=== PATIENT | female | born 1935 | race Caucasian/White ===

== ENCOUNTER → 2017-10-27 14:38 | Outpatient (CLI) | payer MEDICARE, SELFPAY | PROVIDERS: PCP Internal Medicine; Visit Provider Internal Medicine | DX: M85.852 Other specified disorders of bone density and structure, left thigh (principal) | CPT/HCPCS: 77080 ==

== ENCOUNTER → 2018-07-14 12:48 | Outpatient (CLI) | payer MEDICARE, SELFPAY ==
--- NOTE | 2018-07-14 | DI.RAD.S_ITS ---
PROCEDURE: XR KNEE LT 3V INDICATIONS: pain in left knee TECHNIQUE: 3 views of the knee were acquired. COMPARISON: [facility], RG, XR KNEES BILATERAL, 04/22/2006, 16:15. [facility], CR, KNEE 3V RIGHT, 10/08/2006, 16:03. FINDINGS: Bones: No fractures or dislocations. No suspicious bony lesions. Severe narrowing of the medial joint space. There is extensive subchondral sclerosis and osteophyte formation. Mild narrowing of the lateral joint space. Soft tissues: No joint effusion. No suspicious soft tissue calcifications. IMPRESSION: Severe left knee joint degeneration, which has progressed since 04/22/06 Dictated by: Cezar Osorio M.D. on 07/14/2018 at 14:16 Approved by: Cezar Osorio M.D. on 07/14/2018 at 14:18
== END ==
PROVIDERS: PCP Internal Medicine; Visit Provider Internal Medicine
DX: M25.562 Pain in left knee (principal); M17.12 Unilateral primary osteoarthritis, left knee
CPT/HCPCS: 73562

== ENCOUNTER → 2018-07-15 15:48 | Outpatient (REF) | payer MEDICARE, SELFPAY | LOC: LAB 15:48 | PROVIDERS: PCP Internal Medicine; Visit Provider Internal Medicine | DX: M25.562 Pain in left knee (principal) | CPT/HCPCS: 87070; 87075; 87205 ==

== ENCOUNTER 2018-08-26 16:52 | Emergency (ER) | payer OTHER, MEDICARE, SELFPAY ==
[2018-08-26 16:56] VITALS: BP 156/63; PULSE 59; RESP 20; TEMP 36.3; O2SAT 97
[2018-08-26 17:03] VITALS: BP 156/63; PULSE 59; RESP 20; TEMP 36.3; O2SAT 97
[2018-08-26 19:27] VITALS: PULSE 60
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
[2018-08-26] MEDS: TET,DIPH,PERTUSS(ACELL),VAC/PF 0.5 ML SYRINGE IM (19:48)
[2018-08-26 20:46] VITALS: BP 144/71; PULSE 56; RESP 16; O2SAT 98
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
== END 2018-08-26 21:16 | disposition home or self-care (01) ==
PROVIDERS: Emergency Provider Nurse Practitioner Family; PCP Internal Medicine
DX: S51.012A Laceration without foreign body of left elbow, initial encounter (principal); V49.9XXA Car occupant (driver) (passenger) injured in unspecified traffic accident, initial encounter; Z23 Encounter for immunization
CPT/HCPCS: 73070; 90471; 99283; 90715

== ENCOUNTER 2019-02-24 10:42 | Observation (INO) | payer MEDICARE, SELFPAY ==
--- NOTE | 2019-02-24 10:43 | DI.RAD.S_ITS ---
PROCEDURE: XR HIP W PEL IF DONE RT 2V INDICATIONS: fall with hip pain TECHNIQUE: AP pelvis with lateral view(s) of the right hip(s). COMPARISON: None. FINDINGS: Bones: No fractures or dislocations. Pelvic ring appears intact. No suspicious bony lesions. Mild bilateral hip degenerative change. Soft tissues: The visualized bowel gas pattern is normal. No suspicious soft tissue calcifications. IMPRESSION: No evidence acute bony abnormality of the pelvis and right hip. Bilateral hip degenerative change. Dictated by: Immanuel Irwin M.D. on 02/24/2019 at 11:08 Approved by: Immanuel Irwin M.D. on 02/24/2019 at 11:09
--- NOTE | 2019-02-24 10:51 | ED.LOWEXIN ---
HPI - Extremity Injury (Lower) General Chief Complaint: Fall Stated Complaint: GLF Time Seen by Provider: 02/24/19 10:43 Source: patient and family Mode of arrival: wheelchair Limitations: no limitations History of Present Illness HPI Narrative: 83-year-old female nonsmoker with diabetes and hypertension presents with the chief complaint of severe right hip pain after mechanical fall. She tripped and fell onto her right hip and now has significant pain with ambulation. She denies any head neck or back pain. She has no numbness, tingling or weakness. She denies any dizziness, chest pain or other contributing symptoms to her fall. She states she merely got her feet tangled up and tripped MD complaint: hip injury Onset (ago): day(s) Type of Injury: blunt Place: home Severity: moderate Relieving factors: rest Exacerbating factors: weight bearing and movement Context: fall Other symptoms: none Related Data Home Medications Medication Instructions Recorded Confirmed CHOLECALCIFEROL (VITAMIN D3) 1,000 units PO QDAY #0 05/02/11 02/24/19 (Vitamin D) CYANOCOBALAMIN (#VITAMIN B12) 250 mcg PO QDAY #0 05/02/11 02/24/19 furosemide [Lasix] 20 mg PO QDAY #0 05/02/11 02/24/19 lisinopril 40 mg PO QDAY #0 05/02/11 02/24/19 metformin [Glucophage] 850 mg PO BID #0 05/02/11 02/24/19 metoprolol tartrate 100 mg PO BID #0 05/02/11 02/24/19 amitriptyline 50 mg PO DAILY 02/24/19 02/24/19 amlodipine 5 mg PO DAILY 02/24/19 02/24/19 magnesium oxide 400 mg PO BID 02/24/19 02/24/19 Allergies Allergy/AdvReac Type Severity Reaction Status Date / Time oxycodone [OXYCODONE] Allergy Intermediate DIZZINESS Unverified 09/17/17 12:06 prednisone [PREDNISONE] Allergy Mild CONFUSION Unverified 09/17/17 12:06 Review of Systems Constitutional Constitutional: Denies chills, Denies fatigue, Denies fever(s), Denies frequent falls, Denies lethargy and Denies weakness Eyes Eyes: Denies change in vision, Denies eye discharge, Denies irritation and Denies loss of vision ENT Ears, Nose, Mouth, and Throat: Denies change in voice, Denies dizziness, Denies neck pain, Denies sore throat and Denies throat swelling Cardiovascular Cardiovascular: Denies chest pain, Denies irregular heart rhythm, Denies lightheadedness, Denies palpitations, Denies dyspnea, Denies dyspnea on exertion and Denies orthopnea Respiratory Respiratory: Denies cough, Denies dyspnea, Denies dyspnea on exertion and Denies wheezing Gastrointestinal Gastrointestinal: Denies abdominal pain, Denies change in bowel habits, Denies diarrhea, Denies nausea and Denies vomiting Genitourinary Genitourinary: Denies hematuria, Denies flank pain, Denies urinary incontinence and Denies urinary urgency Musculoskeletal Musculoskeletal: Denies back pain, Reports limited range of motion, Denies muscle weakness, Denies neck pain, Denies numbness and Denies tingling Integumentary/Breasts Skin/Breast: Denies pruritus, Denies erythema, Denies rash and Denies wounds Neurologic Neurologic: Denies behavioral changes, Denies confusion, Denies dizziness, Denies frequent falls, Denies loss of vision, Denies numbness, Denies tingling and Denies weakness Psychiatric Psychiatric: Denies anxiety, Denies behavioral changes, Denies confusion, Denies depression, Denies homicidal ideation and Denies suicidal ideation Endocrine Endocrine: Denies fatigue, Denies flushing and Denies palpitations Hematologic/Lymphatic Hematologic/Lymphatic: Denies easy bruising Allergic/Immunologic Allergic/Immunologic: Denies urticaria, Denies throat swelling and Denies wheezing [facility] Social History Smoking Status: Former smoker Social History Smoking Status: Former smoker Exam Narrative Exam Narrative: GENERAL: [83] year old patient appears stated age. Well-nourished, well-developed patient, in mild distress. HEAD: Atraumatic. Normocephalic. EYES: Pupils equal round and reactive. Extraocular motions intact. No scleral icterus. No injection or drainage. ENT: Nose without bleeding, purulent drainage. Throat without erythema, tonsillar hypertrophy or exudate. Airway patent. NECK: Trachea midline. Non tender CARDIOVASCULAR: Regular rate and rhythm without murmurs, gallops, or rubs. RESPIRATORY: Clear to auscultation. Breath sounds equal bilaterally. No wheezes, rales, or rhonchi. GASTROINTESTINAL: Abdomen soft, non-tender, nondistended. EXTREMITIES: No edema or joint tenderness. BACK: Nontender without deformity or crepitance. No flank tenderness. NEURO: AOx3. SKIN: No rash or erythema of visible areas Initial Vital Signs Initial Vital Signs: Vital Signs Temperature 98.1 F 02/24/19 11:23 Pulse Rate 57 L 02/24/19 11:23 Respiratory Rate 16 02/24/19 11:23 Blood Pressure 177/73 H 02/24/19 11:23 Pulse Oximetry 100 02/24/19 11:23 Course Orders Ordered: ED Orders 02/24/19 10:43 XR hip w pel if done RT 2V Stat 02/24/19 11:50 CT pelvis wo con Stat 02/24/19 15:32 Basic Metabolic Panel Stat Complete Blood Count AUTO DIFF Stat Vital Signs Vital signs: Vital Signs - 8 hr 02/24/19 11:23 02/24/19 12:00 02/24/19 15:10 Temperature 98.1 F Pulse Rate 57 L 58 L 57 L Respiratory Rate 16 15 Blood Pressure 177/73 H Blood Pressure [Right Arm] 176/60 H 170/54 H Pulse Oximetry 100 98 97 02/24/19 16:07 Temperature Pulse Rate 58 L Respiratory Rate 16 Blood Pressure Blood Pressure [Right Arm] 144/59 H Pulse Oximetry 98 MDM - Extremity Injury (Lower) Lab Data Result diagrams: 02/24/19 15:32 02/24/19 15:32 Labs: Lab Results 02/24/19 02/24/19 Range/Units 15:32 15:32 WBC 11.0 (4.5-11.0) X10^3/uL RBC 3.89 L (4.0-5.2) X10^6/uL Hgb 11.8 L (12.0-16.0) g/dL Hct 34.1 L (36-46) % MCV 87.7 (80-100) fL MCH 30.2 (26-34) PG MCHC 34.5 (30-36) % RDW 13.2 (11.6-14.8) % Plt Count 133 L (150-400) X10^3/uL Neut % (Auto) 77.5 H (50-75) % Lymph % (Auto) 9.5 L (25-40) % [place] % (Auto) 8.3 (3-14) % Eos % (Auto) 4.1 H (2-4) % Baso % (Auto) 0.6 (0-2) % Neut # (Auto) 8500 H (8946-3449) /uL Lymph # (Auto) 1000 L (8439-6045) /uL [place] # (Auto) 900 (0-900) /uL Eos # (Auto) 400 (0-450) /uL Baso # (Auto) 100 (0-100) /uL Sodium 137 (137-145) mmol/L Potassium 3.5 (3.4-5.1) mmol/L Chloride 105 (98-107) mmol/L Carbon Dioxide 23 (22-32) mmol/L BUN 21 H (7-17) mg/dL Creatinine 1.00 (0.52-1.04) mg/dL Estimated GFR 53.1 L (>60) mL/min BUN/Creatinine Ratio 21.0 (6-22) Glucose 103 (80-110) mg/dL Calcium 9.1 (8.4-10.2) mg/dL Imaging Data Hip Xray: Radiologist's impression: Accession Number: [id number] Procedure: XR hip w pel if done RT 2V Ordering Provider: Jesus Marshall D.O. PROCEDURE: XR HIP W PEL IF DONE RT 2V INDICATIONS: fall with hip pain TECHNIQUE: AP pelvis with lateral view(s) of the right hip(s). COMPARISON: None. FINDINGS: Bones: No fractures or dislocations. Pelvic ring appears intact. No suspicious bony lesions. Mild bilateral hip degenerative change. Soft tissues: The visualized bowel gas pattern is normal. No suspicious soft tissue calcifications. IMPRESSION: No evidence acute bony abnormality of the pelvis and right hip. Bilateral hip degenerative change. Dictated by: Immanuel Irwin M.D. on 02/24/2019 at 11:08 Approved by: Immanuel Irwin M.D. on 02/24/2019 at 11:09 CT scan - pelvis: Radiologist's impression: Chart Viewer Diagnostics DATE TYPE STATUS AUTHOR Hx 02/24/19 11:50 Guera Magallon 02/24/19 10:43 Immanuel Irwin 08/26/18 19:46 Miguelangel Stephenson 07/14/18 00:00 Cezar Osorio Carol A 83, F1935 ADM JOLLY, Main ED R07 63.503kg Search Chart No Data to Display NF - Not included in interaction checking DIZZINESS CONFUSION No Data to Display Today 16:07 Liz Kaba 83 F [address] [address] [address] Scan Report Signed Patient: Liz Kaba AMR#: [id number] : 1935cct:[id number] Age/Sex: 83 / FDate of Service: 02/24/19 Loc: ED Accession Number: [id number] Procedure: CT pelvis wo con Ordering Provider: Jesus Marshall D.O. PROCEDURE: CT PEL WO CON INDICATIONS: fall with hip pain TECHNIQUE: Noncontrast 3 mm axial sections acquired through the bony pelvis, with coronal and sagittal reformatting. COMPARISON: [facility], CR, XR HIP W PEL IF DONE RT 2V, 02/24/2019, 10:47. FINDINGS: Image quality: Excellent. Bones: There is a slightly comminuted, minimally displaced right inferior pubic ramal fracture. The right hip demonstrates normal alignment without fracture. There is moderate degenerative joint disease in the hips and sacroiliac joints. No fractures in the lower lumbar spine or sacrum. There is grade one anterolisthesis at L4-L5 and L5-S1. Degenerative disc and facet disease in the lower lumbar spine. Soft tissues: There is no soft tissue mass or hematoma. There are colonic diverticula. Mild atherosclerotic calcifications noted. Uterus is surgically absent. IMPRESSION: 1. Slightly comminuted right inferior pubic ramal fracture. 2. Degenerative disc and facet disease in the lumbar spine. 3. 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 Dictated by: Darrel Magallon M.D. on 02/24/2019 at 12:35 Approved by: Darrel Magallon M.D. on 02/24/2019 at 12:46 MDM Narrative Medical decision making narrative: Patient with ground level fall has significant pain with ambulation. X-ray had no significant findings but given pain with ambulation is CT was ordered which noted pubic rami fracture. She lives at home at her son's house whom works a very long hours, ambulates with a walker at baseline and has multiple steps to go up and down. She is unfit for discharge given her inability to safely ambulate Discharge Plan Departure Patient Disposition: Admitted as Observation Clinical Impression: Closed fracture of pubic ramus Admit Date/Time: 02/24/19 18:47 Admit Provider: Piper Palomares
[2019-02-24 11:23] VITALS: BP 177/73; PULSE 57; RESP 16; TEMP 36.7; O2SAT 100
--- NOTE | 2019-02-24 11:28 | PC.NURSE ---
pt has + distal CSM on right arm and right leg
--- NOTE | 2019-02-24 11:50 | DI.CT.S_ITS ---
PROCEDURE: CT PEL WO CON INDICATIONS: fall with hip pain TECHNIQUE: Noncontrast 3 mm axial sections acquired through the bony pelvis, with coronal and sagittal reformatting. COMPARISON: [facility], CR, XR HIP W PEL IF DONE RT 2V, 02/24/2019, 10:47. FINDINGS: Image quality: Excellent. Bones: There is a slightly comminuted, minimally displaced right inferior pubic ramal fracture. The right hip demonstrates normal alignment without fracture. There is moderate degenerative joint disease in the hips and sacroiliac joints. No fractures in the lower lumbar spine or sacrum. There is grade one anterolisthesis at L4-L5 and L5-S1. Degenerative disc and facet disease in the lower lumbar spine. Soft tissues: There is no soft tissue mass or hematoma. There are colonic diverticula. Mild atherosclerotic calcifications noted. Uterus is surgically absent. IMPRESSION: 1. Slightly comminuted right inferior pubic ramal fracture. 2. Degenerative disc and facet disease in the lumbar spine. 3. 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 Dictated by: Darrel Magallon M.D. on 02/24/2019 at 12:35 Approved by: Darrel Magallon M.D. on 02/24/2019 at 12:46
[2019-02-24 12:00] VITALS: BP 176/60; PULSE 58; RESP 15; O2SAT 98
[2019-02-24 15:10] VITALS: BP 170/54; PULSE 57; O2SAT 97
[2019-02-24 15:42] LABS: Add Manual Diff / Slide Review NO; Basophils Absolute Auto 100 /uL (0-100); Basophils Percent Auto 0.6 % (0-2); Eosinophils Absolute Auto 400 /uL (0-450); Eosinophils Percent Auto 4.1 % (2-4); Hematocrit 34.1 % (36-46); Hemoglobin 11.8 g/dL (12.0-16.0); Lymphocytes Absolute Auto 1000 /uL (1100-4500); Lymphocytes Percent Auto 9.5 % (25-40); Mean Corpuscular HGB Conc 34.5 % (30-36); Mean Corpuscular Hemoglobin 30.2 PG (26-34); Mean Corpuscular Volume 87.7 fL (80-100); Monocytes Absolute Auto 900 /uL (0-900); Monocytes Percent Auto 8.3 % (3-14); Neutrophils Absolute Auto 8500 /uL (1500-7000); Neutrophils Percent Auto 77.5 % (50-75); Platelet Count 133 X10^3/uL (150-400); Red Blood Cell Count 3.89 X10^6/uL (4.0-5.2); Red Cell Distribution Width 13.2 % (11.6-14.8)
[2019-02-24 16:07] VITALS: BP 144/59; PULSE 58; RESP 16; O2SAT 98
[2019-02-24 16:26] LABS: Blood Urea Nitrogen 21 mg/dL (7-17); Calcium 9.1 mg/dL (8.4-10.2); Carbon Dioxide 23 mmol/L (22-32); Chloride 105 mmol/L (98-107); Estimated Glomerular Filt Rate 53.1 mL/min (>60); Glucose 103 mg/dL (80-110); HEMOLYSIS < 15 (0-50); Potassium 3.5 mmol/L (3.4-5.1); Sodium 137 mmol/L (137-145)
[2019-02-24 19:49] VITALS: BMI 23.3
[2019-02-24 19:58] VITALS: BP 180/67; PULSE 65; RESP 20; TEMP 36.7
--- NOTE | 2019-02-24 21:11 | PC.NURSE ---
Pt arrived from ED @ 1940 Alert/oriented. States some pain in right hip from fall at home. HL intact. Pt lungs clear/diminished, at bases. SpO2 95% RA Pt and familynorineted to room and call system. Call liths w/in reach, bed alarm on for pt safety. Continue w/plan of care.
--- NOTE | 2019-02-24 21:14 | P.HP_ITS ---
History of Present Illness History of Present Illness Date Patient Seen: 02/24/19 Time Patient Seen: 21:14 Chief complaint: GLF Narrative: Ms Liz Lopez is an 83-year-old female with history significant for hypertension, diabetes type 2 and hyperthyroidism status post thyroidectomy who presents to the ER following a ground level fall with right hip pain. The patient states she was getting up at 2:00 a.m. to go to the bathroom when she stumbled and fell landing on her right side. The patient lives with her son required assistance to get back to bed. In the morning she states it was more difficult to move with increased pain with movement and more so attempts to ambulate. She further admits that it felt like neither leg worked right. She denies loss of consciousness and remembers the event. She complains of mild neck pain but no back pain. She reports coughing and chills with a sore throat for the last 2 days and states her son has been coughing as well. She reports no subjective fevers, headaches or dizziness. She denies chest pain or palpitations, shortness of breath or wheezing. She denies abdominal pain and has had no nausea. She reports no urinary symptoms and has occasional constipation. Patient is normally ambulatory with a walker at baseline and is status post right total knee replacement. Upon arrival to the ER the patient was afebrile with temperature 98.1?, hypertensive 177/73, heart rate 57, respirations 16 saturating 100% on room air. Imaging was obtained of the right hip which notifies bilateral degenerative hip disease without bony abnormality. A pelvic CT was obtained which found a slight comminuted fracture of the right inferior pubic ramus, degenerative disc disease and foraminal disease of the lumbar spine. On laboratory analysis the patient has white count of 11.0, hemoglobin 11.8 and hematocrit of 34.1 with platelets of 133. On chemistry, her electrolytes are within acceptable range with a BUN of 21 and creatinine 1.0. Her nonfasting glucose is 103. The patient is admitted to the hospital for pelvic fracture. Patient History Medical History Diabetes type 2, controlled (Acute) Hypertension (Acute) Hyperthyroidism (Acute) Surgical History History of hysterectomy (Acute) History of thyroidectomy (Acute) History of total knee arthroplasty (Acute) Social History household members: family Smoking Status: Former smoker Family & Social History Social History: household members family Prior Living Arrangements House Safety & Behavioral: Feels Safe in Current Yes Environment Been Physically Hurt or No Threatened By a Person Suicidal Ideation Description None Suicide Plan Description No Plan Tobacco & Substance use: Smoking Status Former smoker alcohol intake frequency 0-2 drinks per day Substance Use Type does not use Comment: The patient is since 1978 presently lives with her son in a single level single family home which has 2 steps at the entry. Her father was a heavy smoker and from emphysema. Her mother had stomach cancer. She has brother had cancer of the throat and 2 sisters whom she describes as in good health. Smoking: Patient never smoked Alcohol: The patient endorses a glass of wine approximately once per month. Substance use: Patient denies recreational pharmaceuticals, herbal or cannabis products. Advanced directives: Patient states she has formal advanced directives and indicates her wish to be DO NOT RESUSCITATE. She designates her son to be her surrogate decision maker. Meds Home Medications and Allergies Home Medications Medication Instructions Recorded Confirmed Type CHOLECALCIFEROL (VITAMIN D3) 1,000 units PO QDAY #0 05/02/11 02/24/19 History (Vitamin D) CYANOCOBALAMIN (#VITAMIN B12) 250 mcg PO QDAY #0 05/02/11 02/24/19 History furosemide [Lasix] 20 mg PO QDAY #0 05/02/11 02/24/19 History lisinopril 40 mg PO QDAY #0 05/02/11 02/24/19 History metformin [Glucophage] 850 mg PO BID #0 05/02/11 02/24/19 History metoprolol tartrate 100 mg PO BID #0 05/02/11 02/24/19 History amitriptyline 50 mg PO DAILY 02/24/19 02/24/19 History amlodipine 5 mg PO DAILY 02/24/19 02/24/19 History magnesium oxide 400 mg PO BID 02/24/19 02/24/19 History Allergies Allergy/AdvReac Type Severity Reaction Status Date / Time oxycodone [OXYCODONE] Allergy Intermediate DIZZINESS Unverified 09/17/17 12:06 prednisone [PREDNISONE] Allergy Mild CONFUSION Unverified 09/17/17 12:06 Review of Systems Review of Systems ROS Unobtainable: All systems reviewed & are unremarkable except as noted in HPI and below Exam Vital Signs (past 8 hours): - 02/24/19 16:07 02/24/19 19:58 Temperature 98.1 F Pulse Rate 58 L 65 Respiratory Rate 16 20 Blood Pressure 180/67 H Blood Pressure [Right Arm] 144/59 H Pulse Oximetry 98 Oxygen Delivery Method Room Air Narrative Exam Narrative: GENERAL APPEARANCE: well developed, well nourished, lying supine in bed in no acute distress. HEENT: Normocephalic, atraumatic, PERRLA, conjunctiva clear, EOMs intact without nystagmus, no sinus tenderness to percussion, no rhinorrhea, mucous membranes are moist and pink without lesions or exudate. NECK/THYROID: neck supple, no JVD, no carotid bruit, trachea midline. LYMPH NODES: no cervical or supraclavicular lymphadenopathy. SKIN: warm and dry, no suspicious lesions, no rashes, good turgor. HEART: regular rate and rhythm, S1-S2, no murmur, no rubs or gallops, brisk capillary refill, no edema LUNGS: Central coarseness, no crackles or wheezing, non productive cough pres ent CHEST: Symmetrical movement, no accessory muscle use, no pain to AP and lateral compression. ABDOMEN: Soft, no distention, no epigastric or abdominal tenderness on palpation, no guarding or peritoneal signs, no organomegaly, no flank or suprapubic tenderness, active bowel tones. BACK: nontender to palpation EXTREMITIES: Contusion right lateral elbow extending proximal and distal to the joint without crepitus or loss of movement, panel on palpation anterior lateral right hip, pain with movement, distal CMS intact NEUROLOGIC: AAO x4, no focal neurologic deficits, sensory exam intact to light touch, hearing grossly normal to speech. PSYCH: alert, cognitive function intact, good eye contact, appropriate with stable behavior Objective Labs Result Diagrams: 02/24/19 15:32 02/24/19 15:32 Labs: Laboratory Results - last 24 hr 02/24/19 02/24/19 02/24/19 15:32 15:32 15:32 WBC 11.0 RBC 3.89 L Hgb 11.8 L Hct 34.1 L MCV 87.7 MCH 30.2 MCHC 34.5 RDW 13.2 Plt Count 133 L Neut % (Auto) 77.5 H Lymph % (Auto) 9.5 L [place] % (Auto) 8.3 Eos % (Auto) 4.1 H Baso % (Auto) 0.6 Neut # (Auto) 8500 H Lymph # (Auto) 1000 L [place] # (Auto) 900 Eos # (Auto) 400 Baso # (Auto) 100 Sodium 137 Potassium 3.5 Chloride 105 Carbon Dioxide 23 BUN 21 H Creatinine 1.00 Estimated GFR 53.1 L BUN/Creatinine Ratio 21.0 Glucose 103 Calcium 9.1 Magnesium 1.1 L Chlamy pneumoniae PCR Adenovirus (PCR) B.parapertussis DNA PCR Coronavirus OC43 (PCR) Coronavirus HKU1 (PCR) Coronavirus 229E (PCR) Coronavirus NL63 (PCR) Human Metapneumovir PCR Influenza Type A (PCR) Influenza Type B (PCR) M. pneumoniae (PCR) Parainfluenza 1 (PCR) Parainfluenza 2 (PCR) Parainfluenza 3 (PCR) Parainfluenza 4 (PCR) RSV (PCR) Entero/Rhino (PCR) 02/24/19 22:25 WBC RBC Hgb Hct MCV MCH MCHC RDW Plt Count Neut % (Auto) Lymph % (Auto) [place] % (Auto) Eos % (Auto) Baso % (Auto) Neut # (Auto) Lymph # (Auto) [place] # (Auto) Eos # (Auto) Baso # (Auto) Sodium Potassium Chloride Carbon Dioxide BUN Creatinine Estimated GFR BUN/Creatinine Ratio Glucose Calcium Magnesium Chlamy pneumoniae PCR Not detected Adenovirus (PCR) Not detected B.parapertussis DNA PCR Not detected Coronavirus OC43 (PCR) Not detected Coronavirus HKU1 (PCR) Not detected Coronavirus 229E (PCR) Not detected Coronavirus NL63 (PCR) Not detected Human Metapneumovir PCR Not detected Influenza Type A (PCR) Not detected Influenza Type B (PCR) Not detected M. pneumoniae (PCR) Not detected Parainfluenza 1 (PCR) Not detected Parainfluenza 2 (PCR) Not detected Parainfluenza 3 (PCR) Not detected Parainfluenza 4 (PCR) Not detected RSV (PCR) Not detected Entero/Rhino (PCR) Detected H Assessment & Plan Assessment & Plan narrative: This is an 83-year-old female patient who sustained a ground level fall and sustaining a fracture of the inferior pubic rami. 1. Acute fracture of the inferior pelvic rami, pathologic, present on admission, active -the patient is stained ground level fall resulting in a pelvic fracture with a comminuted inferior pelvic rami consistent with osteoporosis. -the patient resides with her son who is a part-time caregiver infarcts a full- time job. -she is ambulatory with a walker at baseline and is unable to mobilize due to pain. -Tylenol 650 mg schedule 3 times daily. -patient allergic to oxycodone, hydromorphone 0.5 mg IV as needed for pain. -PT and OT to evaluate and treat 2. Osteoporosis, unknown if acute or chronic, present on admission, active. -patient with osteoporosis by definition of fracture from ground level fall. -will increase patient's home regimen of vitamin D3 2000 mg daily -calcium 600 mg twice daily with dietary consult to achieve calcium 1200 mg daily from diet and supplements sources. 3. Essential Hypertension, chronic, present on admission, active -blood pressure on admission is 177/73 improved to 139/64 on the floor. -continue patient's home regimen of amlodipine 5 mg daily, lisinopril 40 mg daily, metoprolol tartrate 100 mg twice daily and Lasix 20 mg daily. 4. Diabetes, type 2, non insulin dependent, controlled, present on admission, stable -the patient has been taking metformin 850 mg twice daily. Last hemoglobin A1c was 6.6 on 10/20/2017. -Accu-Cheks AC and HS with correctional insulin low scale. 5. Acute Rhinoviris, present on admission, active -the patient is afebrile, coarse breath sounds centrally with nonproductive moist cough. -respiratory panel obtained showing positive for rhino virus -guaifenesin 600 mg every 12 hours as needed for cough. The patient is admitted to the hospital due to self-care deficits secondary to pain related to her pelvic fracture, risk for recurrent falls and adverse events. The patient is admitted observation status with expected length of stay to be less than 2 midnights. Quality VTE Deep Vein Thrombosis/Pulmonary Embolism Present on Admission: No
[2019-02-24 22:10] LABS: Magnesium 1.1 mg/dL (1.6-2.3)
[2019-02-24 23:40] VITALS: O2SAT 92
[2019-02-24 23:44] LABS: Adenovirus Not Detected (Not Detect); Bordetella pertussis Not Detected (Not Detect); Chlamydophila pneumoniae Not Detected (Not Detect); Coronavirus 229E Not Detected (Not Detect); Coronavirus HKU1 Not Detected (Not Detect); Coronavirus NL 63 Not Detected (Not Detect); Coronavirus OC43 Not Detected (Not Detect); Human Metapneumovirus Not Detected (Not Detect); Human Rhinovirus/Enterovirus Detected (Not Detect); Influenza A Not Detected (Not Detect); Influenza B Not Detected (Not Detect); Parainfluenza Virus 1 Not Detected (Not Detect); Parainfluenza Virus 2 Not Detected (Not Detect); Parainfluenza Virus 3 Not Detected (Not Detect); Parainfluenza Virus 4 Not Detected (Not Detect); Respiratory Syncytial Virus Not Detected (Not Detect)
[2019-02-24 23:45] LABS: Mycoplasma pneumoniae Not Detected (Not Detect)
[2019-02-24] MEDS: ACETAMINOPHEN 325 MG TABLET 650 MG PO (23:50)
[2019-02-25] VITALS (10 sets, daily range): BP systolic 124–148; BP diastolic 50–65; PULSE 49–62; RESP 14–16; TEMP 36.1–37; O2SAT 91–95; BMI 23.3
[2019-02-25] MEDS: MAGNESIUM SULFATE 2 GM/50 ML PIGGYBACK IV (00:22)
[2019-02-25 04:42] LABS: RBC Urine None Seen (0-5/HPF)
[2019-02-25 04:43] LABS: Bilirubin Urine UA NEGATIVE (NEGATIVE); Color Urine UA YELLOW; Glucose Urine UA NEGATIVE (Negative); Ketones Urine UA 1+ (NEGATIVE); Leukocyte Esterase Urine UA TRACE (NEGATIVE); Nitrite Urine UA POSITIVE (Negative); Occult Blood Urine UA TRACE-INTACT (Negative); Protein Urine UA TRACE (Negative); Specific Gravity Urine UA 1.015 (1.000-1.035); Urobilinogen Urine UA 0.2 E.U./dL (0.2)
[2019-02-25 04:50] LABS: Appearance Urine UA SL CLOUDY
[2019-02-25 04:55] LABS: Bacteria Urine Many (>30); Culture Indicated Urine Specimen Cultured; Squamous Epithelial Cell Urine 1-5 /HPF (0-5/HPF); WBC Urine 5-10/HPF (0-5/HPF)
[2019-02-25] MEDS: ACETAMINOPHEN 325 MG TABLET 650 MG PO ×4 (06:20→23:45)
[2019-02-25 06:31] LABS: Add Manual Diff / Slide Review NO; Basophils Absolute Auto 100 /uL (0-100); Basophils Percent Auto 0.7 % (0-2); Eosinophils Absolute Auto 600 /uL (0-450); Eosinophils Percent Auto 6.9 % (2-4); Hemoglobin 11.2 g/dL (12.0-16.0); Lymphocytes Absolute Auto 1200 /uL (1100-4500); Mean Corpuscular Hemoglobin 31.4 PG (26-34); Mean Corpuscular Volume 87.2 fL (80-100); Monocytes Absolute Auto 800 /uL (0-900); Monocytes Percent Auto 9.5 % (3-14); Neutrophils Absolute Auto 5800 /uL (1500-7000); Neutrophils Percent Auto 68.9 % (50-75); Platelet Count 130 X10^3/uL (150-400); Red Blood Cell Count 3.56 X10^6/uL (4.0-5.2); Red Cell Distribution Width 13.5 % (11.6-14.8); White Blood Cell Count 8.4 X10^3/uL (4.5-11.0)
[2019-02-25 06:41] LABS: Blood Urea Nitrogen 20 mg/dL (7-17); Carbon Dioxide 23 mmol/L (22-32); Chloride 104 mmol/L (98-107); Estimated Glomerular Filt Rate 53.1 mL/min (>60); Glucose 91 mg/dL (80-110); HEMOLYSIS < 15 (0-50); Potassium 3.4 mmol/L (3.4-5.1); Sodium 138 mmol/L (137-145)
[2019-02-25 06:53] LABS: Magnesium 2.1 mg/dL (1.6-2.3)
[2019-02-25] MEDS: DOCUSATE 100 MG CAPSULE PO (10:07)
[2019-02-25] MEDS: CALCIUM CARBONATE 600 MG TABLET PO ×2 (10:07→20:34)
[2019-02-25] MEDS: LISINOPRIL 20 MG TABLET 40 MG PO (10:07)
[2019-02-25] MEDS: AMITRIPTYLINE 25 MG TABLET 50 MG PO (10:07)
[2019-02-25] MEDS: CHOLECALCIFEROL (VITAMIN D3) 1,000 UNIT TABLET 2000 UNIT PO (10:08)
[2019-02-25] MEDS: FUROSEMIDE 20 MG TABLET PO (10:08)
[2019-02-25] MEDS: METOPROLOL IR 50 MG TABLET 100 MG PO ×2 (10:08→20:33)
[2019-02-25] MEDS: AMLODIPINE 5 MG TABLET PO (10:08)
[2019-02-25] MEDS: HEPARIN 5,000 UNIT/ML VIAL 5000 UNIT SUBCUT ×2 (10:09→20:34)
[2019-02-25] MEDS: CYANOCOBALAMIN (VITAMIN B-12) 500 MCG TABLET 250 MCG PO (10:09)
[2019-02-25] MEDS: MAGNESIUM OXIDE 400 MG TABLET PO ×2 (10:09→20:34)
[2019-02-25] MEDS: INSULIN ASPART 100 UNIT/ML INSULN PEN SUBCUT (12:14)
--- NOTE | 2019-02-25 15:25 | OT.IP.TRT ---
Occupational Therapy Treatment Note M3 OT- IP Subjective and Pain Start: 02/25/19 11:05 Freq: Status: Active Protocol: Document 02/25/19 15:25 PJM (Rec: 02/25/19 15:30 PJM [id number]) OT- Subjective Occupational Therapy Visit Type Type Administrative Note Visit Start Time 15:25 Notes OT referral received. Unable to progress with evaluation at this time as weight bearing status still to be determined. Dr Palomares notified. Will await weight bearing orders.
--- NOTE | 2019-02-25 15:56 | PT-IP ANOTE ---
PT order received. Pt has activity order ambulate as tolerated, but weightbearing status has not yet been clarified. PT and OT notified Dr. Palomares who is seeking clarification. PT will follow up on 02/26/19.
--- NOTE | 2019-02-25 16:14 | CM.IDA ---
Discharge Planning/Care Management Advanced directive, confirm from FAMILY Start: 02/24/19 19:57 Freq: Q24H Status: Active Protocol: Document 02/24/19 21:10 KMD (Rec: 02/24/19 21:10 KMD [id number]) Advance Directive, confirm on record Time 21:10 Person contacted Family Copy received No CM Discharge Assessment Start: 02/25/19 16:09 Freq: Status: Active Protocol: Document 02/25/19 16:09 BRIAN (Rec: 02/25/19 16:14 BRIAN [id number]) Discharge Planning Assessment Assigned Apartment Leasing Agent JOSHUA Lee DPOA/Assigned Designee Name karin Bejarano Contact Information [phone] Advance Directives? Yes Advance Directives on File No History Provided By Family Member Prior Living Arrangements House Household Members family Type of transporation used prior to Drives own vehicle admit Independent with ADL's Yes Is patient alert and oriented? Yes Patient/Family Preference Home with Home Health Barriers to Discharge Yes Comment 83 yo GLF now w/ fx, observation status. Spoke w/ son Luke who explained pt is typically indp at baseline, drives, uses [facility] when needed. Pt/family do not have the funding to pay privately for respite SNF stay, son works long days. Discussed DCP; likely back home after another 24-48 hrs if pt able to stand /pivot on her own, w/ HH, no agency prefeence at this time. Further assessment w/pt Friday . Son picking up DME Friday from [employer]. Discharge Plan Home with Home Health Transportation Arrangement family Referrals Initiated Home Health Additional Comment Home health referral pending Review Status In Process
--- NOTE | 2019-02-25 16:57 | PM.PN.1 ---
Subjective Subjective Date Patient Seen: 02/25/19 Interval history: The patient is an 83-year-old female who suffered a pubic ramus fracture following a fall. She was up with physical therapy today and had significant pain. She is unable to pivot to get to the bathroom. She lives at home with her son who was at work 12 hours per day. There is concern regarding her ability for self-care at home. Patient reports her pain is minimally present when lying in bed. Her pain is worse with full weight-bearing and or movement in the bed. Exam Vital Signs (past 8 hours): - 02/25/19 09:17 02/25/19 10:07 02/25/19 13:00 Temperature 97.2 F L 97.9 F Pulse Rate 55 L 59 L Respiratory Rate 15 15 Blood Pressure 140/50 L 140/50 L 148/59 H Pulse Oximetry 95 92 Oxygen Delivery Method Nasal Cannula Oxygen Flow Rate 0 Narrative Exam Narrative: Elderly female lying in bed Lungs: Clear to auscultation Cardiac exam: Regular rate rhythm normal S1-S2 with a 2/6 systolic ejection murmur Abdomen: Soft nontender nondistended Extremities: No edema Objective Labs Result Diagrams: 02/25/19 05:40 02/25/19 05:40 Labs: Laboratory Results - last 24 hr 02/24/19 02/24/19 02/25/19 15:32 22:25 04:40 WBC RBC Hgb Hct MCV MCH MCHC RDW Plt Count Neut % (Auto) Lymph % (Auto) [place] % (Auto) Eos % (Auto) Baso % (Auto) Neut # (Auto) Lymph # (Auto) [place] # (Auto) Eos # (Auto) Baso # (Auto) Sodium Potassium Chloride Carbon Dioxide BUN Creatinine Estimated GFR BUN/Creatinine Ratio Glucose Calcium Magnesium 1.1 L Urine Color Yellow Urine Appearance Sl cloudy Urine pH 5.0 Ur Specific [place] 1.015 Urine Protein Trace H Urine Glucose (UA) Negative Urine Ketones 1+ H Urine Occult Blood Trace-intact Urine Nitrate Positive Urine Bilirubin Negative Urine Urobilinogen 0.2 Ur Leukocyte Esterase Trace H Urine RBC None seen Urine WBC 5-10/hpf H Ur Squamous Epith Cells 1-5 /hpf Urine Bacteria Many (>30) H Ur Culture Indicated? Specimen cultured Chlamy pneumoniae PCR Not detected Adenovirus (PCR) Not detected B.parapertussis DNA PCR Not detected Coronavirus OC43 (PCR) Not detected Coronavirus HKU1 (PCR) Not detected Coronavirus 229E (PCR) Not detected Coronavirus NL63 (PCR) Not detected Human Metapneumovir PCR Not detected Influenza Type A (PCR) Not detected Influenza Type B (PCR) Not detected M. pneumoniae (PCR) Not detected Parainfluenza 1 (PCR) Not detected Parainfluenza 2 (PCR) Not detected Parainfluenza 3 (PCR) Not detected Parainfluenza 4 (PCR) Not detected RSV (PCR) Not detected Entero/Rhino (PCR) Detected H 02/25/19 02/25/19 02/25/19 05:40 05:40 05:40 WBC 8.4 RBC 3.56 L Hgb 11.2 L Hct 31.0 L MCV 87.2 MCH 31.4 MCHC 36.0 RDW 13.5 Plt Count 130 L Neut % (Auto) 68.9 Lymph % (Auto) 14.0 L [place] % (Auto) 9.5 Eos % (Auto) 6.9 H Baso % (Auto) 0.7 Neut # (Auto) 5800 Lymph # (Auto) 1200 [place] # (Auto) 800 Eos # (Auto) 600 H Baso # (Auto) 100 Sodium 138 Potassium 3.4 Chloride 104 Carbon Dioxide 23 BUN 20 H Creatinine 1.00 Estimated GFR 53.1 L BUN/Creatinine Ratio 20.0 Glucose 91 Calcium 9.0 Magnesium 2.1 Urine Color Urine Appearance Urine pH Ur Specific [place] Urine Protein Urine Glucose (UA) Urine Ketones Urine Occult Blood Urine Nitrate Urine Bilirubin Urine Urobilinogen Ur Leukocyte Esterase Urine RBC Urine WBC Ur Squamous Epith Cells Urine Bacteria Ur Culture Indicated? Chlamy pneumoniae PCR Adenovirus (PCR) B.parapertussis DNA PCR Coronavirus OC43 (PCR) Coronavirus HKU1 (PCR) Coronavirus 229E (PCR) Coronavirus NL63 (PCR) Human Metapneumovir PCR Influenza Type A (PCR) Influenza Type B (PCR) M. pneumoniae (PCR) Parainfluenza 1 (PCR) Parainfluenza 2 (PCR) Parainfluenza 3 (PCR) Parainfluenza 4 (PCR) RSV (PCR) Entero/Rhino (PCR) Assessment & Plan Assessment & Plan narrative: Impression 1. Nontraumatic injury, resulting in an inferior pubic ramus fracture. Most likely related to underlying osteoporosis. Patient still has difficulty with mobilization. She is weight-bearing as tolerated. Will continue PT and OT until she can return home. 2. Hypertension, present on admission will continue home medication 3. Type 2 diabetes metformin on hold continue Bolus insulin 4. Rhino virus, symptomatic relief The patient continues to meet observation status. Will continue with therapy in the hospital until she can be independent at home. Quality VTE Deep Vein Thrombosis/Pulmonary Embolism Present on Admission: No
[2019-02-26] VITALS (9 sets, daily range): BP systolic 118–157; BP diastolic 50–103; PULSE 52–64; RESP 16–18; TEMP 36.1–36.8; O2SAT 91–93
[2019-02-26] MEDS: ACETAMINOPHEN 325 MG TABLET 650 MG PO ×2 (06:28→17:54)
[2019-02-26] MEDS: FUROSEMIDE 20 MG TABLET PO (10:18)
[2019-02-26] MEDS: METOPROLOL IR 50 MG TABLET 100 MG PO ×2 (10:19→21:00)
[2019-02-26] MEDS: HEPARIN 5,000 UNIT/ML VIAL 5000 UNIT SUBCUT ×2 (10:19→21:00)
[2019-02-26] MEDS: AMLODIPINE 5 MG TABLET PO (10:19)
--- NOTE | 2019-02-26 10:21 | PT.IPTN ---
Physical Therapy Treatment Note M2 PT-IP Current Condition Start: 02/25/19 08:59 Freq: NEEDED Status: Active Protocol: Document 02/26/19 10:21 AB (Rec: 02/26/19 15:07 AB [id number]) Physical Therapy Current Condition Current Condition Evaluation Date 02/26/19 Treatment Diagnosis inferior pelvic rami fx s/p fall; difficulty in walking Onset Date 02/24/19 Weight Bearing Status Weight Bearing Status Weight Bear as Tolerated M3 PT-IP Subjective Start: 02/25/19 08:59 Freq: NEEDED Status: Active Protocol: Document 02/26/19 10:21 AB (Rec: 02/26/19 15:07 AB [id number]) Subjective Physical Therapy Visit Type Type Initial Evaluation Visit Start Time 10:21 Visit Stop Time 11:08 Total Visit Minutes 47 Number of DATA COMMUNICATIONS ENGINEER Visits 0 Physical Therapy Visit Comments Patient Comments pt agreeable to do PT Patient Goals to go home Therapy Pain Assessment Pain Present Pain Present Denied Pain M4 PT-IP Mobility and Gait Start: 02/25/19 08:59 Freq: NEEDED Status: Active Protocol: Document 02/26/19 10:21 AB (Rec: 02/26/19 15:07 AB [id number]) PT-Bed Mobility Assessment Supine to Sit Supine to Sit Standby Assistance PT-Transfer Assessment Sit to and From Stand Sit to and from Stand Moderate Assistance,1 Person Assistance,Use of Upper Extremities Equipment Transfer Assistive Device Gait Belt,Front Wheeled Walker Orthotic/Prosthetic Devices or Brace: No Transfers Transfer Destination Toilet Transfer Technique ambulated using FWW Transfer Ability Level of Assist Moderate Assistance,1 Person Assistance,Use of Upper Extremities Gait Assessment Gait Gait Assistance Required: Moderate Assistance Distance (Feet) 10 Able to Maintain Weight Bearing Status Yes During Gait Assistive Devices Assistive Device Gait Belt,Front Wheeled Walker Orthotic/Prosthetic Devices or Brace: No Gait Deviations General Gait Pattern Antalgic,Decreased Stride Length,Decreased Feet Clearance,Step-to Gait Factors Limiting Gait Function Factors Limiting Gait Function Decreased Activity Tolerance, Decreased Strength,Limited Range of Motion,Poor Balance, Poor Safety Awareness PT-Balance Assessment Sitting Balance and Reactions Static Sitting Balance Ability Good Dynamic Sitting Balance Ability Good Standing Balance and Reactions Static Standing Balance Ability Fair Dynamic Standing Balance Ability Fair Device Used FWW M5 PT-IP Objective Assessments Start: 02/25/19 08:59 Freq: NEEDED Status: Active Protocol: Document 02/26/19 10:21 AB (Rec: 02/26/19 15:07 AB [id number]) Orientation Orientation/Cognition Level of Alertness Alert Orientation Name,Age,Birthday,Month,Date, Year,Day of Week,Place, Situation Language Function Ability Hard of Hearing Gross Range of Motion Lower Extremity ROM Assessment Within Functional Limits Strength Lower Extremity Strength Assessment Right Impaired Hip 3+/5 Knee 3+/5 Coordination Assessment Gross Coordination Gross Coordination WNL Sensation Assessment Sensation Gross Sensation WNL Muscle Tone Muscle Tone WNL Yes M6 PT-IP Treatment Start: 02/25/19 08:59 Freq: NEEDED Status: Active Protocol: Document 02/26/19 10:21 AB (Rec: 02/26/19 15:07 AB [id number]) Physical Therapy Treatment Education Education Provided Precautions,Weight Bearing Status,Safety M7 PT-IP Assessment and Plan Start: 02/25/19 08:59 Freq: NEEDED Status: Active Protocol: Document 02/26/19 10:21 AB (Rec: 02/26/19 15:07 [id number]) PT Summary Assessment and Plan Potential Rehabilitation Potential Good Status of Condition at Evaluation Evolving Summary Impairments Pain,ROM,Strength,Balance, Coordination,Sensation,Tone, Cognition,Bed Mobility, Transfers,Gait,Activity Tolerance Assessment Summary pt requiring mod A with mobility and requires increase time to complete tasks. pt lives with her son but stated that her son works long hours and will be by herself most of the time. will continue to assess progress for safe d/c plan. nurse stated that pt's son has gotten pt's all equipement needs: FWW, w/c, bedside commode. Goals Bed Mobility Goal Independent Transfer Goal Independent,Front Wheeled Walker Gait Goal Independent,Front Wheel Walker Gait Distance 150 Other Goals up/down 2 steps using L rail and R handle SBA Days to Meet Goals 5 Frequency of Treatment Frequency Of Treatment Twice a Day Treatment Plan Physical Therapy Treatment Plan Bed Mobility Training,Transfer Training,Gait Training, Therapeutic Exercise,Balance Retraining,Discharge Planning, Hot or Cold Pack,Neuromuscular Re-ed,Coordination Retraining ,Manual Therapy Other Recommendations and Next Treatment bed mobility, transfers, Focus ambulation training Recommendations To Nursing Amount of Assist Needed 1 Person Assist Discharge Recommendations PT Discharge Recommendations Home with Assistance,Home Health,SNF Rehab Other Discharge Recommendations depending on progress: SNF vs home with assist/HHPT Equipment Needed for Home Before FWW Discharge
[2019-02-26] MEDS: LISINOPRIL 20 MG TABLET 40 MG PO (10:24)
--- NOTE | 2019-02-26 15:40 | CM.DPNOTE ---
DCP Cont: Spoke w/ RN Ofe this morning, she explained that pt's son still concerned about observation status and pt coming home but pt is A+O and feeling much better today about DC home, possibly tomorrow or Friday, home w/ DME already secured by son and in home, and pt agreeable to Home health, no agency preference. Pt able to get up to BR today, requires assist bit doing much better than day of admission. P: DC expected this weekend, home w/ son via pov and Home health. This [employer] unable to speak w/pt today to review DCP and discuss Home health options, [employer] team following and will review w/pt Friday before DC. JOSHUA Shin
--- NOTE | 2019-02-26 15:51 | PC.NURSE ---
Pt is A&O x4, pleasant, talkative and cooperative and is able to make needs known when nec. Patient is up to chair now, SCD's palced back on. Patient denies pain at this time. Call light w/ in reach, patient states understanding to call w/ needs.
--- NOTE | 2019-02-26 15:56 | OT.IP.EVAL ---
Past Medical History (Last Reviewed 02/25/19 @ 00:13 by PARMJIT Montano) Diabetes type 2, controlled (Acute) Hypertension (Acute) Hyperthyroidism (Acute) Surgical History (Last Reviewed 02/25/19 @ 00:13 by PARMJIT Montano) History of hysterectomy (Acute) History of thyroidectomy (Acute) History of total knee arthroplasty (Acute) Occupational Therapy Inpatient Evaluation/Re-Eval M1 PT/OT-IP Prior Functional Status Start: 02/25/19 08:59 Freq: NEEDED Status: Active Protocol: Document 02/26/19 15:09 [facility] (Rec: 02/26/19 15:56 [facility] [id number]) Medical Review Prior Functional Status Medical History Reviewed Yes Communication able to make needs known Mobility and Gait pt stated that she is independent with all mobilities and ambulation without AD but occasionally uses a SPC Activities of Daily Living and IADL's Pt states able to do all ADL and basic IADl needs. Social History Household Members family Living Arrangements House Number of Floors (Floors) One Floor Number of Stairs To Enter/Railing? 2 steps to enter with L rail ascending and a R handle by the door Home Environment Standard Height Toilet,Tub/ Shower Home Equipment Front Wheel Walker,Manual Wheelchair,Bedside Commode, Shower Seat with Backrest Additional Social History Comment lives with son but son works from 130 to 1030 per pt. stated that her son already got her a FWW. M2 OT-IP Current Condition Start: 02/25/19 11:05 Freq: Status: Active Protocol: Document 02/26/19 15:09 [facility] (Rec: 02/26/19 15:56 [facility] [id number]) Occupational Therapy Current Condition Current Condition Evaluation Date 02/26/19 Treatment Diagnosis Right pubic ramus fx due to fall. Weight Bearing Status Weight Bearing Status Weight Bear as Tolerated M3 OT- IP Subjective and Pain Start: 02/25/19 11:05 Freq: Status: Active Protocol: Document 02/26/19 15:09 [facility] (Rec: 02/26/19 15:56 [facility] [id number]) OT- Subjective Occupational Therapy Visit Type Type Initial Evaluation Visit Start Time 13:50 Visit Stop Time 14:30 Total Visit Minutes 40 Occupational Therapy Visit Comments Patient Comments Pt initially not wanting to get up from the recliner and states too tired. Son initially present and able to get all equipment from the [employer] and then leaving when his mother insisted that she was not going to get up for therapy. After encouragement , pt willing to get up. Patient/Caregiver Goals To go home. OT Pain Assessment Pain When Pain Assessed At Rest Pain Present Pain Present Denied Pain M4 OT- IP ADL's Start: 02/25/19 11:05 Freq: Status: Active Protocol: Document 02/26/19 15:09 [facility] (Rec: 02/26/19 15:56 [facility] [id number]) OT ADL-Grooming Comments OT Grooming Comments Pt states already completed earlier. OT ADL-Dressing General Eval Lower Body Dressing Ability Standby Assistance Comments OT Dressing Comments While sitting pt able to cros her legs over and reach down to rona/doff socks. Pt states has all lower body dressing equipment as well to assist for needs. Recommended that pt wear gown at home to increase independence and ease for toileting. Pt states prior wears incontinent briefs . In addition educated pt to make sure to have all items close by especially for toileting needs. OT ADL-Toileting General Evaluation Toileting Ability Standby Assistance Comments OT Toileting Comments VC to continue to wipe for completeness with use of wipes . OT ADL-Bathing Comments OT Bathing Comments Pt states too tired and to attempt to shower tomorrow. Pt states will just sponge off and make sure to have assist to get into the tub/shower. Pt may benefit from tub bench versus shower chair pending if able to step over the edge of the tub. M5 OT- IP IADL's Start: 02/25/19 11:05 Freq: Status: Active Protocol: Document 02/26/19 15:09 [facility] (Rec: 02/26/19 15:56 [facility] [id number]) OT-Instrumental Activities of Daily Living Home Safety Awareness Ability to Problem Solve Emergency Able to Problem Solve Situations Home Safety Comments Pt able to answer all home safety questions correctly. Reuse Technician Reuse Technician Comments SOn to assist. M6 OT- IP Functional Cognition Start: 02/25/19 11:05 Freq: Status: Active Protocol: Document 02/26/19 15:09 [facility] (Rec: 02/26/19 15:56 [facility] [id number]) Cognitive Factors Limiting Selfcare Function Cognitive Ability Level of Alertness Alert Patient Orientation Name,Place,Situation Attention Span Ability Capable of Focused Attention, Capable of Sustained Attention Ability to Follow Commands Able to Follow Multi-Step Commands Memory Description No Deficits Noted Problem Solving Ability Needs Assist to Identify Solutions Cognitive Comments Cognitive Assessment Comments Pt able to follow multiple commands. Mainly needing assist for problem solving for safety for use of adaptive equipment and figure out the safest way to transfer or get to the bathroom/BSC. OT- Vision and Hearing OT- Hearing Assessment OT- Hearing Assessment WFL OT- Vision Assessment Vision Assessment Comments Glasses for distance. M7 OT- IP Mobility and Balance Start: 02/25/19 11:05 Freq: Status: Active Protocol: Document 02/26/19 15:09 [facility] (Rec: 02/26/19 15:56 [facility] [id number]) OT-Transfer Assessment Sit to and From Stand Sit to and from Stand Standby Assistance Transfers Transfer Ability Standby Assistance,Contact Guard Assistance Technique Transfer Destination Bed,Bedside Commode,Chair Transfer Technique Stand Step Pivot Devices Transfer Assistive Devices None,Gait Belt,Front Wheeled Walker Comments Mobility Comments Trial on placing BSC to the left of the recliner to see if able able to independently transfer. Pt needing reminders to use arms to push up from the armrests of the recliner and reach over to the armrests of the bsc to transfer over with close SBA. Trial of FWW to get from BSC to bed CGA to close SBA as a bit unsteady. At this time would be safer at home to mobilize in a wc and transfer to BSC or chair. OT- Balance Assessment Sitting Balance and Reactions Static Sitting Balance Ability Normal Dynamic Sitting Balance Ability Normal Standing Balance and Reactions Static Standing Balance Ability Fair M8 OT- IP Objective Assessments Start: 02/25/19 11:05 Freq: Status: Active Protocol: Document 02/26/19 15:09 [facility] (Rec: 02/26/19 15:56 [facility] [id number]) OT Gross Range of Motion Upper Extremity Range of Motion Assessment Within Functional Limits OT Strength Comments Strength Comments BUE 4/5 OT-Muscle Tone Assessment Muscle Tone WNL Yes M9 OT- IP Assessment and Plan Start: 02/25/19 11:05 Freq: Status: Active Protocol: Document 02/26/19 15:09 [facility] (Rec: 02/26/19 15:56 [facility] [id number]) OT Summary Assessment and Plan Potential Rehabilitation Potential Good Analytic Complexity at Evaluation Low Summary OT Impairments Balance,Dressing,Toileting, Bathing,Toilet Transfers, Shower Transfers Progress Towards Goals Progressing Toward Goals Assessment Summary Pt low complexity and main barrier decreased activity tolerance due to pain and not able to take more than a few steps with FWW. Pt also has two steps in order to get into her house. Pt will continue to benefit from continued OT sessions to work on independence and safety for ADL needs, and most efficient way to be independent for basic needs of dressing, toileting, and how to get her meals when her son in not home. Pt would benefit from short skilled rehab but not covered by insurance therefore recommend home with assist and home health. Goals Dressing Goal Independent Toileting Goal Independent Bathing Goal Contact Guard Assistance Toilet Transfer Goal Independent Shower Transfer Goal Minimal Assistance Patient/Caregiver Education Goal Caregiver Independent Assisting Patient Days to Meet Goals 5 Frequency of Treatment Frequency Of Treatment Once a Day Treatment Plan OT Treatment Plan ADL Training,Functional Mobility,Patient/Family Education,Discharge Planning Other Treatment Recommendations and Next Shower. Treatment Focus Discharge Recommendations OT Discharge Recommendations Home with Assistance,Home Health,SNF Rehab Home Equipment Needs tub bench
--- NOTE | 2019-02-26 16:52 | PT.IPTN ---
Physical Therapy Treatment Note M2 PT-IP Current Condition Start: 02/25/19 08:59 Freq: NEEDED Status: Active Protocol: Document 02/26/19 10:21 AB (Rec: 02/26/19 15:07 AB [id number]) Physical Therapy Current Condition Current Condition Evaluation Date 02/26/19 Treatment Diagnosis inferior pelvic rami fx s/p fall; difficulty in walking Onset Date 02/24/19 Weight Bearing Status Weight Bearing Status Weight Bear as Tolerated M3 PT-IP Subjective Start: 02/25/19 08:59 Freq: NEEDED Status: Active Protocol: Document 02/26/19 16:52 AB (Rec: 02/26/19 18:26 AB [id number]) Subjective Physical Therapy Visit Type Type Treatment Note Visit Start Time 16:52 Visit Stop Time 17:35 Total Visit Minutes 43 Number of WEIGHT LOSS PHYSICIAN Visits 0 Physical Therapy Visit Comments Patient Comments pt agreeable to do PT Therapy Pain Assessment Pain When Pain Assessed During Weight Bearing Pain Present Pain Present Pain Reported Location Right Hip Intensity 5 Scale Used Numeric (1 - 10) Pain Behaviors Guarding Pain Management Techniques Timing of Activity with Medications M4 PT-IP Mobility and Gait Start: 02/25/19 08:59 Freq: NEEDED Status: Active Protocol: Document 02/26/19 16:52 AB (Rec: 02/26/19 18:26 AB [id number]) PT-Bed Mobility Assessment Supine to Sit Supine to Sit Standby Assistance Sit to Supine Sit to Supine Minimal Assistance,1 Person Assistance Scooting Scooting to Edge of Bed Standby Assistance PT-Transfer Assessment Sit to and From Stand Sit to and from Stand Standby Assistance,1 Person Assistance Equipment Transfer Assistive Device None,Gait Belt,Front Wheeled Walker Orthotic/Prosthetic Devices or Brace: No Transfers Transfer Destination Bed,Chair,Toilet,Wheelchair Transfer Technique Stand Step Pivot Transfer Ability Level of Assist Standby Assistance,Contact Guard Assistance,1 Person Assistance,Use of Upper Extremities Comments Mobility Comments mobility training with pt conducted. pt will be alone most of the day at home. Son acquired DME for pt: w/c, FWW and bedside commode. pt is under observation and plan is to go home with homehealth but pt will need to be mod I using a FWW as pt is not safe ambulating by herself using a FWW and pt is unable to ambulate much due to R hip pain. pt educated on how to use a w/ c. positioning w/c prior to transfer. pt completed chair <>w/c transfer stand step pivot without AD and completed with SBA. Pt repeated x 2 sets. educated pt on how to maneuver manual w/c using BLE and arms and pt able to move in room but cues provided. instructed pt to position w/c next to the bed to transfer and pt required cues on proper positioning so that w/c is not too far from the bed. cued pt to lock w/c brakes. pt completed bed <>w/c transfer SBA and cues. pt completed bed mobility sit to supine min A to elevate RLE up the bed but able to complete supine to sit SBA. pt requested to use the toilet . pt stated that the w/c will not fit inside the toilet and she has to walk in. advised pt to use bedside commode at home for safety. pt ambulated ~ 10 ft to the toilet using FWW CGA to min A and cues and presents with antalgic gait and heavy use of BUE for support. required increase time to complete task . pt was able to maintain standing balance CGA while managing brief. pt ambulated out of the toilet to the chair using FWW min A and cues ~ 10 ft. pt stated that she is feeling more pain. positioned pt on the chair. call light and table placed within reach. Gait Assessment Gait Gait Assistance Required: Contact Guard Assist,Minimum Assistance Distance (Feet) 10 Able to Maintain Weight Bearing Status Yes During Gait Assistive Devices Assistive Device Gait Belt,Front Wheeled Walker Orthotic/Prosthetic Devices or Brace: No Gait Deviations General Gait Pattern Antalgic,Decreased Stride Length,Decreased Feet Clearance,Step-to Gait Factors Limiting Gait Function Factors Limiting Gait Function Decreased Activity Tolerance, Decreased Strength,Limited Range of Motion,Pain,Poor Balance,Poor Safety Awareness Comments Gait Comments refer to mobility section for details M5 PT-IP Objective Assessments Start: 02/25/19 08:59 Freq: NEEDED Status: Active Protocol: Document 02/26/19 10:21 AB (Rec: 02/26/19 15:07 AB [id number]) Orientation Orientation/Cognition Level of Alertness Alert Orientation Name,Age,Birthday,Month,Date, Year,Day of Week,Place, Situation Language Function Ability Hard of Hearing Gross Range of Motion Lower Extremity ROM Assessment Within Functional Limits Strength Lower Extremity Strength Assessment Right Impaired Hip 3+/5 Knee 3+/5 Coordination Assessment Gross Coordination Gross Coordination WNL Sensation Assessment Sensation Gross Sensation WNL Muscle Tone Muscle Tone WNL Yes M6 PT-IP Treatment Start: 02/25/19 08:59 Freq: NEEDED Status: Active Protocol: Document 02/26/19 10:21 AB (Rec: 02/26/19 15:07 AB [id number]) Physical Therapy Treatment Education Education Provided Precautions,Weight Bearing Status,Safety M7 PT-IP Assessment and Plan Start: 02/25/19 08:59 Freq: NEEDED Status: Active Protocol: Document 02/26/19 16:52 AB (Rec: 02/26/19 18:26 AB [id number]) PT Summary Assessment and Plan Potential Rehabilitation Potential Good Summary Impairments Pain,ROM,Strength,Balance, Coordination,Sensation,Tone, Cognition,Bed Mobility, Transfers,Gait,Activity Tolerance Progress Towards Goals Slow Progress due to Pain Assessment Summary w/c mobility training conducted and pt requires further training for safety. pt also has 2 steps to get into the house and at this time is not appropriate to do stair climbing due to R hip pain and unable to put too much weight due to pain. pt stated that her son is trying to get somebody to assist her to get into the house with the w/c as pt's son is also sick. Will have to assess further and more training required for safe d/c. Goals Bed Mobility Goal Independent Transfer Goal Independent,Front Wheeled Walker Gait Goal Independent,Front Wheel Walker Gait Distance 150 Other Goals up/down 2 steps using L rail and R handle SBA Days to Meet Goals 5 Frequency of Treatment Frequency Of Treatment Twice a Day Treatment Plan Physical Therapy Treatment Plan Bed Mobility Training,Transfer Training,Gait Training, Therapeutic Exercise,Balance Retraining,Discharge Planning, Hot or Cold Pack,Neuromuscular Re-ed,Coordination Retraining ,Manual Therapy Other Recommendations and Next Treatment bed mobility, transfers, Focus ambulation training Recommendations To Nursing Amount of Assist Needed 1 Person Assist Discharge Recommendations PT Discharge Recommendations Home with Assistance,Home Health,SNF Rehab Other Discharge Recommendations depending on progress: SNF vs home with assist/HHPT Equipment Needed for Home Before FWW Discharge
--- NOTE | 2019-02-26 19:33 | P.PN_ITS ---
Subjective Subjective Date Patient Seen: 02/26/19 Time Patient Seen: 09:00 Interval history: The patient is an 83-year-old female who suffered a pubic ramus fracture following a fall. She showed some improvement with PT today. Planning for discharge home tomorrow after PT and arrangement of home services. Exam Vital Signs (past 8 hours): - 02/26/19 11:35 02/26/19 15:25 02/26/19 15:44 Temperature 97.7 F 97.1 F L Pulse Rate 53 L 55 L Respiratory Rate 18 18 Blood Pressure 118/56 L 141/66 H Pulse Oximetry 93 93 Oxygen Delivery Method Room Air Oxygen Flow Rate 0 Narrative Exam Narrative: GENERAL APPEARANCE: Well developed, well nourished, in no acute distress. SKIN: Inspection of the skin reveals no rashes, ulcerations or petechiae. HEENT: The sclerae were anicteric and conjunctivae were pink and moist. Extraocular movements were intact and pupils were equal, round with normal accommodation. External inspection of the ears and nose showed no scars, lesions, or masses. Lips, teeth, and gums showed normal mucosa. The oral mucosa, hard and soft palate, tongue and posterior pharynx were unremarkable. NECK: Supple and symmetric. There was no thyroid enlargement, and no tenderness, or masses were felt. CHEST: Normal AP diameter and normal contour without any kyphoscoliosis. LUNGS: Auscultation of the lungs revealed no wheezes, rhonchi, or rales. CARDIOVASCULAR: There was a regular rate and rhythm without any murmurs, gallops, rubs. Peripheral pulses were 2+ and symmetric. ABDOMEN: Soft and nontender with normal bowel sounds. No ascites was noted. MUSCULOSKELETAL: There was no tenderness or effusions noted. Muscle strength and tone were normal. EXTREMITIES: No cyanosis, clubbing or edema. NEUROLOGIC: Alert and oriented x 3. Normal affect. Sensation to touch was normal. Objective Labs Result Diagrams: 02/25/19 05:40 02/25/19 05:40 Labs: Laboratory Results - last 24 hr 02/25/19 04:40 Urine Color Yellow Urine Appearance Sl cloudy Urine pH 5.0 Ur Specific [employer] 1.015 Urine Protein Trace H Urine Glucose (UA) Negative Urine Ketones 1+ H Urine Occult Blood Trace-intact Urine Nitrate Positive Urine Bilirubin Negative Urine Urobilinogen 0.2 Ur Leukocyte Esterase Trace H Urine RBC None seen Urine WBC 5-10/hpf H Ur Squamous Epith Cells 1-5 /hpf Urine Bacteria Many (>30) H Ur Culture Indicated? Specimen cultured Assessment & Plan Assessment & Plan narrative: 1. Nontraumatic injury, resulting in an inferior pubic ramus fracture. Most likely pathologic related to underlying osteoporosis. Patient still has difficulty with mobilization. She is weight- bearing as tolerated. Will continue PT and OT until she can return home which will likely be tomorrow. 2. Hypertension, present on admission will continue home medication 3. Type 2 diabetes metformin on hold continue Bolus insulin 4. Rhino virus, symptomatic relief Quality VTE Deep Vein Thrombosis/Pulmonary Embolism Present on Admission: No
[2019-02-26] MEDS: guaiFENesin ER 600 MG TAB PO (21:00)
[2019-02-27 00:50] VITALS: O2SAT 91
[2019-02-27 06:00] VITALS: BP 144/64; PULSE 56; RESP 18; TEMP 36.8; O2SAT 91
[2019-02-27] MEDS: ACETAMINOPHEN 325 MG TABLET 650 MG PO ×2 (06:19→12:27)
[2019-02-27 08:27] VITALS: BP 122/77; PULSE 58; RESP 18; TEMP 36.2; O2SAT 95
[2019-02-27 09:00] VITALS: O2SAT 95
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
[2019-02-27] MEDS: AMLODIPINE 5 MG TABLET PO (09:26)
[2019-02-27] MEDS: HEPARIN 5,000 UNIT/ML VIAL 5000 UNIT SUBCUT (09:28)
[2019-02-27] MEDS: FUROSEMIDE 20 MG TABLET PO (09:28)
[2019-02-27 09:29] VITALS: BP 121/80; PULSE 61
[2019-02-27] MEDS: LISINOPRIL 20 MG TABLET 40 MG PO (09:29)
[2019-02-27] MEDS: METOPROLOL IR 50 MG TABLET 100 MG PO (09:30)
[2019-02-27] MEDS: SODIUM CHLORIDE 0.9% FLUSH 10 ML IV (09:30)
[2019-02-27 11:30] VITALS: BP 124/65; PULSE 53; RESP 16; TEMP 36.1; O2SAT 95
--- NOTE | 2019-02-27 12:57 | PT.IPTN ---
Physical Therapy Treatment Note M2 PT-IP Current Condition Start: 02/25/19 08:59 Freq: NEEDED Status: Active Protocol: Document 02/26/19 10:21 AB (Rec: 02/26/19 15:07 AB [id number]) Physical Therapy Current Condition Current Condition Evaluation Date 02/26/19 Treatment Diagnosis inferior pelvic rami fx s/p fall; difficulty in walking Onset Date 02/24/19 Weight Bearing Status Weight Bearing Status Weight Bear as Tolerated M3 PT-IP Subjective Start: 02/25/19 08:59 Freq: NEEDED Status: Active Protocol: Document 02/27/19 11:15 GGD (Rec: 02/27/19 12:57 GGD [id number]) Subjective Physical Therapy Visit Type Type Treatment Note Visit Start Time 10:43 Visit Stop Time 11:12 Total Visit Minutes 31 Number of REGULATORY LAW SPECIALIST Visits 1 Physical Therapy Visit Comments Patient Comments Pt would like to use the bathroom. Therapy Pain Assessment Pain When Pain Assessed During Weight Bearing Pain Present Pain Present Pain Reported Location Right Hip Intensity 3 Scale Used Numeric (1 - 10) Pain Management Techniques Timing of Activity with Medications M4 PT-IP Mobility and Gait Start: 02/25/19 08:59 Freq: NEEDED Status: Active Protocol: Document 02/27/19 11:15 GGD (Rec: 02/27/19 12:57 GGD [id number]) PT-Transfer Assessment Sit to and From Stand Sit to and from Stand Standby Assistance,1 Person Assistance Equipment Transfer Assistive Device Gait Belt,Front Wheeled Walker Orthotic/Prosthetic Devices or Brace: No Transfers Transfer Destination Chair,Toilet,Wheelchair Transfer Technique Stand Step Pivot Transfer Ability Level of Assist Standby Assistance,Contact Guard Assistance,1 Person Assistance,Use of Upper Extremities Gait Assessment Gait Gait Assistance Required: Contact Guard Assist,1 Person Assist Distance (Feet) 20 Able to Maintain Weight Bearing Status Yes During Gait Assistive Devices Assistive Device Gait Belt,Front Wheeled Walker Orthotic/Prosthetic Devices or Brace: No Gait Deviations General Gait Pattern Antalgic,Decreased Stride Length,Decreased Feet Clearance,Step-to Gait Factors Limiting Gait Function Factors Limiting Gait Function Decreased Activity Tolerance, Decreased Strength,Limited Range of Motion,Pain,Poor Balance,Poor Safety Awareness Stair Climbing Assessment Evaluation Level of Assist On Stairs Contact Guard Assistance,1 Person Assistance Devices Stair Climbing Assistive Devices Left Railing Technique/Endurance Stair Climbing Direction Ascend and Descend Stair Climbing Technique Step to Step Number of Steps Climbed 3 Stair Climbing Set # Repetitions (reps) 1 Comments Stair Climbing Comments B UE used on left rail. M5 PT-IP Objective Assessments Start: 02/25/19 08:59 Freq: NEEDED Status: Active Protocol: Document 02/26/19 10:21 AB (Rec: 02/26/19 15:07 AB [id number]) Orientation Orientation/Cognition Level of Alertness Alert Orientation Name,Age,Birthday,Month,Date, Year,Day of Week,Place, Situation Language Function Ability Hard of Hearing Gross Range of Motion Lower Extremity ROM Assessment Within Functional Limits Strength Lower Extremity Strength Assessment Right Impaired Hip 3+/5 Knee 3+/5 Coordination Assessment Gross Coordination Gross Coordination WNL Sensation Assessment Sensation Gross Sensation WNL Muscle Tone Muscle Tone WNL Yes M6 PT-IP Treatment Start: 02/25/19 08:59 Freq: NEEDED Status: Active Protocol: Document 02/27/19 11:15 GGD (Rec: 02/27/19 12:57 GGD [id number]) Physical Therapy Treatment Education Education Provided Precautions,Safety M7 PT-IP Assessment and Plan Start: 02/25/19 08:59 Freq: NEEDED Status: Active Protocol: Document 02/27/19 11:15 GGD (Rec: 02/27/19 12:57 GGD [id number]) PT Summary Assessment and Plan Summary Assessment Summary Pt improving with mobility. She had good safety awareness. She was safe with stair mobility, but had increase in pain. Frequency of Treatment Frequency Of Treatment Twice a Day Treatment Plan Physical Therapy Treatment Plan Bed Mobility Training,Transfer Training,Gait Training, Therapeutic Exercise,Balance Retraining,Discharge Planning, Hot or Cold Pack,Neuromuscular Re-ed,Coordination Retraining ,Manual Therapy Recommendations To Nursing Amount of Assist Needed 1 Person Assist Discharge Recommendations PT Discharge Recommendations Home with Assistance,Home Health
--- NOTE | 2019-02-27 13:57 | PC.NURSE ---
Pt dressed and ready for discharge home with Son Luke. HL has been removed. Pt and Son have met with Care Management to discuss Home Health set up. Pt has worked with P.T./O.T. Went over d/c instructions with Pt and Son - discussed d/c meds, time of last dose, reviewed stroke education, moving slowly and carefully and following her ADA diet. Pt denies further questions and was taken out via w/c by BLUE LINE HANGER to POV with Son and all belongings.
--- NOTE | 2019-02-27 14:18 | OT.IP.TRT ---
Occupational Therapy Treatment Note M2 OT-IP Current Condition Start: 02/25/19 11:05 Freq: Status: Active Protocol: Document 02/26/19 15:09 [facility] (Rec: 02/26/19 15:56 [facility] [id number]) Occupational Therapy Current Condition Current Condition Evaluation Date 02/26/19 Treatment Diagnosis Right pubic ramus fx due to fall. Weight Bearing Status Weight Bearing Status Weight Bear as Tolerated M3 OT- IP Subjective and Pain Start: 02/25/19 11:05 Freq: Status: Active Protocol: Document 02/27/19 14:13 [facility] (Rec: 02/27/19 14:18 [facility] [id number]) OT- Subjective Occupational Therapy Visit Type Type Progress Note Visit Start Time 11:32 Visit Stop Time 11:59 Total Visit Minutes 27 OT Pain Assessment Pain When Pain Assessed At Rest Pain Present Pain Present Denied Pain M4 OT- IP ADL's Start: 02/25/19 11:05 Freq: Status: Active Protocol: Document 02/27/19 14:13 [facility] (Rec: 02/27/19 14:18 [facility] [id number]) OT [id number] Comments OT Self-Feeding Comments Not meal time OT ADL-Grooming General Evaluation Grooming Ability Standby Assistance Areas Needing Assistance Retrieving/Set-up of Grooming Items,Combing/Brushing Hair Comments OT Grooming Comments standing at sink OT ADL-Oral Care General Eval Oral Care Ability Standby Assistance Areas of Assistance Brushing Teeth,Managing Dentures Comments Oral Care Comments standing at sink OT ADL-Dressing General Eval Upper Body Dressing Ability Independent Lower Body Dressing Ability Standby Assistance Areas Needing Assistance Retrieving/Set-up of Clothing, Pull-Over Shirt,Underpants/ Brief,Pants/Shorts,Socks,Shoes Comments OT Dressing Comments No DME needed, pt able to reach feet for all dressing. OT ADL-Toileting General Evaluation Toileting Ability Independent Comments OT Toileting Comments Pt had BM seated on toielt. Notified nursing. OT ADL-Bathing Comments OT Bathing Comments Not performed on this date. M5 OT- IP IADL's Start: 02/25/19 11:05 Freq: Status: Active Protocol: Document 02/26/19 15:09 [facility] (Rec: 02/26/19 15:56 [facility] [id number]) OT-Instrumental Activities of Daily Living Home Safety Awareness Ability to Problem Solve Emergency Able to Problem Solve Situations Home Safety Comments Pt able to answer all home safety questions correctly. Network Support Analyst Network Support Analyst Comments SOn to assist. M6 OT- IP Functional Cognition Start: 02/25/19 11:05 Freq: Status: Active Protocol: Document 02/26/19 15:09 [facility] (Rec: 02/26/19 15:56 [facility] [id number]) Cognitive Factors Limiting Selfcare Function Cognitive Ability Level of Alertness Alert Patient Orientation Name,Place,Situation Attention Span Ability Capable of Focused Attention, Capable of Sustained Attention Ability to Follow Commands Able to Follow Multi-Step Commands Memory Description No Deficits Noted Problem Solving Ability Needs Assist to Identify Solutions Cognitive Comments Cognitive Assessment Comments Pt able to follow multiple commands. Mainly needing assist for problem solving for safety for use of adaptive equipment and figure out the safest way to transfer or get to the bathroom/BSC. OT- Vision and Hearing OT- Hearing Assessment OT- Hearing Assessment WFL OT- Vision Assessment Vision Assessment Comments Glasses for distance. M7 OT- IP Mobility and Balance Start: 02/25/19 11:05 Freq: Status: Active Protocol: Document 02/27/19 14:13 [facility] (Rec: 02/27/19 14:18 [facility] [email or web address]) OT-Transfer Assessment Sit to and From Stand Sit to and from Stand Standby Assistance Transfers Transfer Ability Standby Assistance Technique Transfer Destination Chair,Toilet Transfer Technique Stand Step Pivot Devices Transfer Assistive Devices Gait Belt,Front Wheeled Walker Comments Mobility Comments Mobility around the room for dressing and toileting. OT- Gait Assessment Gait Gait Assistance Required: Standby Assistance Assistive Devices Assistive Device Gait Belt,Front Wheeled Walker OT- Balance Assessment Sitting Balance and Reactions Static Sitting Balance Ability Normal Dynamic Sitting Balance Ability Good Standing Balance and Reactions Static Standing Balance Ability Normal Dynamic Standing Balance Ability Good M8 OT- IP Objective Assessments Start: 02/25/19 11:05 Freq: Status: Active Protocol: Document 02/26/19 15:09 [facility] (Rec: 02/26/19 15:56 [facility] [id number]) OT Gross Range of Motion Upper Extremity Range of Motion Assessment Within Functional Limits OT Strength Comments Strength Comments BUE 4/5 OT-Muscle Tone Assessment Muscle Tone WNL Yes M9 OT- IP Assessment and Plan Start: 02/25/19 11:05 Freq: Status: Active Protocol: Document 02/27/19 14:13 [facility] (Rec: 02/27/19 14:18 [facility] [email or web address]) OT Summary Assessment and Plan Potential Rehabilitation Potential Good Analytic Complexity at Evaluation Low Summary OT Impairments Balance,Dressing,Toileting, Bathing,Toilet Transfers, Shower Transfers Progress Towards Goals Progressing Toward Goals Assessment Summary Pt progressing well with therapy. Decreased pain is allowing for increased mobility. Pt anya safe for d /c home with sons assist. Goals Dressing Goal Independent Toileting Goal Independent Bathing Goal Contact Guard Assistance Toilet Transfer Goal Independent Shower Transfer Goal Minimal Assistance Patient/Caregiver Education Goal Caregiver Independent Assisting Patient Days to Meet Goals 5 Frequency of Treatment Frequency Of Treatment Once a Day Treatment Plan OT Treatment Plan ADL Training,Functional Mobility,Patient/Family Education,Discharge Planning Other Treatment Recommendations and Next Shower. Treatment Focus Discharge Recommendations OT Discharge Recommendations Home with Assistance,Home Health,SNF Rehab Home Equipment Needs tub bench
--- NOTE | 2019-02-27 15:51 | PM.DS.1 ---
History of Present Illness History of Present Illness Date Patient Seen: 02/27/19 Time Patient Seen: 08:00 Chief complaint: GLF Narrative: As per PARMJIT Montano: Ms Liz Lopez is an 83-year-old female with history significant for hypertension, diabetes type 2 and hyperthyroidism status post thyroidectomy who presents to the ER following a ground level fall with right hip pain. The patient states she was getting up at 2:00 a.m. to go to the bathroom when she stumbled and fell landing on her right side. The patient lives with her son required assistance to get back to bed. In the morning she states it was more difficult to move with increased pain with movement and more so attempts to ambulate. She further admits that it felt like neither leg worked right. She denies loss of consciousness and remembers the event. She complains of mild neck pain but no back pain. She reports coughing and chills with a sore throat for the last 2 days and states her son has been coughing as well. She reports no subjective fevers, headaches or dizziness. She denies chest pain or palpitations, shortness of breath or wheezing. She denies abdominal pain and has had no nausea. She reports no urinary symptoms and has occasional constipation. Patient is normally ambulatory with a walker at baseline and is status post right total knee replacement. Upon arrival to the ER the patient was afebrile with temperature 98.1?, hypertensive 177/73, heart rate 57, respirations 16 saturating 100% on room air. Imaging was obtained of the right hip which notifies bilateral degenerative hip disease without bony abnormality. A pelvic CT was obtained which found a slight comminuted fracture of the right inferior pubic ramus, degenerative disc disease and foraminal disease of the lumbar spine. On laboratory analysis the patient has white count of 11.0, hemoglobin 11.8 and hematocrit of 34.1 with platelets of 133. On chemistry, her electrolytes are within acceptable range with a BUN of 21 and creatinine 1.0. Her nonfasting glucose is 103. The patient is admitted to the hospital for pelvic fracture. Discharge Providers Provider Date of admission: 02/24/19 18:47 Discharge Date: 02/27/19 Primary care physician: Jennifer Rios MD Consults: 02/24/19 21:53 Consult to Discharge Planning Routine Comment: Consult to Occupational Therapy Evaluate & Treat Comment: GLF, Rt pubic rami fracture Physician Instructions: Evaluate and treat Consult to Physical Therapy Evaluate & Treat Comment: GLF, Rt pubic rami fracture Physician Instructions: Evaluate and Treat 02/25/19 00:34 Consult to Dietitian, Adult Routine Comment: Reason For Exam: GLF with Fx, new dx of osteoporosis 02/25/19 20:35 Consult to Chemical Dependency Therapist Routine Comment: Patient and Son (Luke) concerned with home safety. 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 Inferior pubic ramus fracture, likely pathologic secondary to osteoporosis. 2. Hypertension, present on admission 3. Type 2 diabetes, chronic, stable 4. Rhino virus, symptomatic relief Hospital Course: Ms Liz Lopez is an 83-year-old female with history significant for hypertension, diabetes type 2 and hyperthyroidism status post thyroidectomy who presented to the ER following a ground level fall with right hip pain. She was managed non operatively but was unable to ambulate initially so the patient was admitted under observation status. The patient improved significantly with pain control, physical and occupational therapy and was ready for discharge home. 1. Nontraumatic injury, resulting in an inferior pubic ramus fracture. Most likely pathologic related to underlying osteoporosis. Patient still has difficulty with mobilization but this is markedly improved since admission. She is weight-bearing as tolerated. - outpatient orthopedic follow up - weight bearing as tolerated - pain controlled without opiates. 2. Hypertension, present on admission - continue home medication, no medications were changed during admission. 3. Type 2 diabetes - can resume home metforming. 4. Rhino virus infection - symptomatic relief Exam Vital Signs (past 8 hours): - 02/27/19 08:27 02/27/19 09:00 02/27/19 09:29 Temperature 97.2 F L Pulse Rate 58 L 61 Respiratory Rate 18 Blood Pressure 122/77 121/80 Pulse Oximetry 95 95 02/27/19 11:30 Temperature 97.0 F L Pulse Rate 53 L Respiratory Rate 16 Blood Pressure 124/65 Pulse Oximetry 95 Oxygen Delivery Method Room Air Oxygen Flow Rate 0 Narrative Exam Narrative: GENERAL APPEARANCE: Well developed, well nourished, in no acute distress. SKIN: Inspection of the skin reveals no rashes, ulcerations or petechiae. HEENT: The sclerae were anicteric and conjunctivae were pink and moist. Extraocular movements were intact and pupils were equal, round with normal accommodation. External inspection of the ears and nose showed no scars, lesions, or masses. Lips, teeth, and gums showed normal mucosa. The oral mucosa, hard and soft palate, tongue and posterior pharynx were unremarkable. NECK: Supple and symmetric. There was no thyroid enlargement, and no tenderness, or masses were felt. CHEST: Normal AP diameter and normal contour without any kyphoscoliosis. LUNGS: Auscultation of the lungs revealed no wheezes, rhonchi, or rales. CARDIOVASCULAR: There was a regular rate and rhythm without any murmurs, gallops, rubs. Peripheral pulses were 2+ and symmetric. ABDOMEN: Soft and nontender with normal bowel sounds. No ascites was noted. MUSCULOSKELETAL: There was no tenderness or effusions noted. Muscle strength and tone were normal. EXTREMITIES: No cyanosis, clubbing or edema. NEUROLOGIC: Alert and oriented x 3. Normal affect. Sensation to touch was normal. Objective Labs Result Diagrams: 02/25/19 05:40 02/25/19 05:40 Discharge Plan Discharge Plan Patient Disposition: Home Health Service Transfer to: [facility] Discharge comment: You were admitted to the hospital with a fracture of your pubic ramus. This is being managed non-operatively. You were seen by physical and occupational therapy and are being discharged home. You should follow up with an orthopedic physician. No medication changes were made except for pain control. Discharge Med Rec/Prescriptions Prescriptions: New acetaminophen 325 mg Tablet 650 mg PO Q6HR 14 Days Qty: 30 RF: 0 Continued metformin [Glucophage] 500 MG tablet 850 mg PO BID Qty: 0 RF: 0 CHOLECALCIFEROL (VITAMIN D3) (Vitamin D) 1,000 units PO QDAY Qty: 0 RF: 0 CYANOCOBALAMIN (#VITAMIN B12) 250 mcg PO QDAY Qty: 0 RF: 0 lisinopril 20 MG tablet 40 mg PO QDAY Qty: 0 RF: 0 metoprolol tartrate 100 MG tablet 100 mg PO BID Qty: 0 RF: 0 furosemide [Lasix] 20 MG tablet 20 mg PO QDAY Qty: 0 RF: 0 amlodipine 5 mg Tablet 5 mg PO DAILY RF: 0 amitriptyline 50 mg Tablet 50 mg PO DAILY RF: 0 magnesium oxide 400 mg magnesium Tablet 400 mg PO BID RF: 0 Follow up/Referrals: Norberto Gama MD [Physician] - Jennifer Rios MD [Primary Care Provider] - Provider Discharge Instructions Diet comment: As tolerated Activity: As tolerated Discharge Data Primary Care Provider: Jennifer Rios Attending Provider: Piper Palomares Admit Date/Time: 02/24/19 18:47 Discharges patient from system. Discharge Date/Time: 02/27/19 14:00 Quality VTE Deep Vein Thrombosis/Pulmonary Embolism Present on Admission: No
--- NOTE | 2019-03-05 12:39 | PC.NURSE ---
late entry: mag sulfate stopped 02/24 6112
== END 2019-02-27 14:00 | disposition home health service (06) ==
LOC: ED 15:44 → AC 18:48
PROVIDERS: Nurse Practitioner Adult Health; Admitting Provider Internal Medicine; Emergency Provider Emergency Medicine; PCP Internal Medicine; Visit Provider Internal Medicine
DX: S32.89XA Fracture of other parts of pelvis, initial encounter for closed fracture (principal); W01.0XXA Fall on same level from slipping, tripping and stumbling without subsequent striking against object, initial encounter; M25.551 Pain in right hip; E11.9 Type 2 diabetes mellitus without complications; I10 Essential (primary) hypertension; M81.0 Age-related osteoporosis without current pathological fracture; B34.8 Other viral infections of unspecified site
CPT/HCPCS: 36415; 36591; 72192; 73502; 80048; 81001; 82962; 83735; 85025; 87077; 87086; 87186; 87633; 96360; 96361; 96372; 96375; 96376; 97110; 97116; 97161; 97165; 97530; 97535; 99283; 99284; G0378; J1644

== ENCOUNTER → 2019-03-24 18:54 | Outpatient (ROUT) | payer MEDICARE, SELFPAY ==
[2019-02-24 19:49] VITALS: BMI 23.3
[2019-03-24 19:25] LABS: Alanine Aminotransferase 16 IU/L (9-52); Aspartate Aminotransferase 30 IU/L (14-36); BUN Creatinine Ratio 27.9 (6-22); Blood Urea Nitrogen 39 mg/dL (7-17); Calcium 9.7 mg/dL (8.4-10.2); Carbon Dioxide 25 mmol/L (22-32); Chloride 107 mmol/L (98-107); Cholesterol 177 mg/dL (140-199); Glucose 99 mg/dL (80-110); HDL Cholesterol 38 mg/dL (40-60); HEMOLYSIS < 15 (0-50); LDL Cholesterol Calculated 97 mg/dL (<100); Potassium 4.1 mmol/L (3.4-5.1); Sodium 141 mmol/L (137-145); Triglycerides 208 mg/dL (35-150)
[2019-03-25 16:53] LABS: Hemoglobin A1C% w Est Avg Glu 5.9 % (4.0-6.0)
== END ==
PROVIDERS: PCP Internal Medicine; Visit Provider Internal Medicine
DX: I10 Essential (primary) hypertension (principal); E78.2 Mixed hyperlipidemia; E11.9 Type 2 diabetes mellitus without complications
CPT/HCPCS: 80048; 80061; 83036; 84450; 84460

== ENCOUNTER 2019-04-20 07:58 | Emergency (ER) | payer MEDICARE, SELFPAY ==
--- NOTE | 2019-04-20 08:01 | ED.GENADULT ---
HPI - General Adult General Chief complaint: Extremity Injury, Lower Stated complaint: Pelvic pain, hip fx 7 weeks ago Time Seen by Provider: 04/20/19 07:59 Source: patient Mode of arrival: EMS Limitations: no limitations History of Present Illness HPI narrative: 83-year-old female who several weeks ago sustained a right pubic rami fracture. She was admitted for observation during that time and ventrally discharged home. She does have a walker and a wheelchair at home. She has home physical therapy for this right pubic rami fracture. She states that for the past several days she has had lower back pain and left-sided pelvic pain. She states that it felt like there was a charley horse in her left leg however did not specifically feel muscle spasm. She has no new traumas or falls. No urinary symptoms. No bowel changes. No fevers. Does not have pain medication at home. Related Data Home Medications Medication Instructions Recorded Confirmed CHOLECALCIFEROL (VITAMIN D3) 1,000 units PO QDAY #0 05/02/11 02/24/19 (Vitamin D) CYANOCOBALAMIN (#VITAMIN B12) 250 mcg PO QDAY #0 05/02/11 02/24/19 furosemide [Lasix] 20 mg PO QDAY #0 05/02/11 02/24/19 lisinopril 40 mg PO QDAY #0 05/02/11 02/24/19 metformin [Glucophage] 850 mg PO BID #0 05/02/11 02/24/19 metoprolol tartrate 100 mg PO BID #0 05/02/11 02/24/19 amitriptyline 50 mg PO DAILY 02/24/19 02/24/19 amlodipine 5 mg PO DAILY 02/24/19 02/24/19 magnesium oxide 400 mg PO BID 02/24/19 02/24/19 Previous Rx's Medication Instructions Recorded lidocaine 1 patch TOP Q24H PRN #1 each 04/20/19 meloxicam [Mobic] 15 mg PO DAILY #30 tab 04/20/19 prednisone 40 mg PO DAILY 4 Days #8 tab 04/20/19 Allergies Allergy/AdvReac Type Severity Reaction Status Date / Time oxycodone [OXYCODONE] Allergy Intermediate DIZZINESS Verified 02/25/19 08:24 Review of Systems Constitutional Constitutional: Denies fever(s) Cardiovascular Cardiovascular: Denies chest pain and Denies dyspnea Respiratory Respiratory: Denies dyspnea Gastrointestinal Gastrointestinal: Denies abdominal pain Genitourinary Genitourinary: Denies urinary frequency, Denies difficulty voiding, Denies dysuria and Denies urinary incontinence Musculoskeletal Comments: Lower back pain, left hip pain Integumentary/Breasts Skin/Breast: Denies rash Neurologic Neurologic: Denies behavioral changes Psychiatric Psychiatric: Denies behavioral changes Hematologic/Lymphatic Hematologic/Lymphatic: Denies easy bleeding and Denies easy bruising Patient History Medical History Diabetes type 2, controlled (Acute) Hypertension (Acute) Hyperthyroidism (Acute) Social History household members: family Smoking Status: Former smoker alcohol intake frequency: 0-2 drinks per day Substance Use Type: does not use Exam Initial Vital Signs Initial Vital Signs: Vital Signs Temperature 98 F 04/20/19 08:05 Pulse Rate 51 L 04/20/19 08:05 Respiratory Rate 13 04/20/19 08:05 Blood Pressure 164/48 H 04/20/19 08:05 Pulse Oximetry 100 04/20/19 08:05 Const General: cooperative and comfortable Orientation: alert, awake and oriented x3 HENMT Head: normal to inspection and normocephalic Resp Effort & Inspection: normal respiratory effort Cardio Rate: regular rate Back/Spine/Pelvis Other: Tenderness to palpation lower back right greater than left Skin Lesions: no lesions Rashes: no rashes Neuro General: alert, awake and oriented x3 Cognition: normal cognition Speech: speech normal Extrem General: normal to inspection and capillary refill normal Other: Pelvis stable, left leg unremarkable Psych Appearance: grossly normal and well kempt Course Orders Ordered: ED Orders 04/20/19 11:20 Consult to Physical Therapy Evaluate & Treat 04/20/19 11:40 Consult to POT[employer] 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 - Clerical Administrative Assistant Stat Discontinued Medications Hydrocodone Bitart/Acetaminophen ([place] 5/325) 1 tab PO NOW ONE Stop: 04/20/19 09:03 Last Admin: 04/20/19 09:17 Dose: 1 tab Documented by: YSABEL Hydromorphone HCl (Dilaudid) 0.5 mg IM NOW ONE Stop: 04/20/19 11:20 Last Admin: 04/20/19 11:57 Dose: 0.5 mg Documented by: YSABEL Prednisone (Deltasone) 40 mg PO NOW ONE Stop: 04/20/19 16:00 Last Admin: 04/20/19 16:05 Dose: 40 mg Documented by: CVANCE Vital Signs Vital signs: Vital Signs - 8 hr 04/20/19 11:04 04/20/19 12:30 04/20/19 16:06 Pulse Rate 53 L 50 L 50 L Respiratory Rate 20 15 Blood Pressure [Left Arm] 148/58 H 145/52 H 164/50 H Pulse Oximetry 100 100 99 Medical Decision Making Imaging Data Lumbar spine X-ray: Radiologist's impression: [address] [address] XRay Report Signed Patient: Liz Kaba [facility]#: [id number] : [id number] Age/Sex: 83 / FDate of Service: 04/20/19 Loc: ED Accession Number: [id number] Procedure: XR lumbar spine 2-3V Ordering Provider: Armando Cuenca D.O. PROCEDURE: XR LUMBAR SPINE 2-3V INDICATIONS: LBP with L side radiation TECHNIQUE: 3 views of the lumbar spine were acquired. COMPARISON: [facility], , CHEST 2 VIEW, 11/13/2015, 17:44. FINDINGS: Bones: T12 compression fracture is seen with moderate height loss anteriorly. Remaining vertebral body heights grossly preserved. Multilevel degenerative endplate sclerosis and spurring. Diffuse facet arthropathy. Grade 1 anterolisthesis of L4 on L5 and L5 on S1. Grade 1 retrolisthesis of L1 on L2 and L2 on L3. Mild to moderate disc space narrowing at L1-L2, L2-L3, L4-L5 and L5-S1. Soft tissues: Overlying bowel gas pattern is normal. No suspicious soft tissue calcifications. IMPRESSION: Multilevel lumbar spondylosis, facet arthropathy and spondylolisthesis as detailed above. T12 compression fracture, unchanged. Dictated by: Cezar Osorio M.D. on 04/20/2019 at 8:56 Approved by: Cezar Osorio M.D. on 04/20/2019 at 8:58 MDM Narrative Medical decision making narrative: Patient has history and physical today consistent with low back pain and sciatic. She has no new trauma. Her x-ray showed no acute pathology. She has no red flag symptoms concerning for cauda equina. I believe that the left leg pain is related to her back pain. This did seem to start yesterday after she tried some new insoles in her shoes. She was in the emergency department for extended length of time. She initially had no relief from the pain medication that she was given. Physical therapy was consult and however there was a delay with notification of physical therapy to come and evaluate the patient in the emergency department. Patient was also seen by social work and was given information regarding Medicaid to evaluate and to fill out. Unfortunately patient does not meet admission criteria. She was able to ambulate to the bathroom however had some discomfort. Had a long discussion with the patient and her son who is at bedside regarding her symptoms. We did discuss the situation where she does not meet inpatient criteria. Initial allergy list in the EMR stated that she was allergic to prednisone however the patient states she is not allergic to prednisone. She was given a dose here. Will send home with prescription for the next couple days. Will also send home with a prescription for Mobic to start taking after the prednisone is complete and also lidocaine patches. We did discuss she could continue to do the physical therapy. Informed her to keep all her scheduled medical appointments. Patient and son expressed understanding and agreement. Discharge Plan Departure Patient Disposition: Home Clinical Impression: Low back pain radiating to left leg Discharge Date/Time: 04/20/19 16:55 Instructions: Low Back Pain, DI for Back Pain With Sciatica, Activity May Be Better then Rest for Low Back Pain Recovery Activity Restrictions/Additional Instructions: Take the medications as directed. Contact your primary provider for follow-up. Keep all of your scheduled medical appointments. Return to the emergency department for any new symptoms Prescriptions: New meloxicam [Mobic] 15 mg tablet 15 mg PO DAILY Qty: 30 RF: 0 prednisone 20 mg tablet 40 mg PO DAILY 4 Days Qty: 8 RF: 0 lidocaine 4 % adhesive patch,medicated 1 patch TOP Q24H PRN (Reason: pain) Qty: 1 RF: 0 No Action metformin [Glucophage] 500 MG tablet 850 mg PO BID Qty: 0 RF: 0 CHOLECALCIFEROL (VITAMIN D3) (Vitamin D) 1,000 units PO QDAY Qty: 0 RF: 0 CYANOCOBALAMIN (#VITAMIN B12) 250 mcg PO QDAY Qty: 0 RF: 0 lisinopril 20 MG tablet 40 mg PO QDAY Qty: 0 RF: 0 metoprolol tartrate 100 MG tablet 100 mg PO BID Qty: 0 RF: 0 furosemide [Lasix] 20 MG tablet 20 mg PO QDAY Qty: 0 RF: 0 amlodipine 5 mg Tablet 5 mg PO DAILY RF: 0 amitriptyline 50 mg Tablet 50 mg PO DAILY RF: 0 magnesium oxide 400 mg magnesium Tablet 400 mg PO BID RF: 0 Referrals: Jennifer Rios MD [Primary Care Provider] -
[2019-04-20 08:05] VITALS: BP 164/48; PULSE 51; RESP 13; TEMP 36.6; O2SAT 100
--- NOTE | 2019-04-20 08:17 | DI.RAD.S_ITS ---
PROCEDURE: XR LUMBAR SPINE 2-3V INDICATIONS: LBP with L side radiation TECHNIQUE: 3 views of the lumbar spine were acquired. COMPARISON: [facility], , CHEST 2 VIEW, 11/13/2015, 17:44. FINDINGS: Bones: T12 compression fracture is seen with moderate height loss anteriorly. Remaining vertebral body heights grossly preserved. Multilevel degenerative endplate sclerosis and spurring. Diffuse facet arthropathy. Grade 1 anterolisthesis of L4 on L5 and L5 on S1. Grade 1 retrolisthesis of L1 on L2 and L2 on L3. Mild to moderate disc space narrowing at L1-L2, L2-L3, L4-L5 and L5-S1. Soft tissues: Overlying bowel gas pattern is normal. No suspicious soft tissue calcifications. IMPRESSION: Multilevel lumbar spondylosis, facet arthropathy and spondylolisthesis as detailed above. T12 compression fracture, unchanged. Dictated by: Cezar Osorio M.D. on 04/20/2019 at 8:56 Approved by: Cezar Osorio M.D. on 04/20/2019 at 8:58
[2019-04-20] MEDS: HYDROCODONE/ACET 5/325 TABLET 1 TAB PO (09:17)
[2019-04-20 11:04] VITALS: BP 148/58; PULSE 53; RESP 20; O2SAT 100
[2019-04-20] MEDS: HYDROMORPHONE 1 MG INJ 0.5 MG IM (11:57)
[2019-04-20 12:30] VITALS: BP 145/52; PULSE 50; O2SAT 100
--- NOTE | 2019-04-20 14:25 | PT.IIE ---
Surgical History (Last Reviewed 02/25/19 @ 00:13 by PARMJIT Montano) History of hysterectomy (Acute) History of thyroidectomy (Acute) History of total knee arthroplasty (Acute) Medical History (Last Reviewed 04/20/19 @ 08:19 by Armando Cuenca DO) Diabetes type 2, controlled (Acute) Hypertension (Acute) Hyperthyroidism (Acute) Physical Therapy Inpatient Evaluation/Re-Eval M1 PT/OT-IP Prior Functional Status Start: 04/20/19 12:20 Freq: Status: Discharge Protocol: Document 04/20/19 14:25 AB (Rec: 04/20/19 18:14 AB [id number]) Medical Review Prior Functional Status Medical History Reviewed Yes Communication able to make needs known Mobility and Gait pt stated that she is modified independent with all mobilities and ambulation using FWW. stated that she gets HHPT 3x/week and a bath aide 2x/week Social History Household Members family Living Arrangements House Number of Floors (Floors) One Floor Number of Stairs To Enter/Railing? 2 steps to enter with L rail ascending Home Environment Standard Height Toilet,Tub/ Shower Home Equipment Front Wheel Walker,Raised Toilet Seat Without Armrests, Tub Transfer Bench,Grab Bars In Shower Employment Status Retired Additional Social History Comment pt with previous R pubic rami fx which she sustained last feb 2019. pt's son has been with pt at home to assist her. pt stated that she has been doing well until 4 days ago where she had L hip pain. also stated that her son will be starting a new job tomorrow and will not be able to assist her anymore. M2 PT-IP Current Condition Start: 04/20/19 12:20 Freq: Status: Discharge Protocol: Document 04/20/19 14:25 AB (Rec: 04/20/19 18:14 AB [id number]) Physical Therapy Current Condition Current Condition Evaluation Date 04/20/19 Treatment Diagnosis L hip pain; difficulty in walking Onset Date 04/20/19 M3 PT-IP Subjective Start: 04/20/19 12:20 Freq: Status: Discharge Protocol: Document 04/20/19 14:25 AB (Rec: 04/20/19 18:14 AB [id number]) Subjective Physical Therapy Visit Type Type Initial Evaluation Visit Start Time 14:25 Visit Stop Time 15:05 Total Visit Minutes 40 Number of DAY SPA MANAGER Visits 0 Physical Therapy Visit Comments Patient Comments pt agreed to do PT Therapy Pain Assessment Pain When Pain Assessed At Rest Pain Present Pain Present Pain Reported Location Lower Back Intensity 10 Scale Used stated that pain meds that they given her is not working M4 PT-IP Mobility and Gait Start: 04/20/19 12:20 Freq: Status: Discharge Protocol: Document 04/20/19 14:25 AB (Rec: 04/20/19 18:14 AB [id number]) PT-Bed Mobility Assessment Supine to Sit Supine to Sit Maximum Assistance,1 Person Assistance Sit to Supine Sit to Supine Minimal Assistance PT-Transfer Assessment Sit to and From Stand Sit to and from Stand Minimal Assistance,Use of Upper Extremities Equipment Transfer Assistive Device Gait Belt,Front Wheeled Walker Orthotic/Prosthetic Devices or Brace: No Comments Mobility Comments pt with a diagnosis of T12 compression fx and educated on log roll bed mobility. completed supine to sit max A and cues. pt completed sit to stand from EOB min A and cues . ambulated ~ 12 ft using FWW min to mod A and cues. pt assisted back to bed. educated on log roll sit to supine but pt stated that she cannot do it and just laid straight down on her back. educated on back precautions and pt stated that she know but cannot do a log roll. Gait Assessment Gait Gait Assistance Required: Minimum Assistance,Moderate Assistance Distance (Feet) 12 Able to Maintain Weight Bearing Status Yes During Gait Assistive Devices Assistive Device Gait Belt,Front Wheeled Walker Orthotic/Prosthetic Devices or Brace: No Gait Deviations General Gait Pattern Antalgic,Decreased Stride Length,Decreased Feet Clearance,Step-to Gait Factors Limiting Gait Function Factors Limiting Gait Function Decreased Activity Tolerance, Decreased Strength,Limited Range of Motion,Pain,Poor Balance,Poor Safety Awareness Comments Gait Comments pt presents with unsteady shuffling gait with decrease LE elevation and heavy use of UE for support. pt c/o pain on L hip and stated that the pain meds that was given to her is not working and as if she had not had any pain meds. informed the nurse regarding pt's mobility level and that pt is complaining about L hip pain and not back pain and that pt stated that the pain meds are not working. nurse stated that she will relay the info to the doctor. Stair Climbing Assessment Comments Stair Climbing Comments unable at this time PT-Balance Assessment Sitting Balance and Reactions Static Sitting Balance Ability Good Dynamic Sitting Balance Ability Good Standing Balance and Reactions Static Standing Balance Ability Poor Dynamic Standing Balance Ability Poor Device Used FWW M5 PT-IP Objective Assessments Start: 04/20/19 12:20 Freq: Status: Discharge Protocol: Document 04/20/19 14:25 AB (Rec: 04/20/19 18:14 AB [id number]) Orientation Orientation/Cognition Level of Alertness Alert Orientation Name,Place,Situation Language Function Ability Hard of Hearing Safety Awareness Decreased Safety Awareness Memory Description Short Term Impaired Strength Lower Extremity Strength Assessment Bilaterally Impaired Hip 3+/5 Knee 3+/5 Ankle 3+/5 Coordination Assessment Gross Coordination Gross Coordination WNL Sensation Assessment Sensation Gross Sensation WNL Muscle Tone Muscle Tone WNL Yes M6 PT-IP Treatment Start: 04/20/19 12:20 Freq: Status: Discharge Protocol: Document 04/20/19 14:25 AB (Rec: 04/20/19 18:14 AB [id number]) Physical Therapy Treatment Education Education Provided Precautions,Safety M7 PT-IP Assessment and Plan Start: 04/20/19 12:20 Freq: Status: Discharge Protocol: Document 04/20/19 14:25 AB (Rec: 04/20/19 18:14 AB [id number]) PT Summary Assessment and Plan Potential Rehabilitation Potential Good Status of Condition at Evaluation Evolving Summary Impairments Pain,ROM,Strength,Balance, Cognition,Bed Mobility, Transfers,Gait,Activity Tolerance Assessment Summary pt requiring max A with supine to sit and min to mod A with sit to stand and ambulation using FWW. pt presents with unsteady gait and will require 24/7 assist at home. Currently, will require SNF rehab to improve strength and mobility. Goals Bed Mobility Goal Standby Assistance Transfer Goal Standby Assistance,Front Wheeled Walker Gait Goal Standby Assistance,Front Wheel Walker Gait Distance 100 Other Goals up/down 2 steps L rail ascending SBA Days to Meet Goals 5 Frequency of Treatment Frequency Of Treatment Once a Day Treatment Plan Physical Therapy Treatment Plan Bed Mobility Training,Transfer Training,Gait Training, Therapeutic Exercise,Balance Retraining,Discharge Planning, Hot or Cold Pack,Neuromuscular Re-ed,Coordination Retraining ,Manual Therapy Recommendations To Nursing Amount of Assist Needed 1 Person Assist Discharge Recommendations PT Discharge Recommendations SNF Rehab
--- NOTE | 2019-04-20 14:29 | PC.NURSE ---
physical therapy here.
--- NOTE | 2019-04-20 15:56 | PC.NURSE ---
both PT here for evaluation and social media community manager. MD plans on giving her some prednisone , and then discharging home with son
[2019-04-20] MEDS: predniSONE 20 MG TABLET 40 MG PO (16:05)
[2019-04-20 16:06] VITALS: BP 164/50; PULSE 50; RESP 15; O2SAT 99
== END 2019-04-20 16:55 | disposition home or self-care (01) ==
PROVIDERS: Emergency Provider Emergency Medicine; PCP Internal Medicine
DX: M54.5 Low back pain (principal)
CPT/HCPCS: 72100; 96372; 97162; 97530; 99284; J1170

== ENCOUNTER → 2019-05-04 15:42 | Outpatient (CLI) | payer MEDICARE, SELFPAY ==
--- NOTE | 2019-05-04 | DI.MRI.S_ITS ---
PROCEDURE: MR LUMBAR SPINE WO CON INDICATIONS: OTHER SPECIFIED FRACTURE OF RIGHT PUBIS - back pain TECHNIQUE: Noncontrast sagittal T1 spin echo and T2 fast echo, sagittal STIR, axial T1 and T2 fast spin echo through the lumbar spine. In cases with scoliosis, additional coronal T2 fast spin echo may be performed. COMPARISON: None. FINDINGS: Image quality: Excellent. Alignment and Curvature: Grade 1 anterolisthesis of L4 on L5 and L5 on S1. Bone Marrow: Chronic appearing mild to moderate compression fracture of T12. Multilevel degenerative endplate sclerosis and spurring. Diffuse facet arthropathy. There are bilateral sacral insufficiency fractures. Spinal Cord: Conus medullaris terminates at the L1-L2 level. Visualized cord demonstrates normal signal and size. Paraspinous Soft Tissues: No paravertebral masses. L1-L2: Mild central canal narrowing due in part due to dorsal epidural lipomatosis. Asymmetric partial effacement of the left lateral recess. Right lateral recess appears grossly patent. Moderate right foraminal narrowing with slight nerve root compression. Left severe foraminal stenosis with nerve root compression L2-L3: Mild central canal narrowing. Partial effacement of both lateral recesses with bilaterally symmetric appearance. Severe left foraminal stenosis with nerve root compression. Moderate to severe right foraminal narrowing with slight nerve root compression L3-L4: Moderate canal stenosis with dorsal epidural lipomatosis. Partial effacement of both lateral recesses with bilaterally symmetric appearance. Moderate right foraminal narrowing with slight nerve root compression. Severe left foraminal stenosis with nerve root compression. L4-L5: Mild central canal narrowing. Partial effacement of both lateral recesses with bilaterally symmetric appearance. Severe bilateral foraminal stenosis with nerve root compression, although left greater than right. L5-S1: Moderate central canal narrowing. Effacement of both lateral recesses although symmetric appearance. Severe bilateral foraminal stenoses with nerve root compression IMPRESSION: Bilateral sacral insufficiency fractures. Suspect acute or subacute however the exact age unknown and recommend clinical correlation Moderate central canal stenosis at L3-L4 and L5-S1 Diffuse bilateral foraminal stenoses as detailed above by spinal level Chronic appearing T12 compression fracture Dictated by: Cezar Osorio M.D. on 05/04/2019 at 16:51 Approved by: Cezar Osorio M.D. on 05/04/2019 at 17:00
== END ==
PROVIDERS: Family Provider Internal Medicine; PCP Internal Medicine; Visit Provider Physician Assistant Surgical
DX: S32.591D Other specified fracture of right pubis, subsequent encounter for fracture with routine healing (principal); M54.9 Dorsalgia, unspecified; M43.16 Spondylolisthesis, lumbar region; M43.17 Spondylolisthesis, lumbosacral region; M48.061 Spinal stenosis, lumbar region without neurogenic claudication; M48.07 Spinal stenosis, lumbosacral region
CPT/HCPCS: 72148

== ENCOUNTER → 2019-05-21 11:47 | Outpatient (CLI) | payer MEDICARE, SELFPAY ==
[2019-05-21 12:34] LABS: Add Manual Diff / Slide Review NO; Basophils Absolute Auto 100 /uL (0-100); Basophils Percent Auto 0.9 % (0-2); Eosinophils Absolute Auto 200 /uL (0-450); Eosinophils Percent Auto 3.2 % (2-4); Hematocrit 33.5 % (36-46); Hemoglobin 11.5 g/dL (12.0-16.0); Lymphocytes Absolute Auto 1400 /uL (1100-4500); Lymphocytes Percent Auto 19.3 % (25-40); Mean Corpuscular HGB Conc 34.4 % (30-36); Mean Corpuscular Hemoglobin 31.3 PG (26-34); Mean Corpuscular Volume 90.9 fL (80-100); Monocytes Absolute Auto 600 /uL (0-900); Monocytes Percent Auto 8.5 % (3-14); Neutrophils Absolute Auto 5100 /uL (1500-7000); Neutrophils Percent Auto 68.1 % (50-75); Platelet Count 207 X10^3/uL (150-400); Red Blood Cell Count 3.69 X10^6/uL (4.0-5.2); Red Cell Distribution Width 14.1 % (11.6-14.8); White Blood Cell Count 7.5 X10^3/uL (4.5-11.0)
[2019-05-21 12:46] LABS: BUN Creatinine Ratio 25.7 (6-22); Blood Urea Nitrogen 36 mg/dL (7-17); Carbon Dioxide 25 mmol/L (22-32); Chloride 107 mmol/L (98-107); Glucose 123 mg/dL (80-110); HEMOLYSIS < 15 (0-50); Potassium 4.2 mmol/L (3.4-5.1); Sodium 140 mmol/L (137-145)
[2019-05-21 12:52] LABS: Hemoglobin A1C% w Est Avg Glu 5.9 % (4.0-6.0)
== END ==
PROVIDERS: Family Provider Internal Medicine; PCP Internal Medicine; Visit Provider Orthopaedic Surgery Orthopaedic Surgery of the Spine
DX: Z01.812 Encounter for preprocedural laboratory examination (principal)
CPT/HCPCS: 36415; 80048; 83036; 85025; 93005; 93010

== ENCOUNTER 2019-08-16 08:57 | Inpatient (IN) | payer MEDICARE, SELFPAY ==
[2019-08-02 13:49] VITALS: BMI 22.3
[2019-08-16] VITALS (15 sets, daily range): BP systolic 112–162; BP diastolic 47–78; PULSE 46–64; RESP 10–20; TEMP 35.2–36.5; O2SAT 94–100; BMI 20.5
--- NOTE | 2019-08-16 | DI.RAD.S_ITS ---
PROCEDURE: XR LUMBAR SPINE 2-3V INDICATIONS: L4-5, L5-S1 TLIF TECHNIQUE: 2 views of the lumbar spine were acquired. COMPARISON: [facility], CR, XR LUMBAR SPINE 2-3V, 04/20/2019, 8:33. FINDINGS: Bones: Immediate postoperative examination after transverse pedicle screw placement and vertical fixation rods bilaterally from L4-S1, with interbody cage disc prosthesis devices at the 2 intervening disc levels. Soft tissues: Overlying bowel gas pattern is normal. No suspicious soft tissue calcifications. IMPRESSION: Normal alignment established after posterior fusion and interbody cage disc prosthesis placement crossing from L4-S1. Dictated by: Dylon Martino M.D. on 08/16/2019 at 15:31 Approved by: Dylon Martino M.D. on 08/16/2019 at 15:38
--- NOTE | 2019-08-16 11:13 | PM.PREOP ---
Pre-operative Note Interval Note History & Physical reviewed/Exam performed by Physician: Yes Changes to H&P: No
[2019-08-16] MEDS: CEFAZOLIN 2 GM/100 ML FROZ.PIGGY IV (11:38)
--- NOTE | 2019-08-16 12:21 | SUR.OPER ---
Prone on spine table, head in foam head support, padded chest and pelvic supports, gel pad at knees, lower legs supported by pillows; nipples, genitalia and toes free of pressure, arms secured on foam padded arm boards at <90 degrees abduction. Tape over blanket at thigh secured to table.
[2019-08-16] MEDS: BUPIVACAINE LIPOSOME 266 MG/20 ML VIAL INJ (12:32)
[2019-08-16] MEDS: BUPIVACAINE 0.25% W/ EPI 30 ML VIAL INJ (12:32)
--- NOTE | 2019-08-16 14:59 | P.OP_ITS ---
Operative Date/Time/Diagnoses Date of procedure: 08/16/19 Time of procedure: 12:03 Pre-op diagnosis: 1. L3-4, L4-5, L5-S1 spinal stenosis 2. L3-4, L4-5, L5-S1 spondylolisthesis 3. L3-4, L4-5, L5-S1 spondylosis with radiculopathy Post-op diagnosis: same Procedure & Clinicians Procedure: 1. L4-5, L5-S1 Postero-lateral and posterior interbody fusion 2. L4-5, L5-S1 interbody cage placement. 3. L4-5, L5-S1 decompressive laminectomy with bilateral facetecomies 4. L4-5, L5-S1 Posterior segmental instrumentation 5. L3-4 left hemilaminectomy 6. [place] of bone marrow from iliac crest 7. Utilization of microsurgical technique and operating microscope Same procedure as scheduled: Yes Indications: Patient has been having chronic back pain and worsening lumbar radiculopathy. Patient failed multiple conservative management with worsening pain weakness and numbness in her lower extremity. Patient has been having difficulty performing activity of daily living. After discussing risks benefits of treatment options, patient elected proceed with surgery. Surgeon: Karlee Montalvo Advertising Operations Coordinator: Gracia Haque Click Yes if Unassisted: No Anesthesia Type: General Operative Notes Closure Type: primary Specimen(s): none sent Prosthetic devices, grafts, tissues, transplants, or devices: Globus revolve screws, Rise cages Applied: catheter Estimated Blood Loss (mL): 100 Blood products transfused: none Procedure in detail: Patient was seen in the preoperative area. Risks and benefits of the surgery was discussed with the patient. Informed consent was obtained from the patient and placed in the chart. Surgical site was marked. Patient was taken to the operative room. General anesthesia was administered. Prophylactic antibiotic was given to the patient less than 30 min before the incision was made. Patient was placed into a prone position on the Boogie table. Patient's back was then prepped and draped in the sterile fashion. Time- out was performed at this time. Using AP and lateral C-arm imaging the interval between L4-S1 was identified and marked on patient's back. A 2 inch incision 2 in from midline was made on the left side first. The fascia was incised in line with skin incision. Globus MARS retractors was placed inside the incision and docked onto the L4 and L5 lamina. Using microsurgical technique and operating microscope, a L4 and L5 laminectomy and L4-5 L5-S1 facetectomy was performed using a Kerrison rongeur. During the process of decompression more than 75% of bilateral L4-5 L5-S1 facets were removed in order to decompress the spinal canal and the lateral recess. The L4- 5 L5-S1 level was grossly unstable after the decompression was completed and requiring the fusion procedure. The disc space at L4-5, L5-S1 was identified. And a total diskectomy was performed at L4-5, L5-S1 level. The endplates were decorticated using a rasp and shaver. The total diskectomy and decortication was performed at L4-5, L5-S1 level in order to to accomplish a L4-5, L5-S1 fusion. The local bone from the laminectomy and facetectomy was saved for local bone grafting. After the total diskectomy and decortication was completed, Bio4 bone graft material was combined with local bone that was harvested earlier. At this time, a separate skin is incision was made over the iliac crest. A Jamshidi needle was inserted into the iliac crest through a separate skin incision. 5 cc of bone marrow aspiration was obtained through the separate skin incision using a Jamshidi needle from the iliac crest. The bone marrow aspiration was combined with local bone and the Bio4 bone grafting material. The bone grafting material was placed into the L4-5, L5-S1 interbody space along with two cages, one expandable cage at each level. The cages were expanded to their maximum height using the torque limiting screwdriver. The globus MARS retractor was redirected over the L3 lamina and docked onto the L3 lamina. Using microsurgical technique and operative microscope, a L3 hemilaminectomy was performed using Kerrison rongeur to further decompress the lateral recess and neural foramen at L3-4 level. Patient was found have significant lateral recess stenosis which was fully decompressed after the hemilaminectomy was completed at L3 level. At this time a mirror image incision was made on the right side. The fascia was incised in line with the skin incision. Globus MARS retractor was inserted and docked onto the L4-5, L5-S1 posterolateral gutter. Using the power drill, posterior-lateral decortication was performed at L4-5, L5-S1 level until bleeding cortical bone was identified. The remaining bone grafting material was placed into the L4-5 L5-S1 posterior lateral gutter he order to accomplish posterolateral fusion at the L4-5 L5-S1 levels. Using the double C-arm technique, pedicle screws were placed into the L4, L5, S1 pedicles bilaterally. This was done by placing the Jamshidi needle into the pedicles, then placing the guidewires over the Jamshidi needle, and finally placing the cannulated screws over the guidewires bilaterally. After the pedicle screws were placed, 2 titanium rods was locked into the heads of the pedicle screws using locking caps and torque limiting screwdriver. Total 6 pedicles screws were placed. After all the hardware was placed, and confirmed with AP and lateral C-arm imaging, the wound was then irrigated with sterile normal saline and packed with Ray-Mayela gauze for 3 min to accomplish hemostasis. After the gauze was removed the deep fascia was closed with #1 Vicryl suture. The subcutaneous layer was closed with 2-0 Vicryl. The skin was closed with skin maxine. Patient tolerated the procedure well. There were no complications. Complications: none Post-operative Condition: stable Disposition: PACU Plan for aftercare: Admit to inpatient hospital
[2019-08-16] MEDS: fentaNYL 100 MCG/2 ML INJ IV ×2 (15:20→15:25)
[2019-08-16] MEDS: HYDROMORPHONE 2 MG INJ IV ×3 (15:30→15:40)
[2019-08-16] MEDS: LACTATED RINGERS 1,000 ML 42 ML IV (15:38)
[2019-08-16] MEDS: SODIUM CHLORIDE 0.9% 1,000 ML 100 ML IV (16:51)
[2019-08-16] MEDS: CEFAZOLIN 1 GM/50 ML FROZ.PIGGY IV ×2 (16:51→23:28)
[2019-08-16] MEDS: OXYCODONE/ACETAMINOPHEN 5/325 TABLET 1 TAB PO (19:25)
[2019-08-16] MEDS: hydrOXYzine pamoate 25 MG CAPSULE PO (20:08)
[2019-08-16] MEDS: MAGNESIUM OXIDE 400 MG TABLET PO (20:51)
[2019-08-16] MEDS: lisinopriL 20 MG TABLET PO (20:51)
[2019-08-16] MEDS: OXYBUTYNIN 5 MG TABLET PO (21:01)
[2019-08-16] MEDS: OXYCODONE IR 5 MG TABLET PO (22:11)
[2019-08-16] MEDS: GABAPENTIN 300 MG CAPSULE PO (22:20)
--- NOTE | 2019-08-16 22:39 | PC.NURSE ---
A&OX3. percocet and vistaril for pain. metoprolol held due to pt's HR 47-50's. rozina patent. pt refused to turn. calf scds on. call light in reach. bed alarm active.
[2019-08-16] MEDS: HYDROMORPHONE 0.5 MG INJ 0.2 MG IV (23:26)
[2019-08-17] MEDS: OXYCODONE IR 5 MG TABLET PO ×2 (01:11→05:48)
[2019-08-17] MEDS: hydrOXYzine pamoate 25 MG CAPSULE PO (01:12)
--- NOTE | 2019-08-17 02:42 | PC.NURSE ---
Addendum entered by Yakelin Del Cid R.N. 08/17/19 05:53: Asked orientation questions and knew name, birthdate, age, place and situation. Had difficulty remembering date and has been quite anxious every since expressing concern she is going to end up in mental institution. Allowed to vent and provided frequent reassurance; possible related to use of Vistaril. Now complaining of 8/10 back pain so medicated with just Oxycodone. Original Note: Patient seen and assessed at 2340. Breath sounds with inspiratory crackles in bilateral bases; RA sat is 99%. HRR but bradycardic with rate of 55 bpm and hypertensive at 150/78. Denies nausea. BT present but denies flatus. Indwelling catheter is patent. Can assist in repositioning q2h. Dressing to back intact with new drainage noted at left corner; outlined. Noted bruises by right elbow and is red under left breast; skin is intact. Complained of 9/10 back pain so medicated with IV Dilaudid with pain decreasing to 6/10; refused ice pack. CMS is intact. Wearing bilateral calf SCD's. Fall risk score is moderate; bed alarm is activated. 0112 patient again states back pain is 9/10 and having cramping in bilateral LE. Medicated with Oxycodone + Vistaril and removed SCD's per patient request.
[2019-08-17] MEDS: SODIUM CHLORIDE 0.9% 1,000 ML 100 ML IV (02:54)
[2019-08-17 04:00] VITALS: BP 161/63; PULSE 61; RESP 20; TEMP 36.2; O2SAT 96
--- NOTE | 2019-08-17 07:44 | PM.PNPO.1 ---
Subjective Subjective Date Patient Seen: 08/17/19 Time Patient Seen: 07:44 Interval history: POD #1 s/p L3-4 left hemilaminectomy, and L4-5, L5-S1 TLIF with Dr. Montalvo. Patient was given Vistaril last night. She is very confused this morning. When patient was spoken to this afternoon she is no longer as confused but does have some lingering confusion still, and she is oriented. Her pain is well controlled. She has a Handy in place. Exam Vital Signs (past 8 hours): - 08/17/19 04:00 Temperature 97.2 F L Pulse Rate 61 Respiratory Rate 20 Blood Pressure 161/63 H Pulse Oximetry 96 Oxygen Delivery Method Room Air Oxygen Flow Rate 0 Narrative Exam Narrative: Patient sitting up in bed in no acute distress. She is alert oriented x3. Calves are soft, compressible, nontender bilaterally. Pulses are symmetrical. Dressing is CDI. She is able to actively dorsiflex and plantar flex. Objective Labs Result Diagrams: 08/17/19 08:20 08/17/19 08:20 Assessment & Plan Post-op Postoperative Procedures: Procedures Operation Date: 08/16/19 10:45 Actual Procedures Side Surgeon p L3-4 left hemilaminectomy, L4-5,L5-S1 TLIf w/ posterior instrumentation Karlee Montalvo MD Patient will mobilize with physical therapy today. Continue current pain control. DCd Vistaril. Patient was ASA 3 during surgery, and given acute encephalopathy from Vistaril this morning she should be inpatient status. She has not voided yet, and has Handy catheter in place. Will DC handy today. Patient may need home health vs SNF at time of discharge.
[2019-08-17 08:00] VITALS: BP 135/58; PULSE 68; RESP 18; TEMP 36.6; O2SAT 94
[2019-08-17 08:33] LABS: Hematocrit 29.9 % (36-46); Hemoglobin 10.1 g/dL (12.0-16.0); Mean Corpuscular HGB Conc 33.9 % (30-36); Mean Corpuscular Hemoglobin 31.1 PG (26-34); Mean Corpuscular Volume 91.5 fL (80-100); Platelet Count 147 X10^3/uL (150-400); Red Blood Cell Count 3.26 X10^6/uL (4.0-5.2); Red Cell Distribution Width 12.8 % (11.6-14.8); White Blood Cell Count 14.6 X10^3/uL (4.5-11.0)
[2019-08-17 08:55] LABS: Blood Urea Nitrogen 27 mg/dL (7-17); Carbon Dioxide 21 mmol/L (22-32); Chloride 106 mmol/L (98-107); Estimated Glomerular Filt Rate 53.1 mL/min (>60); Glucose 203 mg/dL (80-110); HEMOLYSIS < 15 (0-50); Potassium 3.9 mmol/L (3.4-5.1); Sodium 137 mmol/L (137-145)
--- NOTE | 2019-08-17 09:02 | CM.DANOTE ---
Addendum entered by Sonja Castelan R.N. 08/17/19 15:19: Was told by [facility] that facility is filling up, and may not have room for patient. Patient is inpatient status, and would be able to go into jail by 08/18. Discussed with patient and son, Luke. He works at [employer] in [place], and is going to look at a couple of facilities in the area. He will look at [email or web address], [facility], and [email or web address]. He plans to come into office tomorrow to let case hardener know which decision on facility he would like his mother to go to. Patient is ok with going if her son looks at facility. O.T. is recommending jail as well. Original Note: DCP: Case received, EMR reviewed and met with patient. Introduced self and role. Was able to briefly meet with patient to obtain information regarding her baseline activity level and living situation. DCP assessment completed with information currently available. Patient is an 83 year old female who admitted yesterday morning to the care of the orthopedic team. PCP: Dr. Jennifer Rios Payer: confirmed: Medicare. Patient came to the hospital via private vehicle for a surgical procedure. She had L2-3, L3-4 left hemilaminectomy. Patient has had history of chronic back pain, and it has affected her being able to use her walker. Met with patient in her room. Pleasant, alert and oriented. She was sitting up in her bed. Stated, she really didn't want to talk long, but did confirm that she does reside with her son, Luke. Patient uses a walker, and does not drive. She mentioned that she had been getting home health, but stopped it so she would be able to use her benefit again. Patient is hopeful to go home with home health, but will see how she does with P.T. UR will review to see if she becomes inpatient status, and ortho has recommended skilled. Called November at [facility] to review, in case she needs skilled and becomes inpatient status. P: DCP to continue to follow closely, and will see how she does with P.T. Sonja Castelan RN/Fern Cutter
[2019-08-17] MEDS: OXYBUTYNIN 5 MG TABLET PO ×2 (09:20→20:41)
[2019-08-17] MEDS: lisinopriL 20 MG TABLET PO ×2 (09:21→20:41)
[2019-08-17] MEDS: FUROSEMIDE 20 MG TABLET PO (09:21)
[2019-08-17] MEDS: CHOLECALCIFEROL (VITAMIN D3) 1,000 UNIT TABLET 1000 UNIT PO (09:21)
[2019-08-17] MEDS: METOPROLOL IR 50 MG TABLET 100 MG PO ×2 (09:22→20:41)
[2019-08-17] MEDS: AMLODIPINE 5 MG TABLET PO (09:22)
[2019-08-17] MEDS: ASPIRIN EC 81 MG TABLET PO (09:22)
[2019-08-17] MEDS: CYANOCOBALAMIN (VITAMIN B-12) 500 MCG TABLET 250 MCG PO (09:23)
[2019-08-17] MEDS: MAGNESIUM OXIDE 400 MG TABLET PO (09:25)
[2019-08-17] MEDS: METFORMIN HCL 500 MG TABLET 1000 MG PO (09:26)
--- NOTE | 2019-08-17 09:35 | PC.NURSE ---
Day shift: This AM (714). Pt very confused and not oriented to place or date. [place] aware. PO Vistaril removed from MAR as the suspect of the confusion and mentation changes. Pt is clearing up now and has been calm and cooperative as this not is written ([phone]). SHe took all her AM meds and knows what they are all for. This is a wonderful change from this AM. Will continue to monitor. Reports no pain at this time. VS WNL. RA. IV fluids running. Will SL when bag is empty. Call light in reach. Bed alarm is on.
--- NOTE | 2019-08-17 11:20 | PT.IIE ---
Current Diagnoses Spondylolisthesis, lumbosacral region (08/16/19) Other spondylosis with radiculopathy, lumbosacral region (08/16/19) Spinal stenosis, lumbar region without neurogenic claudication (08/16/19) Surgery Performed Operation Date: 08/16/19 10:45 Actual Procedures p L3-4 left hemilaminectomy, L4-5,L5-S1 TLIf w/ posterior instrumentation - Karlee Montalvo MD Surgical History (Last Updated 08/02/19 @ 14:17 by Liz Mcfarlane RN) History of arthroplasty of right knee (Acute ~2006) History of hysterectomy (Acute) History of lumbar surgery (Acute ~2002) History of thyroidectomy (Acute ~1955) Hx of bilateral cataract extraction (Acute) Medical History (Last Updated 08/02/19 @ 14:27 by Liz Mcfarlane RN) Arthritis (Acute) Cellulitis (Acute) Diabetes type 2, controlled (Acute) Easy bruisability (Acute) Fall from ground level (Acute ~02/2019) Hypertension (Acute) Hyperthyroidism (Acute) Overactive bladder (Acute) Pneumonia (Acute) TIA (transient ischemic attack) (Acute 08/14/13) Physical Therapy Inpatient Evaluation/Re-Eval M1 PT/OT-IP Prior Functional Status Start: 08/17/19 10:22 Freq: NEEDED Status: Active Protocol: Document 08/17/19 11:14 AW (Rec: 08/17/19 12:22 AW [email or web address]) Medical Review Prior Functional Status Medical History Reviewed Yes Communication able to make needs known Mobility and Gait Pt has been using a FWW at home and a wheelchair for limited community mobility. Activities of Daily Living and IADL's Pt reports independence with dressing and toileting tasks. She currently forgoes showers in favor of sponge baths which she manages independently. She states she had [employer] at one point assisting her with showers but is unable to provide further details. Social History Household Members children Living Arrangements House Number of Floors (Floors) One Floor Number of Stairs To Enter/Railing? 2 ZIA wtih left rail ascending and a R handle by the door Home Environment Standard Height Toilet,Tub/ Shower Home Equipment Front Wheel Walker,Manual Wheelchair,Raised Toilet Seat Without Armrests,Tub Transfer Bench,Grab Bars Near Toilet, Grab Bars In Shower Additional Social History Comment Pt lives with her son, Luke, who works full-time at [employer]. She is home alone while her son is at work with no other supportive services. M2 PT-IP Current Condition Start: 08/17/19 10:22 Freq: NEEDED Status: Active Protocol: Document 08/17/19 11:14 AW (Rec: 08/17/19 12:22 AW [email or web address]) Physical Therapy Current Condition Current Condition Evaluation Date 08/17/19 Treatment Diagnosis L2-L4 sharad lami; L4-S1 TLIF; impaired mobility Onset Date 08/16/19 Precautions Lumbar Precautions Log Roll,No Twisting,Limit Bending,Lifting Restriction of 10 lbs,Gait Belt above Incisional Area Weight Bearing Status Weight Bearing Status Full Weight Bearing M3 PT-IP Subjective Start: 08/17/19 10:22 Freq: NEEDED Status: Active Protocol: Document 08/17/19 11:14 AW (Rec: 08/17/19 12:22 AW [email or web address]) Subjective Physical Therapy Visit Type Type Initial Evaluation Visit Start Time 10:39 Visit Stop Time 11:14 Total Visit Minutes 35 Physical Therapy Visit Comments Patient Comments Pt presents with confusion but is begrudgingly willing to participate with PT Patient Goals Pt went to SNF rehab after previous surgery and is open to same at this encounter. Therapy Pain Assessment Pain When Pain Assessed During Mobility Pain Present Pain Present Pain Reported Location Back Intensity 5 Scale Used 3/10 at rest; 5/10 with limited mobility Pain Management Techniques Distraction,Re-positioning, Timing of Activity with Medications M4 PT-IP Mobility and Gait Start: 08/17/19 10:22 Freq: NEEDED Status: Active Protocol: Document 08/17/19 11:14 AW (Rec: 08/17/19 12:22 AW [email or web address]) PT-Bed Mobility Assessment Supine to Sit Supine to Sit Contact Guard Assistance,1 Person Assistance Sit to Supine Sit to Supine Contact Guard Assistance,1 Person Assistance Scooting Scooting to Edge of Bed Contact Guard Assistance Scooting Up and Down in Bed Standby Assistance PT-Transfer Assessment Sit to and From Stand Sit to and from Stand Minimal Assistance,1 Person Assistance,Use of Upper Extremities Equipment Transfer Assistive Device Gait Belt,Front Wheeled Walker Orthotic/Prosthetic Devices or Brace: No Comments Mobility Comments Pt sitting up in bed upon PT arrival. She completed supine to sit transfer CGA and cues for log roll technique but pt instead sat up in the bed and rotated her hips toward the edge without complaint of increased pain. She was able to sit EOB with and without UE support. She perseverated on her catheter and stated repeatedly that she should not be moving this much today. PT spent considerable time reassuring the pt that it was safe for her to move and that there were risks related to immobility. She stood using FWW min A x 1 but requested to sit after ~1 minute and refused further mobility. Educated pt that PT would see her twice per day while hospitalized and that SNF's would be looking at therapy notes to see that she was willing to participate. She continued to refuse further mobility and returned herself to supine CGA. She did not perform log roll but also did not bend or twist. She was positioned in the bed with call light within reach, bilateral SCD's applied to calfs, bed alarm armed for safety. Gait Assessment Comments Gait Comments Pt refused. Stair Climbing Assessment Comments Stair Climbing Comments Not assessed. PT-Balance Assessment Sitting Balance and Reactions Static Sitting Balance Ability Good Dynamic Sitting Balance Ability Good Standing Balance and Reactions Static Standing Balance Ability Fair Device Used FWW M5 PT-IP Objective Assessments Start: 08/17/19 10:22 Freq: NEEDED Status: Active Protocol: Document 08/17/19 11:14 AW (Rec: 08/17/19 12:22 AW [email or web address]) Orientation Orientation/Cognition Level of Alertness Confusional State Orientation Name,Place,Situation Language Function Ability No Deficits Noted Safety Awareness Decreased Safety Awareness Comments Pt was confused, stating that PT had already been in today and that there was too much commotion in the hallway (door was closed). She was easily distracted and appeared anxious about mobility even though she was moving well without dramatic increase in pain. Pt able to recall all spinal precautions but functionally has difficulty maintaining them. Gross Range of Motion Lower Extremity ROM Assessment Within Functional Limits Strength Lower Extremity Strength Assessment Bilaterally Impaired Comments Strength Comments Grossly 4-/5 Coordination Assessment Gross Coordination Gross Coordination WNL Sensation Assessment Comments Sensation Comments Unable to assess due to pt's confusional state. Muscle Tone Muscle Tone WNL Yes M6 PT-IP Treatment Start: 08/17/19 10:22 Freq: NEEDED Status: Active Protocol: Document 08/17/19 11:14 AW (Rec: 08/17/19 12:22 AW [email or web address]) Physical Therapy Treatment Education Education Provided Precautions,Weight Bearing Status,Post-Op Packet,Safety Other Treatments Other Treatment Performed Provided education on role of PT, plan of care, spinal precautions. M7 PT-IP Assessment and Plan Start: 08/17/19 10:22 Freq: NEEDED Status: Active Protocol: Document 08/17/19 11:14 AW (Rec: 08/17/19 12:22 AW [email or web address]) PT Summary Assessment and Plan Potential Rehabilitation Potential Good Status of Condition at Evaluation Evolving Summary Impairments Pain,ROM,Strength,Balance, Cognition,Bed Mobility, Transfers,Gait,Activity Tolerance Assessment Summary Liz is an 83 yo woman seen for PT evaluation on POD1 following L2-L4 sharad lami and L4-S1 TLIF. At recent baseline , she ambulates household distances with FWW and uses a wheelchair for community mobility but she states she doesn't leave the house for much. She lives with her son who provides assist but also works full-time, leaving her at home alone while he is at work. On evaluation, pt was confused and required CGA for bed mobility, min assist to stand using FWW. Evaluation was limited due to pt refusal of further mobility. Pt had short rehab stay after previous surgery and would benefit from a short SNF stay at discharge from this admission. Will continue to assess and refine discharge recommendation as needed. Goals Bed Mobility Goal Independent Transfer Goal Independent,Front Wheeled Walker Gait Goal Independent,Front Wheel Walker Gait Distance 150 Other Goals - up/down 2 steps with left railing and right handle SBA Days to Meet Goals 10 Frequency of Treatment Frequency Of Treatment Twice a Day Treatment Plan Physical Therapy Treatment Plan Bed Mobility Training,Transfer Training,Gait Training, Therapeutic Exercise,Balance Retraining,Post Op Education, Discharge Planning,Hot or Cold Pack,Neuromuscular Re-ed, Coordination Retraining,Manual Therapy Other Recommendations and Next Treatment review spinal precautions as Focus applied to functional mobility , assess standing tolerance and gait with FWW Recommendations To Nursing Amount of Assist Needed 1 Person Assist Discharge Recommendations PT Discharge Recommendations SNF Rehab Other Discharge Recommendations SNF rehab vs home with assist and HH depending on progress Transportation Needs at Discharge Private Vehicle
[2019-08-17 12:00] VITALS: BP 155/63; PULSE 60; RESP 18; TEMP 36.7; O2SAT 98
--- NOTE | 2019-08-17 14:50 | PT.IPTN ---
Current Diagnoses Spondylolisthesis, lumbosacral region (08/16/19) Other spondylosis with radiculopathy, lumbosacral region (08/16/19) Spinal stenosis, lumbar region without neurogenic claudication (08/16/19) Surgery Performed Operation Date: 08/16/19 10:45 Actual Procedures p L3-4 left hemilaminectomy, L4-5,L5-S1 TLIf w/ posterior instrumentation - Karlee Montalvo MD Physical Therapy Treatment Note M2 PT-IP Current Condition Start: 08/17/19 10:22 Freq: NEEDED Status: Active Protocol: Document 08/17/19 11:14 AW (Rec: 08/17/19 12:22 AW [email or web address]) Physical Therapy Current Condition Current Condition Evaluation Date 08/17/19 Treatment Diagnosis L2-L4 sharad lami; L4-S1 TLIF; impaired mobility Onset Date 08/16/19 Precautions Lumbar Precautions Log Roll,No Twisting,Limit Bending,Lifting Restriction of 10 lbs,Gait Belt above Incisional Area Weight Bearing Status Weight Bearing Status Full Weight Bearing M3 PT-IP Subjective Start: 08/17/19 10:22 Freq: NEEDED Status: Active Protocol: Document 08/17/19 14:36 AW (Rec: 08/17/19 14:50 AW [email or web address]) Subjective Physical Therapy Visit Type Type Treatment Note Visit Start Time 14:05 Visit Stop Time 14:24 Total Visit Minutes 19 Notes Pt's son, Luke, present throughout treatment Number of BROACH TROUBLE SHOOTER Visits 0 Physical Therapy Visit Comments Patient Comments I feel more like myself now. Patient Goals Pt remains open to SNF stay at discharge Therapy Pain Assessment Pain When Pain Assessed At Rest Pain Present Pain Present Denied Pain M4 PT-IP Mobility and Gait Start: 08/17/19 10:22 Freq: NEEDED Status: Active Protocol: Document 08/17/19 14:36 AW (Rec: 08/17/19 14:50 AW [email or web address]) PT-Bed Mobility Assessment Rolling Type of Rolling Log Rolling,Roll to Left Level of Assist Minimal Assistance Supine to Sit Supine to Sit Contact Guard Assistance,1 Person Assistance Scooting Scooting to Edge of Bed Contact Guard Assistance PT-Transfer Assessment Sit to and From Stand Sit to and from Stand Contact Guard Assistance,1 Person Assistance,Use of Upper Extremities Equipment Transfer Assistive Device Gait Belt,Front Wheeled Walker Orthotic/Prosthetic Devices or Brace: No Transfers Transfer Destination Chair Transfer Technique pt ambulated with FWW Comments Mobility Comments Pt sitting up in bed at time of PT arrival. She completed log roll to her left side and then transferred to sitting EOB min A x 1 and cues for sequencing. She stood using FWW CGA and proceeded to walk around the room CGA before tranferring to the chair CGA and cues for maintaining spinal precautions. She was positioned in the chair with call light and table within reach, son visiting in room. Chair alarm was armed for safety due to high fall risk score. Gait Assessment Gait Gait Assistance Required: Contact Guard Assist Distance (Feet) 30 Able to Maintain Weight Bearing Status Yes During Gait Assistive Devices Assistive Device Front Wheeled Walker Orthotic/Prosthetic Devices or Brace: Yes Gait Deviations General Gait Pattern Antalgic,Decreased Stride Length,Decreased Feet Clearance,Flexed Trunk,Narrow Based Gait Factors Limiting Gait Function Factors Limiting Gait Function Decreased Activity Tolerance, Decreased Strength,Limited Range of Motion,Pain,Poor Safety Awareness Comments Gait Comments Pt required CGA for ambulation with FWW and reminders to avoid twisting while moving about the room. Cues were also required as pt tended to push the walker too far in front of her. Stair Climbing Assessment Comments Stair Climbing Comments Not assessed. M5 PT-IP Objective Assessments Start: 08/17/19 10:22 Freq: NEEDED Status: Active Protocol: Document 08/17/19 11:14 AW (Rec: 08/17/19 12:22 AW [email or web address]) Orientation Orientation/Cognition Level of Alertness Confusional State Orientation Name,Place,Situation Language Function Ability No Deficits Noted Safety Awareness Decreased Safety Awareness Comments Pt was confused, stating that PT had already been in today and that there was too much commotion in the hallway (door was closed). She was easily distracted and appeared anxious about mobility even though she was moving well without dramatic increase in pain. Pt able to recall all spinal precautions but functionally has difficulty maintaining them. Gross Range of Motion Lower Extremity ROM Assessment Within Functional Limits Strength Lower Extremity Strength Assessment Bilaterally Impaired Comments Strength Comments Grossly 4-/5 Coordination Assessment Gross Coordination Gross Coordination WNL Sensation Assessment Comments Sensation Comments Unable to assess due to pt's confusional state. Muscle Tone Muscle Tone WNL Yes M6 PT-IP Treatment Start: 08/17/19 10:22 Freq: NEEDED Status: Active Protocol: Document 08/17/19 14:36 AW (Rec: 08/17/19 14:50 AW [email or web address]) Physical Therapy Treatment Education Education Provided Precautions,Safety Other Treatments Other Treatment Performed Pt had improved understanding of spinal precautions this visit, but continued to require reminders to avoid bending and twisting. M7 PT-IP Assessment and Plan Start: 08/17/19 10:22 Freq: NEEDED Status: Active Protocol: Document 08/17/19 14:36 AW (Rec: 08/17/19 14:50 AW [email or web address]) PT Summary Assessment and Plan Summary Impairments Pain,ROM,Strength,Balance, Cognition,Bed Mobility, Transfers,Gait,Activity Tolerance Progress Towards Goals Progressing Toward Goals Assessment Summary Pt's son attested that the pt is normally more with it and that her mentation seemed to be clearing compared with this morning. Pt continued to require frequent cues to avoid bending and twisting while using the FWW and during transfers, but she was better able to attend to instructions and education. Pt remains a good candidate for SNF rehab. Goals Bed Mobility Goal Independent Transfer Goal Independent,Front Wheeled Walker Gait Goal Independent,Front Wheel Walker Gait Distance 150 Other Goals - up/down 2 steps with left railing and right handle SBA Days to Meet Goals 9 Frequency of Treatment Frequency Of Treatment Twice a Day Treatment Plan Physical Therapy Treatment Plan Bed Mobility Training,Transfer Training,Gait Training, Therapeutic Exercise,Balance Retraining,Post Op Education, Discharge Planning,Hot or Cold Pack,Neuromuscular Re-ed, Coordination Retraining,Manual Therapy Other Recommendations and Next Treatment progress gait distance with Focus FWW, test pt's ability to recall and apply spinal precautions during mobility Recommendations To Nursing Amount of Assist Needed 1 Person Assist Discharge Recommendations PT Discharge Recommendations SNF Rehab Other Discharge Recommendations SNF rehab vs home with assist and HH depending on progress Transportation Needs at Discharge Private Vehicle
--- NOTE | 2019-08-17 15:04 | OT.IP.EVAL ---
Current Diagnoses Spondylolisthesis, lumbosacral region (08/16/19) Other spondylosis with radiculopathy, lumbosacral region (08/16/19) Spinal stenosis, lumbar region without neurogenic claudication (08/16/19) Surgery Performed Operation Date: 08/16/19 10:45 Actual Procedures p L3-4 left hemilaminectomy, L4-5,L5-S1 TLIf w/ posterior instrumentation - Karlee Montalvo MD Past Medical History (Last Updated 08/02/19 @ 14:27 by Liz Mcfarlane RN) Arthritis (Acute) Cellulitis (Acute) Diabetes type 2, controlled (Acute) Easy bruisability (Acute) Fall from ground level (Acute ~02/2019) Hypertension (Acute) Hyperthyroidism (Acute) Overactive bladder (Acute) Pneumonia (Acute) TIA (transient ischemic attack) (Acute 08/14/13) Surgical History (Last Updated 08/02/19 @ 14:17 by Liz Mcfarlane RN) History of arthroplasty of right knee (Acute ~2006) History of hysterectomy (Acute) History of lumbar surgery (Acute ~2002) History of thyroidectomy (Acute ~1955) Hx of bilateral cataract extraction (Acute) Occupational Therapy Inpatient Evaluation/Re-Eval M1 PT/OT-IP Prior Functional Status Start: 08/17/19 10:22 Freq: NEEDED Status: Active Protocol: Document 08/17/19 15:04 JAROCHO (Rec: 08/17/19 16:27 JAROCHO [id number]) Medical Review Prior Functional Status Medical History Reviewed Yes Diet/Fluid Consistency Regular Communication WFL Mobility and Gait Pt has been using a FWW at home and a wheelchair for limited community mobility. Pt has been homebound recently due to severe pain and LLE numbness. Activities of Daily Living and IADL's Pt reports independence with dressing and toileting tasks. Pt has been sponge bathing instead of accessing tub shower with transfer tub seat due to high pain level. She states she had [facility] bath aide at assisting her with showers in the past, but not currently. Prior Functional Level (Other details) Pt lives with son who is gone at work 11-12 hrs/day. She is home alone while her son is at work with no other supportive services. Social History Household Members children Living Arrangements House Number of Floors (Floors) One Floor Number of Stairs To Enter/Railing? 2 ZIA with left rail ascending and a R handle by the door Home Environment Standard Height Toilet,Tub/ Shower Home Equipment Front Wheel Walker,Manual Wheelchair,Raised Toilet Seat Without Armrests,Tub Transfer Bench,Board Operator,Grab Bars Near Toilet,Grab Bars In Shower Employment Status Retired M2 OT-IP Current Condition Start: 08/17/19 12:28 Freq: Status: Active Protocol: Document 08/17/19 15:04 PJM (Rec: 08/17/19 16:27 PJ [id number]) Occupational Therapy Current Condition Current Condition Evaluation Date 08/17/19 Treatment Diagnosis decreased ADLS, mobility, cognition s/p L3-4 hemilami, L4 -S1 TLIF Diagnosis Onset Date 08/16/19 Post Operative Precautions Other Precautions fall risk, confusion, bed/ chair alarm M3 OT- IP Subjective and Pain Start: 08/17/19 12:28 Freq: Status: Active Protocol: Document 08/17/19 15:04 PJM (Rec: 08/17/19 16:27 PJ [id number]) OT- Subjective Occupational Therapy Visit Type Type Initial Evaluation Visit Start Time 14:32 Visit Stop Time 15:04 Total Visit Minutes 32 Notes Pts son, Luke, here this session. Occupational Therapy Visit Comments Patient Comments Do you want me to clean that up for you? Patient/Caregiver Goals to get stronger, be able to walk without pain, and go home OT Pain Assessment Pain When Pain Assessed At Rest Pain Present Pain Present Denied Pain M4 OT- IP ADL's Start: 08/17/19 12:28 Freq: Status: Active Protocol: Document 08/17/19 15:04 PJM (Rec: 08/17/19 16:27 PJ [id number]) OT [id number] General Evaluation Self-Feeding Ability Independent Comments OT Self-Feeding Comments after set up in chair OT ADL-Grooming General Evaluation Grooming Ability Standby Assistance Areas Needing Assistance Retrieving/Set-up of Grooming Items,Combing/Brushing Hair, Face Washing Comments OT Grooming Comments seated in chair OT ADL-Oral Care Comments Oral Care Comments did not occur this session OT ADL-Dressing General Eval Lower Body Dressing Ability Maximum Assistance Assistive Devices Dressing Assistive Devices Long Handled Shoe Horn,Board Operator ,Sock Aid Comments OT Dressing Comments Began education re: use of decision analyst, sock aid and long shoe horn for lower body dressing. Pt familiar with techniques from previous pelvic fx and TKR. OT ADL-Toileting Comments OT Toileting Comments did not occur this session, handy out this AM OT ADL-Bathing Comments OT Bathing Comments to be assessed as activity tolerance improves M5 OT- IP IADL's Start: 08/17/19 12:28 Freq: Status: Active Protocol: Document 08/17/19 15:04 PJ (Rec: 08/17/19 16:27 [facility] [id number]) OT-Instrumental Activities of Daily Living Deficits IADL Deficits Identified Deficits Home Safety Awareness Awareness of Need for Assistance at Home Decreased Awareness Ability to Problem Solve Emergency Unable to Problem Solve Situations Medication Management Medication Management Caregiver Provides Supervision Medication Management Comments son supervises medication management Money Management Money Management No Deficits Identified Money Management Comments pt needs supervision at present due to confusion, but normally indep per son with good accuracy Meal Preparation Meal Preparation Caregiver Provides Assist Meal Preparation Comments son can assist until pt able Ground Instructor Basic Ground Instructor Basic Caregiver Provides Assist Ground Instructor Basic Comments son does mail caller Driving Driving Comments pt no longer drives M6 OT- IP Functional Cognition Start: 08/17/19 12:28 Freq: Status: Active Protocol: Document 08/17/19 15:04 PJM (Rec: 08/17/19 16:27 [facility] [id number]) Cognitive Factors Limiting Selfcare Function Cognitive Ability Level of Alertness Confusional State Patient Orientation Name,Month,Date,Year Attention Span Ability Capable of Focused Attention, Capable of Sustained Attention Ability to Follow Commands Able to Follow One Step Commands Memory Description Short Term Impaired Safety Awareness Decreased Recall of Precautions,Decreased Ability to Apply Precautions Problem Solving Ability Unable to Identify Errors, Needs Assist to Identify Solutions Executive Function Ability Unable to Remember Details Abstract Thinking Ability Unable to Draw Logical Conclusions Cognitive Comments Cognitive Assessment Comments Pt remains confused likely due to dose of Vistaril given overnight per RN. Medication has been d/c'd and pt has improved throughout day. Pt continues to be pleasantly confused re: place, thinking she was at home 3x during this session.This is not her baseline per son. OT- Vision and Hearing OT- Hearing Assessment OT- Hearing Assessment WFL OT- Vision Assessment Visual Acuity WFL,Glasses For Reading M7 OT- IP Mobility and Balance Start: 08/17/19 12:28 Freq: Status: Active Protocol: Document 08/17/19 15:04 PJM (Rec: 08/17/19 16:27 PJM [id number]) OT-Transfer Assessment Comments Mobility Comments see P.T. notes, pt seen up in chair this session OT- Gait Assessment Comments Gait Ability Comments see P.T. notes, pt seen up in chair this session OT- Balance Assessment Sitting Balance and Reactions Static Sitting Balance Ability Good Comments Other Balance Tests/Deviations/Treatment see P.T. notes, pt seen up in : chair this session M8 OT- IP Objective Assessments Start: 08/17/19 12:28 Freq: Status: Active Protocol: Document 08/17/19 15:04 PJM (Rec: 08/17/19 16:27 PJM [id number]) OT Gross Range of Motion Upper Extremity Range of Motion Assessment Within Functional Limits OT Strength Upper Extremity Strength Assessment Within Functional Limits Hand Quill Fixer Strength Hand Dominance Right OT- Coordination Assessment Comments Coordination Comments BUE WFL OT-Muscle Tone Assessment Muscle Tone WNL Yes OT Sensation Assessment Comments Summary Comments Pt denies deficits Edema Edema Absent M9 OT- IP Assessment and Plan Start: 08/17/19 12:28 Freq: Status: Active Protocol: Document 08/17/19 15:04 PJM (Rec: 08/17/19 16:27 PJM [id number]) OT Summary Assessment and Plan Potential Rehabilitation Potential Good Summary OT Impairments Functional Cognition, Functional Mobility,Grooming, Dressing,Toileting,Bathing, Toilet Transfers,Shower Transfers,Activity Tolerance Assessment Summary Low complexity OT assessment completed on this 83 yr old lady admitted for L3-4 hemilami and L4-S1 TLIF with post op confusion due to pain meds. Pt currently presents with performance deficits in functional cognition, activity tolerance, standing grooming, lower body dressing, bathing and toileting as described above. Pt is not safe to return home at this time as she is normally home alone for 11-12 hrs/day while supportive son is at work. Recommend short term SNF for further rehab services to increase independence, endurance and safety in basic self care skills prior to return home. Pt will benefit from OT services here to address the goals below. Goals Grooming Goal Contact Guard Assistance Dressing Goal Minimal Assistance Toileting Goal Standby Assistance Bathing Goal Minimal Assistance,Grab Bars, Hand Held Shower Sprayer,Long Handled Sponge or [place] Toilet Transfer Goal Contact Guard Assistance Shower Transfer Goal Contact Guard Assistance Patient/Caregiver Education Goal Demonstrate Post-Op Precautions,Demonstrate Energy Conservation and Pacing OT-Other Goals Grooming to be done standing at sink with good body mechanics and safety awareness . Days to Meet Goals 5 Frequency of Treatment Frequency Of Treatment Once a Day Treatment Plan OT Treatment Plan ADL Training,Functional Cognition Training,Functional Mobility,Patient/Family Education,Discharge Planning Discharge Recommendations OT Discharge Recommendations SNF Rehab Home Equipment Needs hand held shower hose Transportation Needs at Discharge Wheelchair/Cabulance
[2019-08-17 15:45] VITALS: BP 151/92; PULSE 58; RESP 18; TEMP 36.6; O2SAT 98
[2019-08-17 20:00] VITALS: BP 147/73; PULSE 64; RESP 20; TEMP 36.6
[2019-08-17] MEDS: OXYCODONE/ACETAMINOPHEN 5/325 TABLET 1 TAB PO (20:41)
[2019-08-18] VITALS (8 sets, daily range): BP systolic 135–183; BP diastolic 60–74; PULSE 52–65; RESP 16–22; TEMP 36.1–37.7; O2SAT 96–99
[2019-08-18] MEDS: OXYCODONE/ACETAMINOPHEN 5/325 TABLET 1 TAB PO (00:46)
--- NOTE | 2019-08-18 01:26 | PC.NURSE ---
Patient seen and assessed at 2349. Is oriented except to day of month. Apologizing for confusion last night. Does seem to still have some residual confusion despite orientation. Talking about bullets flying around here earlier and wanting to know if anyone was seriously injured. Also looking down hallways wondering what the fire department is doing here. Asking where son is as he just got out of bed. Upset and states don't patronize me when told these things she has seen/heard did not happen. Breath sounds CTA with RA sat of 96%. HRR. BP remains elevated at 159/70. Denies nausea. BT present but has not had BM since 08/13. Is able to move self in bed. Up to bathroom/ambulating in halls with walker and 1 assist; denies dysuria but states she has urgency. Dressing to back intact with no new drainage. Skin under breasts is pink but without breakdown. Had SCD's on at shift change but after getting up to bathroom refuses to have them put back on. States pain is 4/10 but tolerable and declined pain medication but then at 0046 complained that pain up to 5/10 and requested/medicated with Percocet. Fall risk score is high and bed alarm is activated.
--- NOTE | 2019-08-18 08:32 | P.PN_ITS ---
Subjective Subjective Date Patient Seen: 08/18/19 Time Patient Seen: 08:32 Interval history: POD #2 s/p L3-4 left hemilaminectomy, and L4-5, L5-S1 TLIF with Dr. Montalvo. Patient became confused again last night and this has continued on this morning. Her pain is well controlled. Her handy was removed yesterday. Nursing discussed with son yesterday that she had experienced similar confusion after total knee arthroplasty that resolved after a few days. Son plans to look at in to retirement facilities today. Exam Vital Signs (past 8 hours): - 08/18/19 04:54 Temperature 97.8 F Pulse Rate 56 L Respiratory Rate 22 Blood Pressure 183/66 H Pulse Oximetry 99 Oxygen Delivery Method Room Air Oxygen Flow Rate 0 Narrative Exam Narrative: Patient lying in bed in no acute distress. She is pleasantly confused and she knows she is in the hospital. Dressing CDI. No complaints of pain. She is able to actively dorsiflex and plantar flex. Dorsalis pedis pulses symmetrical. Calves are soft, compressible, nontender bilaterally. Patient does mobilize very well around her room with her walker. Objective Labs Result Diagrams: 08/17/19 08:20 08/17/19 08:20 Labs: Laboratory Results - last 24 hr 08/17/19 08/17/19 08:20 08:20 WBC 14.6 H RBC 3.26 L Hgb 10.1 L Hct 29.9 L MCV 91.5 MCH 31.1 MCHC 33.9 RDW 12.8 Plt Count 147 L Sodium 137 Potassium 3.9 Chloride 106 Carbon Dioxide 21 L BUN 27 H Creatinine 1.00 Estimated GFR 53.1 L BUN/Creatinine Ratio 27.0 H Glucose 203 H Calcium 9.0 Assessment & Plan Post-op Postoperative Procedures: Procedures Operation Date: 08/16/19 10:45 Actual Procedures Side Surgeon p L3-4 left hemilaminectomy, L4-5,L5-S1 TLIf w/ posterior instrumentation Karlee Montalvo MD Plan to get a urinalysis clean-catch this morning. CMP and BMP yesterday WNL, and there are no electrolyte imbalances suggesting cause of confusion. Patient has been afebrile. She has experienced this acute encephalopathy with confusion before when recovering after her knee surgery. She does get less confused as the day goes on, but does seem to sundown at night. We will change to [place] for pain relief from oxycodone to see if this can adequately control her pain and cause less confusion. Plan will be to go to a SNF tomorrow.
--- NOTE | 2019-08-18 09:50 | PC.NURSE ---
Addendum entered by Marlena Dotson R.N. 08/18/19 13:53: Pt confused, irritable, hard to redirect this morning. Pt setting bed alarm off at 0800, when asked, pt stated I'm going to the bathroom. Call light was within reach. Pt OOB with SBA, pt using walker and gait belt to BR, washed hands at sink, performed own denture care, then settled into chair. Pt continued to set off chair alarm, continued to say she was at home and needing to get dressed. Not follow direction, after 40 mins was able to settle in bed with bed alarm on. Pt given AM medications late due to disorientation earlier in AM. Pt became more alert with surroundings and perception of morning confusion around 1030. Pt took medications whole with water and milk. Pt's son Luke present in room visiting. Pt now follows direction, pleasant, engaging appropriately. Denies pain with rest, states hurts when she moves the wrong way. Plan for PRN Tylenol. Original Note: DAy Shift- Yoselin Santos PAC aware of pt's AM temp of 99.8F temporal at 0900.
--- NOTE | 2019-08-18 10:08 | PT-IP ANOTE ---
Spoke to OT Cristina prior to attempt PT. She stated pt is currently not appropriate for therapy at this point d/t increased confusion and anxiety. Medical team is well aware of her condition. Per EMR, pt experienced this acute encephalopathy with confusion before when recovering after her knee surgery. Will reattempt PT this afternoon.
[2019-08-18] MEDS: CYANOCOBALAMIN (VITAMIN B-12) 500 MCG TABLET 250 MCG PO (11:02)
[2019-08-18] MEDS: AMLODIPINE 5 MG TABLET PO (11:02)
[2019-08-18] MEDS: CHOLECALCIFEROL (VITAMIN D3) 1,000 UNIT TABLET 1000 UNIT PO (11:02)
[2019-08-18] MEDS: ASPIRIN EC 81 MG TABLET PO (11:02)
[2019-08-18] MEDS: MAGNESIUM OXIDE 400 MG TABLET PO ×2 (11:04→21:32)
[2019-08-18] MEDS: lisinopriL 20 MG TABLET PO ×2 (11:04→21:33)
[2019-08-18] MEDS: FUROSEMIDE 20 MG TABLET PO (11:04)
[2019-08-18] MEDS: METFORMIN HCL 500 MG TABLET 1000 MG PO (11:04)
[2019-08-18] MEDS: METOPROLOL IR 50 MG TABLET 100 MG PO ×2 (11:04→21:33)
[2019-08-18] MEDS: SODIUM CHLORIDE 0.9% FLUSH 10 ML IV ×2 (11:05→21:34)
[2019-08-18] MEDS: OXYBUTYNIN 5 MG TABLET PO ×2 (11:05→21:33)
--- NOTE | 2019-08-18 11:59 | CM.DPC ---
Addendum entered by JOSHUA Riley 08/18/19 14:13: ADD: Return call from Cleopatra at [facility] who states that they can accept the pt when medically stable to discharge. DENITA called pt's son Luke and left ms with update on [facility] acceptance. Plan: SW to follow to see if pt medically stable to d/c to SNF tomorrow and determine [facility] vs [facility] if pt does not have fever. BF Original Note: DCP SNF Planning: SW met bedside with pt and son Luke and explained role and pt discussed feeling quite stressed and anxious regarding the confusion with medications she received at the hospital and feeling like she has gotten mixed messages on her SNF d/c plans. SW was able to clarify Medicare coverage for SNF and update that [facility] still may not be able to accept if they are full and stated the need for additional SNF for backup. Pt and son confirm that preference would still be 1)[facility] if they have an opening 2) [facility]. SW discussed that pt could not stay for multiple days after being medically stable just to d/c to SNF first preference and pt and son acknowledge understanding. DENITA called [facility] with new referral and Cleopatra will review and SW faxed clinicals. SW called [facility] who states they were able to do some room changes and could accept pt when stable for d/c if pt DOES NOT have a fever as she had a slight one this morning and they will need to confirm pt fever free in the morning before accepting. PASRR previously completed. Plan: SW to follow for [facility] review as a backup SNF in case pt has fever and cannot be accepted at [facility]. Likely d/c to SNF tomorrow if stable. JOSHUA Riley
--- NOTE | 2019-08-18 12:29 | OT.IP.TRT ---
Current Diagnoses Spondylolisthesis, lumbosacral region (08/16/19) Other spondylosis with radiculopathy, lumbosacral region (08/16/19) Spinal stenosis, lumbar region without neurogenic claudication (08/16/19) Surgery Performed Operation Date: 08/16/19 10:45 Actual Procedures p L3-4 left hemilaminectomy, L4-5,L5-S1 TLIf w/ posterior instrumentation - Karlee Montalvo MD Occupational Therapy Treatment Note M2 OT-IP Current Condition Start: 08/17/19 12:28 Freq: Status: Active Protocol: Document 08/17/19 15:04 PJM (Rec: 08/17/19 16:27 PJM [id number]) Occupational Therapy Current Condition Current Condition Evaluation Date 08/17/19 Treatment Diagnosis decreased ADLS, mobility, cognition s/p L3-4 hemilami, L4 -S1 TLIF Diagnosis Onset Date 08/16/19 Post Operative Precautions Other Precautions fall risk, confusion, bed/ chair alarm M3 OT- IP Subjective and Pain Start: 08/17/19 12:28 Freq: Status: Active Protocol: Document 08/18/19 12:29 PJM (Rec: 08/18/19 13:10 PJ [id number]) OT- Subjective Occupational Therapy Visit Type Type Treatment Note Visit Start Time 12:05 Visit Stop Time 12:29 Total Visit Minutes 24 Notes Attempted to see pt earlier this AM, but pt very anxious and confused. RN aware and reports pt very confused overnight, as well. Pt's orientation and anxiety much improved now and she is just finishing her meal. Occupational Therapy Visit Comments Patient Comments I know I at the hospital. I keep having to remind myself. OT Pain Assessment Pain When Pain Assessed After Treatment Pain Present Pain Present Denied Pain M4 OT- IP ADL's Start: 08/17/19 12:28 Freq: Status: Active Protocol: Document 08/18/19 12:29 PJM (Rec: 08/18/19 13:10 PJ [id number]) OT OTG-Ltny-Iwmarlb General Evaluation Self-Feeding Ability Independent OT ADL-Grooming General Evaluation Grooming Ability Standby Assistance Areas Needing Assistance Retrieving/Set-up of Grooming Items,Combing/Brushing Hair, Face Washing Comments OT Grooming Comments after set up in chair OT ADL-Oral Care Comments Oral Care Comments pt declined to walk to sink for oral care this session OT ADL-Dressing General Eval Lower Body Dressing Ability Moderate Assistance Assistive Devices Dressing Assistive Devices Fishing Rod Trimmer,Sock Aid Comments OT Dressing Comments Pt SBA to doff socks with mod cues with service architect. Pt needs mod assist and max cues to place sock on sock aid , then SBA with max cues to pull sock on. OT ADL-Toileting Comments OT Toileting Comments pt declined need to use bathroom this session M6 OT- IP Functional Cognition Start: 08/17/19 12:28 Freq: Status: Active Protocol: Document 08/18/19 12:29 PJM (Rec: 08/18/19 13:10 [facility] [id number]) Cognitive Factors Limiting Selfcare Function Cognitive Ability Level of Alertness Confusional State Attention Span Ability Capable of Focused Attention, Capable of Sustained Attention Ability to Follow Commands Able to Follow One Step Commands Memory Description Short Term Impaired Safety Awareness Decreased Ability to Apply Precautions Problem Solving Ability Needs Assist to Identify Solutions Executive Function Ability Unable to Filter Distractions, Unable to Remember Details Cognitive Comments Cognitive Assessment Comments Pt able to state 3/3 precautions with min cues. Lumbar precautions sign posted within pt's view in room. Pt needs mod verbal cues o follow spine precautions during functional tasks. M7 OT- IP Mobility and Balance Start: 08/17/19 12:28 Freq: Status: Active Protocol: Document 08/18/19 12:29 PJM (Rec: 08/18/19 13:10 [facility] [id number]) OT- Gait Assessment Comments Gait Ability Comments pt declined mobility to sink or bathroom this session OT- Balance Assessment Sitting Balance and Reactions Static Sitting Balance Ability Good Dynamic Sitting Balance Ability Good M9 OT- IP Assessment and Plan Start: 08/17/19 12:28 Freq: Status: Active Protocol: Document 08/18/19 12:29 PJM (Rec: 08/18/19 13:10 [facility] [id number]) OT Summary Assessment and Plan Potential Rehabilitation Potential Good Summary OT Impairments Functional Cognition, Functional Mobility,Grooming, Dressing,Toileting,Bathing, Toilet Transfers,Shower Transfers,Activity Tolerance Progress Towards Goals Slow Progress due to Activity Tolerance,Slow Progress due to Cognition Assessment Summary Pt confused and anxious this AM but much clearer by noon with good effort and participation in lower body dressing training. Pt is not confused at baseline per son and normally manages her own medications an does bill paying with good memory. Pt recalling lumbar precautions but still needs mod verbal cues to apply them during functional activity. Pt has good potential for improvement based on baseline level of function. Recommend SNF at d/c for further rehab services. Goals Grooming Goal Contact Guard Assistance Dressing Goal Minimal Assistance Toileting Goal Standby Assistance Bathing Goal Minimal Assistance,Grab Bars, Hand Held Shower Sprayer,Long Handled Sponge or [place] Toilet Transfer Goal Contact Guard Assistance Shower Transfer Goal Contact Guard Assistance Patient/Caregiver Education Goal Demonstrate Post-Op Precautions,Demonstrate Energy Conservation and Pacing OT-Other Goals Grooming to be done standing at sink with good body mechanics and safety awareness . Days to Meet Goals 5 Frequency of Treatment Frequency Of Treatment Once a Day Treatment Plan OT Treatment Plan ADL Training,Functional Cognition Training,Functional Mobility,Patient/Family Education,Discharge Planning Other Treatment Recommendations and Next ? shower (pt will need Treatment Focus encouragement) try in late morning Discharge Recommendations OT Discharge Recommendations SNF Rehab Transportation Needs at Discharge Wheelchair/Cabulance
--- NOTE | 2019-08-18 13:52 | PT.IPTN ---
Current Diagnoses Spondylolisthesis, lumbosacral region (08/16/19) Other spondylosis with radiculopathy, lumbosacral region (08/16/19) Spinal stenosis, lumbar region without neurogenic claudication (08/16/19) Surgery Performed Operation Date: 08/16/19 10:45 Actual Procedures p L3-4 left hemilaminectomy, L4-5,L5-S1 TLIf w/ posterior instrumentation - Karlee Montalvo MD Physical Therapy Treatment Note M2 PT-IP Current Condition Start: 08/17/19 10:22 Freq: NEEDED Status: Active Protocol: Document 08/17/19 11:14 AW (Rec: 08/17/19 12:22 AW [id number]) Physical Therapy Current Condition Current Condition Evaluation Date 08/17/19 Treatment Diagnosis L2-L4 sharad lami; L4-S1 TLIF; impaired mobility Onset Date 08/16/19 Precautions Lumbar Precautions Log Roll,No Twisting,Limit Bending,Lifting Restriction of 10 lbs,Gait Belt above Incisional Area Weight Bearing Status Weight Bearing Status Full Weight Bearing M3 PT-IP Subjective Start: 08/17/19 10:22 Freq: NEEDED Status: Active Protocol: Document 08/18/19 13:12 SP (Rec: 08/18/19 14:20 SP [id number]) Subjective Physical Therapy Visit Type Type Treatment Note Visit Start Time 13:12 Visit Stop Time 13:52 Total Visit Minutes 40 Notes Pt's son, Luke, present and provided support during sit to stand and gait. Physical Therapy Visit Comments Patient Comments I feel alot better, if don't turn wrong, there is no pain . Patient Goals Pt welcoming to SNF rehab at discharge. Therapy Pain Assessment Pain Present Pain Present Denied Pain M4 PT-IP Mobility and Gait Start: 08/17/19 10:22 Freq: NEEDED Status: Active Protocol: Document 08/18/19 13:12 SP (Rec: 08/18/19 14:20 SP [id number]) PT-Bed Mobility Assessment Rolling Type of Rolling Log Rolling,Roll to Left Sit to Supine Sit to Supine Moderate Assistance,1 Person Assistance PT-Transfer Assessment Sit to and From Stand Sit to and from Stand Contact Guard Assistance,1 Person Assistance,Use of Upper Extremities Equipment Transfer Assistive Device Gait Belt,Front Wheeled Walker Orthotic/Prosthetic Devices or Brace: Yes Transfers Transfer Destination Bed,Toilet Transfer Technique pt ambulated with FWW Transfer Ability Level of Assist Contact Guard Assistance,Use of Upper Extremities Comments Mobility Comments Pt was sitting up in chair when arrived, son in room completed partial caregiver training, donned gait belt high on LB for safety away from LB surgery site. Son assisted patient sit to stand CGA with good demonstration of proper hand placement throughout tx using FWW for self support, gait CGA using FWW approx 140 ft with min cuing for upright posture and body closer to FWW back leg to prevent trunk flexion with in post op precautions. Pt recalled 3/3 spinal precautions, improved spinal no twisting during turns post education small LE pivot and repositioning FWW while maintaining spinal shld with hips alignment. Pt required CGA- Min A with use of R rail on wall and FWW handle contact support during toilet transfer with cuing for knee flexion and straight back during good slow descent. 15% A to come to standing using R rail and FWW handle. Pt ableto complete hygiene and brief mgt herself RUE in standing with LUE on FWW for balance support CGA provided for safety, no LOB or deviations noted. Pt demonstrated FWW up to sink and good balance no UE required support on sink. Pt walked back to R side of bed usign FWW SBA close to HOB and good reaching back prior to sitting. Sit to supine cuing for laying onto R side while required Mod A for BLE on to bed then log roll to L, patient completes quickly, cued slower transtion to assist safety for spinal no twisting precautions. Pt was ableto lateral scoot to center away from EOB. Pt had call light and all needs in reach with bed alarm donned for safety, fall risk. Gait Assessment Gait Gait Assistance Required: Contact Guard Assist Distance (Feet) 140 Able to Maintain Weight Bearing Status Yes During Gait Assistive Devices Assistive Device Front Wheeled Walker Orthotic/Prosthetic Devices or Brace: Yes Gait Deviations General Gait Pattern Antalgic,Decreased Stride Length,Decreased Feet Clearance,Flexed Trunk,Narrow Based Gait Factors Limiting Gait Function Factors Limiting Gait Function Decreased Activity Tolerance, Decreased Strength,Limited Range of Motion Comments Gait Comments See mobility comments. Gait approx 140 ft using FWW CGA provided by son, step over step, small base of support, decreased foot clearance, cued for upright posture and body closer to FWW back legs and pivot feet with fWW to maintain spinal precautions. Stair Climbing Assessment Comments Stair Climbing Comments Unable to assess, decreased activity tolerance durign gait . Will assess tomorrow if able . PT-Balance Assessment Sitting Balance and Reactions Static Sitting Balance Ability Good Dynamic Sitting Balance Ability Good Standing Balance and Reactions Static Standing Balance Ability Good Dynamic Standing Balance Ability Fair Device Used FWW M5 PT-IP Objective Assessments Start: 08/17/19 10:22 Freq: NEEDED Status: Active Protocol: Document 08/17/19 11:14 AW (Rec: 08/17/19 12:22 AW [id number]) Orientation Orientation/Cognition Level of Alertness Confusional State Orientation Name,Place,Situation Language Function Ability No Deficits Noted Safety Awareness Decreased Safety Awareness Comments Pt was confused, stating that PT had already been in today and that there was too much commotion in the hallway (door was closed). She was easily distracted and appeared anxious about mobility even though she was moving well without dramatic increase in pain. Pt able to recall all spinal precautions but functionally has difficulty maintaining them. Gross Range of Motion Lower Extremity ROM Assessment Within Functional Limits Strength Lower Extremity Strength Assessment Bilaterally Impaired Comments Strength Comments Grossly 4-/5 Coordination Assessment Gross Coordination Gross Coordination WNL Sensation Assessment Comments Sensation Comments Unable to assess due to pt's confusional state. Muscle Tone Muscle Tone WNL Yes M6 PT-IP Treatment Start: 08/17/19 10:22 Freq: NEEDED Status: Active Protocol: Document 08/18/19 13:12 SP (Rec: 08/18/19 14:20 SP [id number]) Physical Therapy Treatment Exercises Exercises Ankle Pumps,Heel Slides,Supine Hip Abduction Education Education Provided Precautions,Safety Other Treatments Other Treatment Performed Education on spinal precautiions and cuing when needed, improved during tx today. M7 PT-IP Assessment and Plan Start: 08/17/19 10:22 Freq: NEEDED Status: Active Protocol: Document 08/18/19 13:12 SP (Rec: 08/18/19 14:20 SP [id number]) PT Summary Assessment and Plan Potential Rehabilitation Potential Good Status of Condition at Evaluation Evolving Summary Impairments Pain,ROM,Strength,Balance, Cognition,Bed Mobility, Transfers,Gait,Activity Tolerance Progress Towards Goals Progressing Toward Goals Assessment Summary Pt had 3/3 recall to spinal precautions, improved during mobility, cued occasionally during turns small foot pivots and FWW with trunk to maintain spinal alignment.See mobility comments. Pt decreased activity tolerance to assess stair mgt today, tired during gait, required brief standing rest using FWW CGA. Caregiver training during transfer and gait by son. Pt would benefit from skilled PT upon discharge, recommending SNF to progress in safety precautions spinal alignment, improved today, and increase strength, endurance. Son commented works 10 hr shifts and not at home to provide 24/ 7 support. Goals Bed Mobility Goal Independent Transfer Goal Independent,Front Wheeled Walker Gait Goal Independent,Front Wheel Walker Gait Distance 150 Other Goals - up/down 2 steps with left railing and right handle SBA Days to Meet Goals 9 Frequency of Treatment Frequency Of Treatment Twice a Day Treatment Plan Physical Therapy Treatment Plan Bed Mobility Training,Transfer Training,Gait Training, Therapeutic Exercise,Balance Retraining,Post Op Education, Discharge Planning,Hot or Cold Pack,Neuromuscular Re-ed, Coordination Retraining,Manual Therapy Other Recommendations and Next Treatment progress gait distance with Focus FWW, test pt's ability to recall and apply spinal precautions during mobility, stair mgt. Recommendations To Nursing Amount of Assist Needed Standby Assistance Discharge Recommendations PT Discharge Recommendations SNF Rehab Other Discharge Recommendations SNF rehab vs home with assist and HH depending on progress Transportation Needs at Discharge Private Vehicle
[2019-08-18] MEDS: ACETAMINOPHEN 325 MG TABLET 650 MG PO ×2 (14:15→21:33)
[2019-08-18 16:19] LABS: Appearance Urine UA SL CLOUDY; Bilirubin Urine UA NEGATIVE (NEGATIVE); Color Urine UA YELLOW; Glucose Urine UA NEGATIVE (Negative); Ketones Urine UA NEGATIVE (NEGATIVE); Leukocyte Esterase Urine UA 2+ (NEGATIVE); Nitrite Urine UA NEGATIVE (Negative); Occult Blood Urine UA TRACE-INTACT (Negative); Protein Urine UA NEGATIVE (Negative); Urobilinogen Urine UA 0.2 E.U./dL (0.2)
[2019-08-18 17:35] LABS: Bacteria Urine Few (2-10); Culture Indicated Urine Specimen Cultured; RBC Urine 0-1/HPF (0-5/HPF); Squamous Epithelial Cell Urine 1-5 /HPF (0-5/HPF); WBC Urine 30-100/HPF (0-5/HPF)
--- NOTE | 2019-08-18 18:16 | PC.NURSE ---
Assumed care of pt at 1500. Pt sittting up in bed during bedside hand-off. Denies pain. Support son Luke at bedside. During assessment pt is A/O x4. Reports she remembers being confused overnight and states My son says I get loopy at the witching hour. Up to bathroom, continent voids. Urine sent to lab. Up to chair for dinner, tolerating diet. Cooperative and pleasant with care. Bed and chair alarm used. Door open for close monitoring.
[2019-08-18] MEDS: DOCUSATE 100 MG CAPSULE PO (21:31)
[2019-08-18] MEDS: SENNOSIDES 8.6 MG TABLET 17.2 MG PO (21:33)
[2019-08-19] MEDS: GABAPENTIN 300 MG CAPSULE PO (00:54)
--- NOTE | 2019-08-19 02:52 | PC.NURSE ---
Addendum entered by Yakelin Del Cid R.N. 08/19/19 05:21: States she slept well. Requesting oxygen be removed this morning and sats have been maintaining > 93%. O2 removed but remains on continuous oximetry and will monitor for any desats. Continues to deny pain this morning. States she slept well. Original Note: Patient seen and assessed at 0100. Tonight is totally alert and oriented and remembers confusion of past 2 nights. Breath sounds CTA with RA sat of 98%. HRR with rate of 56 and BP continues elevated at 154/66. Denies nausea. BT present and abdomen is soft. Up to bathroom with walker and SBA; having urinary frequency but denies dysuria. Is independent with bed mobility. Dressing to back is intact with no new drainage. Refusing SCD's. States pain which was 4/10 at shift change is now 6/10 and requests only Tylenol. Too early to give additional Tylenol and patient did not want any narcotics so medicated with Gabapentin which she states she normally takes at home. Just now up to bathroom again and asked is son, Luke, was going to sleep in chair all night. When indicated that Luke was not here she said don't you see in that corner after which patient verbalizes knowledge that he is not in room and does know she is in the hospital.
[2019-08-19 05:32] VITALS: BP 147/68; PULSE 55; RESP 16; TEMP 36.9; O2SAT 98
[2019-08-19] MEDS: ACETAMINOPHEN 325 MG TABLET 650 MG PO (07:44)
[2019-08-19 08:00] VITALS: BP 159/64; PULSE 55; RESP 18; TEMP 36.8; O2SAT 96
[2019-08-19] MEDS: HYDROCODONE/ACET 10/325 TABLET 1 TAB PO (08:33)
--- NOTE | 2019-08-19 08:58 | CM.DPC ---
Addendum entered by Rebeca Gupta LPN 08/19/19 13:21: All is now set for the d/c to [facility] today. PASRR reviewed and processed. SNFf orders obtained and faxed by [facility] Maryuri. Met with pt and her son Luke. Both say they are so pleased that [facility] can accept pt today. [place] van this afternoon. RHIANNON Mendiola was updated. Addendum entered by Rebeca Gupta LPN 08/19/19 10:16: Lacy Aviles is here, states pt will be ready for d/c once the urine culture/sensitivities are completed. He says this will likely be by this afternoon. He will be off floor but says lacy Fagan can complete the d/c to snf orders if pt is stable for d/c today. Original Note: DCP: continued: case received, EMR reviewed and spoke with Shanda/SVCR. She confirms acceptance of pt when medically stable (note pt is without a fever today and last night). P: likely d/c today as per above. Will follow and will call son when plan is certain for today.
--- NOTE | 2019-08-19 10:33 | PM.PNPO.1 ---
Subjective Subjective Date Patient Seen: 08/19/19 Time Patient Seen: 08:00 Interval history: POD #3 s/p L3-4 left hemilaminectomy, and L4-5, L5-S1 TLIF with Dr. Montalvo. Per nurse, patient is more oriented but possibly hallucinated this AM. She complains on moderate pain in her lower back and hips. She needs to urinate frequently. Denies burning or pain while urinating, flank pain, suprapubic pain. Chavarria catheter was removed 2 days ago. Denies fever, chills, chest pain, shortness of breath. Exam Vital Signs (past 8 hours): - 08/19/19 05:32 08/19/19 08:00 Temperature 98.4 F 98.2 F Pulse Rate 55 L 55 L Respiratory Rate 16 18 Blood Pressure 147/68 H 159/64 H Pulse Oximetry 98 96 Oxygen Delivery Method Room Air Oxygen Flow Rate 0 Narrative Exam Narrative: Patient lying in bed in no acute distress. A&Ox3. Dressing CDI. She is able to actively dorsiflex and plantar flex. Dorsalis pedis pulses symmetrical. Calves are soft, compressible, nontender bilaterally. Patient does mobilize very well around her room with her walker. Objective Labs Result Diagrams: 08/17/19 08:20 08/17/19 08:20 Labs: Laboratory Results - last 24 hr 08/18/19 16:00 Urine Color Yellow Urine Appearance Sl cloudy Urine pH 6.0 Ur Specific Hitchcock 1.010 Urine Protein Negative Urine Glucose (UA) Negative Urine Ketones Negative Urine Occult Blood Trace-intact Urine Nitrate Negative Urine Bilirubin Negative Urine Urobilinogen 0.2 Ur Leukocyte Esterase 2+ H Urine RBC 0-1/hpf Urine WBC 30-100/hpf H Ur Squamous Epith Cells 1-5 /hpf Urine Bacteria Few (2-10) H Ur Culture Indicated? Specimen cultured Assessment & Plan Post-op Postoperative Procedures: Procedures Operation Date: 08/16/19 10:45 Actual Procedures Side Surgeon p L3-4 left hemilaminectomy, L4-5,L5-S1 TLIf w/ posterior instrumentation Karlee Montalvo MD Postoperative status: doing well Postoperative plan: discharge Postoperative plan narrative: UA - +WBC, leuks, bacteria / cultures pending Discussed UTI w hospitalist - tx with cefdinir 300mg BID x3days, will adjust as needed pending culture results Patient has been afebrile. She has experienced this acute encephalopathy with confusion before when recovering after her knee surgery. She does get less confused as the day goes on, but does seem to sundown at night. Continue current pain management Plan will be to go to a SNF today Time Spent With Patient Time with patient: less than 15 minutes
[2019-08-19] MEDS: AMLODIPINE 5 MG TABLET PO (10:55)
[2019-08-19] MEDS: MAGNESIUM OXIDE 400 MG TABLET PO (10:56)
[2019-08-19] MEDS: METOPROLOL IR 50 MG TABLET 100 MG PO (10:57)
[2019-08-19] MEDS: CYANOCOBALAMIN (VITAMIN B-12) 500 MCG TABLET 250 MCG PO (11:00)
[2019-08-19] MEDS: CHOLECALCIFEROL (VITAMIN D3) 1,000 UNIT TABLET 1000 UNIT PO (11:01)
[2019-08-19] MEDS: ASPIRIN EC 81 MG TABLET PO (11:01)
[2019-08-19] MEDS: METFORMIN HCL 500 MG TABLET 1000 MG PO (11:02)
[2019-08-19] MEDS: OXYBUTYNIN 5 MG TABLET PO (11:02)
[2019-08-19] MEDS: lisinopriL 20 MG TABLET PO (11:02)
[2019-08-19] MEDS: SODIUM CHLORIDE 0.9% FLUSH 10 ML IV (11:04)
--- NOTE | 2019-08-19 11:59 | CM.DPC ---
DCP Cont: Faxed signed med list, PASRR and SNF order to [facility] at fax # [phone]. Fax confirmation scanned in. Maryuri Dixon, [facility] Branch[facility] Room Supervisor
--- NOTE | 2019-08-19 12:18 | PT.IPTN ---
Current Diagnoses Spondylolisthesis, lumbosacral region (08/16/19) Other spondylosis with radiculopathy, lumbosacral region (08/16/19) Spinal stenosis, lumbar region without neurogenic claudication (08/16/19) Surgery Performed Operation Date: 08/16/19 10:45 Actual Procedures p L3-4 left hemilaminectomy, L4-5,L5-S1 TLIf w/ posterior instrumentation - Karlee Montalvo MD Physical Therapy Treatment Note M2 PT-IP Current Condition Start: 08/17/19 10:22 Freq: NEEDED Status: Active Protocol: Document 08/17/19 11:14 AW (Rec: 08/17/19 12:22 AW [id number]) Physical Therapy Current Condition Current Condition Evaluation Date 08/17/19 Treatment Diagnosis L2-L4 sharad lami; L4-S1 TLIF; impaired mobility Onset Date 08/16/19 Precautions Lumbar Precautions Log Roll,No Twisting,Limit Bending,Lifting Restriction of 10 lbs,Gait Belt above Incisional Area Weight Bearing Status Weight Bearing Status Full Weight Bearing M3 PT-IP Subjective Start: 08/17/19 10:22 Freq: NEEDED Status: Active Protocol: Document 08/19/19 11:50 SP (Rec: 08/19/19 13:11 SP [id number]) Subjective Physical Therapy Visit Type Type Treatment Note Visit Start Time 11:50 Visit Stop Time 12:18 Total Visit Minutes 28 Notes Pt's sonLuke, present in room when arrived, didn't stay during tx. Number of OFFICE MACHINE REPAIR SHOP SUPERVISOR Visits 2 Physical Therapy Visit Comments Patient Comments Pt willing to work with PT on 3rd attempt. Unable earlier secondary to LBP reports. Patient Goals Pt welcoming to SNF rehab at discharge. Therapy Pain Assessment Pain Present Pain Present Pain Reported Location Back Intensity 8 Scale Used 8/10 first 2 attempts, 0/10 late am M4 PT-IP Mobility and Gait Start: 08/17/19 10:22 Freq: NEEDED Status: Active Protocol: Document 08/19/19 11:50 SP (Rec: 08/19/19 13:11 SP [id number]) PT-Bed Mobility Assessment Supine to Sit Supine to Sit Standby Assistance,Head of Bed Elevated Scooting Scooting to Edge of Bed Standby Assistance PT-Transfer Assessment Sit to and From Stand Sit to and from Stand Contact Guard Assistance, Minimal Assistance,Use of Upper Extremities Equipment Transfer Assistive Device Gait Belt,Front Wheeled Walker Orthotic/Prosthetic Devices or Brace: Yes Transfers Transfer Destination Chair,Toilet Transfer Technique pt ambulated using FWW Transfer Ability Level of Assist Contact Guard Assistance,Use of Upper Extremities Comments Mobility Comments Pt was reclined supine in bed when x2 attempts with report of pain 7-8/10 and asked that I return later am to give time for meds to help back pain. Pt was seated upright in bed when arrived, HOB elevated, nurse and son in room taking meds when arrived, reported no pain. Pt was able to self scoot to EOB SBA with good spinal alignment and no cuing required reported 0/10 pain. Sit to stand from EOB CGA, cued for proper hand placement to push from bed 1UE and other onFWW. Pt requested use of bathroom, ambulated to bathroom approx 10 ft, cued for body positioning lined up front toilet, good handplacement on wall rail and used other UE on front toilet seat for slow graded descent and come to standing Min A. Cued for knee flexion and straight back to maintain spinal precautions with good follow through, was able to complete hygiene and brief mgt herself . Pt ambulated to sink with good FWW positioning , contact support as needed on sink provided sBA for safety with balance. Pt was able to ambulate into hallway approx 20 ft from sink until reported feeling little light headed and dizzy so recommended to turn around and walked back to room chair total 35 ft CGA for safety, occasional cuing for upright posture and body closer to FWW. Pt demonstrated good hand placement sitting in to chair with slow descent. OFFICE MACHINE REPAIR SHOP SUPERVISOR assessed vitals: BP 81/39 seated HR 55 O2 99% on room air. After 2 min seated in chair BP increased to 124/56 and patient reported feeling alot better, non symptomatic. OFFICE MACHINE REPAIR SHOP SUPERVISOR felt comfortable allowing patient stay up relined in the recliner, donned chair alarm and provided call light and all needs in reach. Care mgt staff and son in room when left discussing discharge plan this afternoon at 1 pm to [facility]. Gait Assessment Gait Gait Assistance Required: Contact Guard Assist Distance (Feet) 45 Able to Maintain Weight Bearing Status Yes During Gait Assistive Devices Assistive Device Front Wheeled Walker Orthotic/Prosthetic Devices or Brace: Yes Gait Deviations General Gait Pattern Antalgic,Decreased Stride Length,Decreased Feet Clearance,Flexed Trunk,Narrow Based Gait Factors Limiting Gait Function Factors Limiting Gait Function Decreased Activity Tolerance, Decreased Strength,Limited Range of Motion,Pain,Poor Balance Comments Gait Comments See mobility comments. Pt ambulated bed to toilet 10 ft, toilet to sink to 10 ft into hallway and back to chair total approx 45 ft using FWW CGA with occasional cuing for body closer to FWW to improve upright posture and safety with report of dizziness/ light headed once walking in to hallway. Stair Climbing Assessment Comments Stair Climbing Comments Unable to assess, decreased activity tolerance during gait and unstable vitals. PT-Balance Assessment Sitting Balance and Reactions Static Sitting Balance Ability Good Dynamic Sitting Balance Ability Good Standing Balance and Reactions Static Standing Balance Ability Good Dynamic Standing Balance Ability Fair Device Used FWW M5 PT-IP Objective Assessments Start: 08/17/19 10:22 Freq: NEEDED Status: Active Protocol: Document 08/17/19 11:14 AW (Rec: 08/17/19 12:22 AW [id number]) Orientation Orientation/Cognition Level of Alertness Confusional State Orientation Name,Place,Situation Language Function Ability No Deficits Noted Safety Awareness Decreased Safety Awareness Comments Pt was confused, stating that PT had already been in today and that there was too much commotion in the hallway (door was closed). She was easily distracted and appeared anxious about mobility even though she was moving well without dramatic increase in pain. Pt able to recall all spinal precautions but functionally has difficulty maintaining them. Gross Range of Motion Lower Extremity ROM Assessment Within Functional Limits Strength Lower Extremity Strength Assessment Bilaterally Impaired Comments Strength Comments Grossly 4-/5 Coordination Assessment Gross Coordination Gross Coordination WNL Sensation Assessment Comments Sensation Comments Unable to assess due to pt's confusional state. Muscle Tone Muscle Tone WNL Yes M6 PT-IP Treatment Start: 08/17/19 10:22 Freq: NEEDED Status: Active Protocol: Document 08/19/19 11:50 SP (Rec: 08/19/19 13:11 SP [id number]) Physical Therapy Treatment Education Education Provided Precautions,Safety Other Treatments Other Treatment Performed Pt recalled 3/3 spinal precautions, good demonstration. M7 PT-IP Assessment and Plan Start: 08/17/19 10:22 Freq: NEEDED Status: Active Protocol: Document 08/19/19 11:50 SP (Rec: 08/19/19 13:11 SP [id number]) PT Summary Assessment and Plan Potential Rehabilitation Potential Good Status of Condition at Evaluation Evolving Summary Impairments Pain,ROM,Strength,Balance, Cognition,Bed Mobility, Transfers,Gait,Activity Tolerance Progress Towards Goals Progressing Toward Goals Assessment Summary Pt had 3/3 recall to spinal precautions, improved during mobility, cued upright posture and body closer to FWW with trunk to maintain spinal alignment. See mobility comments. Pt decreased activity tolerance and unstable vitals unsafe to assess stair mgt today, Pt would benefit from skilled PT upon discharge, recommending SNF to progress in safety precautions spinal alignment, improved today, and increase strength, endurance. Son commented works 10 hr shifts and not at home to provide 24/ support. Goals Bed Mobility Goal Independent Transfer Goal Independent,Front Wheeled Walker Gait Goal Independent,Front Wheel Walker Gait Distance 150 Other Goals - up/down 2 steps with left railing and right handle SBA Days to Meet Goals 9 Frequency of Treatment Frequency Of Treatment Twice a Day Treatment Plan Physical Therapy Treatment Plan Bed Mobility Training,Transfer Training,Gait Training, Therapeutic Exercise,Balance Retraining,Post Op Education, Discharge Planning,Hot or Cold Pack,Neuromuscular Re-ed, Coordination Retraining,Manual Therapy Other Recommendations and Next Treatment progress gait distance with Focus FWW, test pt's ability to recall and apply spinal precautions during mobility, stair mgt. Recommendations To Nursing Amount of Assist Needed Standby Assistance Discharge Recommendations PT Discharge Recommendations SNF Rehab Transportation Needs at Discharge Private Vehicle
[2019-08-19] MEDS: CEFDINIR 300 MG CAPSULE PO (12:51)
--- NOTE | 2019-08-19 13:05 | OT.IP.TRT ---
Current Diagnoses Spondylolisthesis, lumbosacral region (08/16/19) Other spondylosis with radiculopathy, lumbosacral region (08/16/19) Spinal stenosis, lumbar region without neurogenic claudication (08/16/19) Surgery Performed Operation Date: 08/16/19 10:45 Actual Procedures p L3-4 left hemilaminectomy, L4-5,L5-S1 TLIf w/ posterior instrumentation - Karlee Montalvo MD Occupational Therapy Treatment Note M2 OT-IP Current Condition Start: 08/17/19 12:28 Freq: Status: Active Protocol: Document 08/17/19 15:04 [facility] (Rec: 08/17/19 16:27 [facility] [id number]) Occupational Therapy Current Condition Current Condition Evaluation Date 08/17/19 Treatment Diagnosis decreased ADLS, mobility, cogntion s/p L3-4 hemilami, L4 -S1 TLIF Diagnosis Onset Date 08/16/19 Post Operative Precautions Other Precautions fall risk, confusion, bed/ chair alarm M3 OT- IP Subjective and Pain Start: 08/17/19 12:28 Freq: Status: Active Protocol: Document 08/19/19 13:06 [facility] (Rec: 08/19/19 13:14 [facility] [id number]) OT- Subjective Occupational Therapy Visit Type Type Treatment Note Visit Start Time 12:50 Visit Stop Time 13:05 Total Visit Minutes 15 Occupational Therapy Visit Comments Patient Comments Pt wanting to get dressed prior to leaving. OT Pain Assessment Pain When Pain Assessed After Treatment Pain Present Pain Present Denied Pain M4 OT- IP ADL's Start: 08/17/19 12:28 Freq: Status: Active Protocol: Document 08/19/19 13:06 [facility] (Rec: 08/19/19 13:14 [facility] [id number]) OT ADL-Dressing General Eval Upper Body Dressing Ability Standby Assistance Lower Body Dressing Ability Maximum Assistance Comments OT Dressing Comments Assist to help get pants on over her feet, assisted with socks and shoes as well. Pt a bit fatigued and wanting assist. Pt able to do her own UB dressing needs after set-up . Nursing states to change out dressing to cover site. OT ADL-Toileting Comments OT Toileting Comments pt declined need to use bathroom this session M6 OT- IP Functional Cognition Start: 08/17/19 12:28 Freq: Status: Active Protocol: Document 08/19/19 13:06 [facility] (Rec: 08/19/19 13:14 [facility] [id number]) Cognitive Factors Limiting Selfcare Function Cognitive Ability Level of Alertness Alert Attention Span Ability Capable of Focused Attention, Capable of Sustained Attention Ability to Follow Commands Able to Follow One Step Commands Safety Awareness Decreased Ability to Apply Precautions Problem Solving Ability Needs Assist to Identify Solutions Cognitive Comments Cognitive Assessment Comments Pt today able to appropriately follow back precautions for dressing needs and also able to state all back precautions . M7 OT- IP Mobility and Balance Start: 08/17/19 12:28 Freq: Status: Active Protocol: Document 08/19/19 13:06 [facility] (Rec: 08/19/19 13:14 [facility] [id number]) OT-Transfer Assessment Sit to and From Stand Sit to and from Stand Standby Assistance OT- Balance Assessment Sitting Balance and Reactions Static Sitting Balance Ability Good Dynamic Sitting Balance Ability Good Standing Balance and Reactions Static Standing Balance Ability Fair M8 OT- IP Objective Assessments Start: 08/17/19 12:28 Freq: Status: Active Protocol: Document 08/17/19 15:04 [facility] (Rec: 08/17/19 16:27 [facility] [id number]) OT Gross Range of Motion Upper Extremity Range of Motion Assessment Within Functional Limits OT Strength Upper Extremity Strength Assessment Within Functional Limits 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 Strength Hand Dominance Right OT- Coordination Assessment Comments Coordination Comments BUE WFL OT-Muscle Tone Assessment Muscle Tone WNL Yes OT Sensation Assessment Comments Summary Comments Pt denies deficits Edema Edema Absent M9 OT- IP Assessment and Plan Start: 08/17/19 12:28 Freq: Status: Active Protocol: Document 08/19/19 13:06 [facility] (Rec: 08/19/19 13:14 [facility] [id number]) OT Summary Assessment and Plan Potential Rehabilitation Potential Good Summary Progress Towards Goals Progressing Toward Goals Assessment Summary Pt appears to be thinking clearer today and appropriate with questions regarding her dressing, and back precautions today. Pt going to skilled rehab today. Discharge Recommendations OT Discharge Recommendations SNF Rehab Home Equipment Needs hand held shower hose Transportation Needs at Discharge Wheelchair/Cabulance
--- NOTE | 2019-08-19 13:32 | PC.NURSE ---
Day Shift- Report called to Tona at [facility] at 1255 on current pt status. Lower back surgical dressing compromised, therefore dressing removed without difficulty. Incisions X2 well approximated with maxine intact. No S/S of infection, small purple bruising noted around incision area. CLeansed with NSand gauze to rid of dry blood. pat dry and one Coversite dressing applied. Pt left unit with all belongings via transport wheelchair at 1322 in no distress. Pt's son Luke at side upon discharge.
--- NOTE | 2019-08-25 12:17 | PM.DS.1 ---
History of Present Illness History of Present Illness Date Patient Seen: 08/19/19 Time Patient Seen: 12:18 Chief complaint: Translaminar Interbody Fusion/Laminotomy Narrative: see progress note Discharge Providers Provider Date of admission: 08/16/19 08:57 Discharge Date: 08/19/19 Primary care physician: Jennifer Rios MD Consults: 08/16/19 16:27 Consult to Occupational Therapy Evaluate & Treat Comment: Physician Instructions: Evaluate and treat Consult to Physical Therapy Evaluate & Treat Comment: Physician Instructions: Evaluate and Treat Discharge provider: Fredy Márquez PA-C Summary Hospital Course Discharge Diagnosis: Pre-op diagnosis: 1. L3-4, L4-5, L5-S1 spinal stenosis 2. L3-4, L4-5, L5-S1 spondylolisthesis 3. L3-4, L4-5, L5-S1 spondylosis with radiculopathy Post-op diagnosis: same Hospital Course: [address] [address] Operative Note Patient: Liz Kaba [facility]#: [id number] : [id number]:[id number] Age/Sex: 83 / F Date of Service: 08/16/19 Provider: Karlee Montalvo MD Operative Date/Time/Diagnoses Date of procedure: 08/16/19 Time of procedure: 12:03 Pre-op diagnosis: 1. L3-4, L4-5, L5-S1 spinal stenosis 2. L3-4, L4-5, L5-S1 spondylolisthesis 3. L3-4, L4-5, L5-S1 spondylosis with radiculopathy Post-op diagnosis: same Procedure & Clinicians Procedure: 1. L4-5, L5-S1 Postero-lateral and posterior interbody fusion 2. L4-5, L5-S1 interbody cage placement. 3. L4-5, L5-S1 decompressive laminectomy with bilateral facetecomies 4. L4-5, L5-S1 Posterior segmental instrumentation 5. L3-4 left hemilaminectomy 6. [place] of bone marrow from iliac crest 7. Utilization of microsurgical technique and operating microscope Same procedure as scheduled: Yes Indications: Patient has been having chronic back pain and worsening lumbar radiculopathy. Patient failed multiple conservative management with worsening pain weakness and numbness in her lower extremity. Patient has been having difficulty performing activity of daily living. After discussing risks benefits of treatment options, patient elected proceed with surgery. Surgeon: Karlee Montalvo Legal Consultant: Gracia Haque Click Yes if Unassisted: No Anesthesia Type: General Operative Notes Closure Type: primary Specimen(s): none sent Prosthetic devices, grafts, tissues, transplants, or devices: Globus revolve screws, Rise cages Applied: catheter Estimated Blood Loss (mL): 100 Blood products transfused: none Exam Vital Signs (past 8 hours): Oxygen Delivery Method Room Air Oxygen Flow Rate 0 Narrative Exam Narrative: see progress note Objective Labs Result Diagrams: 08/17/19 08:20 08/17/19 08:20 Discharge Plan Discharge Plan Patient Disposition: [facility] Transfer to: [facility] Consult as needed: Dental, Hearing, Mental health, Podiatry and Vision Discharge orders & Medications Prescriptions: New hydrocodone-acetaminophen 10-325 mg tablet 1 tab PO Q4-6H PRN (Reason: pain (scale score 7-10)) Qty: 40 RF: 0 acetaminophen [Tylenol Extra Strength] 500 mg tablet 500 mg PO Q4H PRN (Reason: pain (scale score 1-3)) Qty: 30 RF: 0 cefdinir 300 mg Capsule 300 mg PO BID 3 Days Qty: 6 RF: 0 Continued CHOLECALCIFEROL (VITAMIN D3) (Vitamin D) 1,000 units PO QDAY Qty: 0 RF: 0 CYANOCOBALAMIN (#VITAMIN B12) 250 mcg PO QDAY Qty: 0 RF: 0 lisinopril 20 MG tablet 20 mg PO BID Qty: 0 RF: 0 metoprolol tartrate 100 MG tablet 100 mg PO BID Qty: 0 RF: 0 furosemide [Lasix] 20 MG tablet 20 mg PO QDAY Qty: 0 RF: 0 amlodipine 5 mg Tablet 5 mg PO DAILY RF: 0 magnesium oxide 400 mg magnesium Tablet 400 mg PO BID RF: 0 metformin 1,000 mg Tablet 1,000 mg PO DAILY RF: 0 gabapentin 300 mg Capsule 300 mg PO BEDTIME PRN (Reason: Pain) RF: 0 hydroxyzine HCl 25 mg Tablet 25 mg PO BEDTIME PRN (Reason: Pain) RF: 0 oxybutynin chloride 5 mg Tablet 5 mg PO BID RF: 0 Discontinued oxycodone-acetaminophen 5-325 mg Tablet 1 tab PO Q4-6H PRN (Reason: Pain) RF: 0 aspirin 81 mg Tablet,Delayed Release (/Ec) 81 mg PO DAILY RF: 0 Follow up/Referrals: Karlee Montalvo MD [Physician] - Jennifer Rios MD [Primary Care Provider] - Diet/Activity/Treatments Diet: Carb-consistent/Diabetic Liquid consistency: Normal/Thin Food texture: Regular Activity: no excessive bending, lifting, twisting Cold/Heat Therapy: continue cold therapy as needed Skin/Wound/Dressing Care Report to your healthcare provider any signs of infection, such as:: chills, fever, increased pain, unusual drainage and unusual redness Dressing: keep dressing dry. change dressing as needed Special Rehabilitation Services Reason for rehabilitation: Post-operative therapy Rehab type: Physical therapy and Occupational therapy Restrictions to mobility: no excessive bending, lifting, twisting Visit Report/Discharge Packet Instructions: Delirium, How to Prevent Falls, DI for Prescription Opioid Use, DI for Transforaminal Lumbar Interbody Fusion Stand Alone Forms: Surgery Discharge Discharge Data Primary Care Provider: Jennifer Rios Discharges patient from system. Discharge Date/Time: 08/19/19 13:22
== END 2019-08-19 13:22 | DRG 453 ==
PROVIDERS: Physician Assistant Surgical; Admitting Provider Orthopaedic Surgery Orthopaedic Surgery of the Spine; Family Provider Internal Medicine; PCP Internal Medicine; Referring Provider Orthopaedic Surgery Orthopaedic Surgery of the Spine; Visit Provider Orthopaedic Surgery Orthopaedic Surgery of the Spine
PROC: 0SG00AJ Fusion of Lumbar Vertebral Joint with Interbody Fusion Device, Posterior Approach, Anterior Column, Open Approach (ICD-10-PCS; principal; 2019-08-16 10:45)
DX: M48.061 Spinal stenosis, lumbar region without neurogenic claudication (principal); G92 Toxic encephalopathy; M47.27 Other spondylosis with radiculopathy, lumbosacral region; I10 Essential (primary) hypertension; E78.5 Hyperlipidemia, unspecified; E11.9 Type 2 diabetes mellitus without complications; Z79.84 Long term (current) use of oral hypoglycemic drugs; E03.9 Hypothyroidism, unspecified; N32.81 Overactive bladder; M48.07 Spinal stenosis, lumbosacral region; M43.16 Spondylolisthesis, lumbar region; M43.17 Spondylolisthesis, lumbosacral region; M48.27 Kissing spine, lumbosacral region; T43.595A Adverse effect of other antipsychotics and neuroleptics, initial encounter; Y92.230 Patient room in hospital as the place of occurrence of the external cause
CPT/HCPCS: 36415; 72100; 76000; 80048; 81001; 82962; 85027; 87086; 97110; 97116; 97161; 97165; 97530; 97535; C1776; C9290; J0330; J0690; J1100; J1170; J2405; J2704; J3010

== ENCOUNTER → 2019-08-25 14:43 | Outpatient (CLI) | payer SELFPAY ==
[2019-08-16 17:48] VITALS: BMI 20.5
--- NOTE | 2019-08-25 | DI.RAD.S_ITS ---
PROCEDURE: XR CHEST 2V INDICATIONS: Pneumonia TECHNIQUE: 2 views of the chest were acquired. COMPARISON: [facility], , CHEST 2 VIEW, 11/13/2015, 17:44. FINDINGS: Surgical changes and devices: None. Lungs and pleura: Lungs are clear. No pleural effusions or pneumothorax. Mediastinum: Mediastinal contours are normal. Heart size is enlarged. Bones and chest wall: No suspicious bony abnormalities. Soft tissues appear unremarkable. IMPRESSION: No acute cardiopulmonary pathology. Dictated by: Rayshawn Mejia M.D. on 08/25/2019 at 15:37 Approved by: Rayshawn Mejia M.D. on 08/25/2019 at 15:38
== END ==
PROVIDERS: Family Provider Internal Medicine; PCP Internal Medicine; Referring Provider Internal Medicine; Visit Provider Internal Medicine
DX: J18.9 Pneumonia, unspecified organism (principal)
CPT/HCPCS: 71046

== ENCOUNTER 2020-01-20 21:25 | Emergency (ER) | payer MEDICARE, SELFPAY ==
[2019-08-16 17:48] VITALS: BMI 20.5
--- NOTE | 2020-01-20 21:31 | ED.CHESTPAIN ---
HPI - Chest Pain General Chief Complaint: Chest Pain Stated Complaint: chest and back pain after choking Time Seen by Provider: 01/20/20 21:25 Source: patient and family Mode of arrival: Ambulatory Limitations: no limitations History of Present Illness HPI narrative: 84F non smoker with history of HTN and diabetes presents with her son for evaluation of chest pain, back pain, and shortness of breath this evening since a choking episode. She has a pair of ill-fitting dentures and had a choking episode which resulted in some hemoptysis and production of foamy sputum. Son gently provided the Heimlich maneuver on her epigastrium which seemed to help. She has no ongoing choking type sensation on only the symptoms as mentioned above. She states her pain is sharp and stabbing and is worse with a deep breath or motion. She is not dizzy nor weak or lightheaded. She denies runny nose, sore throat. She denies any fever or chills. She has had no nausea, vomiting or diarrhea MD complaint: chest pain Onset (ago): hour(s) Duration: constant Pain location: substernal Severity: moderate Quality: sharp Pain radiation: back Relieving factors: remaining still Exacerbating factors: inspiration Associated symptoms: dyspnea Treatments prior to arrival chest pain: none Related Data Home Medications Medication Instructions Recorded Confirmed CHOLECALCIFEROL (VITAMIN D3) 1,000 units PO QDAY #0 05/02/11 08/16/19 (Vitamin D) CYANOCOBALAMIN (#VITAMIN B12) 250 mcg PO QDAY #0 05/02/11 08/16/19 furosemide [Lasix] 20 mg PO QDAY #0 05/02/11 08/16/19 lisinopril 20 mg PO BID #0 05/02/11 08/16/19 metoprolol tartrate 100 mg PO BID #0 05/02/11 08/16/19 amlodipine 5 mg PO DAILY 02/24/19 08/16/19 magnesium oxide 400 mg PO BID 02/24/19 08/16/19 gabapentin 300 mg PO BEDTIME PRN 08/02/19 08/02/19 hydroxyzine HCl 25 mg PO BEDTIME PRN 08/02/19 08/02/19 metformin 1,000 mg PO DAILY 08/02/19 08/16/19 oxybutynin chloride 5 mg PO BID 08/02/19 08/16/19 Previous Rx's Medication Instructions Recorded acetaminophen [Tylenol Extra 500 mg PO Q4H PRN #30 tab 08/19/19 Strength] hydrocodone-acetaminophen 1 tab PO Q4-6H PRN #40 tab 08/19/19 Allergies Allergy/AdvReac Type Severity Reaction Status Date / Time stoool softener AdvReac Mild diarrea Uncoded 08/16/19 10:27 Review of Systems Constitutional Constitutional: Denies chills, Denies fatigue, Denies fever(s), Denies frequent falls, Denies lethargy and Denies weakness Eyes Eyes: Denies change in vision, Denies eye discharge, Denies irritation and Denies loss of vision ENT Ears, Nose, Mouth, and Throat: Denies change in voice, Denies dizziness, Denies neck pain, Denies sore throat and Denies throat swelling Cardiovascular Cardiovascular: Reports chest pain, Denies irregular heart rhythm, Denies lightheadedness, Denies palpitations, Reports dyspnea, Denies dyspnea on exertion and Denies orthopnea Respiratory Respiratory: Denies cough, Reports hemoptysis, Reports dyspnea, Denies dyspnea on exertion and Denies wheezing Gastrointestinal Gastrointestinal: Denies abdominal pain, Denies change in bowel habits, Denies diarrhea, Denies nausea and Denies vomiting Musculoskeletal Musculoskeletal: Denies neck pain and Denies numbness Integumentary/Breasts Skin/Breast: Denies pruritus, Denies erythema, Denies rash and Denies wounds Neurologic Neurologic: Denies behavioral changes, Denies confusion, Denies dizziness, Denies frequent falls, Denies loss of vision, Denies numbness and Denies weakness Psychiatric Psychiatric: Denies anxiety, Denies behavioral changes, Denies confusion, Denies depression, Denies homicidal ideation and Denies suicidal ideation Endocrine Endocrine: Denies fatigue, Denies flushing and Denies palpitations Hematologic/Lymphatic Hematologic/Lymphatic: Denies easy bruising Allergic/Immunologic Allergic/Immunologic: Denies urticaria, Denies throat swelling and Denies wheezing Patient History Medical History Arthritis (Acute) Cellulitis (Acute) Diabetes type 2, controlled (Acute) Easy bruisability (Acute) Fall from ground level (Acute ~02/2019) Hypertension (Acute) Hyperthyroidism (Acute) Overactive bladder (Acute) Pneumonia (Acute) TIA (transient ischemic attack) (Acute 08/14/13) Surgical History History of arthroplasty of right knee (Acute ~2006) History of hysterectomy (Acute) History of lumbar surgery (Acute ~2002) History of thyroidectomy (Acute ~1955) Hx of bilateral cataract extraction (Acute) Social History household members: children Smoking Status: Never smoker alcohol intake: former Smoking Status: Never smoker alcohol intake frequency: 0-2 drinks per day Substance Use Type: opiates, painkillers and prescription drug Exam Narrative Exam Narrative: GENERAL: [84] year old patient appears stated age. Well-nourished, well-developed patient, in mild distress. HEAD: Atraumatic. Normocephalic. EYES: Pupils equal round and reactive. Extraocular motions intact. No scleral icterus. No injection or drainage. ENT: Nose without bleeding, purulent drainage. Throat without erythema, tonsillar hypertrophy or exudate. Airway patent. NECK: Trachea midline. Non tender CARDIOVASCULAR: Regular rate and rhythm without murmurs, gallops, or rubs. Chest wall pain with palpation RESPIRATORY: Clear to auscultation. Breath sounds equal bilaterally. No wheezes, rales, or rhonchi. GASTROINTESTINAL: Abdomen soft, non-tender, nondistended. EXTREMITIES: No edema or joint tenderness. BACK: Nontender without deformity or crepitance. No flank tenderness. NEURO: AOx3. SKIN: No rash or erythema of visible areas Initial Vital Signs Initial Vital Signs: Vital Signs Temperature 97.5 F L 01/20/20 21:35 Pulse Rate 69 01/20/20 21:35 Respiratory Rate 16 01/20/20 21:35 Blood Pressure 124/66 01/20/20 21:35 Pulse Oximetry 100 01/20/20 21:35 Course Orders Ordered: ED Orders 01/20/20 21:40 EKG-12 Lead Stat 01/20/20 21:50 Complete Blood Count AUTO DIFF Stat Comprehensive Metabolic Panel Stat D Dimer Stat Lipase Stat NT-proBNP (BNP-Adult 18+) Stat Troponin & CK Cardiac Panel Stat 01/20/20 22:39 CT angio chest PE protocol Stat Sodium Chloride (Normal Saline 0.9%) 1,000 mls @ 150 mls/hr IV CONT RENEA Last Admin: 01/20/20 22:04 Dose: 150 mls/hr Documented by: OFELIA Vancomycin HCl/Dextrose (Vancomycin) 1,500 mg in 300 mls @ 200 mls/hr IV NOW ONE Stop: 01/21/20 03:17 Last Admin: 01/21/20 02:08 Dose: 200 mls/hr Documented by: LIAM Discontinued Medications Fentanyl (Sublimaze) 25 mcg IV NOW ONE Stop: 01/21/20 01:55 Last Admin: 01/21/20 02:08 Dose: 25 mcg Documented by: LIAM Piperacillin/Tazobactam/Dextrose (Zosyn) 3.375 gm in 50 mls @ 100 mls/hr IV NOW ONE Stop: 01/21/20 01:48 Last Infusion: 01/21/20 02:32 Dose: 0 mls/hr Documented by: Admin: 01/21/20 01:28 Dose: 100 mls/hr Documented by: OFELIA Ketorolac Tromethamine (Toradol) 15 mg IV NOW ONE Stop: 01/20/20 22:52 Last Admin: 01/20/20 22:56 Dose: 15 mg Documented by: OFELIA Ondansetron HCl (Zofran) 4 mg IV NOW ONE Stop: 01/20/20 21:58 Last Admin: 01/20/20 22:04 Dose: 4 mg Documented by: OFELIA Consultations Consultation #1: call to carton packaging machine operator Gen Surgery ([facility]), patient requires transfer to facility with Thoracic Consultation #2: call to [facility]. No Beds call to [place]. Dr. Rios (CardioThoracic) happy to be involved. Requests patient come down. She will speak with GI about possible disimpaction. Request patient go to ED to facilitate. Dr. Kendall happy to accept. Prov calls back, GI will not scope tonight. She will now be direct admit. EMS notified. Vital Signs Vital signs: Vital Signs - 8 hr 01/20/20 21:35 01/20/20 22:08 01/20/20 22:30 Temperature 97.5 F L Pulse Rate 69 63 65 Respiratory Rate 16 19 15 Blood Pressure 124/66 133/62 142/64 H Pulse Oximetry 100 99 98 01/20/20 23:00 08/13/20 23:01 01/20/20 23:32 Temperature Pulse Rate 71 70 83 Respiratory Rate 22 23 Blood Pressure 178/74 H Pulse Oximetry 97 97 98 01/21/20 00:00 01/21/20 00:30 01/21/20 01:00 Temperature Pulse Rate 73 72 85 Respiratory Rate 24 21 25 H Blood Pressure 153/66 H 156/67 H 166/70 H Pulse Oximetry 97 97 96 01/21/20 01:17 01/21/20 01:30 01/21/20 01:31 Temperature Pulse Rate 80 80 78 Respiratory Rate 14 19 25 H Blood Pressure 168/71 H 146/65 H Pulse Oximetry 96 97 97 01/21/20 02:00 Temperature Pulse Rate 77 Respiratory Rate 16 Blood Pressure 133/63 Pulse Oximetry 96 MDM - Chest Pain Lab Data Result diagrams: 01/20/20 21:50 01/20/20 21:50 Labs: Lab Results 01/20/20 01/20/20 01/20/20 Range/Units 21:50 21:50 21:50 WBC 17.2 H (4.5-11.0) X10^3/uL RBC 3.95 L (4.0-5.2) X10^6/uL Hgb 11.9 L (12.0-16.0) g/dL Hct 35.8 L (36-46) % MCV 90.6 (80-100) fL MCH 30.1 (26-34) PG MCHC 33.2 (30-36) % RDW 12.8 (11.6-14.8) % Plt Count 204 (150-400) X10^3/uL Neut % (Auto) 86.9 H (50-75) % Lymph % (Auto) 6.6 L (25-40) % [place] % (Auto) 5.9 (3-14) % Eos % (Auto) 0.3 L (2-4) % Baso % (Auto) 0.3 (0-2) % Neut # (Auto) 07426 H (3057-8923) /uL Lymph # (Auto) 1100 (9473-8662) /uL [place] # (Auto) 1000 H (0-900) /uL Eos # (Auto) 0 (0-450) /uL Baso # (Auto) 0 (0-100) /uL D-Dimer 1641 H (<230) ng/mL Sodium 135 L (137-145) mmol/L Potassium 3.9 (3.4-5.1) mmol/L Chloride 104 (98-107) mmol/L Carbon Dioxide 18 L (22-32) mmol/L BUN 36 H (7-17) mg/dL Creatinine 1.65 H (0.52-1.04) mg/dL Estimated GFR 29.7 L (>60) mL/min BUN/Creatinine Ratio 21.8 (6-22) Glucose 177 H (80-110) mg/dL Calcium 9.9 (8.4-10.2) mg/dL Total Bilirubin 0.5 (0.2-1.3) mg/dL AST 30 (14-36) IU/L ALT 14 (<35) IU/L Alkaline Phosphatase 101 (38-126) U/L Total Creatine Kinase 51 (30-135) U/L CK-MB (CK-2) TNP CK-MB (CK-2) Rel Index TNP Troponin I < 0.012 (0.01-0.034) ng/mL NT-Pro-B Natriuret Pep 484 H (<450) pg/mL Total Protein 8.3 H (6.3-8.2) g/dL Albumin 4.5 (3.5-5.0) g/dL Globulin 3.8 (1.7-4.1) g/dL Albumin/Globulin Ratio 1.2 (1.0-2.8) Lipase 123 (23-300) U/L Imaging Data CT scan - chest: Radiologist's Impression: 1. Multiple foci of air adjacent to the esophageal wall, likely esophageal perforation versus diverticular disease 2. Incomplete emptying of the esophagus with ingested material extending above the thoracic inlet may suggest distal esophageal obstruction Critical Care Time Critical Care Time Critical Care Time: Yes Total Critical Care Time: 35 Attestation: The high probability of a clinically significant, sudden or life threatening deterioration of the [CV/GI] system(s) required my full and direct attention, intervention and personal management. The aggregate critical care time was [35] minutes. This time is in addition to time spent performing reported procedures but includes the following: [x] Data Review and interpretation [x] Patient assessment and monitoring of vital signs [x] Documentation [x] Medication orders and management Discharge Plan Departure Patient Disposition: [facility] Clinical Impression: Esophageal perforation Prescriptions: No Action CHOLECALCIFEROL (VITAMIN D3) (Vitamin D) 1,000 units PO QDAY Qty: 0 RF: 0 CYANOCOBALAMIN (#VITAMIN B12) 250 mcg PO QDAY Qty: 0 RF: 0 lisinopril 20 MG tablet 20 mg PO BID Qty: 0 RF: 0 metoprolol tartrate 100 MG tablet 100 mg PO BID Qty: 0 RF: 0 furosemide [Lasix] 20 MG tablet 20 mg PO QDAY Qty: 0 RF: 0 amlodipine 5 mg Tablet 5 mg PO DAILY RF: 0 magnesium oxide 400 mg magnesium Tablet 400 mg PO BID RF: 0 metformin 1,000 mg Tablet 1,000 mg PO DAILY RF: 0 gabapentin 300 mg Capsule 300 mg PO BEDTIME PRN (Reason: Pain) RF: 0 hydroxyzine HCl 25 mg Tablet 25 mg PO BEDTIME PRN (Reason: Pain) RF: 0 oxybutynin chloride 5 mg Tablet 5 mg PO BID RF: 0 hydrocodone-acetaminophen 10-325 mg tablet 1 tab PO Q4-6H PRN (Reason: pain (scale score 7-10)) Qty: 40 RF: 0 acetaminophen [Tylenol Extra Strength] 500 mg tablet 500 mg PO Q4H PRN (Reason: pain (scale score 1-3)) Qty: 30 RF: 0 Referrals: Jennifer Rios MD [Primary Care Provider] -
[2020-01-20 21:35] VITALS: BP 124/66; PULSE 69; RESP 16; TEMP 36.4; O2SAT 100; BMI 20.5
[2020-01-20 22:04] LABS: Add Manual Diff / Slide Review NO; Basophils Absolute Auto 0 /uL (0-100); Basophils Percent Auto 0.3 % (0-2); Eosinophils Absolute Auto 0 /uL (0-450); Eosinophils Percent Auto 0.3 % (2-4); Hematocrit 35.8 % (36-46); Hemoglobin 11.9 g/dL (12.0-16.0); Lymphocytes Absolute Auto 1100 /uL (1100-4500); Lymphocytes Percent Auto 6.6 % (25-40); Mean Corpuscular HGB Conc 33.2 % (30-36); Mean Corpuscular Hemoglobin 30.1 PG (26-34); Mean Corpuscular Volume 90.6 fL (80-100); Monocytes Absolute Auto 1000 /uL (0-900); Monocytes Percent Auto 5.9 % (3-14); Neutrophils Absolute Auto 15000 /uL (1500-7000); Neutrophils Percent Auto 86.9 % (50-75); Platelet Count 204 X10^3/uL (150-400); Red Blood Cell Count 3.95 X10^6/uL (4.0-5.2); Red Cell Distribution Width 12.8 % (11.6-14.8); White Blood Cell Count 17.2 X10^3/uL (4.5-11.0)
[2020-01-20] MEDS: SODIUM CHLORIDE 0.9% 1,000 ML 150 ML IV (22:04)
[2020-01-20] MEDS: ONDANSETRON 4 MG/2 ML INJ IV (22:04)
[2020-01-20 22:08] VITALS: BP 133/62; PULSE 63; RESP 19; O2SAT 99
[2020-01-20 22:16] LABS: Alanine Aminotransferase 14 IU/L (<35); Albumin 4.5 g/dL (3.5-5.0); Albumin Globulin Ratio 1.2 (1.0-2.8); Alkaline Phosphatase 101 U/L (38-126); Aspartate Aminotransferase 30 IU/L (14-36); BUN Creatinine Ratio 21.8 (6-22); Bilirubin Total 0.5 mg/dL (0.2-1.3); Blood Urea Nitrogen 36 mg/dL (7-17); Calcium 9.9 mg/dL (8.4-10.2); Carbon Dioxide 18 mmol/L (22-32); Chloride 104 mmol/L (98-107); Creatine Kinase 51 U/L (30-135); Estimated Glomerular Filt Rate 29.7 mL/min (>60); Globulin 3.8 g/dL (1.7-4.1); Glucose 177 mg/dL (80-110); HEMOLYSIS < 15 (0-50); Lipase 123 U/L (23-300); Potassium 3.9 mmol/L (3.4-5.1); Sodium 135 mmol/L (137-145); Total Protein 8.3 g/dL (6.3-8.2)
--- NOTE | 2020-01-20 22:20 | PC.NURSE ---
At 1800 pt was eating spaghetti for dinner, started to choke, then tried to drink water to make it better, but it made it worse. Son did the heimlich manueuver and she was able to breathe again - per pt and son reports. Now has pain at same level across chest and back at shoulder blades. Intermittent nausea and dry heaves, zofran given.
[2020-01-20 22:27] LABS: NT-proBNP (BNP-Adult 18+) 484 pg/mL (<450); Troponin I < 0.012 ng/mL (0.01-0.034)
[2020-01-20 22:30] VITALS: BP 142/64; PULSE 65; RESP 15; O2SAT 98
[2020-01-20 22:32] LABS: D Dimer 1641 ng/mL (<230)
--- NOTE | 2020-01-20 22:39 | DI.CT.S_ITS ---
PROCEDURE: CT ANGIO CHEST PE PROTOCOL INDICATIONS: Chest pain, radiation, shortness of breath, critical D Dimer TECHNIQUE: After the administration of intravenous contrast, 2 mm thick sections acquired from the pulmonary apices to the posterior costophrenic angles. 3-dimensional maximum intensity projection (MIP) coronal and sagittal reformats were then acquired through the thorax. For radiation dose reduction, the following was used: automated exposure control, adjustment of mA and/or kV according to patient size. COMPARISON: [facility], CT, PE STUDY (CTA CHEST), 08/16/2013, 8:18. [facility], CR, XR CHEST 2V, 08/25/2019, 14:49. FINDINGS: Image quality: Excellent. Pulmonary arteries: Pulmonary arteries are normal in size, and demonstrate no intraluminal filling defects to suggest central pulmonary embolism. Lungs and pleura: There is bilateral interstitial thickening. There is right basilar pleural thickening or trace pleural effusion. Bibasilar atelectasis. No pneumothorax. Central and peripheral airways are patent. Mediastinum: There is a pneumomediastinum. Esophagus is distended and filled with hyperdense material measuring up to 3 cm in transverse diameter. There are pockets of air around is esophageal wall, compatible with esophageal perforation. Gastroesophageal junction is thickened. Cannot rule out an obstructing mass. Heart size is mildly increased, without pericardial effusion. No mediastinal or hilar adenopathy. Thoracic aorta is normal in caliber and enhancement. Esophagus is normal in caliber, without hiatal hernia. Bones and chest wall: No suspicious bony lesions. There is moderate chronic compression fracture of T12. Degenerative changes are noted in thoracic and upper lumbar spine. 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 There is a 4 mm nodule in the left thyroid lobe. No axillary or supraclavicular adenopathy. Abdomen: Visualized upper abdominal solid organs appear normal in the early arterial phase of enhancement. IMPRESSION: 1. No pulmonary embolism. 2. There is pneumomediastinum. The esophagus is dilated and filled with hyperdense material. There is air around esophageal lumen. The findings are consistent with esophageal perforation. There is thickening of the gastroesophageal junction, suspicious for esophageal obstruction. Cannot rule out a distal esophageal mass. 3. Mild cardiomegaly. 4. Bilateral interstitial thickening. There is trace right pleural effusion. 5. A 4 mm nodule in the left thyroid lobe. 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 Recommend thyroid ultrasound for follow-up. 6. Moderate chronic compression fracture of T12. The result was discussed with Dr. Buitrago. Dictated by: Darrel Magallon M.D. on 01/21/2020 at 7:44 Approved by: Darrel Maglalon M.D. on 01/21/2020 at 10:29
[2020-01-20] MEDS: KETOROLAC 60 MG/2 ML VIAL 15 MG IV (22:56)
[2020-01-20 23:00] VITALS: PULSE 71; RESP 22; O2SAT 97
[2020-01-20 23:01] VITALS: BP 178/74; PULSE 70; RESP 23; O2SAT 97
[2020-01-20 23:32] VITALS: PULSE 83; O2SAT 98
[2020-01-21] VITALS (7 sets, daily range): BP systolic 133–168; BP diastolic 63–71; PULSE 72–85; RESP 14–25; O2SAT 96–97
[2020-01-21] MEDS: PIPERACILLIN-TAZO 3.375 GM/50 ML FROZ.PIGGY IV (01:28)
[2020-01-21] MEDS: fentaNYL 100 MCG/2 ML INJ 25 MCG IV (02:08)
[2020-01-21] MEDS: VANCOMYCIN 1,500 MG/300 ML FROZ.PIGGY 200 MG IV (02:08)
== END 2020-01-21 02:50 | disposition short-term general hospital (02) ==
PROVIDERS: Emergency Provider Emergency Medicine; Family Provider Internal Medicine; PCP Internal Medicine; Referring Provider Internal Medicine
DX: K22.3 Perforation of esophagus (principal); R07.9 Chest pain, unspecified; M54.9 Dorsalgia, unspecified; R06.02 Shortness of breath; R79.89 Other specified abnormal findings of blood chemistry
CPT/HCPCS: 36415; 71275; 80053; 82550; 83690; 83880; 84484; 85025; 85379; 93005; 96361; 96365; 96368; 96375; 99284; 99291; J1885; J2405; J2543; J3010; Q9967

== ENCOUNTER → 2020-02-12 15:34 | Outpatient (ROUT) | payer SELFPAY ==
[2019-08-16 17:48] VITALS: BMI 20.5
[2020-02-12 16:36] LABS: Clostridium Difficile Tox PCR Negative for C. diff
== END ==
PROVIDERS: Family Provider Internal Medicine; Visit Provider Nurse Practitioner
DX: R19.7 Diarrhea, unspecified (principal)
CPT/HCPCS: 87493

== ENCOUNTER → 2020-03-28 20:21 | Outpatient (ROUT) | payer MEDICARE, SELFPAY ==
[2019-08-16 17:48] VITALS: BMI 20.5
[2020-03-28 20:54] LABS: Hemoglobin A1C% w Est Avg Glu 5.7 % (4.0-6.0)
[2020-03-28 21:15] LABS: Alanine Aminotransferase 12 IU/L (<35); Albumin 3.8 g/dL (3.5-5.0); Albumin Globulin Ratio 1.1 (1.0-2.8); Alkaline Phosphatase 91 U/L (38-126); Aspartate Aminotransferase 28 IU/L (14-36); BUN Creatinine Ratio 39.3 (6-22); Bilirubin Total 0.4 mg/dL (0.2-1.3); Blood Urea Nitrogen 35 mg/dL (7-17); Calcium 9.1 mg/dL (8.4-10.2); Carbon Dioxide 26 mmol/L (22-32); Chloride 104 mmol/L (98-107); Cholesterol 144 mg/dL (140-199); Estimated Glomerular Filt Rate > 60.0 mL/min (>60); Globulin 3.5 g/dL (1.7-4.1); Glucose 90 mg/dL (80-110); HDL Cholesterol 35 mg/dL (40-60); HEMOLYSIS < 15 (0-50); LDL Cholesterol Calculated 73 mg/dL (<100); Potassium 3.9 mmol/L (3.4-5.1); Sodium 138 mmol/L (137-145); Total Protein 7.3 g/dL (6.3-8.2); Triglycerides 179 mg/dL (35-150)
[2020-03-28 21:22] LABS: Prealbumin 25.5 mg/dL (17.6-36.0)
== END ==
PROVIDERS: Family Provider Internal Medicine; Visit Provider Internal Medicine
DX: I10 Essential (primary) hypertension (principal); E78.2 Mixed hyperlipidemia; E43 Unspecified severe protein-calorie malnutrition; E11.9 Type 2 diabetes mellitus without complications
CPT/HCPCS: 80053; 80061; 83036; 84134

== ENCOUNTER → 2020-04-27 18:49 | Outpatient (ROUT) | payer MEDICARE, SELFPAY ==
[2019-08-16 17:48] VITALS: BMI 20.5
== END ==
PROVIDERS: Family Provider Internal Medicine; Visit Provider Internal Medicine
DX: N39.0 Urinary tract infection, site not specified (principal)
CPT/HCPCS: 87086

== ENCOUNTER → 2020-07-11 19:46 | Outpatient (ROUT) | payer MEDICARE, SELFPAY ==
[2019-08-16 17:48] VITALS: BMI 20.5
== END ==
PROVIDERS: Family Provider Internal Medicine; Visit Provider Internal Medicine
DX: N39.0 Urinary tract infection, site not specified (principal)
CPT/HCPCS: 87077; 87086; 87186

== ENCOUNTER → 2020-08-08 20:23 | Outpatient (ROUT) | payer MEDICARE, SELFPAY ==
[2019-08-16 17:48] VITALS: BMI 20.5
== END ==
PROVIDERS: Family Provider Internal Medicine; Visit Provider Internal Medicine
DX: R30.0 Dysuria (principal)
CPT/HCPCS: 87086

== ENCOUNTER → 2020-09-14 11:11 | Outpatient (CLI) | payer MEDICARE, SELFPAY ==
[2019-08-16 17:48] VITALS: BMI 20.5
[2020-09-14 12:07] LABS: Add Manual Diff / Slide Review NO; Basophils Absolute Auto 100 /uL (0-100); Basophils Percent Auto 1.1 % (0-2); Eosinophils Absolute Auto 200 /uL (0-450); Eosinophils Percent Auto 2.2 % (2-4); Hematocrit 37.2 % (36-46); Hemoglobin 12.3 g/dL (12.0-16.0); Lymphocytes Absolute Auto 1800 /uL (1100-4500); Lymphocytes Percent Auto 22.1 % (25-40); Mean Corpuscular HGB Conc 33.1 % (30-36); Mean Corpuscular Hemoglobin 28.7 PG (26-34); Mean Corpuscular Volume 86.5 fL (80-100); Monocytes Absolute Auto 500 /uL (0-900); Monocytes Percent Auto 6.3 % (3-14); Neutrophils Absolute Auto 5500 /uL (1500-7000); Neutrophils Percent Auto 68.3 % (50-75); Platelet Count 219 X10^3/uL (150-400); Red Cell Distribution Width 14.1 % (11.6-14.8); White Blood Cell Count 8.1 X10^3/uL (4.5-11.0)
[2020-09-14 12:22] LABS: Alanine Aminotransferase 12 IU/L (<35); Albumin 4.1 g/dL (3.5-5.0); Albumin Globulin Ratio 1.1 (1.0-2.8); Alkaline Phosphatase 104 U/L (38-126); Aspartate Aminotransferase 26 IU/L (14-36); BUN Creatinine Ratio 21.7 (6-22); Bilirubin Total 0.4 mg/dL (0.2-1.3); Blood Urea Nitrogen 30 mg/dL (7-17); Carbon Dioxide 26 mmol/L (22-32); Chloride 103 mmol/L (98-107); Cholesterol 210 mg/dL (140-199); Estimated Glomerular Filt Rate 36.5 mL/min (>60); Globulin 3.7 g/dL (1.7-4.1); Glucose 110 mg/dL (80-110); HDL Cholesterol 51 mg/dL (40-60); HEMOLYSIS < 15 (0-50); LDL Cholesterol Calculated 124 mg/dL (<100); Potassium 3.9 mmol/L (3.4-5.1); Sodium 138 mmol/L (137-145); Total Protein 7.8 g/dL (6.3-8.2); Triglycerides 176 mg/dL (35-150)
[2020-09-14 12:29] LABS: NT-proBNP (BNP-Adult 18+) 1650 pg/mL (<450)
== END ==
PROVIDERS: Family Provider Internal Medicine; PCP Internal Medicine; Referring Provider Physician Assistant; Visit Provider Physician Assistant
DX: E11.9 Type 2 diabetes mellitus without complications (principal); R60.9 Edema, unspecified; E43 Unspecified severe protein-calorie malnutrition; N18.30 Chronic kidney disease, stage 3 unspecified; E78.5 Hyperlipidemia, unspecified
CPT/HCPCS: 36415; 80053; 80061; 83880; 85025

== ENCOUNTER → 2020-10-12 14:30 | Outpatient (CLI) | payer MEDICARE, SELFPAY ==
[2019-08-16 17:48] VITALS: BMI 20.5
--- NOTE | 2020-10-12 | DI.ECHO.S_ITS ---
[place] [facility]---------+ [facility] +---------+ : : [address] : : : : [id number] : : : : Phone: [phone] Echocardiogram Report + + :Name: SHANDRA PEREZ Study Date: 10/12/2020 Height: 64 in : :[facility] ReadingLocation: Weight: 120 lb : : Gender: Female BSA: 1.6 m2 : :: 1935 Age: 84 yrs BP: 176/97 mmHg: :Reason For Study: Congestive Heart Failure : :Ordering Physician: ESTRELLITA, : :STEVIE Performed By: Abelardo Forde : :Referring: STEVIE HARO : + + Interpretation Summary Afib with controlled rate. Normal LV size, wall thickness, wall motion and LV systolic function. EF is 55-60%. Severe LA enlargement; otherwise normal chamber sizes. Mildly thickened anterior mitral valve leaflet with moderate eccentric posterolaterally directed mitral regurgitation. No obvious prolapse. There is moderate central tricuspid regurgitation. Estimated PA systolic pressure is 44 mm Hg assuming RA pressure of 3 mm Hg. Compared to prior study 12/22/2013 afib is new. Mitral regurgitation progressed from mild to moderate. Procedure: A two-dimensional transthoracic echocardiogram with color flow and Doppler was performed. The study quality was technically adequate. Comparison is made with the echocardiogram of 12/22/2013. The patient was in atrial flutter with heart rates between 54-77 bpm during the exam. Left Ventricle: The left ventricle is normal in size and wall thickness. Left ventricular systolic function is normal. The ejection fraction is estimated to be 55-60%. There are no focal wall motion abnormalities. Right Ventricle: The right ventricle is normal in size and function. Atria: The left atrium is severely dilated. Right atrial size is normal. There is no Doppler evidence for an interatrial shunt. Mitral Valve: The mitral valve is normal in structure but abnormal in function. There is moderate mitral regurgitation. Aortic Valve: The aortic valve is normal in structure and function. No aortic regurgitation is present. Tricuspid Valve: The tricuspid valve is normal in structure and function. There is mild tricuspid regurgitation. The right ventricular systolic pressure is estimated to be at least 44 mmHg based on an estimated right atrial pressure of 3 mm Hg. Pulmonic Valve: The pulmonic valve is normal in structure and function. There is a trace or physiologic amount of pulmonic regurgitation. Great Vessels: The aortic root is normal size. The dimensions of the ascending aorta are normal. The IVC is of normal diameter and collapses greater than 50% with a sniff. This suggests a low right atrial pressure of 3 mm Hg. Pericardium/ Pleura There is no pericardial effusion. There is no pleural effusion. MMode/2D Measurements & Calculations LVIDd: 4.2 cm LVOT diam: 2.0 cm LVIDs: 2.9 cm Ao root diam: 2.6 cm FS: 31.5 % asc Aorta Diam: 3.1 cm IVSd: 0.88 cm LVPWd: 0.82 cm LV smith. diameter/BSA (cm/m^2): 2.7 LV sys. diameter/BSA (cm/m^2): 1.8 LA A2 area: 29.7 cm2 RA area: 16.6 cm2 LA A4 area: 29.5 cm2 IVC diam: 1.9 cm LA length (vol): 6.1 cm LA vol: 122.5 ml LA vol index: 77.8 ml/m2 RVD1 (basal): 3.3 cm TAPSE: 1.7 cm Doppler Measurements & Calculations Ao V2 max: 101.6 cm/sec LVOT Max Canelo: 90.5 cm/sec Ao V2 mean: 68.1 cm/sec LV V1 max P.3 mmHg Ao max P.1 mmHg LV V1 VTI: 21.4 cm Ao mean P.1 mmHg SPIKE(I,D): 2.8 cm2 Ao V2 VTI: 23.1 cm SPIKE(V,D): 2.7 cm2 sev ratio: 0.93 SPIKE indexed to BSA (cm^2/m^2): 1.8 TR max canelo: 321.3 cm/sec MR PISA: 2.1 cm2 TR max P.3 mmHg MR PISA radius: 0.58 cm PA V2 max: 98.6 cm/sec PA V2 mean: 67.7 cm/sec PA mean P.0 mmHg PA pr(Accel): 52.0 mmHg SV(LVOT): 64.4 ml Electronically signed by: Kecia Fox M.D. on Reading Physician:10/13/2020 12:31 AM
== END ==
PROVIDERS: Family Provider Internal Medicine; PCP Internal Medicine; Referring Provider Internal Medicine; Visit Provider Internal Medicine
DX: I08.1 Rheumatic disorders of both mitral and tricuspid valves (principal); I50.32 Chronic diastolic (congestive) heart failure
CPT/HCPCS: 93306

== ENCOUNTER → 2020-11-07 19:10 | Outpatient (ROUT) | payer MEDICARE, SELFPAY ==
[2019-08-16 17:48] VITALS: BMI 20.5
[2020-11-07 20:07] LABS: Appearance Urine UA CLOUDY; Bilirubin Urine UA NEGATIVE (NEGATIVE); Color Urine UA YELLOW; Glucose Urine UA NEGATIVE (Negative); Ketones Urine UA NEGATIVE (NEGATIVE); Leukocyte Esterase Urine UA 3+ (NEGATIVE); Nitrite Urine UA NEGATIVE (Negative); Occult Blood Urine UA 2+ (Negative); Protein Urine UA 2+ (Negative); Specific Gravity Urine UA 1.015 (1.000-1.035); Urobilinogen Urine UA 0.2 E.U./dL (0.2)
[2020-11-07 20:23] LABS: Amorphous Sediment Urine 1+; Bacteria Urine Few (2-10); Mucus Urine 1+ (Negative); RBC Urine 1-5/HPF (0-5/HPF); Renal Epithelial Cells Urine 0-1/HPF (0-1/HPF); Squamous Epithelial Cell Urine 1-5 /HPF (0-5/HPF); WBC Urine >100/HPF (0-5/HPF)
== END ==
PROVIDERS: Family Provider Internal Medicine; PCP Internal Medicine; Visit Provider Internal Medicine
DX: R30.0 Dysuria (principal)
CPT/HCPCS: 81001; 87086

== ENCOUNTER 2022-05-24 19:20 | Day surgery (SDC) | payer MEDICARE, SELFPAY ==
[2019-08-16 17:48] VITALS: BMI 20.5
[2022-05-24 19:25] VITALS: BP 190/79; PULSE 72; RESP 20; TEMP 36.2; O2SAT 99; BMI 21.9
--- NOTE | 2022-05-24 20:14 | ED_ITS ---
HPI - SOB/Dyspnea <Salinaanthony Truong, DO - Last Filed: 05/25/22 18:58> General Chief Complaint: Upper Respiratory Symptoms Stated Complaint: Something stuck in throat, Mucus Time Seen by Provider: 05/24/22 20:01 Source: patient and family Mode of arrival: Ambulatory Limitations: no limitations History of Present Illness HPI Narrative: This is an 86-year-old female with history of atrial fibrillation, hypertension on warfarin and prior esophageal repair after having Heimlich performed when she had a prior choking incident. Patient states this evening she was eating some pork and Dayna when she started feeling like it was stuck she felt like it was sort of higher she started to cough it out and then it went a little bit farther down. She states she has not been able to swallow her saliva or secretions. She states her voices a little bit gurgly. She is able to breathe but it is very bothersome. This started just after she ate she did try drink of water states it immediately came out and through her nose. Patient states she had 1 prior episode where she choked she states she turned blue and her son who is at bedside perform the Heimlich maneuver. This seemed to help but she states that she had an injury to her esophagus from this and required surgical repair. Patient has also had thyroid surgery in the past. Patient states she is allergic to stool softeners they give her diarrhea and she does not tolerate opiates well. She denies tobacco, occasional alcohol denies any active drug use. She is accompanied by her son who is at bedside. Related Data Home Medications Medication Instructions Recorded Confirmed CHOLECALCIFEROL (VITAMIN D3) 1,000 units PO QDAY ##0 05/02/11 08/16/19 (Vitamin D) CYANOCOBALAMIN (#VITAMIN B12) 250 mcg PO QDAY ##0 05/02/11 08/16/19 furosemide 20 mg tablet (Lasix) 20 mg PO QDAY ##0 05/02/11 08/16/19 lisinopril 20 mg tablet 20 mg PO BID ##0 05/02/11 08/16/19 metoprolol tartrate 100 mg tablet 100 mg PO BID ##0 05/02/11 08/16/19 amlodipine 5 mg tablet 5 mg PO DAILY 02/24/19 08/16/19 magnesium oxide 400 mg PO BID Low magnesium level 02/24/19 08/16/19 gabapentin 300 mg capsule 300 mg PO BEDTIME PRN Pain 08/02/19 08/02/19 hydroxyzine HCl 25 mg tablet 25 mg PO BEDTIME PRN Pain 08/02/19 08/02/19 metformin 1,000 mg tablet 1,000 mg PO DAILY 08/02/19 08/16/19 oxybutynin chloride 5 mg tablet 5 mg PO BID 08/02/19 08/16/19 Previous Rx's Medication Instructions Recorded acetaminophen 500 mg tablet 500 mg PO Q4H PRN pain (scale 08/19/19 (Tylenol Extra Strength) score 1-3) #30 tabs hydrocodone 10 mg-acetaminophen 1 tab PO Q4-6H PRN pain (scale 08/19/19 325 mg tablet score 7-10) #40 tabs Allergies Allergy/AdvReac Type Severity Reaction Status Date / Time stoool softener AdvReac Mild diarrea Uncoded 08/16/19 10:27 Review of Systems <Salina Truong DO - Last Filed: 05/25/22 18:58> Review of Systems ROS Unobtainable: All systems reviewed & are unremarkable except as noted in HPI and below Patient History <Salina Truong DO - Last Filed: 05/25/22 18:58> Medical History Arthritis Cellulitis Diabetes type 2, controlled Easy bruisability Fall from ground level (~02/2019) Hypertension Hyperthyroidism Overactive bladder Pneumonia TIA (transient ischemic attack) (08/14/13) Surgical History History of arthroplasty of right knee (~2006) History of hysterectomy History of lumbar surgery (~2002) History of thyroidectomy (~1955) Hx of bilateral cataract extraction Social History household members: children Smoking Status: Never smoker alcohol intake: former Smoking Status: Never smoker alcohol intake frequency: 0-2 drinks per day Substance Use Type: opiates, painkillers and prescription drug Exam <Salina Truong DO - Last Filed: 05/25/22 18:58> Narrative Exam Narrative: GEN: well nourished, elderly female, alert and oriented x 3, patient appears to be in mild distress. HEENT: Atraumatic, pupils are equal round reactive to light, extraocular movements are intact, nares are clear, TMs are clear with no fluid, there is no conjunctival pallor. Throat is clear without any exudates, erythema, tonsillar enlargement or uvular deviation, no obvious obstruction in the posterior airway, patient does have a little bit of mild hoarseness and intermittently spits out saliva. HEART: Regular rate and rhythm without murmur, clicks, rubs. No carotid bruits, pulses are equal in upper and lower extremities LUNGS:Lungs clear to auscultation, no wheezes, rales, crackles, chest moves symmetrically, no tachypnea, no stridor, no accessory muscle use. Patient sitting upright in chair but does not appear to be in extremis. ABD:bowel sounds normal, soft, non-tender, no guarding, rebound, rigidity, no masses noted, no hepatosplenomegaly :No CVA tenderness MSCL: Non-tender, no muscle atrophy NEURO:CN 2-12 intact, sensation normal Initial Vital Signs Initial Vital Signs: Vital Signs Temperature 97.1 F L 05/24/22 19:25 Pulse Rate 72 05/24/22 19:25 Respiratory Rate 20 05/24/22 19:25 Blood Pressure 190/79 H 05/24/22 19:25 Pulse Oximetry 99 05/24/22 19:25 Oxygen Delivery Method 05/24/22 19:25 <Jesus Marshall, DO - Last Filed: 05/25/22 10:45> Initial Vital Signs Initial Vital Signs: Vital Signs Temperature 97.1 F L 05/24/22 19:25 Pulse Rate 72 05/24/22 19:25 Respiratory Rate 20 05/24/22 19:25 Blood Pressure 190/79 H 05/24/22 19:25 Pulse Oximetry 99 05/24/22 19:25 Oxygen Delivery Method 05/24/22 19:25 Course <Salina Truong, DO - Last Filed: 05/25/22 18:58> Orders Ordered: Discontinued Medications Enalaprilat (Enalaprilat 2.5 Mg/ 2 Ml Vial) 1.25 mg IV NOW ONE Stop: 05/25/22 01:39 Last Admin: 05/25/22 02:03 Dose: 1.25 mg Documented By: NORM Enalaprilat (Enalaprilat 2.5 Mg/ 2 Ml Vial) 1.25 mg IV NOW ONE Stop: 05/25/22 03:06 Last Admin: 05/25/22 03:16 Dose: 1.25 mg Documented By: NORM Glucagon (Glucagon,Human Recombinant 1 Mg/Ml Vial) 1 mg IV NOW ONE Stop: 05/24/22 19:44 Last Admin: 05/24/22 20:26 Dose: 1 mg Documented By: TYRELL Hydralazine HCl (Hydralazine 20 Mg/Ml Vial) 10 mg IV NOW ONE Stop: 05/25/22 03:50 Hydralazine HCl (Hydralazine 20 Mg/Ml Vial) 10 mg IV NOW ONE Stop: 05/25/22 04:20 Last Admin: 05/25/22 04:27 Dose: 10 mg Documented By: NORM Hydralazine HCl (Hydralazine 20 Mg/Ml Vial) 10 mg IV Q6HR PRN PRN Reason: Hypertension Phytonadione 5 mg/ Sodium (Chloride) 100.5 mls @ 201 mls/hr IV NOW ONE Stop: 05/24/22 21:30 Last Infusion: 05/24/22 22:29 Dose: 0 mls/hr Documented By: Admin: 05/24/22 21:53 Dose: 201 mls/hr Documented By: NORM Lorazepam (Lorazepam 2 Mg/Ml Inj) 0.5 mg IV NOW ONE Stop: 05/25/22 03:51 Last Admin: 05/25/22 03:56 Dose: 0.5 mg Documented By: NORM Reevaluation(s) Reevaluation #1: Patient has been up several times overnight after receiving vitamin K and FFP to the bathroom with no new or worsening changes. Reevaluation #2: Patient has been ambulating to the bathroom still symptomatic. Still having to spit out her secretions. Not having any worsening changes. Patient's blood pressure has been persistently elevated she normally takes lisinopril 20 mg in the evening and was not able to take this, she notes she also was not able to her warfarin last night at dinner time. Discussed with patient will do a dose of IV blood pressure medication and re-evaluate, she does not have additional complaints currently. Time: 01:15 Consultations Consultation #1: Dr. Mittal, general surgery is happy to scope patient patient's INR is 5 he would want it below 2 she is currently stable. We will give vitamin K. Patient is not appropriate candidate for Kcentra. Time: 21:32 Vital Signs Vital signs: Vital Signs - 8 hr 05/25/22 03:00 05/25/22 03:00 05/25/22 03:30 Pulse Rate 65 63 Blood Pressure 206/79 H Pulse Oximetry 98 98 05/25/22 03:43 05/25/22 03:43 05/25/22 04:00 Pulse Rate 68 73 Blood Pressure 237/102 H Pulse Oximetry 98 97 05/25/22 04:18 05/25/22 04:18 05/25/22 04:30 Pulse Rate 76 79 Blood Pressure 225/93 H Pulse Oximetry 95 97 05/25/22 04:36 05/25/22 04:36 05/25/22 05:00 Pulse Rate 78 78 Blood Pressure 167/67 H Pulse Oximetry 98 96 05/25/22 05:37 05/25/22 05:39 05/25/22 05:39 Pulse Rate 87 84 Blood Pressure 153/63 H Pulse Oximetry 97 98 05/25/22 06:00 05/25/22 06:01 05/25/22 06:01 Pulse Rate 66 75 Blood Pressure 147/63 H Pulse Oximetry 98 98 05/25/22 06:30 05/25/22 06:31 05/25/22 06:31 Pulse Rate 75 75 Blood Pressure 152/68 H Pulse Oximetry 97 97 05/25/22 07:00 05/25/22 07:00 05/25/22 07:30 Pulse Rate 87 Blood Pressure 177/70 H 171/69 H Pulse Oximetry 97 05/25/22 07:30 05/25/22 08:00 05/25/22 08:01 Pulse Rate 78 84 84 Blood Pressure Pulse Oximetry 97 98 98 05/25/22 08:01 Pulse Rate Blood Pressure 181/76 H Pulse Oximetry <Jesus Marshall DO - Last Filed: 05/25/22 10:45> Orders Ordered: Discontinued Medications Enalaprilat (Enalaprilat 2.5 Mg/ 2 Ml Vial) 1.25 mg IV NOW ONE Stop: 05/25/22 01:39 Last Admin: 05/25/22 02:03 Dose: 1.25 mg Documented By: NORM Enalaprilat (Enalaprilat 2.5 Mg/ 2 Ml Vial) 1.25 mg IV NOW ONE Stop: 05/25/22 03:06 Last Admin: 05/25/22 03:16 Dose: 1.25 mg Documented By: NORM Glucagon (Glucagon,Human Recombinant 1 Mg/Ml Vial) 1 mg IV NOW ONE Stop: 05/24/22 19:44 Last Admin: 05/24/22 20:26 Dose: 1 mg Documented By: TYRELL Hydralazine HCl (Hydralazine 20 Mg/Ml Vial) 10 mg IV NOW ONE Stop: 05/25/22 03:50 Hydralazine HCl (Hydralazine 20 Mg/Ml Vial) 10 mg IV NOW ONE Stop: 05/25/22 04:20 Last Admin: 05/25/22 04:27 Dose: 10 mg Documented By: NORM Hydralazine HCl (Hydralazine 20 Mg/Ml Vial) 10 mg IV Q6HR PRN PRN Reason: Hypertension Phytonadione 5 mg/ Sodium (Chloride) 100.5 mls @ 201 mls/hr IV NOW ONE Stop: 05/24/22 21:30 Last Infusion: 05/24/22 22:29 Dose: 0 mls/hr Documented By: Admin: 05/24/22 21:53 Dose: 201 mls/hr Documented By: NORM Lorazepam (Lorazepam 2 Mg/Ml Inj) 0.5 mg IV NOW ONE Stop: 05/25/22 03:51 Last Admin: 05/25/22 03:56 Dose: 0.5 mg Documented By: NORM Vital Signs Vital signs: Vital Signs - 8 hr 05/25/22 03:00 05/25/22 03:00 05/25/22 03:30 Pulse Rate 65 63 Blood Pressure 206/79 H Pulse Oximetry 98 98 05/25/22 03:43 05/25/22 03:43 05/25/22 04:00 Pulse Rate 68 73 Blood Pressure 237/102 H Pulse Oximetry 98 97 05/25/22 04:18 05/25/22 04:18 05/25/22 04:30 Pulse Rate 76 79 Blood Pressure 225/93 H Pulse Oximetry 95 97 05/25/22 04:36 05/25/22 04:36 05/25/22 05:00 Pulse Rate 78 78 Blood Pressure 167/67 H Pulse Oximetry 98 96 05/25/22 05:37 05/25/22 05:39 05/25/22 05:39 Pulse Rate 87 84 Blood Pressure 153/63 H Pulse Oximetry 97 98 05/25/22 06:00 05/25/22 06:01 05/25/22 06:01 Pulse Rate 66 75 Blood Pressure 147/63 H Pulse Oximetry 98 98 05/25/22 06:30 05/25/22 06:31 05/25/22 06:31 Pulse Rate 75 75 Blood Pressure 152/68 H Pulse Oximetry 97 97 05/25/22 07:00 05/25/22 07:00 05/25/22 07:30 Pulse Rate 87 Blood Pressure 177/70 H 171/69 H Pulse Oximetry 97 05/25/22 07:30 05/25/22 08:00 05/25/22 08:01 Pulse Rate 78 84 84 Blood Pressure Pulse Oximetry 97 98 98 05/25/22 08:01 Pulse Rate Blood Pressure 181/76 H Pulse Oximetry MDM - SOB/Dyspnea <Sailna Truong, DO - Last Filed: 05/25/22 18:58> Lab Data Result diagrams: 05/24/22 20:20 05/24/22 20:20 Labs: Lab Results 05/24/22 05/24/22 05/24/22 Range/Units 20:20 20:20 20:20 WBC 6.5 (4.5-11.0) X10^3/uL RBC 3.74 L (4.0-5.2) X10^6/uL Hgb 11.3 L (12.0-16.0) g/dL Hct 34.1 L (36-46) % MCV 91.1 (80-100) fL MCH 30.3 (26-34) PG MCHC 33.2 (30-36) % RDW 12.9 (11.6-14.8) % Plt Count 146 L (150-400) X10^3/uL Neut % (Auto) 73.8 (50-75) % Lymph % (Auto) 17.0 L (25-40) % [place] % (Auto) 6.6 (3-14) % Eos % (Auto) 1.8 L (2-4) % Baso % (Auto) 0.8 (0-2) % Neut # (Auto) 4800 (7511-9536) /uL Lymph # (Auto) 1100 (4560-3553) /uL [place] # (Auto) 400 (0-900) /uL Eos # (Auto) 100 (0-450) /uL Baso # (Auto) 0 (0-100) /uL PT 60.4 H (10.1-12.7) SECONDS INR 5.2 H* (0.9-1.3) Sodium 142 (137-145) mmol/L Potassium 3.6 (3.4-5.1) mmol/L Chloride 108 H (98-107) mmol/L Carbon Dioxide 23 (22-32) mmol/L BUN 23 H (7-17) mg/dL Creatinine 1.43 H (0.52-1.04) mg/dL Estimated GFR 36 L (>60) mL/min BUN/Creatinine Ratio 16.1 (6-22) Glucose 108 (80-110) mg/dL Calcium 8.7 (8.4-10.2) mg/dL Total Bilirubin 0.6 (0.2-1.3) mg/dL AST 29 (14-36) IU/L ALT 16 (<35) IU/L Alkaline Phosphatase 112 (38-126) U/L Total Protein 7.8 (6.3-8.2) g/dL Albumin 4.1 (3.5-5.0) g/dL Globulin 3.7 (1.7-4.1) g/dL Albumin/Globulin Ratio 1.1 (1.0-2.8) SARS-CoV-2 (PCR) (Negative) Blood Type 05/24/22 05/24/22 05/25/22 Range/Units 20:45 22:13 03:00 WBC (4.5-11.0) X10^3/uL RBC (4.0-5.2) X10^6/uL Hgb (12.0-16.0) g/dL Hct (36-46) % MCV (80-100) fL MCH (26-34) PG MCHC (30-36) % RDW (11.6-14.8) % Plt Count (150-400) X10^3/uL Neut % (Auto) (50-75) % Lymph % (Auto) (25-40) % [place] % (Auto) (3-14) % Eos % (Auto) (2-4) % Baso % (Auto) (0-2) % Neut # (Auto) (5667-9338) /uL Lymph # (Auto) (6051-9284) /uL [place] # (Auto) (0-900) /uL Eos # (Auto) (0-450) /uL Baso # (Auto) (0-100) /uL PT 25.2 H D (10.1-12.7) SECONDS INR 2.2 H (0.9-1.3) Sodium (137-145) mmol/L Potassium (3.4-5.1) mmol/L Chloride (98-107) mmol/L Carbon Dioxide (22-32) mmol/L BUN (7-17) mg/dL Creatinine (0.52-1.04) mg/dL Estimated GFR (>60) mL/min BUN/Creatinine Ratio (6-22) Glucose (80-110) mg/dL Calcium (8.4-10.2) mg/dL Total Bilirubin (0.2-1.3) mg/dL AST (14-36) IU/L ALT (<35) IU/L Alkaline Phosphatase (38-126) U/L Total Protein (6.3-8.2) g/dL Albumin (3.5-5.0) g/dL Globulin (1.7-4.1) g/dL Albumin/Globulin Ratio (1.0-2.8) SARS-CoV-2 (PCR) Negative (Negative) Blood Type O Positive [facility] Narrative Medical decision making narrative: 86-year-old female with suspected esophageal food bolus I suspect it is a little bit higher in the esophagus itself do not feel it is in her actual airway obstructing on exam, she is having some issues with saliva and secretions. Will try and carbonated beverage which was unsuccessful.. Patient does take warfarin and labs were obtained particularly INR, covid. Spoke with Dr. Mittal, comfortable take patient they OR accepts her INR is 5 this evening. Patient is uncomfortable but stable. Plan to give vitamin K, FFP will recheck INR overnight and if below to goal for OR this morning. Throughout the night patient has been tolerating well on multiple checks, ambulating to the bathroom and back, blood pressure is quite elevated she was unable to take her evening medication of lisinopril will try 1 dose of IV enalaprilat 1.25 mg and did not make much change given 1 additional dose with really no difference. Patient did try 1 dose of 0.5 Ativan IV as she has been anxious and uncomfortable. This made her feel a bit more comfortable but did not help her blood pressure she did respond nicely to hydralazine and pressures afterwards were 160 systolic. Repeat INR is 2.2. Re-contacted general surgery, Dr. Mittal he is comfortable with INR of 2.2 will plan to take the patient sometime this morning. Reviewed patient's labs were overnight she did get IV medications for her hypertension. Patient has been doing well overnight. Seen just after 7:00 a.m. and still tolerating well. [0700] (Rolando) Patient received in sign out from [Alexi]. I have reviewed the clinical course and performed a brief independent history and physical exam. Patient will head to the OR shortly <Jesus Marshall, - Last Filed: 05/25/22 10:45> Lab Data Labs: Lab Results 05/24/22 05/24/22 05/24/22 Range/Units 20:20 20:20 20:20 WBC 6.5 (4.5-11.0) X10^3/uL RBC 3.74 L (4.0-5.2) X10^6/uL Hgb 11.3 L (12.0-16.0) g/dL Hct 34.1 L (36-46) % MCV 91.1 (80-100) fL MCH 30.3 (26-34) PG MCHC 33.2 (30-36) % RDW 12.9 (11.6-14.8) % Plt Count 146 L (150-400) X10^3/uL Neut % (Auto) 73.8 (50-75) % Lymph % (Auto) 17.0 L (25-40) % [place] % (Auto) 6.6 (3-14) % Eos % (Auto) 1.8 L (2-4) % Baso % (Auto) 0.8 (0-2) % Neut # (Auto) 4800 (9414-2430) /uL Lymph # (Auto) 1100 (6044-1554) /uL [place] # (Auto) 400 (0-900) /uL Eos # (Auto) 100 (0-450) /uL Baso # (Auto) 0 (0-100) /uL PT 60.4 H (10.1-12.7) SECONDS INR 5.2 H* (0.9-1.3) Sodium 142 (137-145) mmol/L Potassium 3.6 (3.4-5.1) mmol/L Chloride 108 H (98-107) mmol/L Carbon Dioxide 23 (22-32) mmol/L BUN 23 H (7-17) mg/dL Creatinine 1.43 H (0.52-1.04) mg/dL Estimated GFR 36 L (>60) mL/min BUN/Creatinine Ratio 16.1 (6-22) Glucose 108 (80-110) mg/dL Calcium 8.7 (8.4-10.2) mg/dL Total Bilirubin 0.6 (0.2-1.3) mg/dL AST 29 (14-36) IU/L ALT 16 (<35) IU/L Alkaline Phosphatase 112 (38-126) U/L Total Protein 7.8 (6.3-8.2) g/dL Albumin 4.1 (3.5-5.0) g/dL Globulin 3.7 (1.7-4.1) g/dL Albumin/Globulin Ratio 1.1 (1.0-2.8) SARS-CoV-2 (PCR) (Negative) Blood Type 05/24/22 05/24/22 05/25/22 Range/Units 20:45 22:13 03:00 WBC (4.5-11.0) X10^3/uL RBC (4.0-5.2) X10^6/uL Hgb (12.0-16.0) g/dL Hct (36-46) % MCV (80-100) fL MCH (26-34) PG MCHC (30-36) % RDW (11.6-14.8) % Plt Count (150-400) X10^3/uL Neut % (Auto) (50-75) % Lymph % (Auto) (25-40) % [place] % (Auto) (3-14) % Eos % (Auto) (2-4) % Baso % (Auto) (0-2) % Neut # (Auto) (2315-7648) /uL Lymph # (Auto) (7995-9413) /uL [place] # (Auto) (0-900) /uL Eos # (Auto) (0-450) /uL Baso # (Auto) (0-100) /uL PT 25.2 H D (10.1-12.7) SECONDS INR 2.2 H (0.9-1.3) Sodium (137-145) mmol/L Potassium (3.4-5.1) mmol/L Chloride (98-107) mmol/L Carbon Dioxide (22-32) mmol/L BUN (7-17) mg/dL Creatinine (0.52-1.04) mg/dL Estimated GFR (>60) mL/min BUN/Creatinine Ratio (6-22) Glucose (80-110) mg/dL Calcium (8.4-10.2) mg/dL Total Bilirubin (0.2-1.3) mg/dL AST (14-36) IU/L ALT (<35) IU/L Alkaline Phosphatase (38-126) U/L Total Protein (6.3-8.2) g/dL Albumin (3.5-5.0) g/dL Globulin (1.7-4.1) g/dL Albumin/Globulin Ratio (1.0-2.8) SARS-CoV-2 (PCR) Negative (Negative) Blood Type O Positive MDM Narrative Medical decision making narrative: 86-year-old female with suspected esophageal food bolus I suspect it is a little bit higher in the esophagus itself do not feel it is in her actual airway obstructing on exam, she is having some issues with saliva and secretions. Will try and carbonated beverage which was unsuccessful.. Patient does take warfarin and labs were obtained particularly INR, covid. Spoke with Dr. Mittal, comfortable take patient they OR accepts her INR is 5 this evening. Patient is uncomfortable but stable. Plan to give vitamin K, FFP will recheck INR ove rnight and if below to goal for OR this morning. Throughout the night patient has been tolerating well on multiple checks, ambulating to the bathroom and back, blood pressure is quite elevated she was unable to take her evening medication of lisinopril will try 1 dose of IV enalaprilat 1.25 mg and did not make much change given 1 additional dose with really no difference. Patient did try 1 dose of 0.5 Ativan IV as she has been anxious and uncomfortable. This made her feel a bit more comfortable but did not help her blood pressure she did respond nicely to hydralazine and pressures afterwards were 160 systolic. Repeat INR is 2.2. Re-contacted general surgery, Dr. Mittal he is comfortable with INR of 2.2 will plan to take the patient sometime this morning. Reviewed patient's labs were overnight she did get IV medications for her hypertension. [0700] (Rolando) Patient received in sign out from [Alexi]. I have reviewed the clinical course and performed a brief independent history and physical exam. Patient will head to the OR shortly Discharge Plan Departure Patient Disposition: Admitted to Surgery Clinical Impression: Food impaction of esophagus, Supratherapeutic INR, Hypertension Admit Date/Time: 05/25/22 08:36 Admit Provider: Galdino Mittal
[2022-05-24] MEDS: GLUCAGON,HUMAN RECOMBINANT 1 MG/ML VIAL IV (20:26)
--- NOTE | 2022-05-24 20:40 | PC.NURSE ---
Glucagon made pt feel worse. Bolus still there.
[2022-05-24 21:06] LABS: Add Manual Diff / Slide Review NO; Basophils Absolute Auto 0 /uL (0-100); Basophils Percent Auto 0.8 % (0-2); Eosinophils Absolute Auto 100 /uL (0-450); Eosinophils Percent Auto 1.8 % (2-4); Hematocrit 34.1 % (36-46); Hemoglobin 11.3 g/dL (12.0-16.0); Lymphocytes Absolute Auto 1100 /uL (1100-4500); Mean Corpuscular HGB Conc 33.2 % (30-36); Mean Corpuscular Hemoglobin 30.3 PG (26-34); Mean Corpuscular Volume 91.1 fL (80-100); Monocytes Absolute Auto 400 /uL (0-900); Monocytes Percent Auto 6.6 % (3-14); Neutrophils Absolute Auto 4800 /uL (1500-7000); Neutrophils Percent Auto 73.8 % (50-75); Platelet Count 146 X10^3/uL (150-400); Red Blood Cell Count 3.74 X10^6/uL (4.0-5.2); Red Cell Distribution Width 12.9 % (11.6-14.8); White Blood Cell Count 6.5 X10^3/uL (4.5-11.0)
[2022-05-24 21:07] LABS: Prothrombin Time 60.4 SECONDS (10.1-12.7)
[2022-05-24 21:10] LABS: Alanine Aminotransferase 16 IU/L (<35); Albumin 4.1 g/dL (3.5-5.0); Albumin Globulin Ratio 1.1 (1.0-2.8); Alkaline Phosphatase 112 U/L (38-126); Aspartate Aminotransferase 29 IU/L (14-36); BUN Creatinine Ratio 16.1 (6-22); Bilirubin Total 0.6 mg/dL (0.2-1.3); Blood Urea Nitrogen 23 mg/dL (7-17); Calcium 8.7 mg/dL (8.4-10.2); Carbon Dioxide 23 mmol/L (22-32); Chloride 108 mmol/L (98-107); Estimated Glomerular Filt Rate 36 mL/min (>60); Globulin 3.7 g/dL (1.7-4.1); Glucose 108 mg/dL (80-110); HEMOLYSIS 21 (0-50); Potassium 3.6 mmol/L (3.4-5.1); Sodium 142 mmol/L (137-145); Total Protein 7.8 g/dL (6.3-8.2)
[2022-05-24 21:22] LABS: INR 5.2 (0.9-1.3)
[2022-05-24 21:45] LABS: COVID19 -Nasal RAPID Negative (Negative)
[2022-05-24] MEDS: PHYTONADIONE (VIT K1) 5 MG in SODIUM CHLORIDE 0.9% 100 ML 201 MG IV (21:53)
[2022-05-24 23:42] VITALS: BP 183/91; PULSE 61; RESP 18; TEMP 37
[2022-05-24 23:55] VITALS: BP 187/80; BP 216/92; PULSE 56; PULSE 64; RESP 18; TEMP 36.7; TEMP 36.8
[2022-05-25] VITALS (27 sets, daily range): BP systolic 93–237; BP diastolic 45–102; PULSE 63–95; RESP 14–28; TEMP 35.7–36.4; O2SAT 92–98; BMI 21.9
[2022-05-25] MEDS: ENALAPRILAT 2.5 MG/ 2 ML VIAL 1.25 MG IV ×2 (02:03→03:16)
[2022-05-25 03:15] LABS: INR 2.2 (0.9-1.3)
[2022-05-25 03:16] LABS: Prothrombin Time 25.2 SECONDS (10.1-12.7)
[2022-05-25] MEDS: LORazepam 2 MG/ML INJ 0.5 MG IV (03:56)
[2022-05-25] MEDS: HYDRALAZINE 20 MG/ML VIAL 10 MG IV (04:27)
--- NOTE | 2022-05-25 08:50 | PM.HP.1 ---
History of Present Illness History of Present Illness Date Patient Seen: 05/25/22 Time Patient Seen: 08:50 Chief complaint: Something stuck in throat, Mucus Narrative: 86-year-old woman presented to the emergency room with esophageal food impaction. She is eating pork yesterday and had a sensation that something was stuck in her throat. She has been unable to clear it and presented to the emergency room for further evaluation. She was tolerating her secretions had no airway issues. History of esophageal perforation years ago after himleck maneuver. She is anticoagulated with warfarin INR was 5, after vitamin K it is now 2.2 Patient History Medical History Arthritis Cellulitis Diabetes type 2, controlled Easy bruisability Fall from ground level (~02/2019) Hypertension Hyperthyroidism Overactive bladder Pneumonia TIA (transient ischemic attack) (08/14/13) Surgical History History of arthroplasty of right knee (~2006) History of hysterectomy History of lumbar surgery (~2002) History of thyroidectomy (~1955) Hx of bilateral cataract extraction Family & Social History Social History: household members children Safety & Behavioral: Feels Safe in Current Yes Environment Been Physically Hurt or No Threatened By a Person Tobacco & Substance use: Smoking Status Never smoker alcohol intake former alcohol intake frequency 0-2 drinks per day Substance Use Type opiates,painkillers,prescription drug Meds Home Medications and Allergies Home Medications Medication Instructions Recorded Confirmed Type CHOLECALCIFEROL (VITAMIN D3) 1,000 units PO QDAY ##0 05/02/11 08/16/19 History (Vitamin D) CYANOCOBALAMIN (#VITAMIN B12) 250 mcg PO QDAY ##0 05/02/11 08/16/19 History furosemide 20 mg tablet (Lasix) 20 mg PO QDAY ##0 05/02/11 08/16/19 History lisinopril 20 mg tablet 20 mg PO BID ##0 05/02/11 08/16/19 History metoprolol tartrate 100 mg tablet 100 mg PO BID ##0 05/02/11 08/16/19 History amlodipine 5 mg tablet 5 mg PO DAILY 02/24/19 08/16/19 History magnesium oxide 400 mg PO BID Low magnesium level 02/24/19 08/16/19 History gabapentin 300 mg capsule 300 mg PO BEDTIME PRN Pain 08/02/19 08/02/19 History hydroxyzine HCl 25 mg tablet 25 mg PO BEDTIME PRN Pain 08/02/19 08/02/19 History metformin 1,000 mg tablet 1,000 mg PO DAILY 08/02/19 08/16/19 History oxybutynin chloride 5 mg tablet 5 mg PO BID 08/02/19 08/16/19 History acetaminophen 500 mg tablet 500 mg PO Q4H PRN pain (scale 08/19/19 Rx (Tylenol Extra Strength) score 1-3) #30 tabs hydrocodone 10 mg-acetaminophen 1 tab PO Q4-6H PRN pain (scale 08/19/19 Rx 325 mg tablet score 7-10) #40 tabs Allergies Allergy/AdvReac Type Severity Reaction Status Date / Time stoool softener AdvReac Mild diarrea Uncoded 08/16/19 10:27 Exam Vital Signs (past 8 hours): - 05/25/22 02:12 05/25/22 02:29 05/25/22 02:29 Pulse Rate 69 67 Respiratory Rate 18 Blood Pressure 199/94 H 223/86 H Pulse Oximetry 98 98 05/25/22 02:30 05/25/22 03:00 05/25/22 03:00 Pulse Rate 68 65 Respiratory Rate Blood Pressure 206/79 H Pulse Oximetry 98 98 05/25/22 03:30 05/25/22 03:43 05/25/22 03:43 Pulse Rate 63 68 Respiratory Rate Blood Pressure 237/102 H Pulse Oximetry 98 98 05/25/22 04:00 05/25/22 04:18 05/25/22 04:18 Pulse Rate 73 76 Respiratory Rate Blood Pressure 225/93 H Pulse Oximetry 97 95 05/25/22 04:30 05/25/22 04:36 05/25/22 04:36 Pulse Rate 79 78 Respiratory Rate Blood Pressure 167/67 H Pulse Oximetry 97 98 05/25/22 05:00 05/25/22 05:37 05/25/22 05:39 Pulse Rate 78 87 84 Respiratory Rate Blood Pressure Pulse Oximetry 96 97 98 05/25/22 05:39 05/25/22 06:00 05/25/22 06:01 Pulse Rate 66 Respiratory Rate Blood Pressure 153/63 H 147/63 H Pulse Oximetry 98 05/25/22 06:01 05/25/22 06:30 05/25/22 06:31 Pulse Rate 75 75 Respiratory Rate Blood Pressure 152/68 H Pulse Oximetry 98 97 05/25/22 06:31 05/25/22 07:00 05/25/22 07:00 Pulse Rate 75 87 Respiratory Rate Blood Pressure 177/70 H Pulse Oximetry 97 97 05/25/22 07:30 05/25/22 07:30 05/25/22 08:00 Pulse Rate 78 84 Respiratory Rate Blood Pressure 171/69 H Pulse Oximetry 97 98 05/25/22 08:01 05/25/22 08:01 Pulse Rate 84 Respiratory Rate Blood Pressure 181/76 H Pulse Oximetry 98 Oxygen Delivery Method Room Air Narrative Exam Narrative: General elderly woman alert oriented no acute distress Chest nonlabored respiration Abdomen soft nontender nondistended Extremities warm well perfused Objective Labs Result Diagrams: 05/24/22 20:20 05/24/22 20:20 Labs: Laboratory Results - last 24 hr 05/24/22 05/24/22 05/24/22 20:20 20:20 20:20 WBC 6.5 RBC 3.74 L Hgb 11.3 L Hct 34.1 L MCV 91.1 MCH 30.3 MCHC 33.2 RDW 12.9 Plt Count 146 L Neut % (Auto) 73.8 Lymph % (Auto) 17.0 L Mcintosh % (Auto) 6.6 Eos % (Auto) 1.8 L Baso % (Auto) 0.8 Neut # (Auto) 4800 Lymph # (Auto) 1100 Mcintosh # (Auto) 400 Eos # (Auto) 100 Baso # (Auto) 0 PT 60.4 H INR 5.2 H* Sodium 142 Potassium 3.6 Chloride 108 H Carbon Dioxide 23 BUN 23 H Creatinine 1.43 H Estimated GFR 36 L BUN/Creatinine Ratio 16.1 Glucose 108 Calcium 8.7 Total Bilirubin 0.6 AST 29 ALT 16 Alkaline Phosphatase 112 Total Protein 7.8 Albumin 4.1 Globulin 3.7 Albumin/Globulin Ratio 1.1 SARS-CoV-2 (PCR) Blood Type 05/24/22 05/24/22 05/25/22 20:45 22:13 03:00 WBC RBC Hgb Hct MCV MCH MCHC RDW Plt Count Neut % (Auto) Lymph % (Auto) Mcintosh % (Auto) Eos % (Auto) Baso % (Auto) Neut # (Auto) Lymph # (Auto) Mcintosh # (Auto) Eos # (Auto) Baso # (Auto) PT 25.2 H D INR 2.2 H Sodium Potassium Chloride Carbon Dioxide BUN Creatinine Estimated GFR BUN/Creatinine Ratio Glucose Calcium Total Bilirubin AST ALT Alkaline Phosphatase Total Protein Albumin Globulin Albumin/Globulin Ratio SARS-CoV-2 (PCR) Negative Blood Type O Positive Assessment & Plan Assessment and plan (1) Food impaction of esophagus: Status: Acute Assessment & Plan narrative: 86-year-old woman with food impaction of the esophagus, no airway compromise and tolerating secretions. Will proceed to endoscopy for esophagoduodenoscopy. Overview of the procedure was discussed with the patient and her son at the bedside. Procedural risks including bleeding, intestinal perforation, were discussed. Questions answered she is in agreement with this plan. Time Spent With Patient Critical Care time: I spent a total of [] minutes of critical care time on this patient's care today; this time is exclusive of procedural time.
--- NOTE | 2022-05-25 09:43 | PM.OP.EGD ---
Operative Date/Time/Diagnoses Date of procedure: 05/25/22 Time of procedure: 09:43 Pre-op diagnosis: Esophageal food impaction Post-op diagnosis: same Procedure & Clinicians Study performed: Esophagoduodenoscopy Same procedure as scheduled: Yes Indications: History of esophageal perforation presents with a esophageal food impaction Surgeon: Galdino Mittal Procedure Notes Procedure in detail: Sedation was administered by anesthesia propofol. The scope was inserted into the mouth and advanced into the esophagus. In the proximal esophagus there was impacted food material. With manipulation of the impaction it was broken into smaller pieces and then advanced distally down the esophagus into the stomach. There was no significant esophageal stricture scope passed easily through the entire length of the esophagus. Specimen(s): none sent Complications: none Impression: Resolved esophageal food impaction Post-procedure Plan for aftercare: Diet as tolerated Disposition: same day surgery
== END 2022-05-25 10:39 | disposition home or self-care (01) ==
LOC: ED 05-25 07:10 → AC 05-25 08:55 → OR 05-27 10:18
PROVIDERS: Emergency Medicine; Emergency Provider Emergency Medicine; Referring Provider Emergency Medicine; Visit Provider Surgery
PROC: 0DJ08ZZ Inspection of Upper Intestinal Tract, Via Natural or Artificial Opening Endoscopic (ICD-10-PCS; CPT 43235; principal; 2022-05-25 09:00)
DX: T18.128A Food in esophagus causing other injury, initial encounter (principal); Z20.822 Contact with and (suspected) exposure to COVID-19
CPT/HCPCS: 43247; 36415; 36430; 80053; 85025; 85610; 86900; 86901; 86927; 87635; 96361; 96374; 96375; 96376; 99284; C9803; G0378; P9016; J0330; J0360; J1610; J2060; J3430

== ENCOUNTER → 2022-07-23 13:00 | Outpatient (CLI) | payer MEDICARE, SELFPAY ==
[2019-08-16 17:48] VITALS: BMI 20.5
--- NOTE | 2022-07-23 13:03 | DI.CT.S_ITS ---
PROCEDURE: CT LUMBAR SPINE WO CON INDICATIONS: Spinal stenosis, lumbar region TECHNIQUE: Noncontrast 3 mm thick sections acquired from the T12 level to the sacrum. Sagittal and coronal reformats were constructed. For radiation dose reduction, the following was used: automated exposure control. COMPARISON: [facility], MR, MR LUMBAR SPINE WO CON, 05/04/2019, 15:55. [facility], CR, XR LUMBAR SPINE 2-3V, 08/16/2019, 12:11. FINDINGS: Image quality: Excellent. Bones: There is normal bony alignment. A severe compression fracture of T12 is present, representing a Re fracture compared to the previous MRI. It may have an acute or subacute component. There is also a mild superior endplate compression of L1, which likely has an acute or subacute component. There is evidence of posterior lateral alivai and pedicle screw fixation of L4 through S1 and left hemilaminectomy at these levels and interbody spacer placement at L4-L5 and L5-S1. T11-T12: Mild posterior bony retropulsion. Hyon-gr-bhwvdawl canal stenosis. T12-L1: No canal stenosis. Bilateral moderate foraminal narrowing. L1-L2: No canal stenosis. Bilateral moderate foraminal narrowing. L2-L3: Left paracentral disc protrusion. Moderate canal stenosis. L3-L4: Disc bulge. Mild canal stenosis. Facet hypertrophy. L4-L5: Fused. No canal stenosis. L5-S1: Fused. No canal stenosis. Soft tissues: No retroperitoneal masses or hematomas. Visualized aorta is normal in caliber. Moderate or marked cardiomegaly. IMPRESSION: 1. Moderate to marked cardiomegaly. 2. There is a severe T12 compression fracture which has refractured since the previous MRI from 2018. It may have an acute or subacute component. 3. A mild superior endplate compression fracture of L1 is likely acute or subacute. 4. Degenerative change. Moderate canal stenosis at L2-L3 and mild canal stenosis at L3-L4. Dictated by: Immanuel Irwin M.D. on 07/23/2022 at 18:23 Approved by: Immanuel Irwin M.D. on 07/23/2022 at 18:32
== END ==
PROVIDERS: Referring Provider Orthopaedic Surgery Orthopaedic Surgery of the Spine; Visit Provider Orthopaedic Surgery Orthopaedic Surgery of the Spine
DX: M48.061 Spinal stenosis, lumbar region without neurogenic claudication (principal); M47.816 Spondylosis without myelopathy or radiculopathy, lumbar region; M48.54XA Collapsed vertebra, not elsewhere classified, thoracic region, initial encounter for fracture; M48.56XA Collapsed vertebra, not elsewhere classified, lumbar region, initial encounter for fracture; I51.7 Cardiomegaly; Z98.1 Arthrodesis status
CPT/HCPCS: 72131

== ENCOUNTER → 2022-08-23 13:51 | Outpatient (CLI) | payer MEDICARE, SELFPAY ==
[2019-08-16 17:48] VITALS: BMI 20.5
--- NOTE | 2022-08-23 13:52 | DI.RAD.S_ITS ---
Bone Density Report Name: SHANDRA PEREZ Age: 86 Sex: Female Ethnicity: White Date of : 1935 Indication: osteopenia; prior fracture; Referring Provider: STEVIE HARO Study: Bone densitometry was performed. Exam Date: August 23, 2022 Accession number: [id number] Bone Density: Region BMD T-score Z-score Classification Femoral Neck (Left) 0.488 -3.3 -0.7 Osteoporosis Total Hip (Left) 0.499 -3.6 -1.3 Osteoporosis Femoral Neck (Right) 0.540 -2.8 -0.3 Osteoporosis Total Hip (Right) 0.590 -2.9 -0.5 Osteoporosis Total Hip Mean 0.545 -3.3 -0.9 Osteoporosis Total Forearm (Left) 0.474 -1.9 Osteopenia 1/3 Forearm (Left) 0.569 -2.1 Osteopenia UD Forearm (Left) 0.336 -1.9 Osteopenia World Health Organization criteria for BMD impression classify patients as: Normal (T-score at or above -1.0), Osteopenia (T-score between -1.0 and -2.5), or Osteoporosis (T-score at or below -2.5). 10-year Fracture Risk: FRAX not reported because: Some T-score for Spine Total or Hip Total or Femoral Neck at or below -2.5 Prior hip or vertebral fracture Previous Exams: -- Region Exam Age BMD T-score BMD Change BMD Change Date g/cm2 vs Baseline vs Previous -- Total Hip(Left) 08/23/2022 86 0.499 -3.6 -0.194 (-28.0%)# -0.194 (-28.0%)# 10/27/2017 81 0.693 -2.0 Total Hip(Right) 08/23/2022 86 0.590 -2.9 -0.145 (-19.7%)# -0.145 (-19.7%)# 10/27/2017 81 0.735 -1.7 -- *Denotes significance at 95% confidence level, LSC for Total Hip = 0.027 g/cm2 # Denotes dissimilar scan types or analysis methods Impression: The patient has established osteoporosis, based on the Left Total Hip T-score and the existence of a prior fracture. The patient has risk factors, including: previous fracture. No significant bone loss was observed. Discussion: HIGH RISK OF FRACTURE. BONE DENSITY IS UNDESIRABLY LOW AT ONE OR MORE SKELETAL SITES, CONSISTENT WITH POSTMENOPAUSAL OSTEOPOROSIS. This patient's lowest T-score, in a patient who has previously fractured, meets the World Health Organization's (WHO) criteria for severe osteoporosis. In untreated patients, the risk of osteoporotic fracture increases approximately two-fold for each 1.0 SD decrease in T-score. Low bone density is not the only risk factor for fracture; also consider factors such as patient's age, frailty or poor health, risk of falling, risk of injury, previous osteoporotic fracture, family history of osteoporosis, cigarette smoking, low body weight, etc. Not everyone with low bone mineral density has osteoporosis; osteomalacia and other metabolic bone disorders should also be considered. Patients who have osteoporosis should be evaluated for specific diseases and conditions (secondary causes) that may cause or contribute to bone loss. The [place] [employer]ocr[employer] (AACE) and National Osteoporosis Foundation (NOF) recommend pharmacologic intervention for all postmenopausal women with a previous hip or vertebral fracture and a T-score in this range. The patient should follow a healthful lifestyle (good nutrition with adequate calcium and vitamin D, and appropriate weight-bearing exercise). Follow-Up: Consider a repeat BMD and Vertebral Fracture Assessment (VFA) exam in 2 years or sooner if medically necessary, to reassess this patient's status. Reported by: LYNETTE GUERRA M.D. on 08/23/2022 2:20:00 PM.
== END ==
PROVIDERS: PCP Internal Medicine; Referring Provider Internal Medicine; Visit Provider Internal Medicine
DX: M81.0 Age-related osteoporosis without current pathological fracture; M06.9 Rheumatoid arthritis, unspecified; Z87.311 Personal history of (healed) other pathological fracture; Z90.710 Acquired absence of both cervix and uterus
CPT/HCPCS: 77080

== ENCOUNTER → 2022-10-22 14:37 | Outpatient (CLI) | payer MEDICARE, SELFPAY ==
[2019-08-16 17:48] VITALS: BMI 20.5
--- NOTE | 2022-10-22 | DI.RAD.S_ITS ---
PROCEDURE: XR CHEST 2V INDICATIONS: cough, shortness of breath TECHNIQUE: 2 views of the chest were acquired. COMPARISON: [facility], CR, XR CHEST 2V, 08/25/2019, 14:49. FINDINGS: Surgical changes and devices: Partially visualized lumbar spine fixation hardware. Lungs and pleura: Bibasilar patchy airspace opacities. No pleural effusions or pneumothorax. Mediastinum: Mediastinal contours are normal. Heart is enlarged. Bones and chest wall: T12 compression fracture has progressed in the interval since the prior exam. L1 compression fracture is noted which is new compared to prior exam. Soft tissues appear unremarkable. IMPRESSION: Bibasilar patchy airspace opacities which could represent atelectasis or pneumonia. Dictated by: Janis Dinh MD, PhD on 10/22/2022 at 15:27 Approved by: Janis Dinh MD, PhD on 10/22/2022 at 15:29
== END ==
PROVIDERS: PCP Internal Medicine; Referring Provider Internal Medicine; Visit Provider Internal Medicine
DX: R05.9 Cough, unspecified (principal); R06.02 Shortness of breath; M48.55XA Collapsed vertebra, not elsewhere classified, thoracolumbar region, initial encounter for fracture; I51.7 Cardiomegaly
CPT/HCPCS: 71046

== ENCOUNTER → 2023-08-05 15:09 | Outpatient (CLI) | payer MEDICARE, SELFPAY ==
[2019-08-16 17:48] VITALS: BMI 20.5
--- NOTE | 2023-08-05 15:14 | DI.US.S_ITS ---
PROCEDURE: US RENAL COMPLETE INDICATIONS: STAGE 3B CKD TECHNIQUE: Real-time scanning was performed of the kidneys and bladder, with image documentation. COMPARISON: None. FINDINGS: Kidneys: Kidneys are normal in size. Right kidney measures 8.3 cm long; left kidney measures 8.4 cm long. Right renal cortical thickness is 1.1 cm; left renal cortical thickness is 0.8 cm. Renal cortical echogenicity is within normal limits. No hydronephrosis or nephrolithiasis. No suspicious solid mass lesions. Bladder: Not distended. Not well seen. Miscellaneous: No free pelvic fluid. IMPRESSION: No hydronephrosis. Mild left renal cortical thinning. Dictated by: Dusty Cueva M.D. on 08/05/2023 at 17:30 Approved by: Dusty Cueva M.D. on 08/05/2023 at 17:33
== END ==
PROVIDERS: PCP Internal Medicine; Referring Provider Student in an Organized Health Care Education/Training Program; Visit Provider Student in an Organized Health Care Education/Training Program
DX: N18.32 Chronic kidney disease, stage 3b (principal)
CPT/HCPCS: 76770

== ENCOUNTER → 2023-08-11 12:48 | Outpatient (CLI) | payer MEDICARE, SELFPAY ==
[2019-08-16 17:48] VITALS: BMI 20.5
[2023-08-11 13:41] LABS: Hematocrit 32.2 % (36-46); Hemoglobin 10.8 g/dL (12.0-16.0)
[2023-08-11 14:06] LABS: BUN Creatinine Ratio 17.7 (6-22); Blood Urea Nitrogen 31 mg/dL (7-17); Calcium 9.2 mg/dL (8.4-10.2); Carbon Dioxide 33 mmol/L (22-32); Chloride 98 mmol/L (98-107); Estimated Glomerular Filt Rate 28 mL/min (>60); Glucose 115 mg/dL (80-110); HEMOLYSIS < 15 (0-50); Phosphorous 3.6 mg/dL (2.8-4.1); Potassium 3.9 mmol/L (3.4-5.1); Sodium 135 mmol/L (137-145)
[2023-08-11 14:15] LABS: NT-proBNP (BNP-Adult 18+) 5700 pg/mL (<450)
[2023-08-11 15:07] LABS: Creatinine Urine Random 85.9 mg/dL; Protein (Total) Urine Random 23 mg/dL (0-12); Protein Creatinine Ratio Urine 0.26 GRAM/24H
[2023-08-13 08:55] LABS: Parathyroid Hormone Int 35 pg/mL (15-65)
== END ==
PROVIDERS: PCP Internal Medicine; Referring Provider Student in an Organized Health Care Education/Training Program; Visit Provider Student in an Organized Health Care Education/Training Program
DX: N05.9 Unspecified nephritic syndrome with unspecified morphologic changes (principal); I50.32 Chronic diastolic (congestive) heart failure; D70.9 Neutropenia, unspecified; D63.1 Anemia in chronic kidney disease; E83.30 Disorder of phosphorus metabolism, unspecified; N25.81 Secondary hyperparathyroidism of renal origin; R80.9 Proteinuria, unspecified
CPT/HCPCS: 36415; 80048; 82570; 83880; 83970; 84100; 84156; 85014; 85018

== ENCOUNTER → 2023-12-02 11:26 | Outpatient (CLI) | payer MEDICARE, SELFPAY ==
[2019-08-16 17:48] VITALS: BMI 20.5
[2023-12-02 13:30] LABS: BUN Creatinine Ratio 18.9 (6-22); Blood Urea Nitrogen 34 mg/dL (7-17); Calcium 8.8 mg/dL (8.4-10.2); Carbon Dioxide 26 mmol/L (22-32); Chloride 104 mmol/L (98-107); Estimated Glomerular Filt Rate 27 mL/min (>60); Glucose 95 mg/dL (80-110); HEMOLYSIS < 15 (0-50); Potassium 3.7 mmol/L (3.4-5.1); Sodium 138 mmol/L (137-145)
[2023-12-02 15:16] LABS: Creatinine Urine Random 17.69 mg/dL; Protein (Total) Urine Random 23 mg/dL (0-12)
== END ==
PROVIDERS: PCP Internal Medicine; Referring Provider Student in an Organized Health Care Education/Training Program; Visit Provider Student in an Organized Health Care Education/Training Program
DX: N05.9 Unspecified nephritic syndrome with unspecified morphologic changes (principal); R80.9 Proteinuria, unspecified
CPT/HCPCS: 36415; 80048; 82570; 84156

== ENCOUNTER → 2024-03-16 09:52 | Outpatient (CLI) | payer MEDICARE, SELFPAY ==
[2019-08-16 17:48] VITALS: BMI 20.5
[2024-03-16 10:39] LABS: Hematocrit 32.4 % (36-46)
[2024-03-16 11:06] LABS: Protein (Total) Urine Random 80 mg/dL (0-12); Protein Creatinine Ratio Urine 0.68 GRAM/24H
[2024-03-16 11:08] LABS: BUN Creatinine Ratio 16.1 (6-22); Blood Urea Nitrogen 26 mg/dL (7-17); Calcium 9.1 mg/dL (8.4-10.2); Carbon Dioxide 29 mmol/L (22-32); Chloride 101 mmol/L (98-107); Estimated Glomerular Filt Rate 31 mL/min (>60); Glucose 103 mg/dL (80-110); HEMOLYSIS < 15 (0-50); Potassium 3.7 mmol/L (3.4-5.1); Sodium 138 mmol/L (137-145)
== END ==
PROVIDERS: PCP Internal Medicine; Referring Provider Student in an Organized Health Care Education/Training Program; Visit Provider Student in an Organized Health Care Education/Training Program
DX: N05.9 Unspecified nephritic syndrome with unspecified morphologic changes (principal); D70.9 Neutropenia, unspecified; D63.1 Anemia in chronic kidney disease; N25.81 Secondary hyperparathyroidism of renal origin; R80.9 Proteinuria, unspecified
CPT/HCPCS: 36415; 80048; 82570; 83970; 84156; 85014; 85018

== ENCOUNTER 2024-06-20 10:37 | Inpatient (IN) | payer MEDICARE, SELFPAY ==
[2019-08-16 17:48] VITALS: BMI 20.5
[2024-06-20] VITALS (37 sets, daily range): BP systolic 79–138; BP diastolic 44–69; PULSE 57–81; RESP 13–25; TEMP 36.4–36.8; O2SAT 95–99; BMI 18.3; BMI 19.0
--- NOTE | 2024-06-20 10:46 | ED_ITS ---
HPI - General Adult General Chief complaint: Nausea/Vomiting/Diarrhea Stated complaint: Feels ill Time Seen by Provider: 06/20/24 10:46 History of Present Illness HPI narrative: 88-year-old woman with a history of chronic AFib on warfarin, hypertension, type 2 diabetes, chronic diarrhea, every 2-1/2 weeks typically will have a relatively severe episode. Last night she had severe vomiting which is not typically associated with her usual diarrhea and significant diarrhea. There was no blood appreciated in either vomitus or stool. No fevers or chills, nobody else is sick. She complains of her usual lower abdominal cramping she associates with her chronic diarrhea. Son called medics this morning and she was found to be significantly hypotensive and weak. She was transported to the ER for further evaluation. She is alert, appropriate able to explain her history. Not currently complaining of nausea. No chest pain, shortness for breath, cough or fevers Related Data Home Medications Medication Instructions Recorded Confirmed CHOLECALCIFEROL (VITAMIN D3) 1,000 units PO QDAY ##0 05/02/11 06/20/24 (Vitamin D) CYANOCOBALAMIN (#VITAMIN B12) 250 mcg PO QDAY ##0 05/02/11 06/20/24 furosemide 20 mg tablet (Lasix) 20 mg PO QDAY ##0 05/02/11 06/20/24 lisinopril 20 mg tablet 20 mg PO BID ##0 05/02/11 06/20/24 amlodipine 5 mg tablet 5 mg PO DAILY 02/24/19 06/20/24 alendronate 70 mg tablet 70 mg PO QWEEK 06/20/24 06/20/24 atorvastatin 10 mg tablet 10 mg PO BEDTIME 06/20/24 06/20/24 warfarin 1 mg tablet 1 mg PO DAILY 06/20/24 06/20/24 Previous Rx's Medication Instructions Recorded acetaminophen 500 mg tablet 500 mg PO Q4H PRN pain (scale 08/19/19 (Tylenol Extra Strength) score 1-3) #30 tabs Allergies Allergy/AdvReac Type Severity Reaction Status Date / Time stoool softener AdvReac Mild diarrea Uncoded 08/16/19 10:27 Review of Systems Review of Systems Narrative: Pertinent positive and negative findings as per HPI Patient History Medical History (Updated 06/20/24 @ 16:16 by Rosy Wu MD) Easy bruisability Overactive bladder Fall from ground level (~02/2019) Arthritis Pneumonia Cellulitis TIA (transient ischemic attack) (08/14/13) Hypertension Hyperthyroidism Diabetes type 2, controlled Surgical History History of lumbar surgery (~2002) Hx of bilateral cataract extraction History of arthroplasty of right knee (~2006) History of thyroidectomy (~1955) History of hysterectomy Social History household members: children Smoking Status: Never smoker alcohol intake: former Smoking Status: Never smoker alcohol intake frequency: 0-2 drinks per day Exam Initial Vital Signs Initial Vital Signs: Vital Signs Pulse Rate 71 06/20/24 10:39 Pulse Oximetry 95 06/20/24 10:39 General: Frail, chronically ill-appearing, significantly dry mucous membranes alert and able to cooperate completely with exam HEENT: Dry mucous membranes, normal sclera with reactive pupils, Respiratory: Lungs are clear to auscultation, no wheezing no rales no rhonchi. Full and symmetrical air movement Cardiac: Regular rate and rhythm no murmurs no bruits Abdomen: Soft, mild diffuse tenderness without rebound or guarding. No flank pain. Skin: Pale but otherwise Warm and dry, Neurologic: Globally weak, Grossly neurologically intact with no obvious asymmetries or abnormalities Extremities: No trauma, well perfused, no lower extremity edema Psych: Cooperative, appropriate insight and affect Course Orders Ordered: ED Orders 06/20/24 10:46 GI Panel (Film Array) Stat 06/20/24 10:51 Complete Blood Count AUTO DIFF Stat Comprehensive Metabolic Panel Stat Lactate (Lactic Acid) Stat Lipase Stat Magnesium Stat Prothrombin Time INR Stat 06/20/24 11:04 CT abdomen pelvis wo con Stat 06/20/24 12:15 BMP [Basic Metabolic Panel] Stat CBC No Diff [Complete Blood Count NO DIFF] Stat 06/20/24 12:39 Ictotest Urine Stat Urinalysis and Microscopic Stat Urine Culture Stat Acetaminophen (Acetaminophen 325 Mg Tablet) 650 mg PO Q6H PRN PRN Reason: Fever/Mild Pain (1-3) Amlodipine Besylate (Amlodipine 5 Mg Tablet) 5 mg PO DAILY RENEA Sodium Chloride (Normal Saline 0.9%) 1,000 mls @ 150 mls/hr IV CONT RENEA Last Admin: 06/20/24 14:13 Dose: 150 mls/hr Documented By: LISA Dextrose/Sodium Chloride (Dextrose 5%-0.45% Ns) 1,000 mls @ 100 mls/hr IV CONT RENEA Piperacillin Sod/Tazobactam (Sod 3.375 gm/ Sodium Chloride) 100 mls @ 25 mls/hr IV Q8H RENEA Naloxone HCl (Naloxone 0.4 Mg/Ml Vial) 0.2 mg IV Q2MIN PRN PRN Reason: Opiate Reversal Non-Formulary Medication (Atorvastatin) 10 mg PO BEDTIME RENEA Ondansetron HCl (Ondansetron 4 Mg/2 Ml Inj) 4 mg IV Q8HR PRN PRN Reason: Nausea And Vomiting Discontinued Medications Sodium Chloride (Normal Saline 0.9%) 1,000 mls @ 1,000 mls/hr IV BOLUS ONE Stop: 06/20/24 11:45 Last Infusion: 06/20/24 12:18 Dose: Infused Documented By: Admin: 06/20/24 11:11 Dose: 1,000 mls/hr Documented By: REINALDO Sodium Chloride (Normal Saline 0.9%) 1,000 mls @ 1,000 mls/hr IV BOLUS ONE Stop: 06/20/24 12:42 Last Infusion: 06/20/24 13:36 Dose: Infused Documented By: Admin: 06/20/24 12:00 Dose: 1,000 mls/hr Documented By: REINALDO Ondansetron HCl (Ondansetron 4 Mg/2 Ml Inj) 4 mg IV NOW ONE Stop: 06/20/24 10:47 Vital Signs Vital signs: Vital Signs - 8 hr 06/20/24 10:39 06/20/24 10:40 06/20/24 10:40 Temperature Pulse Rate 71 65 Respiratory Rate Blood Pressure 84/54 L Pulse Oximetry 95 97 Oxygen Delivery Method 06/20/24 10:44 06/20/24 10:44 06/20/24 10:49 Temperature Pulse Rate 61 Respiratory Rate Blood Pressure 79/46 L 82/48 L Pulse Oximetry 97 Oxygen Delivery Method 06/20/24 10:49 06/20/24 10:55 06/20/24 10:56 Temperature 98.2 F Pulse Rate 68 73 65 Respiratory Rate 15 16 Blood Pressure 79/46 L Pulse Oximetry 97 99 97 Oxygen Delivery Method Room Air 06/20/24 10:56 06/20/24 11:00 06/20/24 11:00 Temperature Pulse Rate 65 Respiratory Rate 18 Blood Pressure 102/48 L 105/51 L Pulse Oximetry 97 Oxygen Delivery Method 06/20/24 11:06 06/20/24 11:06 06/20/24 11:11 Temperature Pulse Rate 63 67 Respiratory Rate 20 Blood Pressure 97/61 Pulse Oximetry 97 95 Oxygen Delivery Method 06/20/24 11:15 06/20/24 12:55 06/20/24 12:55 Temperature Pulse Rate 63 67 Respiratory Rate 21 20 Blood Pressure 115/56 L Pulse Oximetry 97 98 Oxygen Delivery Method 06/20/24 13:00 06/20/24 13:00 06/20/24 13:05 Temperature Pulse Rate 71 Respiratory Rate 23 Blood Pressure 138/44 L 128/58 L Pulse Oximetry 97 Oxygen Delivery Method 06/20/24 13:05 06/20/24 13:10 06/20/24 13:10 Temperature Pulse Rate 73 60 Respiratory Rate 16 18 Blood Pressure 123/56 L Pulse Oximetry 97 98 Oxygen Delivery Method 06/20/24 13:15 06/20/24 13:15 06/20/24 13:20 Temperature Pulse Rate 81 Respiratory Rate 24 Blood Pressure 137/57 L 122/56 L Pulse Oximetry 97 Oxygen Delivery Method 06/20/24 13:20 Temperature Pulse Rate 60 Respiratory Rate 18 Blood Pressure Pulse Oximetry 98 Oxygen Delivery Method Medical Decision Making Lab Data 06/20/24 12:15 06/20/24 12:15 Labs: Lab Results 06/20/24 06/20/24 06/20/24 Range/Units 10:51 12:15 12:39 WBC 22.0 H 18.4 H (4.5-11.0) X10^3/uL RBC 3.79 L 3.28 L (4.0-5.2) X10^6/uL Hgb 11.5 L 10.0 L (12.0-16.0) g/dL Hct 35.0 L 30.2 L (36-46) % MCV 92.3 92.1 (80-100) fL MCH 30.4 30.6 (26-34) PG MCHC 33.0 33.2 (30-36) % RDW 14.1 14.1 (11.6-14.8) % Plt Count 169 142 L (150-400) X10^3/uL Neut % (Auto) 95.5 H (50-75) % Lymph % (Auto) 2.2 L (25-40) % [place] % (Auto) 2.2 L (3-14) % Eos % (Auto) 0.0 L (2-4) % Baso % (Auto) 0.1 (0-2) % Neut # (Auto) 21754 H (1400-6836) /uL Lymph # (Auto) 500 L (4728-4655) /uL [place] # (Auto) 500 (0-900) /uL Eos # (Auto) 0 (0-450) /uL Baso # (Auto) 0 (0-100) /uL PT 48.3 H (9.4-12.5) SECONDS INR 4.4 H (0.9-1.3) Sodium 133 L 134 L (137-145) mmol/L Potassium 5.2 H 4.8 (3.4-5.1) mmol/L Chloride 101 106 (98-107) mmol/L Carbon Dioxide 20 L 21 L (22-32) mmol/L BUN 46 H 43 H (7-17) mg/dL Creatinine 2.55 H 2.38 H (0.52-1.04) mg/dL Estimated GFR 18 L 19 L (>60) mL/min BUN/Creatinine Ratio 18.0 18.1 (6-22) Glucose 159 H 137 H (80-110) mg/dL Lactate 3.8 H 2.5 H (0.7-2.1) mmol/L Calcium 9.1 8.0 L (8.4-10.2) mg/dL Magnesium 2.3 (1.6-2.3) mg/dL Total Bilirubin 0.8 (0.2-1.3) mg/dL AST 53 H (14-36) IU/L ALT 37 H (<35) IU/L Alkaline Phosphatase 65 (38-126) U/L Total Protein 6.4 (6.3-8.2) g/dL Albumin 3.3 L (3.5-5.0) g/dL Globulin 3.1 (1.7-4.1) g/dL Albumin/Globulin Ratio 1.1 (1.0-2.8) Lipase 34 (23-300) U/L Urine Color Red Urine Appearance Cloudy Urine pH 5.0 (4.5-8.0) Ur Specific [place] 1.025 (1.000-1.035) Urine Protein 3+ H (Negative) Urine Glucose (UA) Trace H (Negative) g/dL Urine Ketones Trace H (NEGATIVE) Urine Occult Blood 3+ H (Negative) Urine Nitrate Positive H (Negative) Urine Bilirubin 1+ H (NEGATIVE) Ur Bilirubin Confirm Negative (Negative) Urine Urobilinogen 1.0 (0.2) E.U./dL Ur Leukocyte Esterase 2+ H (NEGATIVE) Urine RBC 30-100/hpf H (0-5/HPF) Urine WBC 10-30/hpf H (0-5/HPF) Ur Squamous Epith Cells n (0-5/HPF) Urine Bacteria Moderate (10-30) H (None) Ur Culture Indicated? Specimen cultured Vol Urine Centrifuged 10ml (spun) Imaging Data CT scan - abdomen/pelvis: Radiologist's Impression: PROCEDURE: CT ABDOMEN PELVIS [facility] INDICATIONS: Abdominal pain, diarrhea TECHNIQUE: Axial sections were acquired from the lung bases to the pubic symphysis. Coronal and sagittal reformats were performed. For radiation dose reduction, the following was used: automated exposure control, adjustment of mA and/or kV according to patient size. COMPARISON: [facility], CT, CT LUMBAR SPINE [facility], 07/23/2022, 13:05. CT, CT PEL WO [facility], 02/24/2019, 11:49. FINDINGS: Image quality: Diagnostic. Lower Chest: Cardiomegaly. URINARY: Right Kidney: No stones or hydronephrosis. Right Ureter: No hydroureter. Left Kidney: No stones or hydronephrosis. Left Ureter: No hydroureter. Bladder: Normal wall thickness. No stones. ABDOMEN: Liver: No contour-deforming solid mass. Gallbladder: No radiopaque gallstones or wall thickening. Biliary ducts: No biliary dilation. Pancreas: No ductal dilation. Spleen: Size is within normal limits. Adrenal Glands: No adrenal nodules. Stomach and Bowel: Colonic diverticular present. Scattered areas of thickening and inflammatory change approach present particularly within the left colon. No abscess. Peritoneum: No abnormal intraperitoneal fluid. No free air. Ventral Wall: No hernia. Abdominal Nodes: No enlarged retroperitoneal or mesenteric lymph nodes. Vessels: Aorta and inferior vena cava are normal in size. PELVIS: Pelvic Organs: Unremarkable. Pelvic Nodes: Unremarkable. Miscellaneous: No inguinal hernias are seen. Bones: L4 through S1 posterior fusion. Compression deformity at T12, unchanged. IMPRESSION: Colonic diverticula with areas of thickening and inflammatory change within the colon as described above. Findings are suggestive of colitis secondary to diverticulitis. No abscess. Dictated by: Adriana Cagle M.D. on 06/20/2024 at 11:38 MDM Narrative Medical decision making narrative: CC: Severe vomiting and diarrhea Complicating co-morbidities: Type 2 diabetes, hypertension, hyperlipidemia, chronic diarrhea Data collected from: patient, son Social determinants of health that may influence the patients condition: Medical records reviewed: Lab studies show chronic stable anemia, chronic kidney disease with most recent creatinine 1.6 in March. Parathyroid hormone is unremarkable but I do not see recent thyroid studies. I do not see any recent stool PCR testing Recent imaging shows a renal ultrasound in July of 2023, no abdominal CTs Regarding her chronic diarrhea, she has not had prior stool samples and has not had any abdominal imaging Differential considered: Nor virus, Clostridium difficile, partial bowel obstruction, exacerbation of her chronic diarrhea Exam documented above, pertinent findings include: Frail, thin, very dry mucous membranes, mildly tender abdomen without rebound or guarding. No flank pain Lab Test results independently reviewed as above. Pertinent findings: CBC shows white count at 22,000 with 95.5% neutrophils. Chronic stable anemia Chemistries show acute kidney failure with creatinine at 2.5. Potassium at 5.2. Lactic elevated at 3.8 ALT and AST minimally elevated Lipase is unremarkable Urine sample does suggest UTI which may explain the severity of her current symptoms Independently reviewed EKG: Atrial fibrillation at a rate of 60 with no acute ischemic change Imaging studies independently reviewed: CT scan of the abdomen and pelvis suggests findings consistent with mild colitis without infection or abscess Treatments: 2 L of fluid, ceftriaxone as started possibility of urinary tract infection Discussion: 88-year-old woman with profuse vomiting and diarrhea causing acute kidney injury, significant dehydration, elevated potassium, elevated lactic acid, urine is concentrated possible UTI it may simply be dehydration. Chronic diarrhea significant exacerbation now resolved still waiting for stool PCR testing however CT scan of the abdomen does not show acute findings beyond mild colitis suggestions without infection in the left colon. Patient is not febrile and bacterial infectious etiology remains questionable. We will go ahead and start her on ceftriaxone for UTI treatment while awaiting further development, she is treated with 2 L of fluid she is feeling better potassium is improved, lactic acid is coming down blood pressure is responding nicely she is feeling better. Care is reviewed with Dr. oTvar, hospitalist and patient will be admitted Discharge Plan Departure Patient Disposition: Admitted as Observation Clinical Impression: Vomiting and diarrhea, Acute hyperkalemia, Acute hypotension, Elevated INR Acute kidney failure Qualifiers: Acute renal failure type: unspecified Qualified Code(s): N17.9 - Acute kidney failure, unspecified Leukocytosis Qualifiers: Leukocytosis type: unspecified Qualified Code(s): D72.829 - Elevated white blood cell count, unspecified Admit Date/Time: 06/20/24 13:20 Admit Provider: Ashutosh Tovar V
--- NOTE | 2024-06-20 10:54 | EKG_ITS ---
[address] [address] Test Date: 2024-06-20 Pat Name: Liz Kaba Department: Room: 209 Gender: Female [employer] Work[employer]: ZOFIA : [id number] Requested By: Order Number: [id number] Reading MD: Measurements Intervals [place] Rate: 60 P: LA: QRS: -2 QRSD: 86 T: 76 QT: 452 QTc: 452 Interpretive Statements Atrial fibrillation Anterior infarct , age undetermined Electronically Signed On 06-21-2024 10:45:28 PST by Sid Finch
[2024-06-20 10:59] LABS: Add Manual Diff / Slide Review NO; Basophils Absolute Auto 0 /uL (0-100); Basophils Percent Auto 0.1 % (0-2); Eosinophils Absolute Auto 0 /uL (0-450); Hemoglobin 11.5 g/dL (12.0-16.0); Lymphocytes Absolute Auto 500 /uL (1100-4500); Lymphocytes Percent Auto 2.2 % (25-40); Mean Corpuscular Hemoglobin 30.4 PG (26-34); Mean Corpuscular Volume 92.3 fL (80-100); Monocytes Absolute Auto 500 /uL (0-900); Monocytes Percent Auto 2.2 % (3-14); Neutrophils Absolute Auto 21000 /uL (1500-7000); Neutrophils Percent Auto 95.5 % (50-75); Platelet Count 169 X10^3/uL (150-400); Red Blood Cell Count 3.79 X10^6/uL (4.0-5.2); Red Cell Distribution Width 14.1 % (11.6-14.8)
--- NOTE | 2024-06-20 11:04 | DI.CT.S_ITS ---
PROCEDURE: CT ABDOMEN PELVIS [facility] INDICATIONS: Abdominal pain, diarrhea TECHNIQUE: Axial sections were acquired from the lung bases to the pubic symphysis. Coronal and sagittal reformats were performed. For radiation dose reduction, the following was used: automated exposure control, adjustment of mA and/or kV according to patient size. COMPARISON: [facility], CT, CT LUMBAR SPINE [facility], 07/23/2022, 13:05. CT, CT PEL WO [facility], 02/24/2019, 11:49. FINDINGS: Image quality: Diagnostic. Lower Chest: Cardiomegaly. URINARY: Right Kidney: No stones or hydronephrosis. Right Ureter: No hydroureter. Left Kidney: No stones or hydronephrosis. Left Ureter: No hydroureter. Bladder: Normal wall thickness. No stones. ABDOMEN: Liver: No contour-deforming solid mass. Gallbladder: No radiopaque gallstones or wall thickening. Biliary ducts: No biliary dilation. Pancreas: No ductal dilation. Spleen: Size is within normal limits. Adrenal Glands: No adrenal nodules. Stomach and Bowel: Colonic diverticular present. Scattered areas of thickening and inflammatory change approach present particularly within the left colon. No abscess. Peritoneum: No abnormal intraperitoneal fluid. No free air. Ventral Wall: No hernia. Abdominal Nodes: No enlarged retroperitoneal or mesenteric lymph nodes. Vessels: Aorta and inferior vena cava are normal in size. PELVIS: Pelvic Organs: Unremarkable. Pelvic Nodes: Unremarkable. Miscellaneous: No inguinal hernias are seen. Bones: L4 through S1 posterior fusion. Compression deformity at T12, unchanged. IMPRESSION: Colonic diverticula with areas of thickening and inflammatory change within the colon as described above. Findings are suggestive of colitis secondary to diverticulitis. No abscess. Dictated by: Adriana Cagle M.D. on 06/20/2024 at 11:38 Approved by: Adriana Cagle M.D. on 06/20/2024 at 11:42
[2024-06-20 11:10] LABS: Alanine Aminotransferase 37 IU/L (<35); Albumin 3.3 g/dL (3.5-5.0); Albumin Globulin Ratio 1.1 (1.0-2.8); Alkaline Phosphatase 65 U/L (38-126); Aspartate Aminotransferase 53 IU/L (14-36); Bilirubin Total 0.8 mg/dL (0.2-1.3); Blood Urea Nitrogen 46 mg/dL (7-17); Calcium 9.1 mg/dL (8.4-10.2); Carbon Dioxide 20 mmol/L (22-32); Chloride 101 mmol/L (98-107); Estimated Glomerular Filt Rate 18 mL/min (>60); Globulin 3.1 g/dL (1.7-4.1); Glucose 159 mg/dL (80-110); HEMOLYSIS 46 (0-50); INR 4.4 (0.9-1.3); Lactate (Lactic Acid) 3.8 mmol/L (0.7-2.1); Lipase 34 U/L (23-300); Magnesium 2.3 mg/dL (1.6-2.3); Potassium 5.2 mmol/L (3.4-5.1); Prothrombin Time 48.3 SECONDS (9.4-12.5); Sodium 133 mmol/L (137-145); Total Protein 6.4 g/dL (6.3-8.2)
[2024-06-20] MEDS: SODIUM CHLORIDE 0.9% 1,000 ML 1000 ML IV ×2 (11:11→12:00)
--- NOTE | 2024-06-20 11:25 | PC.NURSE ---
Pt states currently she is not nauseous.
[2024-06-20 12:26] LABS: Hematocrit 30.2 % (36-46); Mean Corpuscular HGB Conc 33.2 % (30-36); Mean Corpuscular Hemoglobin 30.6 PG (26-34); Mean Corpuscular Volume 92.1 fL (80-100); Platelet Count 142 X10^3/uL (150-400); Red Blood Cell Count 3.28 X10^6/uL (4.0-5.2); Red Cell Distribution Width 14.1 % (11.6-14.8); White Blood Cell Count 18.4 X10^3/uL (4.5-11.0)
[2024-06-20 12:33] LABS: Reflexed Lactate in 2 Hours Y
[2024-06-20 12:37] LABS: BUN Creatinine Ratio 18.1 (6-22); Blood Urea Nitrogen 43 mg/dL (7-17); Carbon Dioxide 21 mmol/L (22-32); Chloride 106 mmol/L (98-107); Estimated Glomerular Filt Rate 19 mL/min (>60); Glucose 137 mg/dL (80-110); HEMOLYSIS < 15 (0-50); Potassium 4.8 mmol/L (3.4-5.1); Sodium 134 mmol/L (137-145)
--- NOTE | 2024-06-20 12:43 | PC.NURSE ---
Urine sample obtained by straight cath per MD Wu order; straight cath performed RN noticed blood. Bleeding minimal; MD informed
[2024-06-20 13:04] LABS: Lactate 2HR (Lactic Acid Rflx) 2.5 mmol/L (0.7-2.1)
[2024-06-20 13:09] LABS: Appearance Urine UA CLOUDY; Bilirubin Urine UA 1+ (NEGATIVE); Color Urine UA RED; Glucose Urine UA TRACE g/dL (Negative); Ketones Urine UA TRACE (NEGATIVE); Leukocyte Esterase Urine UA 2+ (NEGATIVE); Nitrite Urine UA POSITIVE (Negative); Occult Blood Urine UA 3+ (Negative); Protein Urine UA 3+ (Negative); Specific Gravity Urine UA 1.025 (1.000-1.035)
[2024-06-20 13:11] LABS: Bacteria Urine Moderate (10-30); Culture Indicated Urine Specimen Cultured; RBC Urine 30-100/HPF (0-5/HPF); Squamous Epithelial Cell Urine n (0-5/HPF); Urine Volume 10mL (spun); WBC Urine 10-30/HPF (0-5/HPF)
[2024-06-20 13:24] LABS: Ictotest Urine Negative (Negative)
--- NOTE | 2024-06-20 14:03 | P.HP_ITS ---
History of Present Illness History of Present Illness Date Patient Seen: 06/20/24 Time Patient Seen: 16:00 Date of Onset of Symptoms: 06/20/24 Chief complaint: Feels ill Narrative: 88-year-old woman with the primary care of Dr. Jennifer Rios presents with several weeks of intermittent diarrhea for which she is taken Imodium, dramatically worsened last night with nausea, vomiting, and profuse diarrhea without bleeding. She states she was too weak and on the bathroom too much to come in last night, presented today with her son for evaluation. She denies recent antibiotic exposures in his not experienced dysuria or urinary tract infection symptoms, chest pain, shortness for breath, lightheadedness, dizziness, syncope, rash or fevers. She is history of chronic atrial fibrillation on warfarin, diabetes mellitus, type 2, hypertension and osteoporosis. Blood pressure at home today was 79/50 per her son. [facility] Medical History Arthritis Cellulitis Diabetes type 2, controlled Easy bruisability Fall from ground level (~02/2019) Hypertension Hyperthyroidism Overactive bladder Pneumonia TIA (transient ischemic attack) (08/14/13) Surgical History History of arthroplasty of right knee (~2006) History of hysterectomy History of lumbar surgery (~2002) History of thyroidectomy (~1955) Hx of bilateral cataract extraction Social History household members: children Smoking Status: Never smoker alcohol intake: former Meds Home Medications and Allergies Home Medications Medication Instructions Recorded Confirmed Type CHOLECALCIFEROL (VITAMIN D3) 1,000 units PO QDAY ##0 05/02/11 06/20/24 History (Vitamin D) CYANOCOBALAMIN (#VITAMIN B12) 250 mcg PO QDAY ##0 05/02/11 06/20/24 History furosemide 20 mg tablet (Lasix) 20 mg PO QDAY ##0 05/02/11 06/20/24 History lisinopril 20 mg tablet 20 mg PO BID ##0 05/02/11 06/20/24 History amlodipine 5 mg tablet 5 mg PO DAILY 02/24/19 06/20/24 History acetaminophen 500 mg tablet 500 mg PO Q4H PRN pain (scale 08/19/19 06/20/24 Rx (Tylenol Extra Strength) score 1-3) #30 tabs alendronate 70 mg tablet 70 mg PO QWEEK 06/20/24 06/20/24 History atorvastatin 10 mg tablet 10 mg PO BEDTIME 06/20/24 06/20/24 History warfarin 1 mg tablet 1 mg PO DAILY 06/20/24 06/20/24 History Allergies Allergy/AdvReac Type Severity Reaction Status Date / Time stoool softener AdvReac Mild diarrea Uncoded 08/16/19 10:27 Review of Systems Review of Systems ROS: Yes All systems reviewed with the patient and are negative except as otherwise documented Exam Vital Signs (past 8 hours): - 06/20/24 10:39 06/20/24 10:40 06/20/24 10:40 Temperature Pulse Rate 71 65 Respiratory Rate Blood Pressure 84/54 L Pulse Oximetry 95 97 Oxygen Delivery Method 06/20/24 10:44 06/20/24 10:44 06/20/24 10:49 Temperature Pulse Rate 61 Respiratory Rate Blood Pressure 79/46 L 82/48 L Pulse Oximetry 97 Oxygen Delivery Method 06/20/24 10:49 06/20/24 10:55 06/20/24 10:56 Temperature 98.2 F Pulse Rate 68 73 65 Respiratory Rate 15 16 Blood Pressure 79/46 L Pulse Oximetry 97 99 97 Oxygen Delivery Method Room Air 06/20/24 10:56 06/20/24 11:00 06/20/24 11:00 Temperature Pulse Rate 65 Respiratory Rate 18 Blood Pressure 102/48 L 105/51 L Pulse Oximetry 97 Oxygen Delivery Method 06/20/24 11:06 06/20/24 11:06 06/20/24 11:11 Temperature Pulse Rate 63 67 Respiratory Rate 20 Blood Pressure 97/61 Pulse Oximetry 97 95 Oxygen Delivery Method 06/20/24 11:15 Temperature Pulse Rate 63 Respiratory Rate 21 Blood Pressure Pulse Oximetry 97 Oxygen Delivery Method Oxygen Delivery Method Room Air Narrative Exam Narrative: GENERAL: This is a delightful, conversational older woman in no apparent distress. HEAD: Atraumatic. Normocephalic. No temporal or scalp tenderness. EYES: Pupils equal round and reactive. Extraocular motions intact. No scleral icterus. No injection or drainage. ENT: Mucous membranes pink and moist. NECK: Trachea midline. No JVD, bruits or lymphadenopathy. Supple, nontender, no meningeal signs. CARDIOVASCULAR: Regular rate and rhythm without murmurs, gallops, or rubs. RESPIRATORY: Clear to auscultation. GASTROINTESTINAL: Abdomen soft, moderate lower abdominal tenderness, no guarding, rebound rigidity, mildly distended. EXTREMITIES: No clubbing, cyanosis, or edema. NEUROLOGIC: Alert, oriented, speech fluent, full upper and lower motor strength, no focal deficits evident. DERMATOLOGIC: No rashes or skin lesions. Objective Imaging CT ABDOMEN PELVIS WO CON: Radiologist's impression: Colonic diverticula with areas of thickening and inflammatory change within the colon as described above. Findings are suggestive of colitis secondary to diverticulitis. No abscess. Labs 06/20/24 12:15 06/20/24 12:15 Labs: Laboratory Results - last 24 hr 06/20/24 06/20/24 06/20/24 10:51 12:15 12:39 WBC 22.0 H 18.4 H RBC 3.79 L 3.28 L Hgb 11.5 L 10.0 L Hct 35.0 L 30.2 L MCV 92.3 92.1 MCH 30.4 30.6 MCHC 33.0 33.2 RDW 14.1 14.1 Plt Count 169 142 L Neut % (Auto) 95.5 H Lymph % (Auto) 2.2 L [place] % (Auto) 2.2 L Eos % (Auto) 0.0 L Baso % (Auto) 0.1 Neut # (Auto) 46040 H Lymph # (Auto) 500 L [place] # (Auto) 500 Eos # (Auto) 0 Baso # (Auto) 0 PT 48.3 H INR 4.4 H Sodium 133 L 134 L Potassium 5.2 H 4.8 Chloride 101 106 Carbon Dioxide 20 L 21 L BUN 46 H 43 H Creatinine 2.55 H 2.38 H Estimated GFR 18 L 19 L BUN/Creatinine Ratio 18.0 18.1 Glucose 159 H 137 H Lactate 3.8 H 2.5 H Calcium 9.1 8.0 L Magnesium 2.3 Total Bilirubin 0.8 AST 53 H ALT 37 H Alkaline Phosphatase 65 Total Protein 6.4 Albumin 3.3 L Globulin 3.1 Albumin/Globulin Ratio 1.1 Lipase 34 Urine Color Red Urine Appearance Cloudy Urine pH 5.0 Ur Specific [place] 1.025 Urine Protein 3+ H Urine Glucose (UA) Trace H Urine Ketones Trace H Urine Occult Blood 3+ H Urine Nitrate Positive H Urine Bilirubin 1+ H Ur Bilirubin Confirm Negative Urine Urobilinogen 1.0 Ur Leukocyte Esterase 2+ H Urine RBC 30-100/hpf H Urine WBC 10-30/hpf H Ur Squamous Epith Cells n Urine Bacteria Moderate (10-30) H Ur Culture Indicated? Specimen cultured Vol Urine Centrifuged 10ml (spun) Assessment & Plan Assessment & Plan narrative: 1. Acute colitis, possible diverticulitis, rule out infectious etiology. Obtain GI panel, rule out C diff colitis or other pathogen, treat empirically with IV Zosyn, and follow clinically. 2. Sepsis with leukocytosis, hypotension, elevated but improving serum lactate, elevated transaminases and acute kidney injury. 3. Acute kidney injury superimposed on stage IIIB chronic kidney disease. Creatinine up to 2 point 5 5 mg/dL on admission. Baseline creatinine 1.6-1.8 mg/dL 4. Possible urinary tract infection. Possibly seeded from GI source. Follow cultures on Zosyn. 5. Elevated transaminases. Likely reactive. Monitor. 6. Chronic atrial fibrillation on warfarin therapy with over anticoagulation. Hold warfarin and monitor pro times daily. 7. Hypertension: Hold amlodipine and lisinopril and furosemide. 8. Hyperlipidemia: Continue routine medication 9. DVT prophylaxis: Addressed on anticoagulation. 10. Code status: Full code. She states she has an advanced directive and would not wish ongoing support in the event of medical facility. Plan: -admit to inpatient status -IV Zosyn IV hydration -GI panel, C diff toxin -follow cultures -hold warfarin, monitor pro times -hold antihypertensives diuretics at this point The patient is admitted inpatient status as he will require at least 2 midnights of inpatient level care. [facility] Charge Codes Initial inpatient/observation care: [id number]
[2024-06-20] MEDS: SODIUM CHLORIDE 0.9% 1,000 ML 150 ML IV (14:13)
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
[2024-06-20] MEDS: DEXTROSE 5%-0.45% NS 1,000 ML 100 ML IV (18:59)
[2024-06-20] MEDS: PIPERACILLIN/TAZO 4.5 GM in SODIUM CHLORIDE 0.9% 100 ML IV (18:59)
[2024-06-20] MEDS: ATORVASTATIN 20 MG TABLET 10 MG PO (20:58)
[2024-06-20] MEDS: PIPERACILLIN/TAZO 3.375 GM in SODIUM CHLORIDE 0.9% 100 ML IV (23:23)
[2024-06-21] VITALS: BP 119/67; PULSE 62; TEMP 36.3; O2SAT 96
[2024-06-21 01:46] LABS: Lactate (Lactic Acid) 1.2 mmol/L (0.7-2.1)
[2024-06-21 04:00] VITALS: BP 115/59; PULSE 55; RESP 22; TEMP 35.9; O2SAT 96
[2024-06-21] MEDS: DEXTROSE 5%-0.45% NS 1,000 ML 100 ML IV (05:26)
--- NOTE | 2024-06-21 07:39 | P.PN_ITS ---
Subjective Subjective Date Patient Seen: 06/21/24 Interval history: She is seen today to follow-up her CKD, UTI and colitis/diverticulitis. The urine culture is growing [id number] g negative bacilli. The ALT is 37 with an AST of 53. The creatinine is 2.38. The INR is 4.4. The white blood count yesterday was 18.4. She is very friendly and talkative today. She appears to be getting along with her son. 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 Exam Vital Signs (past 8 hours): - 06/21/24 00:00 06/21/24 04:00 Temperature 97.3 F L 96.7 F L Pulse Rate 62 55 L Respiratory Rate 22 Blood Pressure 119/67 115/59 L Pulse Oximetry 96 96 Oxygen Flow Rate 0 0 Oxygen Delivery Method Room Air Oxygen Flow Rate 0 Narrative Exam Narrative: Alert and oriented x3. No apparent distress. Heart is regular rate and rhythm without murmur Lungs are clear to auscultation bilaterally Extremities no ankle edema Abdomen is diffusely mildly tender. Objective Labs 06/20/24 12:15 06/20/24 12:15 Labs: Laboratory Results - last 24 hr 06/20/24 06/20/24 06/20/24 10:51 12:15 12:39 WBC 22.0 H 18.4 H RBC 3.79 L 3.28 L Hgb 11.5 L 10.0 L Hct 35.0 L 30.2 L MCV 92.3 92.1 MCH 30.4 30.6 MCHC 33.0 33.2 RDW 14.1 14.1 Plt Count 169 142 L Neut % (Auto) 95.5 H Lymph % (Auto) 2.2 L [place] % (Auto) 2.2 L Eos % (Auto) 0.0 L Baso % (Auto) 0.1 Neut # (Auto) 11035 H Lymph # (Auto) 500 L [place] # (Auto) 500 Eos # (Auto) 0 Baso # (Auto) 0 PT 48.3 H INR 4.4 H Sodium 133 L 134 L Potassium 5.2 H 4.8 Chloride 101 106 Carbon Dioxide 20 L 21 L BUN 46 H 43 H Creatinine 2.55 H 2.38 H Estimated GFR 18 L 19 L BUN/Creatinine Ratio 18.0 18.1 Glucose 159 H 137 H Lactate 3.8 H 2.5 H Calcium 9.1 8.0 L Magnesium 2.3 Total Bilirubin 0.8 AST 53 H ALT 37 H Alkaline Phosphatase 65 Total Protein 6.4 Albumin 3.3 L Globulin 3.1 Albumin/Globulin Ratio 1.1 Lipase 34 Urine Color Red Urine Appearance Cloudy Urine pH 5.0 Ur Specific [place] 1.025 Urine Protein 3+ H Urine Glucose (UA) Trace H Urine Ketones Trace H Urine Occult Blood 3+ H Urine Nitrate Positive H Urine Bilirubin 1+ H Ur Bilirubin Confirm Negative Urine Urobilinogen 1.0 Ur Leukocyte Esterase 2+ H Urine RBC 30-100/hpf H Urine WBC 10-30/hpf H Ur Squamous Epith Cells n Urine Bacteria Moderate (10-30) H Ur Culture Indicated? Specimen cultured Vol Urine Centrifuged 10ml (spun) 06/21/24 01:28 WBC RBC Hgb Hct MCV MCH MCHC RDW Plt Count Neut % (Auto) Lymph % (Auto) [place] % (Auto) Eos % (Auto) Baso % (Auto) Neut # (Auto) Lymph # (Auto) [place] # (Auto) Eos # (Auto) Baso # (Auto) PT INR Sodium Potassium Chloride Carbon Dioxide BUN Creatinine Estimated GFR BUN/Creatinine Ratio Glucose Lactate 1.2 Calcium Magnesium Total Bilirubin AST ALT Alkaline Phosphatase Total Protein Albumin Globulin Albumin/Globulin Ratio Lipase Urine Color Urine Appearance Urine pH Ur Specific [place] Urine Protein Urine Glucose (UA) Urine Ketones Urine Occult Blood Urine Nitrate Urine Bilirubin Ur Bilirubin Confirm Urine Urobilinogen Ur Leukocyte Esterase Urine RBC Urine WBC Ur Squamous Epith Cells Urine Bacteria Ur Culture Indicated? Vol Urine Centrifuged [facility] Medical History Easy bruisability Overactive bladder Fall from ground level (~02/2019) Arthritis Pneumonia Cellulitis TIA (transient ischemic attack) (08/14/13) Hypertension Hyperthyroidism Diabetes type 2, controlled Surgical History History of lumbar surgery (~2002) Hx of bilateral cataract extraction History of arthroplasty of right knee (~2006) History of thyroidectomy (~1955) History of hysterectomy Social History household members: children Smoking Status: Never smoker alcohol intake: former Assessment & Plan Assessment & Plan narrative: 1. Acute colitis, possible diverticulitis - Continue IV Zosyn, and follow clinically. 2. Sepsis with leukocytosis, hypotension, elevated but improving serum lactate, elevated transaminases and acute kidney injury. 3. Acute kidney injury superimposed on stage IIIB chronic kidney disease. Creatinine up to 2.55 mg/dL on admission. Baseline creatinine 1.6-1.8 mg/dL 4. Possible urinary tract infection. Possibly seeded from GI source. Follow GNB culture. Continue Zosyn. 5. Elevated transaminases. Likely reactive. Monitor. 6. Chronic atrial fibrillation on warfarin therapy with over anticoagulation. Hold warfarin and monitor pro times daily. 7. Hypertension: Hold amlodipine and lisinopril and furosemide. 8. Hyperlipidemia: Continue routine medication 9. DVT prophylaxis: Addressed on anticoagulation. 10. Code status: Full code. She states she has an advanced directive and would not wish ongoing support in the event of medical futility. Plan: -IV Zosyn -IV hydration -GI panel, C diff toxin -follow cultures -hold warfarin, monitor pro times -hold antihypertensives diuretics at this point Time-Based Coding :: [TOTAL MINUTES] spent with patient and on the chart (including review of chart, obtaining history, exam, reviewing outside data, placing orders, documenting exam and treatment plan, and counseling patient) on [DATE]. Quality VTE Deep Vein Thrombosis/Pulmonary Embolism Present on Admission: No
[2024-06-21 08:00] VITALS: BP 111/56; PULSE 68; RESP 20; TEMP 36.4; O2SAT 96
[2024-06-21] MEDS: AMLODIPINE 5 MG TABLET PO (09:34)
[2024-06-21] MEDS: PIPERACILLIN/TAZO 3.375 GM in SODIUM CHLORIDE 0.9% 100 ML IV ×2 (10:42→22:48)
[2024-06-21 12:00] VITALS: BP 117/64; PULSE 65; RESP 22; TEMP 36.6; O2SAT 97
--- NOTE | 2024-06-21 13:28 | PT-IP ANOTE ---
PT order received and PT reviewed chart and checked on pt. Pt politely declines PT today d/t abdominal discomfort and bowel incontinence. She states tomorrow may be better. Con't PT efforts next date.
--- NOTE | 2024-06-21 14:26 | OT.IPNOTE ---
Pt declines therapy today due to abdominal discomfort and bowel incontinence. Pt hopes to participate with therapy tomorrow. Will reattempt OT eval at earliest opportunity.
[2024-06-21 16:00] VITALS: BP 115/60; PULSE 65; RESP 17; TEMP 36.6; O2SAT 95
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
[2024-06-21 20:00] VITALS: BP 129/51; PULSE 63; RESP 20; TEMP 36.9; O2SAT 95
[2024-06-21] MEDS: ATORVASTATIN 20 MG TABLET 10 MG PO (20:45)
[2024-06-22] VITALS: BP 128/70; PULSE 70; TEMP 36.7; O2SAT 94
[2024-06-22] MEDS: DEXTROSE 5%-0.45% NS 1,000 ML 100 ML IV (01:43)
[2024-06-22 04:00] VITALS: BP 130/66; PULSE 63; RESP 20; TEMP 36.6; O2SAT 94
[2024-06-22 06:43] LABS: Adenovirus F 40/41 Not Detected (Not Detect); Astrovirus Not Detected (Not Detect); Campylobacter Not Detected (Not Detect); Clostridium difficile toxin AB Not Detected (Not Detect); Cryptosporidium Not Detected (Not Detect); Cyclospora cayetanensis Not Detected (Not Detect); Entamoeba histolytica Not Detected (Not Detect); Enteroaggregative E.coli Not Detected (Not Detect); Enteropathogenic E.coli Not Detected (Not Detect); Enterotoxigenic E.coli It/st Not Detected (Not Detect); Giardia lamblia Not Detected (Not Detect); Norovirus GI/GII Not Detected (Not Detect); Plesiomonsa shigelloides Not Detected (Not Detect); Rotavirus A Not Detected (Not Detect); Salmonella Not Detected (Not Detect); Sapovirus Not Detected (Not Detect); Shiga-like toxin-prod E.coli Not Detected (Not Detect); Shigella/Enteroinvasive E.coli Not Detected (Not Detect); Vibrio Not Detected (Not Detect); Vibrio cholerae Not Detected (Not Detect); Yersinia enterocolitica Not Detected (Not Detect)
--- NOTE | 2024-06-22 07:43 | P.PN_ITS ---
Subjective Subjective Date Patient Seen: 06/22/24 Interval history: She is seen today to follow-up her diverticulitis, colitis and UTI. The urine culture is growing pansensitive E coli. She is on Zosyn. The stool PCR is negative. She complains of feeling cold. Her INR today parish from 4.4 up to 13.2. Exam Vital Signs (past 8 hours): - 06/22/24 00:00 06/22/24 04:00 Temperature 98.0 F 97.9 F Pulse Rate 70 63 Respiratory Rate 20 Blood Pressure 128/70 130/66 Pulse Oximetry 94 94 Oxygen Flow Rate 0 0 Oxygen Delivery Method Room Air Oxygen Flow Rate 0 Narrative Exam Narrative: Alert and oriented x3. No apparent distress. She complains of cold intolerance. Heart is regular rate and rhythm without murmur Lungs are clear to auscultation bilaterally Extremities have no ankle edema Objective Labs 06/22/24 14:35 06/22/24 14:35 Labs: Laboratory Results - last 24 hr 06/22/24 04:46 Stl C. cayetanensis PCR Not detected Stool Rotavirus (PCR) Not detected Stool Adenovirus (PCR) Not detected Stool Astrovirus (PCR) Not detected Stool Cryptosporidium PCR Not detected Stl E.coli Shiga Tox PCR Not detected St Sh/Enteroin Ecoli PCR Not detected Stl Enterotoxigenic E PCR Not detected Stool EPEC (PCR) Not detected Stl E. histolytica PCR Not detected Stool Giardia Lamblia PCR Not detected Stool Sapovirus (PCR) Not detected Stl P. shigelloides PCR Not detected St Y.enterocolitica PCR Not detected Stool Vibrio (PCR) Not detected Stl Vibrio cholerae PCR Not detected Stl Enteroaggr Ecoli PCR Not detected Stl Norovirus GI/GII PCR Not detected Campylobacter (PCR) Not detected C. difficile Tox (PCR) Not detected Salmonella (PCR) Not detected [facility] Medical History Easy bruisability Overactive bladder Fall from ground level (~02/2019) Arthritis Pneumonia Cellulitis TIA (transient ischemic attack) (08/14/13) Hypertension Hyperthyroidism Diabetes type 2, controlled Surgical History History of lumbar surgery (~2002) Hx of bilateral cataract extraction History of arthroplasty of right knee (~2006) History of thyroidectomy (~1956) History of hysterectomy Social History household members: children Smoking Status: Never smoker alcohol intake: former Assessment & Plan Assessment & Plan narrative: 1. Acute colitis, possible diverticulitis - Continue IV Zosyn, and follow clinically. 2. Sepsis with leukocytosis, hypotension, elevated but improving serum lactate, elevated transaminases and acute kidney injury. 3. Acute kidney injury superimposed on stage IIIB chronic kidney disease. Creatinine up to 2.55 mg/dL on admission. Baseline creatinine 1.6-1.8 mg/dL 4. E.coli urinary tract infection. Possibly seeded from GI source. Continue Zosyn. 5. Elevated transaminases. Likely reactive. Monitor. 6. Chronic atrial fibrillation on warfarin therapy with over anticoagulation. Held Warfarin and INR reached 13.2 on 06/22/24. Recheck. 7. Hypertension: Continue amlodipine and hold lisinopril and furosemide. 8. Hyperlipidemia: Continue routine medication 9. DVT prophylaxis: Addressed on anticoagulation. 10. Code status: Full code. She states she has an advanced directive and would not wish ongoing support in the event of medical futility. Plan: -IV Zosyn -IV hydration -GI panel, C diff toxin -follow cultures -hold warfarin, recheck 13.2 INR on 06/22 (Discussed with pharmacy - no new medicines and no warfarin since arrival.) -hold other antihypertensives and diuretics at this point Time-Based Coding :: [TOTAL MINUTES] spent with patient and on the chart (including review of chart, obtaining history, exam, reviewing outside data, placing orders, documenting exam and treatment plan, and counseling patient) on [DATE]. Quality VTE Deep Vein Thrombosis/Pulmonary Embolism Present on Admission: No
[2024-06-22 08:00] VITALS: BP 146/50; PULSE 61; RESP 16; TEMP 37; O2SAT 98
[2024-06-22] MEDS: AMLODIPINE 5 MG TABLET PO (10:39)
--- NOTE | 2024-06-22 11:05 | PT.IIE ---
Current Diagnoses Sepsis, unspecified organism (06/20/24) Surgical History (Last Reviewed 06/20/24 @ 16:17 by Ashutosh Tovar MD) History of arthroplasty of right knee (~2006) History of hysterectomy History of lumbar surgery (~2002) History of thyroidectomy (~1955) Hx of bilateral cataract extraction Medical History (Last Reviewed 06/20/24 @ 16:17 by Ashutosh Tovar MD) Arthritis Cellulitis Diabetes type 2, controlled Easy bruisability Fall from ground level (~02/2019) Hypertension Hyperthyroidism Overactive bladder Pneumonia TIA (transient ischemic attack) (08/14/13) Physical Therapy Inpatient Evaluation/Re-Eval M1 PT/OT-IP Prior Functional Status Start: 06/21/24 10:59 Freq: NEEDED Status: Active Protocol: Document 06/22/24 13:10 EDIE (Rec: 06/22/24 13:31 EDIE [id number]) Medical Review Prior Functional Status Medical History Reviewed Yes Communication pt able to communicate her needs Mobility and Gait pt amb with FWW or SC Activities of Daily Living and IADL's pt performed all her BADLs and cooking prior to admission. pts son performs housework. Social History Household Members children Living Arrangements House Number of Floors (Floors) One Floor Number of Stairs To Enter/Railing? 2 steps with B rails Home Environment Standard Height Toilet,Tub/ Shower Home Equipment Front Wheel Walker,Straight Cane,Grab Bars In Shower Additional Social History Comment pt lives with her son. pt's son works multimedia instructional designer. pts son reports that his mother was able to tend to all her basic needs without assistance prior to admission. M1 PT/OT-IP Prior Functional Status Start: 06/21/24 13:26 Freq: NEEDED Status: Active Protocol: Document 06/22/24 11:05 AB (Rec: 06/22/24 14:33 AB [id number]) Medical Review Prior Functional Status Medical History Reviewed Yes Communication pt able to communicate her needs Mobility and Gait pt stated that she was modified independent with all mobilities and ambulation using her hurrycane Activities of Daily Living and IADL's pt performed all her BADLs and cooking prior to admission. pts son performs housework. Social History Household Members children Living Arrangements House Number of Floors (Floors) One Floor Number of Stairs To Enter/Railing? 2 steps with B rails Home Environment Standard Height Toilet,Tub/ Shower Home Equipment Front Wheel Walker,Raised Toilet Seat Without Armrests, Tub Transfer Bench,Grab Bars Near Toilet,Grab Bars In Shower Additional Social History Comment pt lives with her son. pt's son works multimedia instructional designer. pts son reports that his mother was able to tend to all her basic needs without assistance prior to admission. pt has a hurrycane M2 PT-IP Current Condition Start: 06/21/24 10:59 Freq: NEEDED Status: Active Protocol: Document 06/22/24 11:05 AB (Rec: 06/22/24 14:33 AB [id number]) Physical Therapy Current Condition Current Condition Evaluation Date 06/22/24 Treatment Diagnosis colitis; difficulty in walking Onset Date 06/20/24 M3 PT-IP Subjective Start: 06/21/24 10:59 Freq: NEEDED Status: Active Protocol: Document 06/22/24 11:05 AB (Rec: 06/22/24 14:33 AB [id number]) Subjective Physical Therapy Visit Type Type Initial Evaluation Visit Start Time 11:05 Visit Stop Time 13:30 Notes pt seen for split visits: 1105 to 1115 am and 1240pm to 1330pm Number of CHILD CARE WORKER Visits 0 Physical Therapy Visit Comments Patient Comments agreeable to do PT M4 PT-IP Mobility and Gait Start: 06/21/24 10:59 Freq: NEEDED Status: Active Protocol: Document 06/22/24 11:05 AB (Rec: 06/22/24 14:33 AB [id number]) PT-Bed Mobility Assessment Sit to Supine Sit to Supine Minimal Assistance,1 Person Assistance PT-Transfer Assessment Sit to and From Stand Sit to and from Stand Moderate Assistance,1 Person Assistance,Use of Upper Extremities Equipment Transfer Assistive Device Gait Belt,Front Wheeled Walker Orthotic/Prosthetic Devices or Brace: No Transfers Transfer Destination Bed,Toilet Transfer Technique ambulated Transfer Ability Level of Assist Minimal Assistance,1 Person Assistance,Use of Upper Extremities Comments Mobility Comments pt sitting on the chair. son in room. pt refused PT and stated that they will bring her oatmeal and wants to eat that first. obtained PLOF and home set up. agreed for PT to come back later. checked back on pt after a few hours and agreed to do PT. completed sit to stand mod A and max cues. ambulated in room ~ 40 ft using FWW min A and requested to use the toilet. ambulated to the toilet. pt required assistance for hygiene care and brief management. sit to stand from the toilet using grab bar mod A and cues. pt ambulated towards the bed using fWW min A ~ 35ft. completed sit to supine min A for LE elevation to bed. positioned pt in bed. call light and table placed within reach. Gait Assessment Gait Gait Assistance Required: Minimum Assistance Distance (Feet) 40 Able to Maintain Weight Bearing Status Yes During Gait Assistive Devices Assistive Device Gait Belt,Front Wheeled Walker Orthotic/Prosthetic Devices or Brace: No Gait Deviations General Gait Pattern Antalgic,Decreased Stride Length,Decreased Feet Clearance Factors Limiting Gait Function Factors Limiting Gait Function Decreased Activity Tolerance, Decreased Strength,Difficulty Following Directions,Limited Range of Motion,Poor Balance, Poor Safety Awareness PT-Balance Assessment Sitting Balance and Reactions Static Sitting Balance Ability Good Dynamic Sitting Balance Ability Good Standing Balance and Reactions Static Standing Balance Ability Fair Dynamic Standing Balance Ability Fair Device Used FWW M5 PT-IP Objective Assessments Start: 06/21/24 10:59 Freq: NEEDED Status: Active Protocol: Document 06/22/24 11:05 AB (Rec: 06/22/24 14:33 AB [id number]) Orientation Orientation/Cognition Level of Alertness Alert Orientation Name,Place,Situation Language Function Ability Hard of Hearing Safety Awareness Decreased Safety Awareness Memory Description Short Term Impaired Gross Range of Motion Lower Extremity ROM Assessment Within Functional Limits Strength Lower Extremity Strength Assessment Within Functional Limits Coordination Assessment Gross Coordination Gross Coordination WNL Muscle Tone Muscle Tone WNL Yes M6 PT-IP Treatment Start: 06/21/24 10:59 Freq: NEEDED Status: Active Protocol: Document 06/22/24 11:05 AB (Rec: 06/22/24 14:33 AB [id number]) Physical Therapy Treatment Education Education Provided Safety M7 PT-IP Assessment and Plan Start: 06/21/24 10:59 Freq: NEEDED Status: Active Protocol: Document 06/22/24 11:05 AB (Rec: 06/22/24 14:33 AB [id number]) PT Summary Assessment and Plan Potential Rehabilitation Potential Fair Status of Condition at Evaluation Evolving Summary Impairments Pain,ROM,Strength,Balance, Coordination,Sensation,Tone, Cognition,Bed Mobility, Transfers,Gait,Activity Tolerance Assessment Summary pt is an 88 y/o F who is admitted for colitis. pt requiring min A for bed mobility, mod A for sit to stand and Lia for ambulation using FWW. pt with decrease activity tolerance/endurance affecting level of assistance. pt lives with son but son works and will not be available to assist pt. pt will benefit from SNF rehab to improve overall independence. Goals Bed Mobility Goal Independent Transfer Goal Independent,Front Wheeled Walker Gait Goal Independent,Front Wheel Walker Gait Distance 200 Other Goals improve transfers and ambulation using LRAD 250 ft mod I up/down 2 steps B rails SBA Days to Meet Goals 10 Frequency of Treatment Frequency Of Treatment Once a Day Treatment Plan Physical Therapy Treatment Plan Bed Mobility Training,Transfer Training,Gait Training, Therapeutic Exercise,Balance Retraining,Discharge Planning, Hot or Cold Pack,Neuromuscular Re-ed,Coordination Retraining Precautions Other Precautions falls Recommendations To Nursing Amount of Assist Needed 1 Person Assist Discharge Recommendations PT Discharge Recommendations SNF Rehab Transportation Needs at Discharge Private Vehicle
[2024-06-22] MEDS: PIPERACILLIN/TAZO 3.375 GM in SODIUM CHLORIDE 0.9% 100 ML IV ×2 (11:45→23:17)
[2024-06-22 12:00] VITALS: BP 152/53; PULSE 66; RESP 18; TEMP 36.2; O2SAT 97
--- NOTE | 2024-06-22 13:31 | OT.IP.EVAL ---
Current Diagnoses Sepsis, unspecified organism (06/20/24) Past Medical History (Last Reviewed 06/20/24 @ 16:17 by Ashutosh Tovar MD) Arthritis Cellulitis Diabetes type 2, controlled Easy bruisability Fall from ground level (~02/2019) Hypertension Hyperthyroidism Overactive bladder Pneumonia TIA (transient ischemic attack) (08/14/13) Surgical History (Last Reviewed 06/20/24 @ 16:17 by Ashutosh Tovar MD) History of arthroplasty of right knee (~2006) History of hysterectomy History of lumbar surgery (~2002) History of thyroidectomy (~1955) Hx of bilateral cataract extraction Occupational Therapy Inpatient Evaluation/Re-Eval M1 PT/OT-IP Prior Functional Status Start: 06/21/24 10:59 Freq: NEEDED Status: Active Protocol: Document 06/22/24 13:10 EDIE (Rec: 06/22/24 13:31 EDIE [id number]) Medical Review Prior Functional Status Medical History Reviewed Yes Communication pt able to communicate her needs Mobility and Gait pt amb with FWW or SC Activities of Daily Living and IADL's pt performed all her BADLs and cooking prior to admission. pts son performs housework. Social History Household Members children Living Arrangements House Number of Floors (Floors) One Floor Number of Stairs To Enter/Railing? 2 steps with B rails Home Environment Standard Height Toilet,Tub/ Shower Home Equipment Front Wheel Walker,Straight Cane,Grab Bars In Shower Additional Social History Comment pt lives with her son. pt's son works multimedia designer. pts son reports that his mother was able to tend to all her basic needs without assistance prior to admission. M2 OT-IP Current Condition Start: 06/21/24 13:26 Freq: Status: Active Protocol: Document 06/22/24 13:10 EDIE (Rec: 06/22/24 13:31 EDIE [id number]) Occupational Therapy Current Condition Current Condition Evaluation Date 06/20/24 Treatment Diagnosis acute colitis, possible diverticulitis/UTI, generalized weakness M3 OT- IP Subjective and Pain Start: 06/21/24 13:26 Freq: Status: Active Protocol: Document 06/22/24 13:10 EDIE (Rec: 06/22/24 13:31 EDIE [id number]) OT- Subjective Occupational Therapy Visit Type Type Initial Evaluation Visit Start Time 10:00 Visit Stop Time 10:35 Notes Pt reclined in bed asking to use bathroom on entrance of OT . Occupational Therapy Visit Comments Patient Comments Pt says she is worried about being a burden on her son. Pt and son both mention that they would like for pt to go to jail for additional therapy to improve strength before d/c home. OT Pain Assessment Pain When Pain Assessed During Mobility Pain Present Pain Present Pain Reported Location Back Scale Used does not rate Description Sharp M4 OT- IP ADL's Start: 06/21/24 13:26 Freq: Status: Active Protocol: Document 06/22/24 13:10 EDIE (Rec: 06/22/24 13:31 [facility] [id number][facility] OT [id number] Comments OT Self-Feeding Comments not observed OT ADL-Grooming General Evaluation Grooming Ability Standby Assistance Areas Needing Assistance Retrieving/Set-up of Grooming Items Comments OT Grooming Comments pt washes her face and brushes her hair on setup while seated on BSC OT ADL-Oral Care Comments Oral Care Comments not observed OT ADL-Dressing General Eval Upper Body Dressing Ability Minimal Assistance Lower Body Dressing Ability Moderate Assistance,Total Assistance Areas Needing Assistance Retrieving/Set-up of Clothing, Underpants/Brief,Pants/Shorts, Socks Comments OT Dressing Comments pt able to assist with brief with mod A, needs help starting on LEs and pulling up to her knees as well as pulling up the rest of the way over her hims. pt requires total A for socks. OT ADL-Toileting General Evaluation Toileting Ability Moderate Assistance Areas Needing Assistance Manage Clothing,Perform Perineal Hygiene Devices Toileting Assistive Devices Commode OT ADL-Bathing Comments OT Bathing Comments not observed M5 OT- IP IADL's Start: 06/21/24 13:26 Freq: Status: Active Protocol: Document 06/22/24 13:10 EDIE (Rec: 06/22/24 13:31 [facility] [id number]) OT-Instrumental Activities of Daily Living Home Safety Awareness Awareness of Need for Assistance at Home Good Awareness Medication Management Medication Management Caregiver Provides Supervision Money Management Money Management Caregiver Provides Supervision Meal Preparation Meal Preparation Comments pt was perfroming prior to admission. pt would be unable currently Valuation Consultant Valuation Consultant Caregiver Provides Assist Driving Driving Caregiver Provides Assist M6 OT- IP Functional Cognition Start: 06/21/24 13:26 Freq: Status: Active Protocol: Document 06/22/24 13:10 EDIE (Rec: 06/22/24 13:31 EDIE [id number]) Cognitive Factors Limiting Selfcare Function Cognitive Ability Level of Alertness Alert Patient Orientation Name,Month,Day of Week Attention Span Ability Capable of Focused Attention, Capable of Sustained Attention Ability to Follow Commands Able to Follow Multi-Step Commands Cognitive Comments Cognitive Assessment Comments pt becomes fixated and needs to be redirected at times. pt very concerned about being a burden on son, hospital staff, therapist, etc. pt did not know that she was in a hospital. A&O name, situation, day OT- Vision and Hearing OT- Hearing Assessment OT- Hearing Assessment WFL OT- Vision Assessment Visual Acuity Glasses For Reading M7 OT- IP Mobility and Balance Start: 06/21/24 13:26 Freq: Status: Active Protocol: Document 06/22/24 13:10 EDIE (Rec: 06/22/24 13:31 BRIANFLMEGAN [id number]) OT- Bed Mobility Assessment Supine to Sit Supine to Sit Assist Minimal Assistance,1 Person Assistance,Head of Bed Elevated,Bedrails Scooting Scooting to Edge of Bed Minimal Assistance,1 Person Assistance,Head of Bed Elevated,Bedrails OT-Transfer Assessment Sit to and From Stand Sit to and from Stand Minimal Assistance,1 Person Assistance,Use of Upper Extremities Transfers Transfer Ability Minimal Assistance,1 Person Assistance,Use of Upper Extremities Technique Transfer Destination Bedside Commode,Chair Transfer Technique Stand Step Pivot Devices Transfer Assistive Devices Gait Belt,Front Wheeled Walker Comments Mobility Comments pt requires vcs for hand placement and to feel the surface with her LEs prior to sitting. OT- Gait Assessment Gait Gait Assistance Required: Minimum Assistance Distance (Feet) 5 Assistive Devices Assistive Device Gait Belt,Front Wheeled Walker OT- Balance Assessment Sitting Balance and Reactions Static Sitting Balance Ability Good Dynamic Sitting Balance Ability Good Standing Balance and Reactions Static Standing Balance Ability Good Dynamic Standing Balance Ability Fair M8 OT- IP Objective Assessments Start: 06/21/24 13:26 Freq: Status: Active Protocol: Document 06/22/24 13:10 EDIE (Rec: 06/22/24 13:31 BRIANFLMEGAN [id number]) OT Gross Range of Motion Upper Extremity Range of Motion Assessment Bilaterally Impaired ROM Impairments pt has limited shoulder flex/ scaption/abd ~100, otherwise WFL OT Strength Hand Director Data Management Strength Hand Dominance Right Comments Strength Comments Pt's gross ue strength 3+ to 4 - M9 OT- IP Assessment and Plan Start: 06/21/24 13:26 Freq: Status: Active Protocol: Document 06/22/24 13:10 BRIANPEGGYVERONIKALEONORA (Rec: 06/22/24 13:31 BRIANPEGGYMEGAN [id number]) OT Summary Assessment and Plan Potential Rehabilitation Potential Good Analytic Complexity at Evaluation Moderate Summary OT Impairments Pain,Strength,Balance, Functional Mobility,Grooming, Dressing,Toileting,Bathing, Toilet Transfers,Shower Transfers,Activity Tolerance Progress Towards Goals Progressing Toward Goals Assessment Summary Pt is 88 yo F admitted to the hospital after several weeks of intermittent diarrhea. Pt with acute colitis, possible diverticulitis and possible UTI and generalized weakness. Prior to admission, pt was able to perform her BADLs, ambulate throughout her home, and cook for herself and her son. Pt would benefit from skilled OT services to address activity intolerance, BADLs, weakness, functional balance and functional t/fs. Pt would benefit from SNF for additional therapy prior to returning home. Goals Grooming Goal Independent Dressing Goal Independent,Plumbing Assembler Installer,Sock Aid Toileting Goal Independent Bathing Goal Independent Toilet Transfer Goal Independent Days to Meet Goals 20 Frequency of Treatment Other frequency 5x/wk Treatment Plan OT Treatment Plan ADL Training,Functional Mobility,Therapeutic Exercises ,Patient/Family Education, Discharge Planning Discharge Recommendations OT Discharge Recommendations SNF Rehab [place] [facility] [place] Needs at [place]charge Private Vehicle,Wheelchair/ Cabulance,Stretcher/Ambulance
--- NOTE | 2024-06-22 14:01 | PC.NURSE ---
No resulted labs from yesterday or today noted, notified.
[2024-06-22 15:28] LABS: BUN Creatinine Ratio 19.8 (6-22); Blood Urea Nitrogen 33 mg/dL (7-17); Calcium 7.7 mg/dL (8.4-10.2); Carbon Dioxide 18 mmol/L (22-32); Chloride 107 mmol/L (98-107); Estimated Glomerular Filt Rate 29 mL/min (>60); Glucose 126 mg/dL (80-110); HEMOLYSIS < 15 (0-50); Potassium 3.8 mmol/L (3.4-5.1); Sodium 132 mmol/L (137-145)
[2024-06-22 15:50] LABS: Add Manual Diff / Slide Review NO; Basophils Absolute Auto 0 /uL (0-100); Basophils Percent Auto 0.3 % (0-2); Eosinophils Absolute Auto 0 /uL (0-450); Eosinophils Percent Auto 0.2 % (2-4); Hematocrit 31.1 % (36-46); Hemoglobin 10.5 g/dL (12.0-16.0); Lymphocytes Absolute Auto 400 /uL (1100-4500); Lymphocytes Percent Auto 4.7 % (25-40); Mean Corpuscular HGB Conc 33.9 % (30-36); Mean Corpuscular Hemoglobin 31.3 PG (26-34); Mean Corpuscular Volume 92.3 fL (80-100); Monocytes Absolute Auto 500 /uL (0-900); Monocytes Percent Auto 5.2 % (3-14); Neutrophils Absolute Auto 8500 /uL (1500-7000); Neutrophils Percent Auto 89.6 % (50-75); Platelet Count 139 X10^3/uL (150-400); Red Blood Cell Count 3.37 X10^6/uL (4.0-5.2); Red Cell Distribution Width 13.7 % (11.6-14.8); White Blood Cell Count 9.4 X10^3/uL (4.5-11.0)
[2024-06-22 16:00] VITALS: BP 131/52; PULSE 58; RESP 16; TEMP 36.4; O2SAT 96
[2024-06-22 16:57] LABS: INR 13.2 (0.9-1.3)
--- NOTE | 2024-06-22 17:25 | PC.NURSE ---
Initial INR reported from lab drawn at 1430 as greater than 12, lab reports they thought it was a contaminent or error and came back up to redraw. Second INR resulted at 13.2, Dr. Finch notified, vitamin K ordered. Continue to monitor.
[2024-06-22] MEDS: PHYTONADIONE (VIT K1) 5 MG TABLET PO (17:32)
[2024-06-22 20:00] VITALS: BP 133/61; PULSE 61; RESP 18; TEMP 36.6; O2SAT 97
[2024-06-22] MEDS: SODIUM CHLORIDE 0.9% FLUSH 10 ML IV (20:12)
[2024-06-22] MEDS: ATORVASTATIN 20 MG TABLET 10 MG PO (20:12)
[2024-06-23] VITALS: BP 148/57; PULSE 67; RESP 18; TEMP 36.2; O2SAT 95
[2024-06-23 03:49] VITALS: BP 134/56; PULSE 64; RESP 17; TEMP 36.4; O2SAT 96
[2024-06-23 06:18] LABS: Add Manual Diff / Slide Review NO; Basophils Absolute Auto 0 /uL (0-100); Basophils Percent Auto 0.5 % (0-2); Eosinophils Absolute Auto 100 /uL (0-450); Eosinophils Percent Auto 0.9 % (2-4); Hemoglobin 10.1 g/dL (12.0-16.0); Lymphocytes Absolute Auto 600 /uL (1100-4500); Lymphocytes Percent Auto 8.9 % (25-40); Mean Corpuscular HGB Conc 33.7 % (30-36); Mean Corpuscular Volume 91.8 fL (80-100); Monocytes Absolute Auto 500 /uL (0-900); Monocytes Percent Auto 7.3 % (3-14); Neutrophils Absolute Auto 5700 /uL (1500-7000); Neutrophils Percent Auto 82.4 % (50-75); Platelet Count 137 X10^3/uL (150-400); Red Blood Cell Count 3.26 X10^6/uL (4.0-5.2); Red Cell Distribution Width 13.9 % (11.6-14.8); White Blood Cell Count 6.9 X10^3/uL (4.5-11.0)
[2024-06-23 06:23] LABS: INR 2.1 (0.9-1.3); Prothrombin Time 23.7 SECONDS (9.4-12.5)
[2024-06-23 06:30] LABS: Alanine Aminotransferase 18 IU/L (<35); Albumin 2.6 g/dL (3.5-5.0); Albumin Globulin Ratio 0.9 (1.0-2.8); Alkaline Phosphatase 73 U/L (38-126); Aspartate Aminotransferase 39 IU/L (14-36); BUN Creatinine Ratio 18.2 (6-22); Bilirubin Total 0.9 mg/dL (0.2-1.3); Blood Urea Nitrogen 30 mg/dL (7-17); Calcium 7.9 mg/dL (8.4-10.2); Carbon Dioxide 19 mmol/L (22-32); Chloride 110 mmol/L (98-107); Estimated Glomerular Filt Rate 30 mL/min (>60); Glucose 75 mg/dL (80-110); HEMOLYSIS < 15 (0-50); Potassium 3.6 mmol/L (3.4-5.1); Sodium 134 mmol/L (137-145); Total Protein 5.6 g/dL (6.3-8.2)
[2024-06-23 08:00] VITALS: BP 132/62; PULSE 67; RESP 15; TEMP 36.4; O2SAT 94
[2024-06-23] MEDS: AMLODIPINE 5 MG TABLET PO (08:37)
[2024-06-23] MEDS: SODIUM CHLORIDE 0.9% FLUSH 10 ML IV ×3 (09:02→20:59)
--- NOTE | 2024-06-23 11:03 | PM.PN.1 ---
Subjective Subjective Date Patient Seen: 06/22/24 Interval history: She is seen today to follow-up her diverticulitis, colitis and UTI. The urine culture is growing pansensitive E coli. She is on Zosyn for diverticulitis which appears to be improving, she is non-tender today on exam. INR is 2.1 today. She denies nausea or vomiting, orders food but is not interested in it still once it arrives. She is still eating very little but a bit more than the last few days. Exam Vital Signs (past 8 hours): - 06/23/24 03:49 06/23/24 08:00 Temperature 97.5 F L 97.6 F Pulse Rate 64 67 Respiratory Rate 17 15 Blood Pressure 134/56 L 132/62 Pulse Oximetry 96 94 Oxygen Flow Rate 0 Oxygen Delivery Method Room Air Oxygen Flow Rate 0 Narrative Exam Narrative: Alert and oriented x3. No apparent distress. She complains of cold intolerance. Heart is regular rate and rhythm without murmur Lungs are clear to auscultation bilaterally Abdomen is soft, non-tender, and non-distended Extremities have no ankle edema Objective Labs 06/23/24 05:31 06/23/24 05:31 Labs: Laboratory Results - last 24 hr 06/21/24 06/22/24 06/22/24 14:35 14:35 16:30 WBC Cancelled 9.4 RBC Cancelled 3.37 L Hgb Cancelled 10.5 L Hct Cancelled 31.1 L MCV Cancelled 92.3 MCH Cancelled 31.3 MCHC Cancelled 33.9 RDW Cancelled 13.7 Plt Count Cancelled 139 L Neut % (Auto) Cancelled 89.6 H Lymph % (Auto) Cancelled 4.7 L [place] % (Auto) Cancelled 5.2 Eos % (Auto) Cancelled 0.2 L Baso % (Auto) Cancelled 0.3 Neut # (Auto) Cancelled 8500 H Lymph # (Auto) Cancelled 400 L [place] # (Auto) Cancelled 500 Eos # (Auto) Cancelled 0 Baso # (Auto) Cancelled 0 PT 140.0 H D INR 13.2 H* Sodium 132 L Potassium 3.8 Chloride 107 Carbon Dioxide 18 L BUN 33 H Creatinine 1.67 H Estimated GFR 29 L BUN/Creatinine Ratio 19.8 Glucose 126 H Calcium 7.7 L Total Bilirubin AST ALT Alkaline Phosphatase Total Protein Albumin Globulin Albumin/Globulin Ratio 06/23/24 05:31 WBC 6.9 RBC 3.26 L Hgb 10.1 L Hct 30.0 L MCV 91.8 MCH 31.0 MCHC 33.7 RDW 13.9 Plt Count 137 L Neut % (Auto) 82.4 H Lymph % (Auto) 8.9 L [place] % (Auto) 7.3 Eos % (Auto) 0.9 L Baso % (Auto) 0.5 Neut # (Auto) 5700 Lymph # (Auto) 600 L [place] # (Auto) 500 Eos # (Auto) 100 Baso # (Auto) 0 PT 23.7 H D INR 2.1 H Sodium 134 L Potassium 3.6 Chloride 110 H Carbon Dioxide 19 L BUN 30 H Creatinine 1.65 H Estimated GFR 30 L BUN/Creatinine Ratio 18.2 Glucose 75 L Calcium 7.9 L Total Bilirubin 0.9 AST 39 H ALT 18 Alkaline Phosphatase 73 Total Protein 5.6 L Albumin 2.6 L Globulin 3.0 Albumin/Globulin Ratio 0.9 L [facility] Medical History Easy bruisability Overactive bladder Fall from ground level (~02/2019) Arthritis Pneumonia Cellulitis TIA (transient ischemic attack) (08/14/13) Hypertension Hyperthyroidism Diabetes type 2, controlled Surgical History History of lumbar surgery (~2002) Hx of bilateral cataract extraction History of arthroplasty of right knee (~2006) History of thyroidectomy (~1955) History of hysterectomy Social History household members: children Smoking Status: Never smoker alcohol intake: former Assessment & Plan Assessment & Plan narrative: 1. Acute colitis, possible diverticulitis - Continue IV Zosyn, transition to PO antibiotics when tolerating a bit more. 2. Sepsis with leukocytosis, hypotension, elevated but improving serum lactate, elevated transaminases, thrombocytopenia, and acute kidney injury. 3. Acute kidney injury superimposed on stage IIIB chronic kidney disease. Creatinine up to 2.55 mg/dL on admission. Baseline creatinine 1.6-1.8 mg/dL now back to baseline. 4. E.coli acute cystitis 5. Elevated transaminases. Likely reactive. Monitor but improving today. 6. Chronic atrial fibrillation on warfarin therapy with supratherapeutic INR, improving. 7. Hypertension: Continue amlodipine and hold lisinopril and furosemide. 8. Hyperlipidemia: Continue routine medication 9. DVT prophylaxis: Addressed on anticoagulation. 10. Code status: Full code. She states she has an advanced directive and would not wish ongoing support in the event of medical futility. Plan: -continue IV Zosyn for diverticulitis, this will adequately treat urine infection as well. -IV fluids now stopped. JADA resolved now Cr back to apparent baseline. -GI panel negative for C. diff or other etiologies. -urine cultures with E. coli with intermediate resistance to augmentin only. -resumed warfarin per pharmacy -hold other antihypertensives and diuretics at this point -plan for SNF, likely once tolerating more PO intake in 1-2 more days. Discussed with case management specialist today for additional history, with contributions to the above assessment and plan. I have reviewed previous documentation, labs, and relevant imaging. Time-Based Coding :: [TOTAL MINUTES] spent with patient and on the chart (including review of chart, obtaining history, exam, reviewing outside data, placing orders, documenting exam and treatment plan, and counseling patient) on [DATE]. Quality VTE Deep Vein Thrombosis/Pulmonary Embolism Present on Admission: No
--- NOTE | 2024-06-23 11:15 | PT.IPTN ---
Current Diagnoses Sepsis, unspecified organism (06/20/24) Physical Therapy Treatment Note M2 PT-IP Current Condition Start: 06/21/24 10:59 Freq: NEEDED Status: Active Protocol: Document 06/22/24 11:05 AB (Rec: 06/22/24 14:33 AB [id number]) Physical Therapy Current Condition Current Condition Evaluation Date 06/22/24 Treatment Diagnosis colitis; difficulty in walking Onset Date 06/20/24 M3 PT-IP Subjective Start: 06/21/24 10:59 Freq: NEEDED Status: Active Protocol: Document 06/23/24 11:15 AB (Rec: 06/23/24 14:09 AB [id number]) Subjective Physical Therapy Visit Type Type Treatment Note Visit Start Time 11:15 Visit Stop Time 11:35 Number of CELLULAR EQUIPMENT REPAIRER Visits 0 Physical Therapy Visit Comments Patient Comments agreeable to do PT M4 PT-IP Mobility and Gait Start: 06/21/24 10:59 Freq: NEEDED Status: Active Protocol: Document 06/23/24 11:15 AB (Rec: 06/23/24 14:09 AB [id number]) PT-Transfer Assessment Sit to and From Stand Sit to and from Stand Minimal Assistance,1 Person Assistance,Use of Upper Extremities Equipment Transfer Assistive Device Gait Belt,Front Wheeled Walker Orthotic/Prosthetic Devices or Brace: No Transfers Transfer Destination Toilet Transfer Technique ambulated Transfer Ability Level of Assist Contact Guard Assistance,1 Person Assistance,Use of Upper Extremities Comments Mobility Comments pt sitting on the chair and agreeable to do PT. son in room with pt. pt completed sit to stand min A and cues and ambulated in room using FWW ~ 50 ft CGA and cues. increase unsteadiness and slower pacing midway with ambulation. pt requested to use the toilet. pt ambulated to the toilet using FWW CGA. assisted with brief management . pt wanting to use the toilet for awhile. call light placed next to pt and instructed to ask for assistance when ready. informed nurse that pt is using the toilet. Gait Assessment Gait Gait Assistance Required: Contact Guard Assist,1 Person Assist Distance (Feet) 50 Able to Maintain Weight Bearing Status Yes During Gait Assistive Devices Assistive Device Gait Belt,Front Wheeled Walker Orthotic/Prosthetic Devices or Brace: No Gait Deviations General Gait Pattern Decreased Stride Length, Decreased Feet Clearance Factors Limiting Gait Function Factors Limiting Gait Function Decreased Activity Tolerance, Decreased Strength,Limited Range of Motion,Poor Balance, Poor Safety Awareness M5 PT-IP Objective Assessments Start: 06/21/24 10:59 Freq: NEEDED Status: Active Protocol: Document 06/22/24 11:05 AB (Rec: 06/22/24 14:33 AB [id number]) Orientation Orientation/Cognition Level of Alertness Alert Orientation Name,Place,Situation Language Function Ability Hard of Hearing Safety Awareness Decreased Safety Awareness Memory Description Short Term Impaired Gross Range of Motion Lower Extremity ROM Assessment Within Functional Limits Strength Lower Extremity Strength Assessment Within Functional Limits Coordination Assessment Gross Coordination Gross Coordination WNL Muscle Tone Muscle Tone WNL Yes M6 PT-IP Treatment Start: 06/21/24 10:59 Freq: NEEDED Status: Active Protocol: Document 06/23/24 11:15 AB (Rec: 06/23/24 14:09 AB [id number]) Physical Therapy Treatment Education Education Provided Safety M7 PT-IP Assessment and Plan Start: 06/21/24 10:59 Freq: NEEDED Status: Active Protocol: Document 06/23/24 11:15 AB (Rec: 06/23/24 14:09 AB [id number]) PT Summary Assessment and Plan Potential Rehabilitation Potential Fair Summary Impairments Pain,ROM,Strength,Balance, Coordination,Sensation,Tone, Cognition,Bed Mobility, Transfers,Gait,Activity Tolerance Progress Towards Goals Slow Progress due to Activity Tolerance Assessment Summary pt improving slowly with mobility and needing min A for sit to stand and CGA for ambulation using fWW but continues to have decrease activity tolerance affecting mobility independence. pt will benefit from SNF rehab. Goals Bed Mobility Goal Independent Transfer Goal Independent,Front Wheeled Walker Gait Goal Independent,Front Wheel Walker Gait Distance 200 Other Goals improve transfers and ambulation using LRAD 250 ft mod I up/down 2 steps B rails SBA Days to Meet Goals 10 Frequency of Treatment Frequency Of Treatment Once a Day Treatment Plan Physical Therapy Treatment Plan Bed Mobility Training,Transfer Training,Gait Training, Therapeutic Exercise,Balance Retraining,Discharge Planning, Hot or Cold Pack,Neuromuscular Re-ed,Coordination Retraining Precautions Other Precautions falls Recommendations To Nursing Amount of Assist Needed 1 Person Assist Discharge Recommendations PT Discharge Recommendations SNF Rehab Transportation Needs at Discharge Private Vehicle
[2024-06-23 12:00] VITALS: BP 132/74; PULSE 69; RESP 16; TEMP 36.5; O2SAT 92
[2024-06-23] MEDS: PIPERACILLIN/TAZO 3.375 GM in SODIUM CHLORIDE 0.9% 100 ML IV (12:36)
[2024-06-23] MEDS: LOPERAMIDE 2 MG CAPSULE PO (12:37)
--- NOTE | 2024-06-23 14:50 | OT.IP.TRT ---
Current Diagnoses Sepsis, unspecified organism (06/20/24) Occupational Therapy Treatment Note M2 OT-IP Current Condition Start: 06/21/24 13:26 Freq: Status: Active Protocol: Document 06/22/24 13:10 EDIE (Rec: 06/22/24 13:31 EDIE [id number]) Occupational Therapy Current Condition Current Condition Evaluation Date 06/20/24 Treatment Diagnosis acute colitis, possible diverticulitis/UTI, generalized weakness M3 OT- IP Subjective and Pain Start: 06/21/24 13:26 Freq: Status: Active Protocol: Document 06/23/24 14:55 [facility] (Rec: 06/23/24 15:00 [facility] [id number]) OT- Subjective Occupational Therapy Visit Type Type Treatment Note Visit Start Time 14:45 Visit Stop Time 14:55 Occupational Therapy Visit Comments Patient Comments Pt just getting back to bed and agreed to talk about energy conservation and safety needs. Patient/Caregiver Goals To go to skilled rehab. OT Pain Assessment Pain When Pain Assessed At Rest Pain Present Pain Present Denied Pain M4 OT- IP ADL's Start: 06/21/24 13:26 Freq: Status: Active Protocol: Document 06/22/24 13:10 EDIE (Rec: 06/22/24 13:31 BRIANNEMEGAN [id number]) OT [id number] Comments OT Self-Feeding Comments not observed OT ADL-Grooming General Evaluation Grooming Ability Standby Assistance Areas Needing Assistance Retrieving/Set-up of Grooming Items Comments OT Grooming Comments pt washes her face and brushes her hair on setup while seated on BSC OT ADL-Oral Care Comments Oral Care Comments not observed OT ADL-Dressing General Eval Upper Body Dressing Ability Minimal Assistance Lower Body Dressing Ability Moderate Assistance,Total Assistance Areas Needing Assistance Retrieving/Set-up of Clothing, Underpants/Brief,Pants/Shorts, Socks Comments OT Dressing Comments pt able to assist with brief with mod A, needs help starting on LEs and pulling up to her knees as well as pulling up the rest of the way over her hims. pt requires total A for socks. OT ADL-Toileting General Evaluation Toileting Ability Moderate Assistance Areas Needing Assistance Manage Clothing,Perform Perineal Hygiene Devices Toileting Assistive Devices Commode OT ADL-Bathing Comments OT Bathing Comments not observed M5 OT- IP IADL's Start: 06/21/24 13:26 Freq: Status: Active Protocol: Document 06/22/24 13:10 EDIE (Rec: 06/22/24 13:31 [facility] [id number]) OT-Instrumental Activities of Daily Living Home Safety Awareness Awareness of Need for Assistance at Home Good Awareness Medication Management Medication Management Caregiver Provides Supervision Money Management Money Management Caregiver Provides Supervision Meal Preparation Meal Preparation Comments pt was perfroming prior to admission. pt would be unable currently Assistant Front End Manager Assistant Front End Manager Caregiver Provides Assist Driving Driving Caregiver Provides Assist M6 OT- IP Functional Cognition Start: 06/21/24 13:26 Freq: Status: Active Protocol: Document 06/23/24 14:55 [facility] (Rec: 06/23/24 15:00 [facility] [id number]) Cognitive Factors Limiting Selfcare Function Cognitive Ability Level of Alertness Alert Attention Span Ability Capable of Focused Attention, Capable of Sustained Attention Cognitive Comments Cognitive Assessment Comments Able to talk to pt at least of energy conservation for ADL and IADL needs. Also able to talk at length of safety awareness when getting and up and down from surfaces to be sure to back up all the way and reach back with her hands prior to sitting down. Pt admits that she gets in a hurry sometimes and forgets about her safety. M7 OT- IP Mobility and Balance Start: 06/21/24 13:26 Freq: Status: Active Protocol: Document 06/22/24 13:10 EDIE (Rec: 06/22/24 13:31 BRIANNEMEGAN [id number]) OT- Bed Mobility Assessment Supine to Sit Supine to Sit Assist Minimal Assistance,1 Person Assistance,Head of Bed Elevated,Bedrails Scooting Scooting to Edge of Bed Minimal Assistance,1 Person Assistance,Head of Bed Elevated,Bedrails OT-Transfer Assessment Sit to and From Stand Sit to and from Stand Minimal Assistance,1 Person Assistance,Use of Upper Extremities Transfers Transfer Ability Minimal Assistance,1 Person Assistance,Use of Upper Extremities Technique Transfer Destination Bedside Commode,Chair Transfer Technique Stand Step Pivot Devices Transfer Assistive Devices Gait Belt,Front Wheeled Walker Comments Mobility Comments pt requires vcs for hand placement and to feel the surface with her LEs prior to sitting. OT- Gait Assessment Gait Gait Assistance Required: Minimum Assistance Distance (Feet) 5 Assistive Devices Assistive Device Gait Belt,Front Wheeled Walker OT- Balance Assessment Sitting Balance and Reactions Static Sitting Balance Ability Good Dynamic Sitting Balance Ability Good Standing Balance and Reactions Static Standing Balance Ability Good Dynamic Standing Balance Ability Fair M8 OT- IP Objective Assessments Start: 06/21/24 13:26 Freq: Status: Active Protocol: Document 06/22/24 13:10 EDIE (Rec: 06/22/24 13:31 [facility] [id number]) OT Gross Range of Motion Upper Extremity Range of Motion Assessment Bilaterally Impaired ROM Impairments pt has limited shoulder flex/ scaption/abd ~100, otherwise WFL OT Strength Hand Customer Service Coordinator Strength Hand Dominance Right Comments Strength Comments Pt's gross ue strength 3+ to 4 - M9 OT- IP Assessment and Plan Start: 06/21/24 13:26 Freq: Status: Active Protocol: Document 06/23/24 14:55 [facility] (Rec: 06/23/24 15:00 [facility] [id number]) OT Summary Assessment and Plan Potential Rehabilitation Potential Good Analytic Complexity at Evaluation Moderate Summary OT Impairments Pain,Strength,Balance, Functional Mobility,Grooming, Dressing,Toileting,Bathing, Toilet Transfers,Shower Transfers,Activity Tolerance Progress Towards Goals Slow Progress due to Medical Issues Assessment Summary Pt states still having diarrhea today and very tired. Able to go over energy conservation and safety awareness information with pt. Pt to go to skilled rehab when medically ready. Goals Grooming Goal Independent Dressing Goal Independent,Pressure Controller,Sock Aid Toileting Goal Independent Bathing Goal Independent Toilet Transfer Goal Independent Days to Meet Goals 20 Frequency of Treatment Other frequency 5x/wk Treatment Plan OT Treatment Plan ADL Training,Functional Mobility,Therapeutic Exercises ,Patient/Family Education, Discharge Planning Discharge Recommendations OT Discharge Recommendations SNF Rehab Home Equipment Needs [facility] [place] Transportation Needs at Discharge Wheelchair/Cabulance
[2024-06-23 16:00] VITALS: BP 139/60; PULSE 65; RESP 16; TEMP 36.7; O2SAT 97
[2024-06-23] MEDS: WARFARIN 1 MG TABLET PO (17:44)
[2024-06-23 20:00] VITALS: BP 149/76; PULSE 66; RESP 16; TEMP 36.4; O2SAT 97
[2024-06-24] VITALS: BP 148/76; PULSE 67; RESP 16; TEMP 37.1; O2SAT 96
[2024-06-24] MEDS: LOPERAMIDE 2 MG CAPSULE PO (00:34)
[2024-06-24 04:00] VITALS: BP 147/63; PULSE 60; RESP 14; TEMP 36.6; O2SAT 97
[2024-06-24] MEDS: PIPERACILLIN/TAZO 3.375 GM in SODIUM CHLORIDE 0.9% 100 ML IV ×2 (05:10→12:56)
[2024-06-24 06:22] LABS: INR 1.4 (0.9-1.3); Prothrombin Time 15.5 SECONDS (9.4-12.5)
--- NOTE | 2024-06-24 07:18 | PM.PN.1 ---
Subjective Subjective Date Patient Seen: 06/24/24 Exam Vital Signs (past 8 hours): - 06/24/24 00:00 06/24/24 04:00 Temperature 98.7 F 97.9 F Pulse Rate 67 60 Respiratory Rate 16 14 Blood Pressure 148/76 H 147/63 H Pulse Oximetry 96 97 Oxygen Flow Rate 0 0 Oxygen Delivery Method Room Air Oxygen Flow Rate 0 Objective Labs 06/23/24 05:31 06/23/24 05:31 Labs: Laboratory Results - last 24 hr 06/24/24 06:04 PT 15.5 H D INR 1.4 H PFSH Medical History Easy bruisability Overactive bladder Fall from ground level (~02/2019) Arthritis Pneumonia Cellulitis TIA (transient ischemic attack) (08/14/13) Hypertension Hyperthyroidism Diabetes type 2, controlled Surgical History History of lumbar surgery (~2002) Hx of bilateral cataract extraction History of arthroplasty of right knee (~2006) History of thyroidectomy (~1955) History of hysterectomy Social History household members: children Smoking Status: Never smoker alcohol intake: former Assessment & Plan Assessment & Plan narrative: 1. Acute colitis, possible diverticulitis - Continue IV Zosyn, transition to PO antibiotics when tolerating a bit more. 2. Sepsis with leukocytosis, hypotension, elevated but improving serum lactate, elevated transaminases, thrombocytopenia, and acute kidney injury. 3. Acute kidney injury superimposed on stage IIIB chronic kidney disease. Creatinine up to 2.55 mg/dL on admission. Baseline creatinine 1.6-1.8 mg/dL now back to baseline. 4. E.coli acute cystitis 5. Elevated transaminases. Likely reactive. Monitor but improving today. 6. Chronic atrial fibrillation on warfarin therapy with supratherapeutic INR, improving. 7. Hypertension: Continue amlodipine and hold lisinopril and furosemide. 8. Hyperlipidemia: Continue routine medication 9. DVT prophylaxis: Addressed on anticoagulation. 10. Code status: Full code. She states she has an advanced directive and would not wish ongoing support in the event of medical futility. Plan: -continue IV Zosyn for diverticulitis, this will adequately treat urine infection as well. -IV fluids now stopped. JADA resolved now Cr back to apparent baseline. -GI panel negative for C. diff or other etiologies. -urine cultures with E. coli with intermediate resistance to augmentin only. -resumed warfarin per pharmacy -hold other antihypertensives and diuretics at this point -plan for SNF, likely once tolerating more PO intake in 1-2 more days. Discussed with assistant case manager today for additional history, with contributions to the above assessment and plan. I have reviewed previous documentation, labs, and relevant imaging. Time-Based Coding :: [TOTAL MINUTES] spent with patient and on the chart (including review of chart, obtaining history, exam, reviewing outside data, placing orders, documenting exam and treatment plan, and counseling patient) on [DATE]. Quality VTE Deep Vein Thrombosis/Pulmonary Embolism Present on Admission: No
[2024-06-24 08:00] VITALS: BP 145/59; PULSE 88; RESP 18; TEMP 36.8; O2SAT 95
--- NOTE | 2024-06-24 08:58 | DI.CT.S_ITS ---
PROCEDURE: CT ABDOMEN PELVIS WO CON INDICATIONS: Diverticular abscess TECHNIQUE: Axial sections were acquired from the lung bases to the pubic symphysis. Coronal and sagittal reformats were performed. For radiation dose reduction, the following was used: automated exposure control, adjustment of mA and/or kV according to patient size. COMPARISON: , CT, CT ABDOMEN PELVIS WO CON, 06/20/2024, 11:13. FINDINGS: Image quality: Diagnostic. Lower Chest: Small bilateral pleural effusions with bibasilar atelectasis or consolidations. The heart is enlarged. URINARY: Right Kidney: No stones or hydronephrosis. Right Ureter: No hydroureter. Left Kidney: No stones or hydronephrosis. Left Ureter: No hydroureter. Bladder: Normal wall thickness. No stones. ABDOMEN: Liver: No contour-deforming solid mass. Gallbladder: No radiopaque gallstones or wall thickening. Biliary ducts: No biliary dilation. Pancreas: No ductal dilation. Spleen: Size is within normal limits. Adrenal Glands: No adrenal nodules. Bowel and peritoneum: Multiple diverticula are seen in the colon. Intermediate length segment of bowel wall thickening involving the splenic flexure and descending colon. Mild pericolonic fat stranding. No focal fluid collection or abscess is seen. No pneumoperitoneum. Ventral Wall: No hernia. Mild diffuse soft tissue anasarca. Abdominal Nodes: No enlarged retroperitoneal or mesenteric lymph nodes. Vessels: Aorta and inferior vena cava are normal in size. PELVIS: Pelvic Organs: Unremarkable. Pelvic Nodes: Unremarkable. Miscellaneous: No inguinal hernias are seen. Bones: Postsurgical changes at L4 through S1. Chronic compression fractures at T12 and L1 do not appear significantly changed. Generalized osteopenia. Degenerative changes are seen in the hips and spine. IMPRESSION: 1. Moderate length bowel wall thickening involving the distal transverse colon and descending colon with mild pericolonic fat stranding, suspicious for a nonspecific colitis. Colonic diverticulosis is also noted although a focal culprit diverticulum is not definitely identified. No abscess or pneumoperitoneum. 2. Signs of volume overload including small volume of ascites, soft tissue anasarca, and small bilateral pleural effusions. Approved by: Brian Bridges M.D. on 06/24/2024 at 9:31
[2024-06-24] MEDS: AMLODIPINE 5 MG TABLET PO (09:51)
[2024-06-24] MEDS: SODIUM CHLORIDE 0.9% FLUSH 10 ML IV (09:53)
--- NOTE | 2024-06-24 11:14 | PM.DS.1 ---
History of Present Illness History of Present Illness Date Patient Seen: 06/24/24 Chief complaint: Feels ill Narrative: 88-year-old woman with the primary care of Dr. Jennifer Rios presents with several weeks of intermittent diarrhea for which she is taken Imodium, dramatically worsened last night with nausea, vomiting, and profuse diarrhea without bleeding. She states she was too weak and on the bathroom too much to come in last night, presented today with her son for evaluation. She denies recent antibiotic exposures in his not experienced dysuria or urinary tract infection symptoms, chest pain, shortness for breath, lightheadedness, dizziness, syncope, rash or fevers. She is history of chronic atrial fibrillation on warfarin, diabetes mellitus, type 2, hypertension and osteoporosis. Blood pressure at home today was 79/50 per her son. Discharge Providers Provider Date of admission: 06/20/24 13:20 Discharge Date: 06/24/24 Primary care physician: Jennifer Rios MD Consults: 06/20/24 19:44 [place] to [facility] [facility] [employer] Workflow Consultant Routine Comment: [employer] Workflow Consultant Consult needed for:: Other reason (Comment) Comment: Patient would like to discuss home safety. Please speak with patient alone. 06/21/24 10:24 Consult to Occupational Therapy Evaluate & Treat Comment: Physician Instructions: Evaluate and treat Consult to Physical Therapy Evaluate & Treat Comment: Physician Instructions: Evaluate and Treat Discharge provider: Emilee Finch MD Summary Hospital Course Discharge Diagnosis: 1. Acute colitis, possible diverticulitis -treated with IV Zosyn. Discharging on Cipro/Flagyl due to intermediate sensitivity to Augmentin on urine culture. Follow-up CT on the day of discharge was unchanged. She has a moderate anemia with a hemoglobin of 10.1. She should be considered for GI referral for colonoscopy if symptoms do not respond to the outpatient antibiotic course. Her stool testing, including for C diff, was uniformly negative on PCR. 2. Sepsis with leukocytosis, hypotension, elevated but improving serum lactate, elevated transaminases, thrombocytopenia, and acute kidney injury. 3. Acute kidney injury superimposed on stage IIIB chronic kidney disease. Creatinine up to 2.55 mg/dL on admission. Baseline creatinine 1.6-1.8 mg/dL now back to baseline. 4. E.coli acute cystitis 5. Elevated transaminases. Likely reactive. Monitor but improving today. 6. Chronic atrial fibrillation on warfarin therapy with supratherapeutic INR, improving. 7. Hypertension: Continue amlodipine and held lisinopril and furosemide. 8. Hyperlipidemia: Continue routine medication 9. DVT prophylaxis: Addressed on anticoagulation. 10. Code status: Full code. She states she has an advanced directive and would not wish ongoing support in the event of medical futility. Hospital Course: She presented with diarrhea, weakness and hypotension. CT scan showed diffuse mainly left-sided colitis and possible diverticulitis. UA and urine culture were positive for a UTI with E coli that was intermediate to Augmentin. It was otherwise pansensitive. She was treated with IV Zosyn with improvement in her abdominal pain and function but persisting symptoms as expected. This morning she was unable to eat her breakfast so a repeat CT scan was done which did not show any significant change in the colitis. She had a comprehensive viral/bacterial stool panel done which was negative. Her C diff testing was negative. She has not had a colonoscopy. Her INR reached 13 after several days of Zosyn(despite holding Coumadin) which was treated with vitamin K and is now down to 1.4. She only takes 1 mg at home so that will need to be monitored closely as she will be going to the retirement now on Cipro/Flagyl. She will also be on ensure b.i.d.. She reassures the dietitian that her appetite and oral intake are near her baseline. Status at Discharge Cognitive/behavioral status at discharge: at baseline, oriented Functional status at discharge: wheelchair bound Overall status at discharge: patient is not back to baseline Exam Vital Signs (past 8 hours): - 06/24/24 04:00 06/24/24 08:00 Temperature 97.9 F 98.3 F Pulse Rate 60 88 Respiratory Rate 14 18 Blood Pressure 147/63 H 145/59 H Pulse Oximetry 97 95 Oxygen Flow Rate 0 0 Oxygen Delivery Method Room Air Oxygen Flow Rate 0 Narrative Exam Narrative: She is alert and oriented x3. No apparent distress. Heart is regular rate and rhythm without murmur Lungs are clear to auscultation bilaterally Extremities have no ankle edema There is significant epigastric tenderness and guarding. Abdomen is soft. Objective Labs 06/23/24 05:31 06/23/24 05:31 Labs: Laboratory Results - last 24 hr 06/24/24 06:04 PT 15.5 H D INR 1.4 H PFS Medical History Easy bruisability Overactive bladder Fall from ground level (~02/2019) Arthritis Pneumonia Cellulitis TIA (transient ischemic attack) (08/14/13) Hypertension Hyperthyroidism Diabetes type 2, controlled Surgical History History of lumbar surgery (~2002) Hx of bilateral cataract extraction History of arthroplasty of right knee (~2006) History of thyroidectomy (~1955) History of hysterectomy Social History household members: children Smoking Status: Never smoker alcohol intake: former Discharge Plan Discharge Plan Patient Disposition: SNF Transfer to: [facility] Provider Discharge Comment: Do next INR on 06/25/24 Discharge orders & Medications Prescriptions: New loperamide 2 mg Capsule 2 mg PO QID PRN (Reason: Diarrhea) Qty: 30 0RF ondansetron 8 mg tablet,disintegrating 8 mg PO Q8H PRN (Reason: nausea and vomiting) Qty: 30 0RF Ensure Liquid 1 ea PO BID Qty: 5688 0RF ciprofloxacin HCl [Cipro] 500 mg tablet 500 mg PO BID Qty: 14 0RF metronidazole 500 mg tablet 500 mg PO TID Qty: 21 0RF Continued CHOLECALCIFEROL (VITAMIN D3) (Vitamin D) 1,000 units PO QDAY Qty: 0 CYANOCOBALAMIN (#VITAMIN B12) 250 mcg PO QDAY Qty: 0 lisinopril 20 MG tablet 20 mg PO BID Qty: 0 furosemide [Lasix] 20 MG tablet 20 mg PO QDAY Qty: 0 Patient Comments: hasn't used in over a year amlodipine 5 mg Tablet 5 mg PO DAILY acetaminophen [Tylenol Extra Strength] 500 mg tablet 500 mg PO Q4H PRN (Reason: pain (scale score 1-3)) Qty: 30 0RF Rx Instructions: take 1 tablet by mouth every 4 hours as needed for pain alendronate 70 mg tablet 70 mg PO QWEEK warfarin 1 mg tablet 1 mg PO DAILY atorvastatin 10 mg Tablet 10 mg PO BEDTIME Follow up/Referrals: Jennifer Rios MD [Primary Care Provider] - Diet/Activity/Treatments Diet: Regular Liquid consistency: Normal/Thin Food texture: Soft [facility] Rehab type: Physical therapy, Occupational therapy and Speech therapy Visit Report/Discharge Packet Stand Alone Forms: Patient Portal/API Discharge Data Primary Care Provider: Jennifer Rios VTE Deep Vein Thrombosis/Pulmonary Embolism Present on Admission: No
--- NOTE | 2024-06-24 11:43 | CM.DPC ---
DCP Cont. Reviewed EMR and team rounds for status updates. Pt has been medically cleared for d/c to [facility] today, they will transport her between 2:15-2:30pm. Called her son Luke and notified him of her d/c. No further CM assistance needs are indicated at this time.
--- NOTE | 2024-06-24 11:49 | DIET.CONS ---
Dietary Consultation Note Admission Date: 06/20/2024 13:20 Assessment: 88 y F admitted for acute colitis, possible diverticulitis. RD screened for low PO intakes. Pt only tolerating soft foods. States too much solid food causes upset stomach. Discussed tolerated soft foods patient is willing to have. Pt likes the supplemental drinks as well and open to having them with meals and at rehab to support intakes. Discussed with hospitalist of providing Ensure Original BID to patient while in rehab, hospitalist will put on d/c diet orders. Discussed and encouraged adequate intakes when d/c and intake of Ensure BID. Ht: 162.56 cm Wt: 51.5 kg BMI: 19.0 UBW: Last BM: 06/24/24 (06/24/24 06:00) MNA: Justin Score: 18 Diet: 06/20/24 Dinner General (Regular) Diet Diet Modifications: Nutrition Percent Meal Consumed 25% 06/24/24 10:00 Percent Meal Consumed 25% 06/23/24 18:00 Percent Meal Consumed 50% 06/23/24 09:28 Percent Meal Consumed 50% 06/22/24 18:00 Percent Meal Consumed 25% 06/22/24 13:43 Labs: RBC 3.26 X10^6/uL (4.0-5.2) L 06/23/24 05:31 Hgb 10.1 g/dL (12.0-16.0) L 06/23/24 05:31 Hct 30.0 % (36-46) L 06/23/24 05:31 Creatinine 1.65 mg/dL (0.52-1.04) H 06/23/24 05:31 Lactate 1.2 mmol/L (0.7-2.1) 06/21/24 01:28 Nutrition Diagnosis: Inadequate oral intakes r/t decreased appetite as evidenced by <50% EER 4 days Interventions: 1. ONS BID and hospitalist to order ONS BID on d/c diet Monitoring/Evaluations: PO intakes Electronically Signed by: Margot Dowd 06/24/24 11:49 Clinical Dietitian [address] [address]
--- NOTE | 2024-06-24 11:58 | PC.NURSE ---
Addendum entered by Bi Joshi R.N. 06/24/24 15:11: Pt alert and oriented and readied for transfer. [facility] here for [facility]er. IV d/c'd per protocol.report given to RN at . Pt escorted via w/c and facility transport to [facility]. Original Note: Pt A&O offers no overt complaint early in shift though has become a bit anxious with pending transfer to SNF, although she agrees it's a good idea. Up with SBA, engaged in activities in the room. Margot prabhakar in speaking with the Pt. Dr. Finch in to discuss transfer.
[2024-06-24 12:00] VITALS: BP 144/60; PULSE 77; RESP 18; TEMP 36.1; O2SAT 97
[2024-06-24 15:08] LABS: C difficie Toxins A and B, EIA Negative (Negative)
== END 2024-06-24 14:50 | DRG 872 ==
LOC: ED 11:54 → AC 13:22
PROVIDERS: Family Medicine; Internal Medicine; Admitting Provider Internal Medicine; Emergency Provider Emergency Medicine; PCP Internal Medicine; Referring Provider Emergency Medicine; Visit Provider Internal Medicine
DX: A41.9 Sepsis, unspecified organism (principal); N17.9 Acute kidney failure, unspecified; I48.20 Chronic atrial fibrillation, unspecified; K57.32 Diverticulitis of large intestine without perforation or abscess without bleeding; N30.00 Acute cystitis without hematuria; I12.9 Hypertensive chronic kidney disease with stage 1 through stage 4 chronic kidney disease, or unspecified chronic kidney disease; N18.32 Chronic kidney disease, stage 3b; R79.1 Abnormal coagulation profile; E78.5 Hyperlipidemia, unspecified; R65.20 Severe sepsis without septic shock; B96.20 Unspecified Escherichia coli [E. coli] as the cause of diseases classified elsewhere; E86.0 Dehydration; D63.1 Anemia in chronic kidney disease; I95.9 Hypotension, unspecified; D69.6 Thrombocytopenia, unspecified; M81.0 Age-related osteoporosis without current pathological fracture; E11.22 Type 2 diabetes mellitus with diabetic chronic kidney disease; Z79.01 Long term (current) use of anticoagulants
CPT/HCPCS: 36415; 74176; 80048; 80053; 81001; 83605; 83690; 83735; 85025; 85027; 85610; 87077; 87086; 87186; 87324; 87507; 93005; 96360; 96361; 97129; 97161; 97166; 97530; 99284; J2543

== ENCOUNTER → 2024-07-06 14:51 | Outpatient (ROUT) | payer MEDICARE, SELFPAY ==
[2024-06-20 17:14] VITALS: BMI 19.0
[2024-07-06 16:54] LABS: Clostridium Difficile Tox PCR Negative for C. diff (Negative)
== END ==
PROVIDERS: PCP Internal Medicine; Visit Provider Hospitalist
DX: A04.72 Enterocolitis due to Clostridium difficile, not specified as recurrent (principal)
CPT/HCPCS: 87493

== ENCOUNTER 2024-09-27 11:59 | Inpatient (IN) | payer MEDICARE, SELFPAY ==
[2024-06-20 17:14] VITALS: BMI 19.0
[2024-09-27] VITALS (26 sets, daily range): BP systolic 163–204; BP diastolic 53–149; PULSE 50–83; RESP 13–25; TEMP 35.7–36.6; O2SAT 96–100; BMI 20.6
--- NOTE | 2024-09-27 12:11 | DI.RAD.S_ITS ---
PROCEDURE: XR CHEST 1V INDICATIONS: altered mental status TECHNIQUE: One view of the chest was acquired. COMPARISON: [facility], , XR CHEST 2V, 10/22/2022, 14:41. [facility], , XR CHEST 2V, 08/25/2019, 14:49. [facility], , CHEST 2 VIEW, 11/13/2015, 17:44. [facility], , CHEST 2 VIEW, 05/19/2015, 15:44. FINDINGS: Surgical changes and devices: None. Lungs and pleura: No focal lung consolidation, accounting for apical lordotic positioning. No pleural effusions or pneumothorax. Mediastinum: Mediastinal contours appear normal. Cardiomegaly. Bones and chest wall: No suspicious bony lesions. Overlying soft tissues appear unremarkable. IMPRESSION: Cardiomegaly. Otherwise, no acute cardiothoracic process. Dictated by: Loy Galicia M.D. on 09/27/2024 at 13:22 Approved by: Loy Galicia M.D. on 09/27/2024 at 13:23
[2024-09-27 12:36] LABS: Add Manual Diff / Slide Review NO; Basophils Absolute Auto 0 /uL (0-100); Basophils Percent Auto 0.5 % (0-2); Eosinophils Absolute Auto 0 /uL (0-450); Eosinophils Percent Auto 0.4 % (2-4); Hematocrit 30.4 % (36-46); Hemoglobin 10.5 g/dL (12.0-16.0); Lymphocytes Absolute Auto 900 /uL (1100-4500); Lymphocytes Percent Auto 13.5 % (25-40); Mean Corpuscular HGB Conc 34.4 % (30-36); Mean Corpuscular Hemoglobin 31.8 PG (26-34); Mean Corpuscular Volume 92.3 fL (80-100); Monocytes Absolute Auto 500 /uL (0-900); Monocytes Percent Auto 7.1 % (3-14); Neutrophils Absolute Auto 5200 /uL (1500-7000); Neutrophils Percent Auto 78.5 % (50-75); Platelet Count 204 X10^3/uL (150-400); Red Blood Cell Count 3.29 X10^6/uL (4.0-5.2); Red Cell Distribution Width 12.9 % (11.6-14.8); White Blood Cell Count 6.6 X10^3/uL (4.5-11.0)
--- NOTE | 2024-09-27 12:36 | EKG_ITS ---
[address] [address] Test Date: 2024-09-27 Pat Name: Liz Kaba Department: Room: Gender: Female Manager Garden: ADRIEL : 1935 Requested By: Order Number: [id number] Reading MD: Prasahnt Armijo Measurements Intervals [place] Rate: 55 P: [place]: QRS: -8 QRSD: 84 T: 24 QT: 468 QTc: 447 Interpretive Statements Atrial fibrillation with slow ventricular response Inferior infarct , age undetermined Anteroseptal infarct , age undetermined Electronically Signed On 09-27-2024 15:42:01 PDT by Prashant Armijo
[2024-09-27 12:38] LABS: Ammonia (NH3) < 9 umol/L (9-30)
[2024-09-27 12:46] LABS: Alanine Aminotransferase 15 IU/L (<35); Albumin 3.7 g/dL (3.5-5.0); Albumin Globulin Ratio 0.9 (1.0-2.8); Alkaline Phosphatase 72 U/L (38-126); Aspartate Aminotransferase 32 IU/L (14-36); BUN Creatinine Ratio 17.3 (6-22); Bilirubin Total 0.9 mg/dL (0.2-1.3); Blood Urea Nitrogen 18 mg/dL (7-17); Calcium 7.7 mg/dL (8.4-10.2); Carbon Dioxide 23 mmol/L (22-32); Chloride 95 mmol/L (98-107); Estimated Glomerular Filt Rate 52 mL/min (>60); Globulin 3.9 g/dL (1.7-4.1); Glucose 105 mg/dL (80-110); HEMOLYSIS < 15 (0-50); Potassium 3.2 mmol/L (3.4-5.1); Sodium 127 mmol/L (137-145); Total Protein 7.6 g/dL (6.3-8.2)
--- NOTE | 2024-09-27 12:55 | DI.CT.S_ITS ---
PROCEDURE: CT CERVICAL SPINE WO CON INDICATIONS: fall, confused, neck pain TECHNIQUE: Noncontrast 3 mm thick sections acquired from the skull base to the T4 level. Sagittal and coronal reformats were then constructed. For radiation dose reduction, the following was used: automated exposure control, adjustment of mA and/or kV according to patient size. COMPARISON: [facility], CT, C-SPINE WITHOUT CONTRAST, 07/31/2015, 13:37. FINDINGS: Image quality: Excellent. Bones: No fractures or dislocations. Diffuse osteopenia. Diffuse cervical spondylitic change. Findings include canal stenosis at C5-C6, multilevel uncovertebral joint osteophytes and facet arthropathy, with multilevel bony foraminal narrowing. Visualized superior ribs are intact. Soft tissues: Prevertebral soft tissues are normal in thickness. No paravertebral hematomas. No apical pneumothoraces. IMPRESSION: No displaced fracture or traumatic subluxation. Cervical spondylosis. Dictated by: Immanuel Irwin M.D. on 09/27/2024 at 14:25 Approved by: Immanuel Irwin M.D. on 09/27/2024 at 14:27
--- NOTE | 2024-09-27 12:55 | DI.CT.S_ITS ---
PROCEDURE: CT HEAD/BRAIN WO CON INDICATIONS: fall, confused, neck pain TECHNIQUE: Noncontrast 4.5 mm thick angled axial sections acquired from the foramen magnum to the vertex, with coronal and sagittal reformats. For radiation dose reduction, the following was used: automated exposure control, adjustment of mA and/or kV according to patient size. COMPARISON: [facility], CT, HEAD WITHOUT CONTRAST, 07/31/2015, 13:37. FINDINGS: Image quality: Diagnostic. CSF spaces: Basal cisterns are patent. No extra-axial fluid collections. The ventricles are symmetric in size and shape. Brain: No intracranial bleeds or mass effect. There is cerebral volume loss, with resultant ventricular and sulcal prominence. There are periventricular and deep white matter chronic small vessel ischemic changes. There is a moderate subacute right temporoparietal infarct with cytotoxic edema and effacement of the sulci. There is no associated acute hemorrhage. There is intracranial internal carotid artery atherosclerosis. Skull and face: Calvarium and visualized facial bones appear intact, without suspicious lesions. Sinuses: Visualized sinuses and mastoids are clear. IMPRESSION: Moderate subacute right temporoparietal infarct. Dictated by: Immanuel Irwin M.D. on 09/27/2024 at 13:49 Approved by: Immanuel Irwin M.D. on 09/27/2024 at 13:50
[2024-09-27 13:05] LABS: Ur Creatinine Normal (Normal); Ur Specific Gravity Normal (Normal); Urine Amphetamines Negative (Negative); Urine Barbiturates Negative (Negative); Urine Benzodiazepines Negative (Negative); Urine Cocaine Negative (Negative); Urine MDMA Negative (Negative); Urine Methadone Negative (Negative); Urine Opiates Negative (Negative); Urine Oxycodone Negative (Negative); Urine Phencyclidine Negative (Negative); Urine THC Negative (Negative); Urine Tricyclic Antidepressant Negative (Negative); Urine pH Normal (Normal)
[2024-09-27 13:09] LABS: Lipase 55 U/L (23-300)
[2024-09-27 14:30] LABS: COVID-19 CEPHEID 4-PLEX PCR Negative (Negative); Influenza A - CEPHEID Flu A NEGATIVE (NEGATIVE); Influenza B - CEPHEID Flu B NEGATIVE (NEGATIVE); Respiratory Syncytial Virus Negative (Negative)
[2024-09-27 14:47] LABS: Urine Volume 10mL (spun)
[2024-09-27 14:50] LABS: Bacteria Urine None Seen; Culture Indicated Urine Specimen Cultured; RBC Urine 1-5/HPF (0-5/HPF); Squamous Epithelial Cell Urine 1-5 /HPF (0-5/HPF); WBC Urine 30-100/HPF (0-5/HPF)
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
[2024-09-27 16:21] LABS: INR 1.3 (0.9-1.3); Prothrombin Time 14.5 SECONDS (9.4-12.5)
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
--- NOTE | 2024-09-27 16:54 | DI.MRI.S_ITS ---
PROCEDURE: MR HEAD/BRAIN WO CON INDICATIONS: subacute infarct on CT, acute confusion TECHNIQUE: Non-contrast axial T1 spin echo, axial T2 fast spin echo, sagittal and axial FLAIR, coronal T2 fast spin echo, axial gradient echo, axial diffusion and ADC through the brain. COMPARISON: [facility], CT, CT HEAD/BRAIN WO CON, 09/27/2024, 13:22. FINDINGS: Image quality: Poor; motion artifact and premature termination of the exam limit evaluation. Abnormal diffusion restriction in a gyriform pattern is present in the right parietal and occipital lobes (10/16-), corresponding to the CT findings. The other sequences were not obtained, limiting evaluation. IMPRESSION: Acute-subacute stroke in the right parieto-occipital lobes. These findings were communicated via telephone to the ordering provider, Dr Armijo, by Loy Galicia MD on 09/27/2024 at 7:09 p.m. Dictated by: Loy Galicia M.D. on 09/27/2024 at 18:55 Approved by: Loy Galicia M.D. on 09/27/2024 at 19:11
--- NOTE | 2024-09-27 16:57 | PM.HP.1 ---
History of Present Illness History of Present Illness Date Patient Seen: 09/27/24 Time Patient Seen: 18:45 Chief complaint: weakness/confusion/fall Narrative: This is an 88 F with PMH of HTN, hypothyroidism, paroxysmal afib (not on AC), DM2, CKD stage III who presents with 3 days of confusion and difficulty with ambulation. Per patient's son she normally has little issues at home and is quite active, however over the past 3 days she has had difficulty ambulating with her walker and is getting confused about where she is going even in her very small apartment. She seems like she forgets how to use her walker. No complaints of unilateral weakness or slurred speech. No headache or numbness. Denies chest pain, palpitations, cough, dyspnea on exertion. Slight increase in diarrhea recently and increased urinary frequency. Possible fever reported at home with home health aide though no additional info is available at this time. In further speaking with the patient's son she seems to have been favoring her right side somewhat with her walker. She did take immodium this morning given 3x stools overnight. In the ER, head CT showed possible subacute infarct with vasogenic edema. Normal WBC count on CBC, K mildly low at 3.2, Na low at 127, Cr much improved from prior admissions at 1.04. UA notable for 30-100 WBC, no bacteria, 1-5 RBC, was reflexed for culture. UDS negative. Flu/covid/rsv pcr negative. Patient was admitted for further evaluation of possible acute encephalopathy vs CVA. MR was ordered just after arrival to the floor confirming CVA. COUNTS INCLUDE 234 BEDS AT THE [facility] Medical History (Updated 09/27/24 @ 16:56 by Salina Truong DO) Easy bruisability Overactive bladder Fall from ground level (~02/2019) Arthritis Pneumonia Cellulitis TIA (transient ischemic attack) (08/14/13) Hypertension Hyperthyroidism Diabetes type 2, controlled Surgical History History of lumbar surgery (~2002) Hx of bilateral cataract extraction History of arthroplasty of right knee (~2006) History of thyroidectomy (~1955) History of hysterectomy Social History household members: children alcohol intake: former Meds Home Medications and Allergies Home Medications Medication Instructions Recorded Confirmed Type CHOLECALCIFEROL (VITAMIN D3) 1,000 units PO QDAY ##0 05/02/11 06/20/24 History (Vitamin D) CYANOCOBALAMIN (#VITAMIN B12) 250 mcg PO QDAY ##0 05/02/11 06/20/24 History furosemide 20 mg tablet (Lasix) 20 mg PO QDAY ##0 05/02/11 06/20/24 History lisinopril 20 mg tablet 20 mg PO BID ##0 05/02/11 06/20/24 History amlodipine 5 mg tablet 5 mg PO DAILY 02/24/19 06/20/24 History acetaminophen 500 mg tablet 500 mg PO Q4H PRN pain (scale 08/19/19 06/20/24 Rx (Tylenol Extra Strength) score 1-3) #30 tabs alendronate 70 mg tablet 70 mg PO QWEEK 06/20/24 06/20/24 History atorvastatin 10 mg tablet 10 mg PO BEDTIME 06/20/24 06/20/24 History warfarin 1 mg tablet 1 mg PO DAILY 06/20/24 06/20/24 History ciprofloxacin HCl 500 mg tablet 500 mg PO BID #14 tabs 06/24/24 Rx (Cipro) food supplemt, lactose-reduced 1 ea PO BID #5,688 mL 06/24/24 Rx (Ensure oral liquid) loperamide 2 mg capsule 2 mg PO QID PRN Diarrhea #30 caps 06/24/24 Rx metronidazole 500 mg tablet 500 mg PO TID #21 tabs 06/24/24 Rx ondansetron 8 mg disintegrating 8 mg PO Q8H PRN nausea and 06/24/24 Rx tablet vomiting #30 tabs Allergies Allergy/AdvReac Type Severity Reaction Status Date / Time stoool softener AdvReac Mild diarrea Uncoded 08/16/19 10:27 Review of Systems Review of Systems Narrative: All other systems reviewed with the patient and are negative unless otherwise stated. Exam Vital Signs (past 8 hours): - 09/27/24 12:00 09/27/24 12:17 09/27/24 12:29 Temperature 97.9 F Pulse Rate 55 L 55 L Respiratory Rate 18 Blood Pressure 171/71 H 163/70 H Pulse Oximetry 96 99 Oxygen Delivery Method Room Air 09/27/24 12:30 09/27/24 12:30 09/27/24 13:00 Temperature Pulse Rate 52 L 53 L Respiratory Rate 19 Blood Pressure 172/71 H Pulse Oximetry 100 99 Oxygen Delivery Method Room Air 09/27/24 13:01 09/27/24 13:01 09/27/24 13:27 Temperature Pulse Rate 58 L Respiratory Rate 20 Blood Pressure 181/75 H 186/81 H Pulse Oximetry 99 Oxygen Delivery Method 09/27/24 13:27 09/27/24 13:30 09/27/24 13:30 Temperature Pulse Rate 58 L 57 L Respiratory Rate 19 20 Blood Pressure 197/86 H Pulse Oximetry 99 99 Oxygen Delivery Method Room Air 09/27/24 14:00 09/27/24 14:01 09/27/24 14:01 Temperature Pulse Rate 59 L 57 L Respiratory Rate 23 25 H Blood Pressure 194/81 H Pulse Oximetry 99 99 Oxygen Delivery Method 09/27/24 14:30 09/27/24 14:31 09/27/24 14:31 Temperature Pulse Rate 60 56 L Respiratory Rate 22 19 Blood Pressure 187/79 H Pulse Oximetry 98 99 Oxygen Delivery Method Room Air 09/27/24 15:00 09/27/24 15:01 09/27/24 15:01 Temperature Pulse Rate 76 83 Respiratory Rate Blood Pressure 193/78 H Pulse Oximetry 98 98 Oxygen Delivery Method Room Air 09/27/24 15:30 09/27/24 15:31 09/27/24 15:31 Temperature Pulse Rate 65 70 Respiratory Rate 22 20 Blood Pressure 179/83 H Pulse Oximetry 99 99 Oxygen Delivery Method 09/27/24 16:00 09/27/24 16:00 Temperature Pulse Rate 58 L Respiratory Rate 17 Blood Pressure 189/83 H Pulse Oximetry 99 Oxygen Delivery Method Room Air Oxygen Delivery Method Room Air Narrative Exam Narrative: Alert No apparent distress. Alert oriented to name, situation, place, year, did state October for month (september 27 is today) Heart is irregularly regular rhythm, normal rate without murmur Lungs are clear to auscultation bilaterally Abdomen is soft, non-tender, and non-distended Extremities have no ankle edema Neuro: Left weakness compared to R but strength +5/5, possible left deficits to light touch, vs left hemineglect and left visual field cut. Minor facial asymmetry with decreased smile on the L but poor effort. Inaccurate and slow finger to touch on the L, R, somewhat limited by vision most likely. NIH 5 based on my exam at this moment. Objective ECG Impression: afib with slow ventricular response (HR 55). No acute changes in ST/T wave morphology compared to prior. Labs 09/27/24 12:15 09/27/24 12:15 Labs: Laboratory Results - last 24 hr 09/27/24 09/27/24 09/27/24 12:01 12:15 12:50 WBC 6.6 RBC 3.29 L Hgb 10.5 L Hct 30.4 L MCV 92.3 MCH 31.8 MCHC 34.4 RDW 12.9 Plt Count 204 Neut % (Auto) 78.5 H Lymph % (Auto) 13.5 L Person % (Auto) 7.1 Eos % (Auto) 0.4 L Baso % (Auto) 0.5 Neut # (Auto) 5200 Lymph # (Auto) 900 L Person # (Auto) 500 Eos # (Auto) 0 Baso # (Auto) 0 PT 14.5 H INR 1.3 Sodium 127 L Potassium 3.2 L Chloride 95 L Carbon Dioxide 23 BUN 18 H Creatinine 1.04 Estimated GFR 52 L BUN/Creatinine Ratio 17.3 Glucose 105 Calcium 7.7 L Total Bilirubin 0.9 AST 32 ALT 15 Alkaline Phosphatase 72 Ammonia < 9 L Total Protein 7.6 Albumin 3.7 Globulin 3.9 Albumin/Globulin Ratio 0.9 L Lipase 55 Urine RBC 1-5/hpf D Urine WBC 30-100/hpf H Ur Squamous Epith Cells 1-5 /hpf Urine Bacteria None seen Ur Culture Indicated? Specimen cultured Vol Urine Centrifuged 10ml (spun) U Opiates 300ng/mL cut Negative Ur Oxycodone Screen Negative Urine Methadone Screen Negative Ur Barbiturates Screen Negative U Tricyclic Antidepress Negative Ur Phencyclidine Scrn Negative Ur Amphetamines Screen Negative U Methamphetamines Scrn Negative Ur MDMA Scrn (Ecstasy) Negative U Benzodiazepines Scrn Negative Urine Cocaine Screen Negative U Marijuana (THC) Screen Negative Urine pH Normal Urine Specific [place] Normal Ur Creatinine Normal SARS-CoV-2 (PCR) Influenza A (RT-PCR) Influenza B (RT-PCR) RSV (PCR) 09/27/24 13:44 WBC RBC Hgb Hct MCV MCH MCHC RDW Plt Count Neut % (Auto) Lymph % (Auto) Person % (Auto) Eos % (Auto) Baso % (Auto) Neut # (Auto) Lymph # (Auto) Person # (Auto) Eos # (Auto) Baso # (Auto) PT INR Sodium Potassium Chloride Carbon Dioxide BUN Creatinine Estimated GFR BUN/Creatinine Ratio Glucose Calcium Total Bilirubin AST ALT Alkaline Phosphatase Ammonia Total Protein Albumin Globulin Albumin/Globulin Ratio Lipase Urine RBC Urine WBC Ur Squamous Epith Cells Urine Bacteria Ur Culture Indicated? Vol Urine Centrifuged U Opiates 300ng/mL cut Ur Oxycodone Screen Urine Methadone Screen Ur Barbiturates Screen U Tricyclic Antidepress Ur Phencyclidine Scrn Ur Amphetamines Screen U Methamphetamines Scrn Ur MDMA Scrn (Ecstasy) U Benzodiazepines Scrn Urine Cocaine Screen U Marijuana (THC) Screen Urine pH Urine Specific [place] Ur Creatinine SARS-CoV-2 (PCR) Negative Influenza A (RT-PCR) Flu a negative Influenza B (RT-PCR) Flu b negative RSV (PCR) Negative Assessment & Plan Assessment & Plan narrative: 1. Acute CVA - CT head without contrast notable for subacute infarct with vasogenic edema, NIH 5 as noted below. - MR just after admission shows R parietal-occiptal acute to subacute infarct. - prior TTE without evidence for PFO. Likely embolic due to afib with recent witholding of anticoagulation. Will check limited to eval for any possible atrial clot. - PT/OT/Speech ordered - restart anticoagulation in 1-2 weeks given vasogenic edema on CT, unless atrial clot on above limited TTE. - NIH Qshift - no vascular imaging done will obtain carotid dopplers. 2. Possible acute metabolic encephalopathy, - UA with many WBC, no bacteria, does have some increased frequency she thinks - continue ceftriaxone 1g q24 hours - follow up urine cultures and blood cultures. - unclear if acute changes are metabolic or due to possible CVA as noted above - GI panel if diarrhea, no overt diarrhea here thus far but did take immodium this AM 3. Acute cystitis, present on admission - as noted above in #2 4. HTN, chronic - resume home medications of lisinopril 20 mg BID, amlodipine 5 mg. Hold home prn lasix given unclear volume status at this time. 5. HLD, chronic - continue home statin atorvastatin 10 mg 6. Chronic atrial fibrillation, present on admission - not currently on rate control or anticoagulation - AC discussed above. 7. Recent history of colitis - s/p completion of oral antibiotics. If diarrhea develops repeat GI panel. 8. Mild acute on chronic hyponatremia - Na 127, continue to monitor, will add on urine Na to help determine euvolemia vs hypovolemia. Differential includes hypovolemia with recent diarrhea and SIADH with vasogenic edema - will monitor for now with morning BMP. Code: DNR, surrogate is patient's son DVT: Lovenox for now, resume AC as noted above. I have utilized all available immediate resources to obtain, update, or review the patient's current medications. Dispo: patient admitted under inpatient status. Unclear if will be able to discharge home or possible SNF vs acute rehab, will have PT/OT evaluations. Additional history obtained via discussions with the ER provider and son. These discussions contributed to the creation of the above assessment and plan. I have reviewed patient's presenting documentation, labs, and imaging personally. Time-Based Coding :: [TOTAL MINUTES] spent with patient and on the chart (including review of chart, obtaining history, exam, reviewing outside data, placing orders, documenting exam and treatment plan, and counseling patient) on [DATE]. Scores NIHSS Level of Conciousness: Alert, keenly responsive Ask month/age: Answers both questions correctly. Open/close eyes, close hand: Performs both tasks correctly Best gaze horizontal: Normal Visual ellis: Partial hemianopia Facial palsy: Minor paralysis, flattened nasolabial fold, asymmetry on smiling Left arm drift: No drift for full 10 sec Right arm drift: No drift for full 10 sec Left leg drift: No drift for full 5 sec Right leg drift: No drift for full 5 sec Limb ataxia: Present in one limb Sensory on face/arms/legs: Mild to moderate sensory loss, can tell touch Best language: No aphasia, normal Dysarthria: Normal Extinction or inattention: Visual, tactile, auditory, spatial or personal inattention to stimuli Total NIH Stroke scale score: 5
[2024-09-27] MEDS: cefTRIAXone 1,000 MG in SODIUM CHLORIDE 0.9% 100 ML 200 MG IV (17:01)
--- NOTE | 2024-09-27 18:10 | PC.NURSE ---
PT family requesting antihypertensive medication. Notified Dr. Armijo, no new orders. Educated pt's family on situation of MRI and that provider will see patient in acute care to decide goals relating to HTN.
[2024-09-27 18:16] LABS: Sodium Urine Random 52 mmol/L (30-90)
--- NOTE | 2024-09-27 18:54 | PC.NURSE ---
Patient arrived from ED and MRI at 1840 this evening. She speaks with clear speech, per report has had AMS. Patient linen changed and skin check performed. Son at bedside. MD evaluating patient, performing neuro check and discussing image findings with son, and patient currently. Will place patient on telemetry, and perform initial physical assessment. Endorsing admission assessment/orders to oncoming RN.
--- NOTE | 2024-09-27 19:31 | DI.ECHO.S_ITS ---
[facility]---------+ [facility] : : [address] : : [place] : : [id number] : : Phone: [phone] Echocardiogram Report + + :Name: SHANDRA PEREZ Study Date: 09/28/2024 Height: 59 in : :Hospital ReadingLocation: Weight: 102 lb : : Gender: Female BSA: 1.4 m2 : :: 1935 Age: 88 yrs BP: 160/56 mmHg: :Reason For Study: CVA, HISTORY OF AFIB OFF ANTICOAGULATION, : :EVAL FOR ATRIAL THROMBUS : :Ordering Physician: SURENDRA, : :ALFONSO FRASER Performed By: Kristy Conteh : :Referring: ALFONSO AGOSTO : + + Interpretation Summary The ejection fraction is estimated to be 60-65%. There is moderate mitral regurgitation. There is moderate tricuspid regurgitation. The right ventricular systolic pressure is estimated to be at least 37 mmHg based on an estimated right atrial pressure of 3 mm Hg. There is severe biatrial enlargement. Procedure: A two-dimensional transthoracic echocardiogram with color flow and Doppler was performed in limited views only. The study quality was technically adequate. Comparison is made with the echocardiogram of 10/12/2020. A two-dimensional transthoracic echocardiogram with color flow and Doppler was performed in limited views only to assess eval for atrial thrombus.. The patient was in atrial fibrillation with heart rates between 49- 62 bpm during the exam. Left Ventricle: The left ventricle is normal in size and wall thickness. The ejection fraction is estimated to be 60-65%. Left ventricular wall motion is normal. Atria: The left atrium is severely dilated. No obvious evidence of left atrial mass or thrombus visualized. There is severe biatrial enlargement. The right atrium is severely dilated. No obvious evidence of left atrial mass or thrombus visualized. Mitral Valve: The mitral valve leaflets appear to open well. There is moderate mitral regurgitation. Compared to the prior echo study, there has been no change in the severity of mitral regurgitation. Aortic Valve: The aortic valve is trileaflet. The aortic valve opens well. There is no aortic valve stenosis. Tricuspid Valve: The tricuspid valve leaflets are thin and pliable. There is moderate tricuspid regurgitation. The right ventricular systolic pressure is estimated to be at least 37 mmHg based on an estimated right atrial pressure of 3 mm Hg. Great Vessels: The IVC is of normal diameter and collapses greater than 50% with a sniff. This suggests a low right atrial pressure of 3 mm Hg. Pericardium/ Pleura There is no pericardial effusion. There is no pleural effusion. MMode/2D Measurements & Calculations LVIDd: 4.3 cm LA A2 area: 28.2 cm2 LVIDs: 2.6 cm LA A4 area: 30.3 cm2 FS: 38.0 % LA length (vol): 6.8 cm IVSd: 0.84 cm LA vol: 107.0 ml LVPWd: 0.96 cm LA vol index: 77.3 ml/m2 LV smith. diameter/BSA (cm/m^2): 3.1 LV sys. diameter/BSA (cm/m^2): 1.9 RA long axis: 5.8 cm RA area: 24.8 cm2 RA vol: 91.0 ml RA : 65.7 ml/m2 IVC diam: 2.0 cm Doppler Measurements & Calculations TR max jatinder: 291.3 cm/sec TR max P.9 mmHg Reading Physician:11:11 AM
[2024-09-27] MEDS: lisinopriL 20 MG TABLET PO (20:11)
[2024-09-28] VITALS (11 sets, daily range): BP systolic 120–169; BP diastolic 41–137; PULSE 49–68; RESP 16–18; TEMP 36–36.9; O2SAT 95–99
[2024-09-28 04:44] LABS: Add Manual Diff / Slide Review NO; Basophils Absolute Auto 100 /uL (0-100); Basophils Percent Auto 0.9 % (0-2); Eosinophils Absolute Auto 100 /uL (0-450); Eosinophils Percent Auto 1.9 % (2-4); Hematocrit 27.7 % (36-46); Hemoglobin 9.4 g/dL (12.0-16.0); Lymphocytes Absolute Auto 1300 /uL (1100-4500); Lymphocytes Percent Auto 19.3 % (25-40); Mean Corpuscular HGB Conc 33.9 % (30-36); Mean Corpuscular Hemoglobin 31.1 PG (26-34); Mean Corpuscular Volume 91.9 fL (80-100); Monocytes Absolute Auto 600 /uL (0-900); Monocytes Percent Auto 9.2 % (3-14); Neutrophils Absolute Auto 4500 /uL (1500-7000); Neutrophils Percent Auto 68.7 % (50-75); Platelet Count 179 X10^3/uL (150-400); Red Blood Cell Count 3.01 X10^6/uL (4.0-5.2); Red Cell Distribution Width 13.2 % (11.6-14.8); White Blood Cell Count 6.5 X10^3/uL (4.5-11.0)
[2024-09-28 05:40] LABS: BUN Creatinine Ratio 15.6 (6-22); Blood Urea Nitrogen 14 mg/dL (7-17); Calcium 7.4 mg/dL (8.4-10.2); Carbon Dioxide 22 mmol/L (22-32); Chloride 98 mmol/L (98-107); Cholesterol 131 mg/dL (140-199); Estimated Glomerular Filt Rate > 60 mL/min (>60); Glucose 67 mg/dL (80-110); HDL Cholesterol 39 mg/dL (40-60); HEMOLYSIS < 15 (0-50); Hemoglobin A1C% w Est Avg Glu 4.9 % (4.0-6.0); LDL Cholesterol Calculated 77 mg/dL (<100); Potassium 2.9 mmol/L (3.4-5.1); Sodium 130 mmol/L (137-145); Triglycerides 77 mg/dL (35-150)
[2024-09-28] MEDS: ACETAMINOPHEN 325 MG TABLET 650 MG PO ×2 (05:40→15:59)
[2024-09-28 05:48] LABS: Magnesium 0.6 mg/dL (1.6-2.3)
[2024-09-28] MEDS: ONDANSETRON 4 MG/2 ML INJ IV (06:08)
[2024-09-28 06:16] LABS: TSH w/ Reflex to FT4 2.27 uIU/mL (0.47-4.68)
--- NOTE | 2024-09-28 06:35 | PC.WOUNDPHOT ---
non blanchable redness
[2024-09-28] MEDS: MAGNESIUM SULFATE 4 GM/100 ML PIGGYBACK IV (06:47)
[2024-09-28] MEDS: POTASSIUM CHLORIDE 20 MEQ TAB 40 MEQ PO (06:48)
[2024-09-28] MEDS: AMLODIPINE 5 MG TABLET PO (09:24)
[2024-09-28] MEDS: lisinopriL 20 MG TABLET PO ×2 (09:24→21:09)
[2024-09-28] MEDS: ENOXAPARIN 30 MG/0.3 ML SYRINGE SUBCUT (09:25)
[2024-09-28] MEDS: METOCLOPRAMIDE 10 MG/2 ML INJ 5 MG IV (09:47)
--- NOTE | 2024-09-28 10:20 | CM.DPNOTE ---
Addendum entered by JOSHUA Pruett 09/28/24 15:33: PT/OT/speech rec acute vs SNF. pt not able to participate much. ENGINE LATHE SET UP OPERATOR TOOL met with son briefly in waiting room. son breathing heavy, reported feeling anxious about caring for mom/pt going back to SNF. ENGINE LATHE SET UP OPERATOR TOOL attempted to offer education/review DCP options. son reported hx of [facility], does not want pt to return to [facility]. interested in Medicaid information. son remained anxious throughout interaction, reported having chest pain. ENGINE LATHE SET UP OPERATOR TOOL encouraged pt to check into the ED if having chest pains. son agreed to meet with this ENGINE LATHE SET UP OPERATOR TOOL tomorrow to review DCP options with pt. SL Original Note: DCP Note ENGINE LATHE SET UP OPERATOR TOOL reviewed EMR per [facility] intake, missing persons investigator assigned= Nati lawler [phone]. ref #[id number]. Per Nati, plans to meet with pt in room between 1030-11am 09/29, please update her if pt transfers/discharges so she does not come to the hospital. per provider in morning rounds, pt very ill from stroke a few days ago. mag low, confused. likely here a few days. PT/OT/speech pending. P: DCP pending recs/pt preference. likely acute rehab vs SNF, new HH ref if home with HH (Not [facility]). CM team will continue to follow closely. JOSHUA Pruett
--- NOTE | 2024-09-28 10:36 | PT.IIE ---
Current Diagnoses Cerebral infarction, unspecified (09/27/24) Surgical History (Last Reviewed 09/27/24 @ 16:40 by Salina Truong DO) History of arthroplasty of right knee (~2006) History of hysterectomy History of lumbar surgery (~2002) History of thyroidectomy (~1955) Hx of bilateral cataract extraction Medical History (Last Reviewed 09/27/24 @ 16:40 by Salina Truong DO) Arthritis Cellulitis Diabetes type 2, controlled Easy bruisability Fall from ground level (~02/2019) Hypertension Hyperthyroidism Overactive bladder Pneumonia TIA (transient ischemic attack) (08/14/13) Physical Therapy Inpatient Evaluation/Re-Eval M1 PT/OT-IP Prior Functional Status Start: 09/28/24 10:57 Freq: NEEDED Status: Active Protocol: Document 09/28/24 10:36 AB (Rec: 09/28/24 13:06 AB [id number]) Medical Review Prior Functional Status Medical History Reviewed Yes Communication with confusion; able to answer questions but son clarifies pt's answers Mobility and Gait son stated that pt was modified independent with all mobilities and ambulation using a FWW; without AD when in the kitchen but furniture cruises Social History Household Members children Living Arrangements Apartment/Condo Number of Floors (Floors) One Floor Number of Stairs To Enter/Railing? 2 steps B rails to enter Home Environment Standard Height Toilet,Tub/ Shower Home Equipment Front Wheel Walker,Straight Cane,Raised Toilet Seat Without Armrests,Grab Bars Near Toilet,Grab Bars In Shower Additional Social History Comment pt lives with son but son works and not available to assist pt most of the time pt does sponge bathing M1 PT/OT-IP Prior Functional Status Start: 09/28/24 12:41 Freq: NEEDED Status: Active Protocol: Document 09/28/24 12:43 [facility] (Rec: 09/28/24 13:06 [facility] Desktop) Medical Review Prior Functional Status Mobility and Gait Per pt's son has been using the FWW or furniture cruises. Activities of Daily Living and IADL's Prior to CVA pt able to do all ADL needs. Pt's son prepped her meals for her. Prior Functional Level (Other details) Pt lives with her son who works, but off work on Tues, Wed, and Fridays. Social History Household Members children Living Arrangements Apartment/Condo Number of Stairs To Enter/Railing? Pt lives in a duplex with 2 steps with bilateral rails to hold to. Home Environment Standard Height Toilet,Tub/ Shower Home Equipment Front Wheel Walker,Straight Cane,Raised Toilet Seat Without Armrests,Educational Speech Language Clinician,Grab Bars In Shower M2 PT-IP Current Condition Start: 09/28/24 10:57 Freq: NEEDED Status: Active Protocol: Document 09/28/24 10:36 AB (Rec: 09/28/24 13:06 AB [id number]) Physical Therapy Current Condition Current Condition Evaluation Date 09/28/24 Treatment Diagnosis R CVA; difficulty in walking Onset Date 09/27/24 M3 PT-IP Subjective Start: 09/28/24 10:57 Freq: NEEDED Status: Active Protocol: Document 09/28/24 10:36 AB (Rec: 09/28/24 13:06 AB [id number]) Subjective Physical Therapy Visit Type Type Initial Evaluation Visit Start Time 10:36 Visit Stop Time 11:20 Number of DOG SITTER Visits 0 Physical Therapy Visit Comments Patient Comments agreeable to do PT Therapy Pain Assessment Location left heel Intensity 10 Scale Used Numeric (0 - 10) Pain Management Techniques Distraction,Modification of Treatment,Re-positioning, Timing of Activity with Medications M4 PT-IP Mobility and Gait Start: 09/28/24 10:57 Freq: NEEDED Status: Active Protocol: Document 09/28/24 10:36 AB (Rec: 09/28/24 13:06 AB [id number]) PT-Bed Mobility Assessment Supine to Sit Supine to Sit Maximum Assistance,2 Person Assistance,Head of Bed Elevated,Bedrails PT-Transfer Assessment Comments Mobility Comments pt in bed and son in room. obtained PLOF and home set up. pt concerned about L heel wound and wants a dressing on . nurse informed and puts a dressing on L heel. BP in supine: 122/41. pt completed supine to sit max A x 2 and max cues. unable to stay seated and immediately requested to lay back in bed. pt stated that she is afraid of falling. reassured pt and agreed to sit up again after a few minutes of resting. supine to sit max A x 2 and max cues. tolerated ~ 8 sec sitting max A x 2 for sitting balance and stated that she has to lay back in bed. c/o lightheadedness. BP: 124/42. positioned pt in bed. call light and table placed within reach. son informed PT that pt plans to go to acute rehab. informed son that pt may require SNF at this time vs acute rehab to due to pt's decrease activity tolerance and may not be able to tolerate acute rehab. Son stated that they were not happy with pt's last SNF stay and does not really want pt to go to SNF. informed son that pt will need 24/7 assist if she goes home at this time but also depending on pt's progress. son has lots of questions regarding d/c and informed that social services aide will talk to them. informed social services aide Courtney. PT-Balance Assessment Sitting Balance and Reactions Static Sitting Balance Ability Poor Dynamic Sitting Balance Ability Poor M5 PT-IP Objective Assessments Start: 09/28/24 10:57 Freq: NEEDED Status: Active Protocol: Document 09/28/24 10:36 AB (Rec: 09/28/24 13:06 [id number]) Orientation Orientation/Cognition Level of Alertness Confusional State Orientation Name Language Function Ability Hard of Hearing Safety Awareness Decreased Safety Awareness Memory Description Short Term Impaired,Snf Impaired Gross Range of Motion Lower Extremity ROM Assessment Within Functional Limits Strength Lower Extremity Strength Assessment Left Impaired Hip 3+/5 Knee 3+/5 Ankle 3-/5 Sensation Assessment Sensation Gross Sensation Left UE Impaired Light Touch Impaired Proprioception (Position) Impaired Muscle Tone Muscle Tone WNL Yes M6 PT-IP Treatment Start: 09/28/24 10:57 Freq: NEEDED Status: Active Protocol: Document 09/28/24 10:36 AB (Rec: 09/28/24 13:06 [id number]) Physical Therapy Treatment Education Education Provided Safety M7 PT-IP Assessment and Plan Start: 09/28/24 10:57 Freq: NEEDED Status: Active Protocol: Document 09/28/24 10:36 AB (Rec: 09/28/24 13:06 [id number]) PT Summary Assessment and Plan Potential Rehabilitation Potential Fair Status of Condition at Evaluation Unstable Summary Impairments Pain,ROM,Strength,Balance, Coordination,Sensation,Tone, Cognition,Bed Mobility, Transfers,Gait,Activity Tolerance Assessment Summary pt is an 88 y/o F who is admitted for R CVA. pt requiring max A x 2 and max cues with bed mobility and unable to tolerate sitting on EOB. pt will require mechanical lift for transfers at this time. pt will require SNF rehab to improve overall strength and function. will continue to assess progress. Goals Bed Mobility Goal Minimal Assistance Transfer Goal Minimal Assistance,Front Wheeled Walker Gait Goal Minimal Assistance,Front Wheel Walker Gait Distance 25 Other Goals improve bed mobility, transfers, ambulation using FWW ~ 50 ft SBA up/down 2 steps B rails SBA Days to Meet Goals 10 Frequency of Treatment Frequency Of Treatment Once a Day Treatment Plan Physical Therapy Treatment Plan Bed Mobility Training,Transfer Training,Gait Training, Therapeutic Exercise,Balance Retraining,Discharge Planning, Hot or Cold Pack,Neuromuscular Re-ed,Coordination Retraining ,Manual Therapy Precautions Other Precautions falls; contact precautions Recommendations To Nursing Amount of Assist Needed Mechanical Lift Discharge Recommendations PT Discharge Recommendations SNF Rehab Transportation Needs at Discharge Wheelchair/Cabulance,Stretcher /Ambulance - PT assist 2
--- NOTE | 2024-09-28 10:36 | ST.IPCSEOM ---
Visit Care Team Role Provider Type Jennifer Rios MD Primary Care Provider Physician Specialty: Internal Medicine Address: [place], [address] Email: Salina Truong DO Emergency Provider Physician Referring Provider Specialty: Emergency Medicine Address: [address] [place] [address], [id number] Email: [email or web address] Prashant Armijo DO Admit Provider Physician Attending Provider Specialty: Internal Medicine Address: [address] [place] [address], [id number] Email: [email or web address] Current Diagnoses Cerebral infarction, unspecified (09/27/24) Past Medical History (Last Reviewed 09/27/24 @ 16:40 by Salina Truong DO) Arthritis (Medical) Cellulitis (Medical) BLE Diabetes type 2, controlled (Medical) Easy bruisability (Medical) Fall from ground level (Medical ~02/2019) Admit to IH, pelvis fracture Hypertension (Medical) Hyperthyroidism (Medical) Overactive bladder (Medical) Pneumonia (Medical) TIA (transient ischemic attack) (Medical 08/14/13) Speech-Language Pathology Swallow Evaluation RISK SPECIALIST Clinical Swallow Evaluation Start: 09/28/24 10:19 Freq: Status: Active Protocol: Document 09/28/24 10:20 [facility] (Rec: 09/28/24 10:36 [facility] Desktop) Clinical Swallow Evaluation Session Time Visit Start Time 09:45 Visit Stop Time 10:10 Total Visit Minutes 25 Visit Information Visit Number [address] Armijo Reason for Referral Acute CVA Setting Assessment Location Acute Care Visit Type Note Type Initial evaluation Next Note Type Next Note Type Treatment Note Patient Information Identification Type Name,Wristband History Per H&P: This is an 88 F with PMH of HTN, hypothyroidism, paroxysmal afib (not on AC), DM2, CKD stage III who presents with 3 days of confusion and difficulty with ambulation. Per patient's son she normally has little issues at home and is quite active, however over the past 3 days she has had difficulty ambulating with her walker and is getting confused about where she is going even in her very small apartment. She seems like she forgets how to use her walker. No complaints of unilateral weakness or slurred speech. No headache or numbness. Denies chest pain, palpitations, cough, dyspnea on exertion. Slight increase in diarrhea recently and increased urinary frequency. Possible fever reported at home with home health aide though no additional info is available at this time. In further speaking with the patient's son she seems to have been favoring her right side somewhat with her walker. She did take immodium this morning given 3x stools overnight. In the ER, head CT showed possible subacute infarct with vasogenic edema. Normal WBC count on CBC, K mildly low at 3.2, Na low at 127, Cr much improved from prior admissions at 1.04. UA notable for 30- 100 WBC, no bacteria, 1-5 RBC, was reflexed for culture. UDS negative. Flu/covid/rsv pcr negative. Patient was admitted for further evaluation of possible acute encephalopathy vs CVA. MR was ordered just after arrival to the floor confirming CVA. PMHx significant for: Easy bruisability Overactive bladder Fall from ground level (~2018) Arthritis Pneumonia Cellulitis TIA (transient ischemic attack ) (08/14/13) Hypertension Hyperthyroidism Diabetes type 2, controlled Swallow evaluation completed, however limited PO trials d/t Pt reporting nausea, cog/lang screen completed. Subjective Observations Pt sitting upright in bed, eyes mostly closed, son present at bedside. Pt oriented to person, place, time and reason for hospitalization. Nursing and son report no observed speech or cognitive deficits compared to baseline. Nursing reports Pt has been reporting nausea and was just given nausea medications. Nursing reports she consumed water, gisela adam and yogurt with no observed swallow difficulties. Reported by Patient/Caregiver Current Diet Regular (IDDSI 7) The IDDSI Framework Protocol: IDDSI.1 Objective Assessment Mental Status Alert,Responsive,Cooperative, Lethargic Oral Integrity WFL Dentition Upper dentures/partials,Lower dentures/partials Lip Function Within normal limits Observation of Lips at Rest Symmetrical Pucker Within normal limits Alternating Pucker/Lip Retraction Within normal limits Tongue Function Within normal limits Observations of Tongue at Rest Within normal limits Tongue Protrusion Within normal limits Tongue Lateralization Within normal limits Observation of Jaw at Rest Within normal limits Jaw Opening Within normal limits Jaw Closing Within normal limits Food and Liquid Trials Position During Assessment Upright (90 degrees) Liquids Trialed Thin (IDDSI 0) Administration Type Straw Oral Impairment Within functional limits Oral Phase Comments Limited PO trials d/t Pt reporting nausea and decline solids this date. Pt compliant with consuming gingerale. For thin soda via straw, Pt exhibited adequate suction, good oral acceptance and containment, timely ap transport. Pt reports she only feels like drinking liquids at this time. Pharyngeal Impairment Within functional limits Pharyngeal Phase Comments Pt with audible swallow reflex , however no overt s/s of aspiration such as coughing or choking. Fatigue/Endurance Mild fatigue The IDDSI Framework Protocol: IDDSI.1 Findings Swallowing Function Within functional limits Severity of Swallow Impairment Within functional limits Prognosis Good Impact on Safety and Functioning Risk for inadequate nutrition/ hydration Recommendations Instrumental Assessment No Swallowing Treatment Yes Frequency 1cx f/u to observe Pt with solid trials Recommended Solids Regular (IDDSI 7) Recommended Liquids Thin (IDDSI 0) Other Recommendations ST recommends continued diet of regular solids and thin liquids, however recommend 1x f/u to ensure Pt with safest and most efficient least restrictive diet when Pt is able to and compliant with trialing solids and nausea has hopefully passed or is more tolerable for consumption of solid intake. Safety Precautions/Swallowing 1 to 1 close supervision, Recommendations Remain upright (90 degrees) during all oral intake,Upright position at least 30 minutes after meals,Small bites and sips when eating,Slow rate; swallow between bites, Alternate liquids and solids, Strict oral care after intake Medication Recommendations As Tolerated Education Patient/Caregiver Education Described results of evaluation,Patient expressed understanding of evaluation, Patient expressed agreement with goals & treatment plans, Family/caregivers expressed understanding of evaluation, Family/caregivers expressed agreement with goals & treatment plans,Patient requires further education/ training,Family/caregivers require further education/ training Goals Short-term Goals STG 1: Pt will tolerate prescribed diet with <5% overt s/s of aspiration/dysphagia with use of compensatory swallowing strategies and minimal cues. Long-term Goals LTG: Patient will tolerate safest and most efficient diet with no clinical s/s of aspiration or dysphagia 100% of the time in order to consume least restrictive diet .
--- NOTE | 2024-09-28 11:23 | OT.IP.EVAL ---
Current Diagnoses Cerebral infarction, unspecified (09/27/24) Past Medical History (Last Reviewed 09/27/24 @ 16:40 by Salina Truong DO) Arthritis Cellulitis Diabetes type 2, controlled Easy bruisability Fall from ground level (~02/2019) Hypertension Hyperthyroidism Overactive bladder Pneumonia TIA (transient ischemic attack) (08/14/13) Surgical History (Last Reviewed 09/27/24 @ 16:40 by Salina Truong DO) History of arthroplasty of right knee (~2006) History of hysterectomy History of lumbar surgery (~2002) History of thyroidectomy (~1955) Hx of bilateral cataract extraction Occupational Therapy Inpatient Evaluation/Re-Eval M1 PT/OT-IP Prior Functional Status Start: 09/28/24 10:57 Freq: NEEDED Status: Active Protocol: Document 09/28/24 10:36 AB (Rec: 09/28/24 13:06 AB [id number]) Medical Review Prior Functional Status Medical History Reviewed Yes Communication with confusion; able to answer questions but son clarifies pt's answers Mobility and Gait son stated that pt was modified independent with all mobilities and ambulation using a FWW; without AD when in the kitchen but furniture cruises Social History Household Members children Living Arrangements Apartment/Condo Number of Floors (Floors) One Floor Number of Stairs To Enter/Railing? 2 steps B rails to enter Home Environment Standard Height Toilet,Tub/ Shower Home Equipment Front Wheel Walker,Straight Cane,Raised Toilet Seat Without Armrests,Grab Bars Near Toilet,Grab Bars In Shower Additional Social History Comment pt lives with son but son works and not available to assist pt most of the time pt does sponge bathing M1 PT/OT-IP Prior Functional Status Start: 09/28/24 12:41 Freq: NEEDED Status: Active Protocol: Document 09/28/24 12:43 [facility] (Rec: 09/28/24 13:06 [facility] Desktop) Medical Review Prior Functional Status Mobility and Gait Per pt's son has been using the FWW or furniture cruises. Activities of Daily Living and IADL's Prior to CVA pt able to do all ADL needs. Pt's son prepped her meals for her. Prior Functional Level (Other details) Pt lives with her son who works, but off work on Tu, Wed, and Fridays. Social History Household Members children Living Arrangements Apartment/Condo Number of Stairs To Enter/Railing? Pt lives in a duplex with 2 steps with bilateral rails to hold to. Home Environment Standard Height Toilet,Tub/ Shower Home Equipment Front Wheel Walker,Straight Cane,Raised Toilet Seat Without Armrests,Independent Driver,Grab Bars In Shower M2 OT-IP Current Condition Start: 09/28/24 12:41 Freq: Status: Active Protocol: Document 09/28/24 12:43 [facility] (Rec: 09/28/24 13:06 [facility] Desktop) Occupational Therapy Current Condition Current Condition Evaluation Date 09/28/24 Treatment Diagnosis CVA Diagnosis Onset Date 09/27/24 M3 OT- IP Subjective and Pain Start: 09/28/24 12:41 Freq: Status: Active Protocol: Document 09/28/24 12:43 [facility] (Rec: 09/28/24 13:06 [facility] Desktop) OT- Subjective Occupational Therapy Visit Type Type Initial Evaluation Visit Start Time 10:40 Visit Stop Time 11:23 Occupational Therapy Visit Comments Patient Comments Pt agreed to get up after lots of encouragement. Per hospitalist okay to try to get pt up even though having low Mg. Patient/Caregiver Goals TO get better. OT Pain Assessment Pain When Pain Assessed During Mobility Pain Present Pain Present Pain Reported Location left heel Pain Behaviors Calling Out,Facial Grimacing M4 OT- IP ADL's Start: 09/28/24 12:41 Freq: Status: Active Protocol: Document 09/28/24 12:43 [facility] (Rec: 09/28/24 13:06 [facility] Desktop) OT [id number] Comments OT Self-Feeding Comments Not at meal time. OT ADL-Grooming Comments OT Grooming Comments Not performed. OT ADL-Oral Care Comments Oral Care Comments Not performed. OT ADL-Dressing General Eval Lower Body Dressing Ability Total Assistance Areas Needing Assistance Socks OT ADL-Toileting Comments OT Toileting Comments Pt is dependent at this time. OT ADL-Bathing Comments OT Bathing Comments Pt states just sponges on at the sink at home prior to CVA. M5 OT- IP IADL's Start: 09/28/24 12:41 Freq: Status: Active Protocol: Document 09/28/24 12:43 [facility] (Rec: 09/28/24 13:06 [facility] Desktop) OT-Instrumental Activities of Daily Living Money Management Money Management Caregiver Provides Assistance Meal Preparation Meal Preparation Caregiver Provides Assist Wrapper Sorter Wrapper Sorter Caregiver Provides Assist M6 OT- IP Functional Cognition Start: 09/28/24 12:41 Freq: Status: Active Protocol: Document 09/28/24 12:43 [facility] (Rec: 09/28/24 13:06 [facility] Desktop) Cognitive Factors Limiting Selfcare Function Cognitive Ability Level of Alertness Alert Patient Orientation Name,Place Ability to Follow Commands Able to Follow One Step Commands with Increased Time, Able to Follow One Step Commands with Repetition Cognitive Comments Cognitive Assessment Comments Pt is very tired, needing simple concrete cues to follow . Pt needing increased time to initiate movement of LUE. Noted left neglect and field cut. OT- Vision and Hearing OT- Vision Assessment Visual Campos Impaired Visual Spacial Neglect Left Vision Assessment Comments Pt has difficulty to follow commands but appears to have left hemianopsia as well as left neglect. Educated pt to mud mixer helper her eyes to the left and turn her head so able to see better. M7 OT- IP Mobility and Balance Start: 09/28/24 12:41 Freq: Status: Active Protocol: Document 09/28/24 12:43 [facility] (Rec: 09/28/24 13:06 [facility] Desktop) OT- Bed Mobility Assessment Supine to Sit Supine to Sit Assist Maximum Assistance,2 Person Assistance OT-Transfer Assessment Comments Mobility Comments Attempted to get pt to the edge of the bed x2, MAX AX 2 and pt not able to complete and states feels like she is falling. BP supine 122/41. Repositioned pt back to supine . M8 OT- IP Objective Assessments Start: 09/28/24 12:41 Freq: Status: Active Protocol: Document 09/28/24 12:43 [facility] (Rec: 09/28/24 13:06 [facility] Desktop) OT Gross Range of Motion Upper Extremity Range of Motion ROM Impairments grossly WFL, decreased as end ROM OT Strength Comments Strength Comments 4-/5 for available ROM OT Sensation Assessment Comments Summary Comments Decreased left shoulder and elbow to deep and light touch. M9 OT- IP Assessment and Plan Start: 09/28/24 12:41 Freq: Status: Active Protocol: Document 09/28/24 12:43 [facility] (Rec: 09/28/24 13:06 [facility] Desktop) OT Summary Assessment and Plan Potential Rehabilitation Potential Fair Analytic Complexity at Evaluation Moderate Summary OT Impairments Range of Motion,Strength, Balance,Functional Cognition, Functional Mobility,Self- Feeding,Grooming,Dressing, Toileting,Bathing,Toilet Transfers,Shower Transfers, Activity Tolerance Progress Towards Goals Slow Progress due to Pain,Slow Progress due to Medical Issues,Slow Progress due to Activity Tolerance,Slow Progress due to Cognition Assessment Summary Pt MOD complexity and not able to get fully to the edge of bed at this time due to weakness and decreased activity tolerance. Pt pending progress will benefit from skilled rehab versus acute rehab. Pt also has left neglect and appears to have left hemianopsia as well. At this time skilled rehab probably more appropriate, continue to assess. Goals Self-Feeding Goal Independent Grooming Goal Independent Dressing Goal Minimal Assistance Toileting Goal Minimal Assistance Bathing Goal Moderate Assistance Toilet Transfer Goal Minimal Assistance Shower Transfer Goal Moderate Assistance OT-Other Goals Goals will change when able to mobilize pt. Days to Meet Goals 20 Frequency of Treatment Other frequency 5x/week Treatment Plan OT Treatment Plan ADL Training,Functional Cognition Training,Functional Mobility,Vision Retraining, Patient/Family Education, Discharge Planning Other Treatment Recommendations and Next sitting at EOB with [facility] and Treatment Focus able to do grooming needs with [facility] Discharge Recommendations OT Discharge Recommendations SNF Rehab,SNF vs Acute Rehab Transportation Needs at Discharge Stretcher/Ambulance
[2024-09-28] MEDS: POTASSIUM CHLORIDE 20 MEQ/15 ML UDC PO (13:05)
--- NOTE | 2024-09-28 16:26 | P.PN_ITS ---
Subjective Subjective Interval history: 88 F admitted with an acute to subacute CVA. Mg is also 0.6 today, she feels nauseous, ill today and very weak. Exam Vital Signs (past 8 hours): - 09/28/24 09:24 09/28/24 10:00 09/28/24 12:00 Temperature 96.9 F L Pulse Rate 49 L Respiratory Rate 18 Blood Pressure 162/59 H 125/48 L Pulse Oximetry 95 99 Oxygen Delivery Method Room Air Oxygen Flow Rate 0 09/28/24 13:55 09/28/24 16:00 Temperature 97.6 F Pulse Rate 68 Respiratory Rate 18 Blood Pressure 120/48 L Pulse Oximetry 95 98 Oxygen Delivery Method Room Air Oxygen Flow Rate 0 Oxygen Delivery Method Room Air Oxygen Flow Rate 0 Narrative Exam Narrative: Alert No apparent distress, frail and josé miguel ill appearing, and pale. Alert oriented to name, situation, place, year. Heart is irregularly regular rhythm, normal rate without murmur Lungs are clear to auscultation bilaterally Abdomen is soft, non-tender, and non-distended Extremities have no ankle edema Neuro: Left weakness compared to R but strength +5/5, possible left deficits to light touch, vs left hemineglect and left visual field cut. Minor facial asymmetry with decreased smile on the L but poor effort. Inaccurate and slow finger to touch on the L, R, somewhat limited by vision most likely. NIH 5 based on my exam at this moment. Objective Labs 09/28/24 04:15 09/28/24 04:15 Labs: Laboratory Results - last 24 hr 09/27/24 09/28/24 12:50 04:15 WBC 6.5 RBC 3.01 L Hgb 9.4 L Hct 27.7 L MCV 91.9 MCH 31.1 MCHC 33.9 RDW 13.2 Plt Count 179 Neut % (Auto) 68.7 Lymph % (Auto) 19.3 L [place] % (Auto) 9.2 Eos % (Auto) 1.9 L Baso % (Auto) 0.9 Neut # (Auto) 4500 Lymph # (Auto) 1300 [place] # (Auto) 600 Eos # (Auto) 100 Baso # (Auto) 100 Sodium 130 L Potassium 2.9 L Chloride 98 Carbon Dioxide 22 BUN 14 Creatinine 0.90 Estimated GFR > 60 BUN/Creatinine Ratio 15.6 Glucose 67 L Hemoglobin A1c 4.9 Calcium 7.4 L Magnesium 0.6 L* Triglycerides 77 Cholesterol 131 L LDL Cholesterol, Calc 77 HDL Cholesterol 39 L TSH 2.27 Ur Random Sodium 52 PFSH Medical History (Updated 09/27/24 @ 16:56 by Salina Truong DO) Easy bruisability Overactive bladder Fall from ground level (~02/2019) Arthritis Pneumonia Cellulitis TIA (transient ischemic attack) (08/14/13) Hypertension Hyperthyroidism Diabetes type 2, controlled Surgical History History of lumbar surgery (~2002) Hx of bilateral cataract extraction History of arthroplasty of right knee (~2006) History of thyroidectomy (~1955) History of hysterectomy Social History household members: children Smoking Status: Never smoker alcohol intake: former Assessment & Plan Assessment & Plan narrative: 1. Acute CVA - CT head without contrast notable for subacute infarct with vasogenic edema, NIH 5 as noted below. - MR just after admission shows R parietal-occiptal acute to subacute infarct. - prior TTE without evidence for PFO. Likely embolic due to afib with recent witholding of anticoagulation. Limited TTE today without significant change and no apparent thrombus/clot. - PT/OT/Speech ordered - restart anticoagulation in 1-2 weeks given vasogenic edema on CT - NIH Qshift - carotid doppler without clinically significant carotid stenosis. 2. Possible acute metabolic encephalopathy, - UA with many WBC, no bacteria, does have some increased frequency she thinks - continue ceftriaxone 1g q24 hours - follow up urine cultures and blood cultures. - unclear if acute changes are metabolic or due to possible CVA as noted above - GI panel if diarrhea, no overt diarrhea here thus far but did take immodium this AM 3. Acute cystitis, present on admission - as noted above in #2 4. HTN, chronic - resume home medications of lisinopril 20 mg BID, amlodipine 5 mg. Diurese prn only as at home. 5. HLD, chronic - continue home statin atorvastatin 10 mg 6. Chronic atrial fibrillation, present on admission - not currently on rate control or anticoagulation - AC discussed above. 7. Recent history of colitis - s/p completion of oral antibiotics. If diarrhea develops repeat GI panel. 8. Mild acute on chronic hyponatremia - Na 127 on admit, improved to 130 today without intervention. 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 Differential includes hypovolemia with recent diarrhea and SIADH with vasogenic edema as noted above. 9. Hypomagnesemia, hypokalemia - 0.6 today, repleted with 4g IV Mg today. Continue to follow. - K 2.9 repleted today as well after Mg repletion. Code: DNR, surrogate is patient's son DVT: Lovenox for now, resume AC as noted above. Dispo: patient admitted under inpatient status. Unclear if will be able to discharge home or possible SNF vs acute rehab, will have PT/OT evaluations. Time-Based Coding :: [TOTAL MINUTES] spent with patient and on the chart (including review of chart, obtaining history, exam, reviewing outside data, placing orders, documenting exam and treatment plan, and counseling patient) on [DATE]. Quality VTE Deep Vein Thrombosis/Pulmonary Embolism Present on Admission: No
--- NOTE | 2024-09-28 17:07 | DIET.CONS ---
Dietary Consultation Note Admission Date: 09/27/2024 16:59 Assessment: 88 y F admitted for acute CVA. Dietitian consulted for unintentional weight loss. Met with pt and son at bedside. Reports 12-14 lb weight loss since hospital admission in June d/t decreased appetite and early satiety, have been working to have small freq meals and snacks throughout the day, including milkshakes and adding eggs. Reports normal eating prior to these last couple days. Pt no longer likes Ensures. The thought of them makes her sick. Reports she ate a pb and jelly sandwich today for lunch. Reports sometimes its difficult for her to chew larger pieces of meat. Suggested small and bite sized with extra sauce/gravy. PMH of CKD3 and DM2 (A1c 4.9% on 09/28/24) Ht: 149.86 cm Wt: 46.5 kg BMI: 20.6 UBW: 51.5 kg on 06/23/24 (-9% weight loss in 3 months, severe) Last BM: 09/26/24 (09/27/24 17:17) MNA: 6 Justin Score: 17 Diet: 09/27/24 Dinner General (Regular) Diet Diet Modifications: Labs: RBC 3.01 X10^6/uL (4.0-5.2) L 09/28/24 04:15 Hgb 9.4 g/dL (12.0-16.0) L 09/28/24 04:15 Hct 27.7 % (36-46) L 09/28/24 04:15 Creatinine 0.90 mg/dL (0.52-1.04) 09/28/24 04:15 Hemoglobin A1c 4.9 % (4.0-6.0) 09/28/24 04:15 Nutrition Diagnosis: Moderate acute protein calorie malnutrition r/t inadequate oral intakes aeb 9% weight loss in 3 months, severe and BMI underweight for age (20.7) Interventions: -Vanilla protein smoothie/shakes at dinner instead of ensures -Discussed high caloric options to have and ways to increase calories throughout day -Meats chopped into bite size with extra sauce/gravy per pt preference, coordinated with unit host EER: 45-50 g protein (1g/kg per CVA/PCM/CKD3) Monitoring/Evaluations: po intakes Electronically Signed by: Margot Dowd 09/28/24 17:07 Clinical Dietitian [address] [address]
[2024-09-28] MEDS: cefTRIAXone 1,000 MG in SODIUM CHLORIDE 0.9% 100 ML 200 MG IV (17:59)
[2024-09-28 19:18] LABS: Blood Urea Nitrogen 15 mg/dL (7-17); Calcium 6.9 mg/dL (8.4-10.2); Carbon Dioxide 20 mmol/L (22-32); Chloride 103 mmol/L (98-107); Estimated Glomerular Filt Rate 59 mL/min (>60); Glucose 128 mg/dL (70-99); HEMOLYSIS 16 (0-50); Magnesium 1.8 mg/dL (1.6-2.3); Potassium 3.1 mmol/L (3.4-5.1); Sodium 129 mmol/L (137-145)
--- NOTE | 2024-09-28 19:25 | DI.US.S_ITS ---
PROCEDURE: US CAROTID DOPPLER BI INDICATIONS: CVA TECHNIQUE: Color and pulse Doppler interrogation was performed of both carotid systems, with image documentation and velocity measurements. COMPARISON: None. FINDINGS: Stenosis calculations are based on SRU (Society of Radiologists in Ultrasound) criteria. Right side: Brachial blood pressure: 160/56 mm Hg. Common carotid artery peak systolic velocity: 74 cm/sec. Internal carotid artery peak systolic velocity: 77 cm/sec. Internal carotid artery end diastolic velocity: 13 cm/sec. External carotid artery peak systolic velocity: 91 cm/sec. ICA/CCA peak systolic ratio: 1.0 . Mendoza scale imaging description: Calcified plaque Percent internal carotid artery stenosis: Mild less than 50% stenosis . Vertebral artery: Flow direction is antegrade. Left side: Brachial blood pressure: Unable to obtain. Common carotid artery peak systolic velocity: 62 cm/sec. Internal carotid artery peak systolic velocity: 130 cm/sec. Internal carotid artery end diastolic velocity: 21 cm/sec. External carotid artery peak systolic velocity: 140 cm/sec. ICA/CCA peak systolic ratio: 2.1 . Mendoza scale imaging description: Calcified plaque Percent internal carotid artery stenosis: Moderate 50-69% stenosis . Vertebral artery: Flow direction is antegrade. IMPRESSION: 1. In the right carotid artery, there is mild less than 50% stenosis based on peak systolic velocity criteria. 2. In the left carotid artery, there is moderate 50-69% stenosis based on peak systolic velocity criteria. 3. Antegrade vertebral arteries. Dictated by: Janis Dinh MD, PhD on 09/28/2024 at 9:13 Approved by: Janis Dinh MD, PhD on 09/28/2024 at 9:15
[2024-09-28 23:00] LABS: Adenovirus F 40/41 Not Detected (Not Detect); Astrovirus Not Detected (Not Detect); Campylobacter Not Detected (Not Detect); Clostridium difficile toxin AB Not Detected (Not Detect); Cryptosporidium Not Detected (Not Detect); Cyclospora cayetanensis Not Detected (Not Detect); Entamoeba histolytica Not Detected (Not Detect); Enteroaggregative E.coli Not Detected (Not Detect); Enteropathogenic E.coli Not Detected (Not Detect); Enterotoxigenic E.coli It/st Not Detected (Not Detect); Giardia lamblia Not Detected (Not Detect); Norovirus GI/GII Not Detected (Not Detect); Plesiomonsa shigelloides Not Detected (Not Detect); Rotavirus A Not Detected (Not Detect); Salmonella Not Detected (Not Detect); Sapovirus Not Detected (Not Detect); Shiga-like toxin-prod E.coli Not Detected (Not Detect); Shigella/Enteroinvasive E.coli Not Detected (Not Detect); Vibrio Not Detected (Not Detect); Vibrio cholerae Not Detected (Not Detect); Yersinia enterocolitica Not Detected (Not Detect)
[2024-09-29] VITALS (12 sets, daily range): BP systolic 134–161; BP diastolic 56–64; PULSE 56–64; RESP 16–19; TEMP 35.9–36.9; O2SAT 97–99
[2024-09-29 06:29] LABS: Add Manual Diff / Slide Review NO; Basophils Absolute Auto 100 /uL (0-100); Eosinophils Absolute Auto 100 /uL (0-450); Eosinophils Percent Auto 1.4 % (2-4); Hematocrit 30.6 % (36-46); Hemoglobin 10.7 g/dL (12.0-16.0); Lymphocytes Absolute Auto 1000 /uL (1100-4500); Lymphocytes Percent Auto 14.4 % (25-40); Mean Corpuscular HGB Conc 34.8 % (30-36); Mean Corpuscular Hemoglobin 31.9 PG (26-34); Mean Corpuscular Volume 91.8 fL (80-100); Monocytes Absolute Auto 500 /uL (0-900); Monocytes Percent Auto 8.1 % (3-14); Neutrophils Absolute Auto 5000 /uL (1500-7000); Neutrophils Percent Auto 75.1 % (50-75); Platelet Count 202 X10^3/uL (150-400); Red Blood Cell Count 3.34 X10^6/uL (4.0-5.2); White Blood Cell Count 6.7 X10^3/uL (4.5-11.0)
[2024-09-29 06:54] LABS: Blood Urea Nitrogen 15 mg/dL (7-17); Calcium 8.2 mg/dL (8.4-10.2); Carbon Dioxide 23 mmol/L (22-32); Chloride 103 mmol/L (98-107); Estimated Glomerular Filt Rate 55 mL/min (>60); Glucose 103 mg/dL (70-99); HEMOLYSIS < 15 (0-50); Potassium 3.6 mmol/L (3.4-5.1); Sodium 134 mmol/L (137-145)
--- NOTE | 2024-09-29 08:19 | PM.PN.1 ---
Subjective Subjective Interval history: Summary: 88 F admitted with an acute to subacute CVA. Mg is also 0.6 today, she feels nauseous, ill today and very weak. S: She is doing all right today. Some loose stools. She has a history of chronic intermittent colitis and stool studies were negative. Imodium usually helps. Her left eye blurred vision has improved. She is recommended to go to nursing home facility. Exam Vital Signs (past 8 hours): - 09/29/24 00:29 09/29/24 02:00 09/29/24 06:00 Temperature 98.0 F Pulse Rate 58 L Respiratory Rate 16 Blood Pressure 161/56 H Pulse Oximetry 98 98 97 Oxygen Delivery Method Room Air Room Air Oxygen Flow Rate 0 0 Oxygen Delivery Method Room Air Oxygen Flow Rate 0 Narrative Exam Narrative: NAD, alert and oriented. Fluent speech. Lungs are clear, normal rate and effort. Heart is regular, no murmur gallop or rub. Abdomen is soft, non distended. Extremities are free of edema. Neuro: Left visual field cut. Objective Labs 09/29/24 05:55 09/29/24 05:55 Labs: Laboratory Results - last 24 hr 09/28/24 09/28/24 09/29/24 18:45 21:23 05:55 WBC 6.7 RBC 3.34 L Hgb 10.7 L Hct 30.6 L MCV 91.8 MCH 31.9 MCHC 34.8 RDW 13.0 Plt Count 202 Neut % (Auto) 75.1 H Lymph % (Auto) 14.4 L [place] % (Auto) 8.1 Eos % (Auto) 1.4 L Baso % (Auto) 1.0 Neut # (Auto) 5000 Lymph # (Auto) 1000 L [place] # (Auto) 500 Eos # (Auto) 100 Baso # (Auto) 100 Sodium 129 L 134 L Potassium 3.1 L 3.6 Chloride 103 103 Carbon Dioxide 20 L 23 BUN 15 15 Creatinine 0.94 1.00 Estimated GFR 59 L 55 L BUN/Creatinine Ratio 16.0 15.0 Glucose 128 H 103 H Calcium 6.9 L 8.2 L Magnesium 1.8 2.0 Stl C. cayetanensis PCR Not detected Stool Rotavirus (PCR) Not detected Stool Adenovirus (PCR) Not detected Stool Astrovirus (PCR) Not detected Stool Cryptosporidium PCR Not detected Stl E.coli Shiga Tox PCR Not detected St Sh/Enteroin Ecoli PCR Not detected Stl Enterotoxigenic E PCR Not detected Stool EPEC (PCR) Not detected Stl E. histolytica PCR Not detected Stool Giardia Lamblia PCR Not detected Stool Sapovirus (PCR) Not detected Stl P. shigelloides PCR Not detected St Y.enterocolitica PCR Not detected Stool Vibrio (PCR) Not detected Stl Vibrio cholerae PCR Not detected Stl Enteroaggr Ecoli PCR Not detected Stl Norovirus GI/GII PCR Not detected Campylobacter (PCR) Not detected C. difficile Tox (PCR) Not detected Salmonella (PCR) Not detected PFSH Medical History Easy bruisability Overactive bladder Fall from ground level (~02/2019) Arthritis Pneumonia Cellulitis TIA (transient ischemic attack) (08/14/13) Hypertension Hyperthyroidism Diabetes type 2, controlled Surgical History History of lumbar surgery (~2002) Hx of bilateral cataract extraction History of arthroplasty of right knee (~2006) History of thyroidectomy (~1955) History of hysterectomy Social History household members: children Smoking Status: Never smoker alcohol intake: former Assessment & Plan Assessment & Plan narrative: 1. Acute CVA, present on admission and active. - CT head without contrast notable for subacute infarct with vasogenic edema, NIH 5 as noted below. - MR just after admission shows R parietal-occiptal acute to subacute infarct. - prior TTE without evidence for PFO. Likely embolic due to afib with recent witholding of anticoagulation. Limited TTE today without significant change and no apparent thrombus/clot. - PT/OT/Speech ordered - restart anticoagulation in 1-2 weeks given vasogenic edema on CT - NIH Qshift - carotid doppler without clinically significant carotid stenosis. 2. Possible acute metabolic encephalopathy, present on admission and active. - UA with many WBC, no bacteria, does have some increased frequency she thinks - continue ceftriaxone 1g q24 hours - follow up urine cultures and blood cultures. - unclear if acute changes are metabolic or due to possible CVA as noted above - GI panel if diarrhea, no overt diarrhea here thus far but did take immodium this AM 3. Acute cystitis, present on admission and active. - as noted above in #2 4. HTN, chronic and stable. We will allow for permissive hypertension. - resume home medications of lisinopril 20 mg BID, amlodipine 5 mg. Diurese prn only as at home. 5. HLD, present on admission and stable. - continue home statin atorvastatin 10 mg 6. Chronic atrial fibrillation, present on admission and stable. - not currently on rate control or anticoagulation - AC discussed above. 7. Recent history of colitis and active. - s/p completion of oral antibiotics. If diarrhea develops repeat GI panel. 8. Mild acute on chronic hyponatremia and active. - Na 127 on admit, improved to 130 today without intervention. 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 Differential includes hypovolemia with recent diarrhea and SIADH with vasogenic edema as noted above. 9. Hypomagnesemia, hypokalemia, present on admission and improved. - 0.6 today, repleted with 4g IV Mg today. Continue to follow. - K 2.9 repleted today as well after Mg repletion. PLAN: -convert to oral antibiotics. -anticipate discharge to nursing home facility. Code: DNR, surrogate is patient's son DVT: Lovenox for now, resume AC as noted above. Time-Based Coding :: [TOTAL MINUTES] spent with patient and on the chart (including review of chart, obtaining history, exam, reviewing outside data, placing orders, documenting exam and treatment plan, and counseling patient) on [DATE]. Quality VTE Deep Vein Thrombosis/Pulmonary Embolism Present on Admission: No
[2024-09-29] MEDS: AMLODIPINE 5 MG TABLET PO (08:20)
[2024-09-29] MEDS: lisinopriL 20 MG TABLET PO ×2 (08:20→21:33)
[2024-09-29] MEDS: LOPERAMIDE 2 MG CAPSULE PO (08:20)
[2024-09-29] MEDS: ENOXAPARIN 30 MG/0.3 ML SYRINGE SUBCUT (08:21)
--- NOTE | 2024-09-29 11:37 | OT.IP.TRT ---
Current Diagnoses Cerebral infarction, unspecified (09/27/24) Occupational Therapy Treatment Note M2 OT-IP Current Condition Start: 09/28/24 12:41 Freq: Status: Active Protocol: Document 09/28/24 12:43 [facility] (Rec: 09/28/24 13:06 [facility] Desktop) Occupational Therapy Current Condition Current Condition Evaluation Date 09/28/24 Treatment Diagnosis CVA Diagnosis Onset Date 09/27/24 M3 OT- IP Subjective and Pain Start: 09/28/24 12:41 Freq: Status: Active Protocol: Document 09/29/24 12:40 [facility] (Rec: 09/29/24 12:52 [facility] Desktop) OT- Subjective Occupational Therapy Visit Type Type Treatment Note Visit Start Time 10:59 Visit Stop Time 11:37 Occupational Therapy Visit Comments Patient Comments Pt agreed to do cognitive assessment. Patient/Caregiver Goals To go home. OT Pain Assessment Pain When Pain Assessed At Rest Pain Present Pain Present Denied Pain M4 OT- IP ADL's Start: 09/28/24 12:41 Freq: Status: Active Protocol: Document 09/28/24 12:43 [facility] (Rec: 09/28/24 13:06 [facility] Desktop) OT [id number] Comments OT Self-Feeding Comments Not at meal time. OT ADL-Grooming Comments OT Grooming Comments Not performed. OT ADL-Oral Care Comments Oral Care Comments Not performed. OT ADL-Dressing General Eval Lower Body Dressing Ability Total Assistance Areas Needing Assistance Socks OT ADL-Toileting Comments OT Toileting Comments Pt is dependent at this time. OT ADL-Bathing Comments OT Bathing Comments Pt states just sponges off while at the sink at home prior to CVA. M5 OT- IP IADL's Start: 09/28/24 12:41 Freq: Status: Active Protocol: Document 09/28/24 12:43 [facility] (Rec: 09/28/24 13:06 [facility] Desktop) OT-Instrumental Activities of Daily Living Money Management Money Management Caregiver Provides Assistance Meal Preparation Meal Preparation Caregiver Provides Assist Grinder And Honer Operator Automatic Grinder And Honer Operator Automatic Caregiver Provides Assist M6 OT- IP Functional Cognition Start: 09/28/24 12:41 Freq: Status: Active Protocol: Document 09/29/24 12:40 [facility] (Rec: 09/29/24 12:52 [facility] Desktop) Cognitive Factors Limiting Selfcare Function Cognitive Ability Level of Alertness Alert,Confusional State Patient Orientation Name,Year,Day of Week Attention Span Ability Capable of Focused Attention, Unable to Sustain Attention Ability to Follow Commands Able to Follow One Step Commands with Increased Time, Able to Follow One Step Commands with Repetition Memory Description Short Term Impaired,Working Impaired Cognitive Tests SLUMS Pt scored 12/30 which implies dementia, however pt has had right parietal-occipital CVA which probably has also affected her cognition. Pt able to recall 7 animals in one minute, recall 2/5 objects after time passed, not able to draw the number on the clock of hour hand correctly after time given ( pt neglecting writing number on the left of the clock initially). Pt able to answer 1/4 questions right after paragraph read. Cognitive Comments Cognitive Assessment Comments Pt getting confused and thinking she is at home even though therapist was able to let her know that she is in the hospital. Pt in very distracted and not able to stay on topic well. Pt tends to talk about her routine and life at home. Pt however is aware that she is not thinking as well as she usually does. Pt was upset that she having difficulty with calculating numbers. Pt states that 10-15 years ago that she has had sun downing, but that she no longer has it . Chair alarm placed and pt has decreased safety awareness for needs. M7 OT- IP Mobility and Balance Start: 09/28/24 12:41 Freq: Status: Active Protocol: Document 09/28/24 12:43 [facility] (Rec: 09/28/24 13:06 [facility] Desktop) OT- Bed Mobility Assessment Supine to Sit Supine to Sit Assist Maximum Assistance,2 Person Assistance OT-Transfer Assessment Comments Mobility Comments Attempted to get pt to the edge of the bed x2, MAX AX 2 and pt not able to complete and states feels like she is falling. BP supine 122/41. Repositioned pt back to supine . M8 OT- IP Objective Assessments Start: 09/28/24 12:41 Freq: Status: Active Protocol: Document 09/28/24 12:43 [facility] (Rec: 09/28/24 13:06 [facility] Desktop) OT Gross Range of Motion Upper Extremity Range of Motion ROM Impairments grossly WFL, decreased as end ROM OT Strength Comments Strength Comments 4-/5 for available ROM OT Sensation Assessment Comments Summary Comments Decreased left shoulder and elbow to deep and light touch. M9 OT- IP Assessment and Plan Start: 09/28/24 12:41 Freq: Status: Active Protocol: Document 09/29/24 12:40 [facility] (Rec: 09/29/24 12:52 [facility] Desktop) OT Summary Assessment and Plan Potential Rehabilitation Potential Fair Analytic Complexity at Evaluation Moderate Summary OT Impairments Range of Motion,Strength, Balance,Functional Cognition, Functional Mobility,Self- Feeding,Grooming,Dressing, Toileting,Bathing,Toilet Transfers,Shower Transfers, Activity Tolerance Progress Towards Goals Slow Progress due to Medical Issues,Slow Progress due to Activity Tolerance,Slow Progress due to Cognition Assessment Summary Pt scored 12/30 on the SLUMS. Pt easily distracted and having difficulty to stay on topic. In addition pt thinking that she is home, even though orientated pt. At this time, best for pt to go to skilled rehab. Goals Self-Feeding Goal Independent Grooming Goal Independent Dressing Goal Minimal Assistance Toileting Goal Minimal Assistance Bathing Goal Moderate Assistance Toilet Transfer Goal Minimal Assistance Shower Transfer Goal Moderate Assistance OT-Other Goals Goals will change when able to mobilize pt. Days to Meet Goals 20 Frequency of Treatment Other frequency 5x/week Treatment Plan OT Treatment Plan ADL Training,Functional Cognition Training,Functional Mobility,Vision Retraining, Patient/Family Education, Discharge Planning Other Treatment Recommendations and Next transfer to [facility] with MODA x2 Treatment Focus with FWW Discharge Recommendations OT Discharge Recommendations SNF Rehab Transportation Needs at Discharge Wheelchair/Cabulance
[2024-09-29] MEDS: cephALEXin 250 MG CAPSULE 500 MG PO ×2 (12:19→21:20)
--- NOTE | 2024-09-29 13:48 | CM.DPNOTE ---
Addendum entered by JOSHUA Pruett 09/29/24 16:02: PATIENT FINANCIAL COUNSELOR met briefly with pt in room. pt not oriented to place/date/circumstance. pt able to express interesting in not returning home. agreeable to CM team working with Luke. pt not able to hold appropriate DCP conversation at this time due to confusion. lengthy DCP conversation with karin Butler. ([phone]). Luke reports having a health crisis of his own and unable to come in in person (sounds like poorly managed diabetes per his description). Luke very anxious (potential manic) about the DCP, pressured speech, frequent interruptions, unclear if son was able to listen/communicate appropriately at this time . PATIENT FINANCIAL COUNSELOR attempted to educate and calm Luke. Luke reports frustration with her not being able to return back to . next preference would be 1) [facility] 2) [facility]. Luke reports he will complete the Medicaid LTC application online for LTC placement at an [facility]. CM team will complete and fax expedited request once completed. PATIENT FINANCIAL COUNSELOR attempted to explain medicaid spenddown program, unsure if karin Butler understood. PATIENT FINANCIAL COUNSELOR attempted to answer various questions to best of ability. Luke over the phone had calmer tone of voice, less pressured speech, and reported feeling calmer and relieved after conversing with this PATIENT FINANCIAL COUNSELOR and will submit [facility] LTC Asa. PATIENT FINANCIAL COUNSELOR met with neighbor Ruthann in [facility]. PATIENT FINANCIAL COUNSELOR did not disclose PIH due to not having pt's expressed permission for this CM team to share with Ruthann. Ruthann reports she's been helping pt at home while karin Butler works. Ruthann asked questions about Medicaid LTC/spenddown. PATIENT FINANCIAL COUNSELOR provided literature for her to read. Ruthann claims karin Butler is in a MH crisis due to the stress of caring for his mom and the unknowns of the plan. PATIENT FINANCIAL COUNSELOR provided community resources/MDOT information to Ruthann, encouraged her to call 911 if Ruthann believes he's a danger to himself others. NEED referral to [facility], [facility], and to send expedited [facility] LTC request form once asa completed. will continue to follow closely, much DCP coordination needed at this time SL Original Note: DCP note PATIENT FINANCIAL COUNSELOR reviewed EMR. OT reports that while pt is moving better, continue to rec SNF over acute. [facility] 06/07. PATIENT FINANCIAL COUNSELOR met with APS safety investigator/cause analyst Nati Farley (p [phone] and email [email or web address]). provided asked for clinicals. per Nati, no current hold on son interaction. asked for updates on pt's dc plan to be able to follow her. per Nati, pt expressed interest in moving into [facility] after SNF, no longer wants to live with son. Per Beth from , would not be able to accept pt back after previous admission. pt dc'd from 07/20/24, (71 days) and therefore would qualify for SNF under [facility] again. PATIENT FINANCIAL COUNSELOR to meet with pt/son to discuss DCP SNF preferences. will inquire about Medicaid LTC if pt qualifies. JOSHUA Pruett
--- NOTE | 2024-09-29 15:05 | PT.IPTN ---
Current Diagnoses Cerebral infarction, unspecified (09/27/24) Physical Therapy Treatment Note M2 PT-IP Current Condition Start: 09/28/24 10:57 Freq: NEEDED Status: Active Protocol: Document 09/28/24 10:36 AB (Rec: 09/28/24 13:06 AB [id number]) Physical Therapy Current Condition Current Condition Evaluation Date 09/28/24 Treatment Diagnosis R CVA; difficulty in walking Onset Date 09/27/24 M3 PT-IP Subjective Start: 09/28/24 10:57 Freq: NEEDED Status: Active Protocol: Document 09/29/24 15:05 AB (Rec: 09/29/24 16:18 AB [id number]) Subjective Physical Therapy Visit Type Type Treatment Note Visit Start Time 15:05 Visit Stop Time 15:25 Number of MASTER DYER Visits 0 M4 PT-IP Mobility and Gait Start: 09/28/24 10:57 Freq: NEEDED Status: Active Protocol: Document 09/29/24 15:05 AB (Rec: 09/29/24 16:18 AB [id number]) PT-Transfer Assessment Sit to and From Stand Sit to and from Stand Minimal Assistance,Moderate Assistance,1 Person Assistance ,Use of Upper Extremities Equipment Transfer Assistive Device Gait Belt,Front Wheeled Walker Orthotic/Prosthetic Devices or Brace: No Transfers Transfer Destination Chair,Toilet Transfer Technique ambulated Transfer Ability Level of Assist Minimal Assistance,1 Person Assistance,Use of Upper Extremities Comments Mobility Comments pt sitting on the chair and is confused. stated that she has to walk and go home. Assisted pt up and completed sit to stand min A and cues. pt then requested to use the toilet upon standing and ambulated to the toilet using FWW min A and cues. pt tends to move FWW aside and reaches for grab bar/wall during turning into the toilet. max A for controlled descent to the toilet. sit to stand from the toilet mod A and cues and pt ambulated back to chair using fWW min A and cues. pt continues to have confusion and wants to walk home. redirected pt and positioned on the chair. call light and table placed within reach. chair alarm on. Gait Assessment Gait Gait Assistance Required: Minimum Assistance,1 Person Assist Distance (Feet) 12 Able to Maintain Weight Bearing Status Yes During Gait Assistive Devices Assistive Device Gait Belt,Front Wheeled Walker Orthotic/Prosthetic Devices or Brace: No Gait Deviations General Gait Pattern Antalgic,Decreased Stride Length,Decreased Feet Clearance Factors Limiting Gait Function Factors Limiting Gait Function Decreased Activity Tolerance, Decreased Strength,Difficulty Following Directions,Limited Range of Motion,Poor Balance, Poor Safety Awareness M5 PT-IP Objective Assessments Start: 09/28/24 10:57 Freq: NEEDED Status: Active Protocol: Document 09/28/24 10:36 AB (Rec: 09/28/24 13:06 AB [id number]) Orientation Orientation/Cognition Level of Alertness Confusional State Orientation Name Language Function Ability Hard of Hearing Safety Awareness Decreased Safety Awareness Memory Description Short Term Impaired,Websphere Portal Developer Impaired Gross Range of Motion Lower Extremity ROM Assessment Within Functional Limits Strength Lower Extremity Strength Assessment Left Impaired Hip 3+/5 Knee 3+/5 Ankle 3-/5 Sensation Assessment Sensation Gross Sensation Left UE Impaired Light Touch Impaired Proprioception (Position) Impaired Muscle Tone Muscle Tone WNL Yes M6 PT-IP Treatment Start: 09/28/24 10:57 Freq: NEEDED Status: Active Protocol: Document 09/29/24 15:05 AB (Rec: 09/29/24 16:18 AB [id number]) Physical Therapy Treatment Education Education Provided Safety M7 PT-IP Assessment and Plan Start: 09/28/24 10:57 Freq: NEEDED Status: Active Protocol: Document 09/29/24 15:05 AB (Rec: 09/29/24 16:18 AB [id number]) PT Summary Assessment and Plan Potential Rehabilitation Potential Fair Summary Impairments Pain,ROM,Strength,Balance, Coordination,Sensation,Tone, Cognition,Bed Mobility, Transfers,Gait,Activity Tolerance Progress Towards Goals Slow Progress due to Medical Issues,Slow Progress due to Activity Tolerance Assessment Summary pt able to ambulate today using FWW min to mod A and max cues but with increase confusion affecting level of assistance and safety awareness. pt will benefit from SNF rehab to improve overall strength and function. Goals Bed Mobility Goal Minimal Assistance Transfer Goal Minimal Assistance,Front Wheeled Walker Gait Goal Minimal Assistance,Front Wheel Walker Gait Distance 25 Other Goals improve bed mobility, transfers, ambulation using FWW ~ 50 ft SBA up/down 2 steps B rails SBA Days to Meet Goals 10 Frequency of Treatment Frequency Of Treatment Once a Day Treatment Plan Physical Therapy Treatment Plan Bed Mobility Training,Transfer Training,Gait Training, Therapeutic Exercise,Balance Retraining,Discharge Planning, Hot or Cold Pack,Neuromuscular Re-ed,Coordination Retraining ,Manual Therapy Precautions Other Precautions falls Recommendations To Nursing Amount of Assist Needed 1 Person Assist Discharge Recommendations PT Discharge Recommendations SNF Rehab Transportation Needs at Discharge Wheelchair/Cabulance - PT assist 1
--- NOTE | 2024-09-29 15:25 | OT.IP.TRT ---
Current Diagnoses Cerebral infarction, unspecified (09/27/24) Occupational Therapy Treatment Note M2 OT-IP Current Condition Start: 09/28/24 12:41 Freq: Status: Active Protocol: Document 09/28/24 12:43 [facility] (Rec: 09/28/24 13:06 [facility] Desktop) Occupational Therapy Current Condition Current Condition Evaluation Date 09/28/24 Treatment Diagnosis CVA Diagnosis Onset Date 09/27/24 M3 OT- IP Subjective and Pain Start: 09/28/24 12:41 Freq: Status: Active Protocol: Document 09/29/24 15:41 [facility] (Rec: 09/29/24 15:55 [facility] Desktop) OT- Subjective Occupational Therapy Visit Type Type Treatment Note Visit Start Time 14:44 Visit Stop Time 15:25 Occupational Therapy Visit Comments Patient Comments Pt agreed to get up to use the bathroom. Patient/Caregiver Goals Pt insistent on going home and that her son is going to pick her up. OT Pain Assessment Pain When Pain Assessed At Rest Pain Present Pain Present Denied Pain M4 OT- IP ADL's Start: 09/28/24 12:41 Freq: Status: Active Protocol: Document 09/29/24 15:41 [facility] (Rec: 09/29/24 15:55 [facility] Desktop) OT ADL-Toileting General Evaluation Toileting Ability Moderate Assistance Areas Needing Assistance Manage Clothing Comments OT Toileting Comments Pt needing assist for her balance and also assist to help rona/doff the brief over her hips. Pt needing MODA to stand from the toilet to the FWW and PARISH to walk in the room with the FWW. M5 OT- IP IADL's Start: 09/28/24 12:41 Freq: Status: Active Protocol: Document 09/28/24 12:43 [facility] (Rec: 09/28/24 13:06 [facility] Desktop) OT-Instrumental Activities of Daily Living Money Management Money Management Caregiver Provides Assistance Meal Preparation Meal Preparation Caregiver Provides Assist Electric System Operator Electric System Operator Caregiver Provides Assist M6 OT- IP Functional Cognition Start: 09/28/24 12:41 Freq: Status: Active Protocol: Document 09/29/24 15:41 [facility] (Rec: 09/29/24 15:55 [facility] Desktop) Cognitive Factors Limiting Selfcare Function Cognitive Ability Level of Alertness Alert,Confusional State Cognitive Comments Cognitive Assessment Comments Pt still confused and insisting on going home. Pt hard to redirect at this time. Notified pt's nurse, chair alarm on the pt. M7 OT- IP Mobility and Balance Start: 09/28/24 12:41 Freq: Status: Active Protocol: Document 09/29/24 15:41 [facility] (Rec: 09/29/24 15:55 [facility] Desktop) OT-Transfer Assessment Sit to and From Stand Sit to and from Stand Minimal Assistance,Moderate Assistance,1 Person Assistance Transfers Transfer Ability Minimal Assistance Technique Transfer Destination Chair Transfer Technique Stand Step Pivot Devices Transfer Assistive Devices Gait Belt,Front Wheeled Walker Comments Mobility Comments MODA to stand to the FWW and PARISH to walk in the room to the bathroom ad back to the recliner with the FWW. Pt needing cues to keep the FWW in front of her at all times. OT- Balance Assessment Sitting Balance and Reactions Static Sitting Balance Ability Good Dynamic Sitting Balance Ability Good Standing Balance and Reactions Static Standing Balance Ability Fair Dynamic Standing Balance Ability Fair M8 OT- IP Objective Assessments Start: 09/28/24 12:41 Freq: Status: Active Protocol: Document 09/28/24 12:43 [facility] (Rec: 09/28/24 13:06 [facility] Desktop) OT Gross Range of Motion Upper Extremity Range of Motion ROM Impairments grossly WFL, decreased as end ROM OT Strength Comments Strength Comments 4-/5 for available ROM OT Sensation Assessment Comments Summary Comments Decreased left shoulder and elbow to deep and light touch. M9 OT- IP Assessment and Plan Start: 09/28/24 12:41 Freq: Status: Active Protocol: Document 09/29/24 15:41 [facility] (Rec: 09/29/24 15:55 [facility] Desktop) OT Summary Assessment and Plan Potential Rehabilitation Potential Good Analytic Complexity at Evaluation Moderate Summary OT Impairments Range of Motion,Strength, Balance,Functional Cognition, Functional Mobility,Self- Feeding,Grooming,Dressing, Toileting,Bathing,Toilet Transfers,Shower Transfers, Activity Tolerance Progress Towards Goals Slow Progress due to Medical Issues,Slow Progress due to Activity Tolerance,Slow Progress due to Cognition Assessment Summary Able to see pt for second time to access her mobility needs as pt willing to get up. Pt will benefit from skilled rehab to maximize her mobility needs and then benefit from / assist or memory care. Goals Self-Feeding Goal Independent Grooming Goal Independent Dressing Goal Standby Assistance Toileting Goal Standby Assistance Bathing Goal Minimal Assistance Toilet Transfer Goal Standby Assistance Shower Transfer Goal Standby Assistance Days to Meet Goals 19 Frequency of Treatment Other frequency 5x/week Treatment Plan OT Treatment Plan ADL Training,Functional Cognition Training,Functional Mobility,Vision Retraining, Patient/Family Education, Discharge Planning Other Treatment Recommendations and Next Stand at the sink with FWW for Treatment Focus ADL needs. Discharge Recommendations OT Discharge Recommendations SNF Rehab Transportation Needs at Discharge Wheelchair/Cabulance
--- NOTE | 2024-09-29 16:20 | ST.IPDYTX ---
Visit Care Team Role Provider Type Jennifer Rios MD Primary Care Provider Physician Specialty: Internal Medicine Address: [place], [address] Email: Salina Truong DO Emergency Provider Physician Referring Provider Specialty: Emergency Medicine Address: [address] [place] [address], [id number] Email: [email or web address] DO Admit Provider Physician Attending Provider Specialty: Internal Medicine Address: [address] [place] [address], [id number] Email: [email or web address] LINE MAINTAINER SECTION Dysphagia Treatment LINE MAINTAINER SECTION Dysphagia Treatment Start: 09/29/24 16:08 Freq: Status: Active Protocol: Document 09/29/24 16:10 SS (Rec: 09/29/24 16:19 SS Desktop) Dysphagia Treatment Session Time Visit Start Time 14:30 Visit Stop Time 15:00 Total Visit Minutes 30 Visit Information Visit Number 2 Setting Assessment Location Acute Care Patient Information Identification Type Name Subjective Observations Chart reviewed. Consulted RN. RN reported no overt concerns re: swallowing. Pt was seated upright in armchair upon LINE MAINTAINER SECTION entry. She was alert and oriented x3. She had some difficulty answering LINE MAINTAINER SECTION questions in regards to PLOF and medical history, though it is unclear if this is her baseline of a new impairment s /p CVA. Treatment Liquids Trialed Thin (IDDSI 0) Solids Trialed Purred (IDDSI 4),Soft & Bite- sized (IDDSI 6),Regular (IDDSI 7) Administration Type Cup Single Sip,Cup Consecutive Sips,Straw,Self-Feeding Treatment Activities Therapeutic trials of thin liquid (single and sequential sips) via cup and straw, puree , soft and bite sized, and regular textures with dynamic assessment of s/sx of dysphagia. Communicated with RN and MD re: POC and recommendations. The IDDSI Framework Protocol: IDDSI.1 Assessment Patient Response to Treatment Good Assessment of Improvement Chart reviewed. Spoke with RN prior to session and RN reported no overt concerns. No family at bedside. Pt reported she typically eats a softer food diet at home. Pt denied any increase in swallowing difficulty or hx of dysphagia. Pt presented with trials of: thin liquids, puree , soft and bite sized, and regular textures. Oral phase was WFL. Mastication was timely and no oral residue or pocketing was observed. Pharyngeal phase cannot be objectively assessed at bedside though appeared timely . Pt demonstrated no signs/ symptoms of aspiration/ penetration. Pt self-fed, though may need intermittent supervision if cognition waxes and wanes. Pt does appear to have at least a mild cognitive impairment. No s/sx of speech/ language impairments. She was able to follow 1-step directions, though not beyond the 1-step level. She was oriented to x3. She had some difficulty when answering questions re: prior level of function as well as medical history pertinent to swallowing. Given that the plan is to discharge to SNF, and then move to [facility] long-term , anticipate that pt would benefit from treatment targeting cognitive- communication at next level of care to facilitate safety and independence. Recommendations Recommendations Downgrade Diet Order Comment Baseline diet Liquids Order Thin (IDDSI 0) Diet Order Soft & Bite-sized (IDDSI 6) Medication Recommendations As Tolerated Additional Dietary Needs Chopped Food,Encourage to Self -Feed Aspiration Precautions Recommended Precautions Upright at 90 Degrees Treatment Plan Placement Recommendation after Discharge [facility] Facility,[facility] Appropriate for Continued Therapy No Therapy Recommendations Currently, pt does not present with indications of oropharyngeal dysphagia. Oral phase was largely timely despite wearing dentures. Pharyngeal phase cannot be objectively assessed at bedside though subjectively appeared timely and coordinated. No overt s/sx of aspiration observed with all PO trials. Recommend pt continue baseline diet of soft and bite-sized and thin liquids with adherence to aspiration precautions above. Pt may benefit from treatment targeting cognition at next level of care. Order discharged at this time following discussion with RN and MD. Will follow up as needed if there is a change in pt condition.
[2024-09-30] VITALS (8 sets, daily range): BP systolic 151–170; BP diastolic 45–78; PULSE 61–84; RESP 17–20; TEMP 35.9–36.6; O2SAT 98–99
[2024-09-30 06:11] LABS: Add Manual Diff / Slide Review NO; Basophils Absolute Auto 0 /uL (0-100); Basophils Percent Auto 0.7 % (0-2); Eosinophils Absolute Auto 200 /uL (0-450); Eosinophils Percent Auto 3.4 % (2-4); Hematocrit 27.6 % (36-46); Hemoglobin 9.6 g/dL (12.0-16.0); Lymphocytes Absolute Auto 600 /uL (1100-4500); Lymphocytes Percent Auto 10.4 % (25-40); Mean Corpuscular HGB Conc 34.7 % (30-36); Mean Corpuscular Hemoglobin 31.9 PG (26-34); Mean Corpuscular Volume 91.9 fL (80-100); Monocytes Absolute Auto 500 /uL (0-900); Monocytes Percent Auto 8.1 % (3-14); Neutrophils Absolute Auto 4800 /uL (1500-7000); Neutrophils Percent Auto 77.4 % (50-75); Platelet Count 192 X10^3/uL (150-400); Red Cell Distribution Width 13.3 % (11.6-14.8); White Blood Cell Count 6.2 X10^3/uL (4.5-11.0)
[2024-09-30] MEDS: cephALEXin 250 MG CAPSULE 500 MG PO ×3 (06:11→21:12)
[2024-09-30 06:21] LABS: BUN Creatinine Ratio 12.5 (6-22); Blood Urea Nitrogen 12 mg/dL (7-17); Calcium 8.4 mg/dL (8.4-10.2); Carbon Dioxide 26 mmol/L (22-32); Chloride 105 mmol/L (98-107); Estimated Glomerular Filt Rate 57 mL/min (>60); Glucose 82 mg/dL (70-99); HEMOLYSIS < 15 (0-50); Magnesium 1.7 mg/dL (1.6-2.3); Potassium 3.4 mmol/L (3.4-5.1); Sodium 135 mmol/L (137-145)
[2024-09-30] MEDS: ENOXAPARIN 30 MG/0.3 ML SYRINGE SUBCUT (08:34)
[2024-09-30] MEDS: AMLODIPINE 5 MG TABLET PO (08:35)
[2024-09-30] MEDS: ACETAMINOPHEN 325 MG TABLET 650 MG PO ×2 (08:35→21:09)
[2024-09-30] MEDS: lisinopriL 20 MG TABLET PO ×2 (08:36→21:11)
[2024-09-30] MEDS: POTASSIUM CHLORIDE IN WATER 10 MEQ/100 ML PIGGYBACK 100 MEQ IV (12:43)
[2024-09-30] MEDS: MAGNESIUM SULFATE 2 GM/50 ML PIGGYBACK IV (13:21)
--- NOTE | 2024-09-30 13:41 | PM.PN.1 ---
Subjective Subjective Interval history: S: she has a pill or food stuck in the back of her throat. No stridor or dyspnea. No nausea. She is having some regurgitation. Exam Vital Signs (past 8 hours): - 09/30/24 08:00 09/30/24 08:00 09/30/24 08:36 Temperature 97.5 F L Pulse Rate 61 73 Respiratory Rate 20 Blood Pressure 151/66 H 151/66 H Pulse Oximetry 98 Oxygen Delivery Method Room Air Oxygen Flow Rate 0 Oxygen Delivery Method Room Air Oxygen Flow Rate 0 Narrative Exam Narrative: NAD, alert and oriented. Fluent speech. Speaking without difficulty, no stridor. She did take a sip of water and appeared to regurgitate some liquid and tomato soup from lunch. Lungs are clear, normal rate and effort. Heart is regular, no murmur gallop or rub. Abdomen is soft, non distended. Extremities are free of edema. Objective Labs 09/30/24 05:47 09/30/24 05:47 Labs: Laboratory Results - last 24 hr 09/30/24 05:47 WBC 6.2 RBC 3.00 L Hgb 9.6 L Hct 27.6 L MCV 91.9 MCH 31.9 MCHC 34.7 RDW 13.3 Plt Count 192 Neut % (Auto) 77.4 H Lymph % (Auto) 10.4 L Ballard % (Auto) 8.1 Eos % (Auto) 3.4 Baso % (Auto) 0.7 Neut # (Auto) 4800 Lymph # (Auto) 600 L Ballard # (Auto) 500 Eos # (Auto) 200 Baso # (Auto) 0 Sodium 135 L Potassium 3.4 Chloride 105 Carbon Dioxide 26 BUN 12 Creatinine 0.96 Estimated GFR 57 L BUN/Creatinine Ratio 12.5 Glucose 82 Calcium 8.4 Magnesium 1.7 [facility] Medical History Easy bruisability Overactive bladder Fall from ground level (~02/2019) Arthritis Pneumonia Cellulitis TIA (transient ischemic attack) (08/14/13) Hypertension Hyperthyroidism Diabetes type 2, controlled Surgical History History of lumbar surgery (~2002) Hx of bilateral cataract extraction History of arthroplasty of right knee (~2006) History of thyroidectomy (~1956) History of hysterectomy Social History household members: children Smoking Status: Never smoker alcohol intake: former Assessment & Plan Assessment & Plan narrative: 1. Acute CVA, present on admission and active. - CT head without contrast notable for subacute infarct with vasogenic edema, NIH 5 as noted below. - MR just after admission shows R parietal-occiptal acute to subacute infarct. - carotid doppler without clinically significant carotid stenosis. 2. Possible acute metabolic encephalopathy, present on admission and improved. - UTI ruled out. 3. Acute cystitis, ruled out. 4. HTN, chronic and stable. We will allow for permissive hypertension. - resume home medications of lisinopril 20 mg BID, amlodipine 5 mg. 5. HLD, present on admission and stable. - continue home statin atorvastatin 10 mg 6. Chronic atrial fibrillation, present on admission and stable. - not currently on rate control or anticoagulation - AC discussed above. 7. Recent history of colitis and active. - s/p completion of oral antibiotics. If diarrhea develops repeat GI panel. 8. Mild acute on chronic hyponatremia and active. - Na 127 on admit, improved to 130 today without intervention. 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 Differential includes hypovolemia with recent diarrhea and SIADH with vasogenic edema as noted above. 9. Hypomagnesemia, hypokalemia, present on admission and improved. - 0.6 today, repleted with 4g IV Mg today. Continue to follow. - K 2.9 repleted today as well after Mg repletion. 10. Object stuck in back of throat with regurgitation, new and active. This began on September 30. She was not sure if this was food or pill. PLAN: -stop antibiotics. -anticipate discharge to senior living facility. -discussed possibility of upper endoscopy to rule out impaction with surgery. Code: DNR, surrogate is patient's son Time-Based Coding :: [TOTAL MINUTES] spent with patient and on the chart (including review of chart, obtaining history, exam, reviewing outside data, placing orders, documenting exam and treatment plan, and counseling patient) on [DATE]. Quality VTE Deep Vein Thrombosis/Pulmonary Embolism Present on Admission: No
--- NOTE | 2024-09-30 14:17 | CM.DPNOTE ---
DCP Cont Referrals sent via email to [facility] and [facility]. [facility] accepts. [facility] updated and agreeable. Transport needs to be arranged. Herman Butler has Saturday 09/30 off work, may be able to transport if patient can tolerate private vehicle. PASRR done. Plan: Discharge to [facility] anticipated tomorrow. [facility] does not offer transport, still needs arranging. BRIAN
--- NOTE | 2024-09-30 16:10 | OT.IP.TRT ---
Current Diagnoses Cerebral infarction, unspecified (09/27/24) Occupational Therapy Treatment Note M2 OT-IP Current Condition Start: 09/28/24 12:41 Freq: Status: Active Protocol: Document 09/28/24 12:43 [facility] (Rec: 09/28/24 13:06 [facility] Desktop) Occupational Therapy Current Condition Current Condition Evaluation Date 09/28/24 Treatment Diagnosis CVA Diagnosis Onset Date 09/27/24 M3 OT- IP Subjective and Pain Start: 09/28/24 12:41 Freq: Status: Active Protocol: Document 09/30/24 16:19 [facility] (Rec: 09/30/24 16:24 [facility] Desktop) OT- Subjective Occupational Therapy Visit Type Type Treatment Note Visit Start Time 16:07 Visit Stop Time 16:18 Occupational Therapy Visit Comments Patient Comments Pt states too tired to get up at this time as not been feeling well from having her pills go down the wrong way. Patient/Caregiver Goals To get better. OT Pain Assessment Pain When Pain Assessed At Rest Pain Present Pain Present Pain Reported M4 OT- IP ADL's Start: 09/28/24 12:41 Freq: Status: Active Protocol: Document 09/29/24 15:41 [facility] (Rec: 09/29/24 15:55 [facility] Desktop) OT ADL-Toileting General Evaluation Toileting Ability Moderate Assistance Areas Needing Assistance Manage Clothing Comments OT Toileting Comments Pt needing assist for her balance and also assist to help rona/doff the brief over her hips. Pt needing MODA to stand from the toilet to the FWW and PARISH to walk in the room with the FWW. M5 OT- IP IADL's Start: 09/28/24 12:41 Freq: Status: Active Protocol: Document 09/28/24 12:43 [facility] (Rec: 09/28/24 13:06 [facility] Desktop) OT-Instrumental Activities of Daily Living Money Management Money Management Caregiver Provides Assistance Meal Preparation Meal Preparation Caregiver Provides Assist Freelance Interpreter/Translator Freelance Interpreter/Translator Caregiver Provides Assist M6 OT- IP Functional Cognition Start: 09/28/24 12:41 Freq: Status: Active Protocol: Document 09/30/24 16:19 [facility] (Rec: 09/30/24 16:24 [facility] Desktop) Cognitive Factors Limiting Selfcare Function Cognitive Ability Level of Alertness Alert Patient Orientation Name,Place,Situation Attention Span Ability Capable of Focused Attention, Capable of Sustained Attention Ability to Follow Commands Able to Follow One Step Commands Memory Description Short Term Impaired Cognitive Comments Cognitive Assessment Comments Pt able to stay on task better for conversation. Pt not recalling working with OT yesterday but then when reminded did so. Able to talk to pt and her son of what to expect for rehab and items to bring. Spoke of strategies to be sure to eat when upright. M7 OT- IP Mobility and Balance Start: 09/28/24 12:41 Freq: Status: Active Protocol: Document 09/29/24 15:41 [facility] (Rec: 09/29/24 15:55 [facility] Desktop) OT-Transfer Assessment Sit to and From Stand Sit to and from Stand Minimal Assistance,Moderate Assistance,1 Person Assistance Transfers Transfer Ability Minimal Assistance Technique Transfer Destination Chair Transfer Technique Stand Step Pivot Devices Transfer Assistive Devices Gait Belt,Front Wheeled Walker Comments Mobility Comments MODA to stand to the FWW and PARISH to walk in the room to the bathroom ad back to the recliner with the FWW. Pt needing cues to keep the FWW on front of her at all times. OT- Balance Assessment Sitting Balance and Reactions Static Sitting Balance Ability Good Dynamic Sitting Balance Ability Good Standing Balance and Reactions Static Standing Balance Ability Fair Dynamic Standing Balance Ability Fair M8 OT- IP Objective Assessments Start: 09/28/24 12:41 Freq: Status: Active Protocol: Document 09/28/24 12:43 [facility] (Rec: 09/28/24 13:06 [facility] Desktop) OT Gross Range of Motion Upper Extremity Range of Motion ROM Impairments grossly WFL, decreased as end ROM OT Strength Comments Strength Comments 4-/5 for available ROM OT Sensation Assessment Comments Summary Comments Decreased left shoulder and elbow to deep and light touch. M9 OT- IP Assessment and Plan Start: 09/28/24 12:41 Freq: Status: Active Protocol: Document 09/30/24 16:19 [facility] (Rec: 09/30/24 16:24 [facility] Desktop) OT Summary Assessment and Plan Potential Rehabilitation Potential Good Analytic Complexity at Evaluation Moderate Summary OT Impairments Range of Motion,Strength, Balance,Functional Cognition, Functional Mobility,Self- Feeding,Grooming,Dressing, Toileting,Bathing,Toilet Transfers,Shower Transfers, Activity Tolerance Progress Towards Goals Slow Progress due to Medical Issues,Slow Progress due to Activity Tolerance,Slow Progress due to Cognition Assessment Summary Pt thinking better today and more aware of what is going on . Pt to go to skilled rehab when medically stable. Goals Self-Feeding Goal Independent Grooming Goal Independent Dressing Goal Standby Assistance Toileting Goal Standby Assistance Bathing Goal Minimal Assistance Toilet Transfer Goal Standby Assistance Shower Transfer Goal Standby Assistance Days to Meet Goals 19 Frequency of Treatment Other frequency 5x/week Treatment Plan OT Treatment Plan ADL Training,Functional Cognition Training,Functional Mobility,Vision Retraining, Patient/Family Education, Discharge Planning Other Treatment Recommendations and Next Stand at the sink with FWW for Treatment Focus ADL needs. Discharge Recommendations OT Discharge Recommendations SNF Rehab Transportation Needs at Discharge Wheelchair/Cabulance
--- NOTE | 2024-09-30 16:20 | PC.NURSE ---
The pt was able to take her am meds crushed in apple sauce, and then po mag and k+ was ordered and the pt was struggling to swallow po, dose was re-ordered for IV, pt recieved both mag and K+ IV. Rn was in room throughout the day to monitor pt. Pt was talking and breathing and coughing small amounts of flem intermittently, the hospitalist was notified and he went in the room and spent time assessing pt, no new orders where given except to continue to monitor, pt improved over the next couple hours.
--- NOTE | 2024-09-30 17:21 | PT.IPTN ---
Current Diagnoses Cerebral infarction, unspecified (09/27/24) Physical Therapy Treatment Note M2 PT-IP Current Condition Start: 09/28/24 10:57 Freq: NEEDED Status: Active Protocol: Document 09/28/24 10:36 [facility] (Rec: 09/28/24 13:06 [facility] [id number]) Physical Therapy Current Condition Current Condition Evaluation Date 09/28/24 Treatment Diagnosis R CVA; difficulty in walking Onset Date 09/27/24 M3 PT-IP Subjective Start: 09/28/24 10:57 Freq: NEEDED Status: Active Protocol: Document 09/30/24 17:21 [facility] (Rec: 09/30/24 17:33 [facility] Desktop) Subjective Physical Therapy Visit Type Type Treatment Note Visit Start Time 16:40 Visit Stop Time 17:21 Notes 41 min Physical Therapy Visit Comments Patient Comments She reports she need to go to the bathroom. Patient Goals Get better Therapy Pain Assessment Location left heel Intensity 5 Scale Used Osorio-Soriano (Faces) Description Aching,Tender Pain Behaviors Calling Out,Wincing Pain Management Techniques Modification of Treatment M4 PT-IP Mobility and Gait Start: 09/28/24 10:57 Freq: NEEDED Status: Active Protocol: Document 09/30/24 17:21 [facility] (Rec: 09/30/24 17:33 [facility] Desktop) PT-Bed Mobility Assessment Supine to Sit Supine to Sit Standby Assistance,Head of Bed Elevated,Bedrails PT-Transfer Assessment Sit to and From Stand Sit to and from Stand Minimal Assistance,Use of Upper Extremities Equipment Transfer Assistive Device Gait Belt,Front Wheeled Walker Transfers Transfer Destination Chair,Toilet Transfer Technique Stand Step Pivot Transfer Ability Level of Assist Contact Guard Assistance, Minimal Assistance Comments Mobility Comments Pt up to toilet in bathroom to urinate and for BM (soft, formed). Good use of the rail on the wall in the bathroom. Pt stayed up in recliner after gait and was set up for dinner. Chair alarm in use. Pt reminded to use call light to get nursing assist. Warm blankets used to manage her pain in sitting. Gait Assessment Gait Gait Assistance Required: Contact Guard Assist,Minimum Assistance Distance (Feet) 100 Assistive Devices Assistive Device Gait Belt,Front Wheeled Walker Gait Deviations General Gait Pattern Decreased Stride Length,Flexed Trunk Factors Limiting Gait Function Factors Limiting Gait Function Decreased Activity Tolerance, Poor Balance Comments Gait Comments pace of gait is slow, she has difficulty steering around obstacles on left side and needs assistance to manage the FWW, pt keeping both hands on handles of the FWW PT-Balance Assessment Sitting Balance and Reactions Static Sitting Balance Ability Good Dynamic Sitting Balance Ability Good Standing Balance and Reactions Static Standing Balance Ability Fair Dynamic Standing Balance Ability Fair Device Used FWW M5 PT-IP Objective Assessments Start: 09/28/24 10:57 Freq: NEEDED Status: Active Protocol: Document 09/28/24 10:36 [facility] (Rec: 09/28/24 13:06 AB [id number]) Orientation Orientation/Cognition Level of Alertness Confusional State Orientation Name Language Function Ability Hard of Hearing Safety Awareness Decreased Safety Awareness Memory Description Short Term Impaired,[place] Impaired Gross Range of Motion Lower Extremity ROM Assessment Within Functional Limits Strength Lower Extremity Strength Assessment Left Impaired Hip 3+/5 Knee 3+/5 Ankle 3-/5 Sensation Assessment Sensation Gross Sensation Left UE Impaired Light Touch Impaired Proprioception (Position) Impaired Muscle Tone Muscle Tone WNL Yes M6 PT-IP Treatment Start: 09/28/24 10:57 Freq: NEEDED Status: Active Protocol: Document 09/30/24 17:21 [facility] (Rec: 09/30/24 17:33 [facility] Desktop) Physical Therapy Treatment Education Education Provided Safety M7 PT-IP Assessment and Plan Start: 09/28/24 10:57 Freq: NEEDED Status: Active Protocol: Document 09/30/24 17:21 [facility] (Rec: 09/30/24 17:33 [facility] Desktop) PT Summary Assessment and Plan Summary Impairments Pain,ROM,Strength,Balance, Coordination,Sensation, Cognition,Bed Mobility, Transfers,Gait,Activity Tolerance Progress Towards Goals Slow Progress due to Medical Issues Assessment Summary Liz is alert and talkative today. She is progressing well this visit. She needs less assistance with mobility and was able to increase her distance of gait with the FWW. Continue to recommend SNF rehab at discharge to assist with her functional recovery. Her Son was present to observe therapy session today. Goals Bed Mobility Goal Minimal Assistance Transfer Goal Minimal Assistance,Front Wheeled Walker Gait Goal Minimal Assistance,Front Wheel Walker Gait Distance 25 Other Goals improve bed mobility, transfers, ambulation using FWW ~ 50 ft SBA up/down 2 steps B rails SBA Days to Meet Goals 10 Frequency of Treatment Frequency Of Treatment Once a Day Treatment Plan Physical Therapy Treatment Plan Bed Mobility Training,Transfer Training,Gait Training, Therapeutic Exercise,Balance Retraining,Discharge Planning, Neuromuscular Re-ed, Coordination Retraining Precautions Other Precautions falls Recommendations To Nursing Amount of Assist Needed 1 Person Assist Discharge Recommendations PT Discharge Recommendations SNF Rehab Transportation Needs at Discharge Private Vehicle,Wheelchair/ Cabulance - PT assist 1
[2024-09-30] MEDS: POTASSIUM CHLORIDE 10 MEQ TAB PO (18:23)
[2024-10-01 05:16] VITALS: BP 147/58; PULSE 68; RESP 16; TEMP 36; O2SAT 98
[2024-10-01 05:29] LABS: BUN Creatinine Ratio 11.6 (6-22); Blood Urea Nitrogen 13 mg/dL (7-17); Calcium 8.7 mg/dL (8.4-10.2); Carbon Dioxide 25 mmol/L (22-32); Chloride 104 mmol/L (98-107); Estimated Glomerular Filt Rate 48 mL/min (>60); Glucose 83 mg/dL (70-99); HEMOLYSIS < 15 (0-50); Magnesium 2.1 mg/dL (1.6-2.3); Potassium 3.8 mmol/L (3.4-5.1); Sodium 134 mmol/L (137-145)
[2024-10-01] MEDS: cephALEXin 250 MG CAPSULE 500 MG PO (06:57)
--- NOTE | 2024-10-01 07:38 | PC.WOUNDPHOT ---
Late entry from 09/29
--- NOTE | 2024-10-01 08:57 | P.DS_ITS ---
History of Present Illness History of Present Illness Chief complaint: weakness/confusion/fall Narrative: From H&P: This is an 88 F with PMH of HTN, hypothyroidism, paroxysmal afib (not on AC), DM2, CKD stage III who presents with 3 days of confusion and difficulty with ambulation. Per patient's son she normally has little issues at home and is quite active, however over the past 3 days she has had difficulty ambulating with her walker and is getting confused about where she is going even in her very small apartment. She seems like she forgets how to use her walker. No complaints of unilateral weakness or slurred speech. No headache or numbness. Denies chest pain, palpitations, cough, dyspnea on exertion. Slight increase in diarrhea recently and increased urinary frequency. Possible fever reported at home with home health aide though no additional info is available at this time. In further speaking with the patient's son she seems to have been favoring her right side somewhat with her walker. She did take immodium this morning given 3x stools overnight. In the ER, head CT showed possible subacute infarct with vasogenic edema. Normal WBC count on CBC, K mildly low at 3.2, Na low at 127, Cr much improved from prior admissions at 1.04. UA notable for 30-100 WBC, no bacteria, 1-5 RBC, was reflexed for culture. UDS negative. Flu/covid/rsv pcr negative. Patient was admitted for further evaluation of possible acute encephalopathy vs CVA. MR was ordered just after arrival to the floor confirming CVA. Discharge Providers Provider Date of admission: 09/27/24 16:59 Discharge Date: 10/01/24 Primary care physician: Jennifer Rios MD Consults: 09/27/24 16:22 Consult to [facility] - Weather Algorithm Scientist Stat Comment: Weather Algorithm Scientist Consult needed for:: Other reason (Comment) Comment: APS suspicion, home health 09/27/24 18:43 Consult to Occupational Therapy Evaluate & Treat Comment: Physician Instructions: Evaluate and treat Consult to Physical Therapy Evaluate & Treat Comment: Physician Instructions: Evaluate and Treat 09/27/24 19:24 Consult to Discharge Planning Routine Comment: Consult to Speech Therapy Evaluate & Treat Comment: Physician Instructions: Evaluate and treat 09/27/24 20:14 Consult to Speech Therapy Evaluate & Treat Comment: Physician Instructions: Evaluate and treat 09/28/24 10:00 Consult to Dietitian, Adult Routine Comment: Reason For Exam: Recent weight loss without trying Discharge provider: Catalino Perdomo MD Summary Hospital Course Discharge Diagnosis: 1. Acute CVA, present on admission and active. - CT head without contrast notable for subacute infarct with vasogenic edema, NIH 5 as noted below. - MR just after admission shows R parietal-occiptal acute to subacute infarct. - carotid doppler without clinically significant carotid stenosis. 2. Possible acute metabolic encephalopathy, present on admission and improved. - UTI ruled out. 3. Acute cystitis, ruled out. 4. HTN, chronic and stable. We will allow for permissive hypertension. - resume home medications of lisinopril 20 mg BID, amlodipine 5 mg. 5. HLD, present on admission and stable. - continue home statin atorvastatin 10 mg 6. Chronic atrial fibrillation, present on admission and stable. - not currently on rate control or anticoagulation -recommended delayed initiation of anticoagulation 2 weeks after her initial presentation owing to stroke size and vasogenic edema on imaging. 7. Recent history of colitis and active. - s/p completion of oral antibiotics. If diarrhea develops repeat GI panel. 8. Mild acute on chronic hyponatremia and improved. - Na 127 on admit, improved to 130 today without intervention. 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 Differential includes hypovolemia with recent diarrhea and SIADH with vasogenic edema as noted above. 9. Hypomagnesemia, hypokalemia, present on admission and improved. - 0.6 today, repleted with 4g IV Mg today. Continue to follow. - K 2.9 repleted today as well after Mg repletion. 10. Object stuck in back of throat with regurgitation, new and active. This began on September 30. She was not sure if this was food or pill. Hospital Course: She presented with a subacute decline in function. She was being treated for a urinary tract infection. Her UA did have WBCs but no bacteria with a negative culture. She did receive antibiotics while in the hospital but these are stopped at the time of discharge. Imaging did not indicate a subacute cortical stroke. The patient also had a potassium of 3.2 and a sodium of 127. The patient had evaluation for her acute stroke and was felt to be an appropriate candidate for long-term facility rehabilitation. She did have 1 episode of dysphagia with some difficulty swallowing and feeling like something was stuck in the back of her throat on September 30. This did clear. She did have blurred vision it was a manifestation of her stroke as well as diffuse weakness. Her initial examination indicated very mild left-sided weakness. She also appeared to have neglect and a left field visual cut. Blood pressure medications were held initially for permissive hypertension and we will be resumed at the time of discharge. Her laboratories in the day of discharge were stable. She was have a mild anemia with a hemoglobin of 9.6. Her sodium was 07/08/2034 and potassium was 3.4. This stroke is presumed to be cardioembolic from PAF. Recommendations are to consider starting warfarin approximately 2 weeks after her initial presentation on September 27. The delay and resumption of anticoagulation is due to size of stroke and evidence of vasogenic edema on imaging. She was at some risk for hemorrhagic conversion. Status at Discharge Cognitive/behavioral status at discharge: oriented Functional status at discharge: uses cane/walker Overall status at discharge: patient is progressing back to baseline Time Spent with Patient Time spent: Greater than 30 minutes Exam Vital Signs (past 8 hours): - 10/01/24 05:16 Temperature 96.8 F L Pulse Rate 68 Respiratory Rate 16 Blood Pressure 147/58 H Pulse Oximetry 98 Oxygen Flow Rate 0 Oxygen Delivery Method Room Air Oxygen Flow Rate 0 Narrative Exam Narrative: NAD, alert and oriented. Fluent speech. Lungs are clear, normal rate and effort. Heart is regular, no murmur gallop or rub. Abdomen is soft, non distended. Extremities are free of edema. Objective ECG Impression: ntervals Marlin Rate: 55 P: [place]: QRS: -8 QRSD: 84 T: 24 QT: 468 QTc: 447 Interpretive Statements Atrial fibrillation with slow ventricular response Inferior infarct , age undetermined Anteroseptal infarct , age undetermined Imaging Multiple studies:: Radiologist's impression: Carotid Doppler: 1. In the right carotid artery, there is mild less than 50% stenosis based on peak systolic velocity criteria. 2. In the left carotid artery, there is moderate 50-69% stenosis based on peak systolic velocity criteria. 3. Antegrade vertebral arteries. Brain MRI: Acute-subacute stroke in the right parieto-occipital lobes. Head CT: Moderate subacute right temporoparietal infarct. Cervical spine CT: No displaced fracture or traumatic subluxation. Cervical spondylosis. Chest x-ray: Cardiomegaly. Otherwise, no acute cardiothoracic process. Labs 09/30/24 05:47 10/01/24 04:55 Labs: Laboratory Results - last 24 hr 10/01/24 04:55 Sodium 134 L Potassium 3.8 Chloride 104 Carbon Dioxide 25 BUN 13 Creatinine 1.12 H Estimated GFR 48 L BUN/Creatinine Ratio 11.6 Glucose 83 Calcium 8.7 Magnesium 2.1 PFSH Medical History Easy bruisability Overactive bladder Fall from ground level (~02/2019) Arthritis Pneumonia Cellulitis TIA (transient ischemic attack) (08/14/13) Hypertension Hyperthyroidism Diabetes type 2, controlled Surgical History History of lumbar surgery (~2002) Hx of bilateral cataract extraction History of arthroplasty of right knee (~2006) History of thyroidectomy (~1955) History of hysterectomy Social History household members: children Smoking Status: Never smoker alcohol intake: former Discharge Assessment & Plan Assessment and Plan Assessment: 1. Acute CVA, present on admission and active. - CT head without contrast notable for subacute infarct with vasogenic edema, NIH 5 as noted below. - MR just after admission shows R parietal-occiptal acute to subacute infarct. - carotid doppler without clinically significant carotid stenosis. 2. Possible acute metabolic encephalopathy, present on admission and improved. - UTI ruled out. 3. Acute cystitis, ruled out. Plan of Treatment: Discharge to [facility] nursing facility for rehabilitation efforts. Discharge Plan Discharge Plan Patient Disposition: SNF Transfer to: [facility] Under care of provider: Dr. Mendez. Provider Discharge Comment: Stable for discharge to [facility] for rehabilitation efforts. Discharge orders & Medications Prescriptions: New atorvastatin 40 mg tablet 40 mg PO BEDTIME Qty: 30 6RF Continued CHOLECALCIFEROL (VITAMIN D3) (Vitamin D) 1,000 units PO QDAY Qty: 0 CYANOCOBALAMIN (#VITAMIN B12) 250 mcg PO QDAY Qty: 0 lisinopril 20 MG tablet 20 mg PO BID Qty: 0 furosemide [Lasix] 20 MG tablet 20 mg PO QDAY Qty: 0 Patient Comments: hasn't used in over a year amlodipine 5 mg Tablet 5 mg PO DAILY acetaminophen [Tylenol Extra Strength] 500 mg tablet 500 mg PO Q4H PRN (Reason: pain (scale score 1-3)) Qty: 30 0RF Rx Instructions: take 1 tablet by mouth every 4 hours as needed for pain alendronate 70 mg tablet 70 mg PO QWEEK loperamide 2 mg Capsule 2 mg PO QID PRN (Reason: Diarrhea) Qty: 30 0RF ondansetron 8 mg tablet,disintegrating 8 mg PO Q8H PRN (Reason: nausea and vomiting) Qty: 30 0RF Ensure Liquid 1 ea PO BID Qty: 5688 0RF Discontinued warfarin 1 mg tablet 1 mg PO DAILY atorvastatin 10 mg Tablet 10 mg PO BEDTIME ciprofloxacin HCl [Cipro] 500 mg tablet 500 mg PO BID Qty: 14 0RF metronidazole 500 mg tablet 500 mg PO TID Qty: 21 0RF Follow up/Referrals: Jennifer Rios MD [Primary Care Provider] - Diet/Activity/Treatments Diet: Low-sodium Liquid consistency: Normal/Thin Activity: As tolerated, and per PT and OT. Special Rehabilitation Services Reason for rehabilitation: Therapy following stroke Visit Report/Discharge Packet Stand Alone Forms: Patient Portal/API Discharge Data Primary Care Provider: Jennifer Rios Quality VTE Deep Vein Thrombosis/Pulmonary Embolism Present on Admission: No
--- NOTE | 2024-10-01 09:32 | CM.DPNOTE ---
DC Note Patient is discharged today; [facility] able to accept and patient/son remain agreeable to plan. Discussed transport options with HERLINDA Hernandez who felt private vehicle would be reasonable. Discussed this with karin Butler and with Kenzie at [facility]- all agreeable. Son plans to leave at approx 1000. SNF DC packet emailed to Kenzie, which included: Signed DC Summary, signed med list w/RX, PASRR and DC visit report. Nurse to Nurse report called by bedside RN. According to karin Butler, patient's [facility] application has been denied, son was told patient has too much money in her bank account. Provided karin Butler with the Senior resources booklet and strongly encouraged to 1. Call [facility] for advice, guidance, discussion about police inspector care ideas 2. Use patient's money towards in home care when she returns home from [facility] Plan: Discharge to [facility] via son to transport. BRIAN
[2024-10-01 09:39] VITALS: BP 153/73; PULSE 66; RESP 16; TEMP 35.8; O2SAT 99
[2024-10-01 09:41] VITALS: BP 153/73; PULSE 70
[2024-10-01] MEDS: AMLODIPINE 5 MG TABLET PO (09:41)
[2024-10-01] MEDS: lisinopriL 20 MG TABLET PO (09:41)
--- NOTE | 2024-10-01 10:01 | PC.NURSE ---
Addendum entered by Brittney Reilly R.N. 10/01/24 10:21: 1021 Patient off floor via wheelchair accompanied by PT. IV to right arm removed and band-aid applied. No tele. Discharge instructions provided to son as well as facility paperwork. Patient family verbalized understanding. Original Note: 1000 Report given to Kia Burgos. Plan of care discussed. Patient medications administered.
--- NOTE | 2024-10-01 10:23 | DIET.PN1 ---
Dietary Progress Note Assessment: f/u Late entry f/u progress note from visit with pt at bedside yesterday 09/30/24: Met with pt in room who was distracted by coughing up flem. Both RN and provider were aware and monitoring pt. Pt reported she would be unable to eat dinner d/t this. Encouraged intake as tolerated. Issue later resolved and pt ate some of dinner. Ht: 149.86 cm Wt: 46.5 kg BMI: 20.6 Last BM: 10/01/24 (10/01/24 09:20) MNA: 6 Justin Score: 17 Diet: 09/29/24 Dinner Dysphagia Diet Diet Modifications: Food Texture: Level 6-Soft & Bite-sized Liquid Consistency: Level 0 - Thin Nutrition Percent Meal Consumed 50% 10/01/24 09:20 Percent Meal Consumed 25% 09/30/24 18:00 Percent Meal Consumed 5 09/29/24 18:00 Labs: RBC 3.00 X10^6/uL (4.0-5.2) L 09/30/24 05:47 Hgb 9.6 g/dL (12.0-16.0) L 09/30/24 05:47 Hct 27.6 % (36-46) L 09/30/24 05:47 Creatinine 1.12 mg/dL (0.52-1.04) H 10/01/24 04:55 Hemoglobin A1c 4.9 % (4.0-6.0) 09/28/24 04:15 Electronically Signed by: Margot Dowd 10/01/24 10:23 Clinical Dietitian [address] [address]
--- NOTE | 2024-10-01 10:33 | OT.IP.TRT ---
Current Diagnoses Cerebral infarction, unspecified (09/27/24) Occupational Therapy Treatment Note M2 OT-IP Current Condition Start: 09/28/24 12:41 Freq: Status: Active Protocol: Document 09/28/24 12:43 [facility] (Rec: 09/28/24 13:06 [facility] Desktop) Occupational Therapy Current Condition Current Condition Evaluation Date 09/28/24 Treatment Diagnosis CVA Diagnosis Onset Date 09/27/24 M3 OT- IP Subjective and Pain Start: 09/28/24 12:41 Freq: Status: Active Protocol: Document 10/01/24 11:02 [facility] (Rec: 10/01/24 11:11 [facility] Desktop) OT- Subjective Occupational Therapy Visit Type Type Treatment Note Visit Start Time 09:45 Visit Stop Time 10:33 Occupational Therapy Visit Comments Patient Comments Pt agreed to get dressed so able to go to skilled rehab via transport of her son. Patient/Caregiver Goals TO get better. OT Pain Assessment Pain When Pain Assessed At Rest Location left heel Pain Behaviors Facial Grimacing,Holding Area M4 OT- IP ADL's Start: 09/28/24 12:41 Freq: Status: Active Protocol: Document 10/01/24 11:02 [facility] (Rec: 10/01/24 11:11 [facility] Desktop) OT OGK-Ldpw-Fihggrj Comments OT Self-Feeding Comments Not at meal time. OT ADL-Grooming General Evaluation Grooming Ability Standby Assistance Areas Needing Assistance Retrieving/Set-up of Grooming Items Comments OT Grooming Comments Pt to do after set-up while seated. OT ADL-Oral Care General Eval Oral Care Ability Independent OT ADL-Dressing General Eval Upper Body Dressing Ability Minimal Assistance Lower Body Dressing Ability Maximum Assistance Comments OT Dressing Comments Assist to help straighten her shirt, assist to rona clothing over her feet and assist to help pull up over her hips. OT ADL-Toileting Comments OT Toileting Comments Not performed. OT ADL-Bathing Comments OT Bathing Comments Not performed. M5 OT- IP IADL's Start: 09/28/24 12:41 Freq: Status: Active Protocol: Document 09/28/24 12:43 [facility] (Rec: 09/28/24 13:06 [facility] Desktop) OT-Instrumental Activities of Daily Living Money Management Money Management Caregiver Provides Assistance Meal Preparation Meal Preparation Caregiver Provides Assist Tubing Assembler Tubing Assembler Caregiver Provides Assist M6 OT- IP Functional Cognition Start: 09/28/24 12:41 Freq: Status: Active Protocol: Document 10/01/24 11:02 [facility] (Rec: 10/01/24 11:11 [facility] Desktop) Cognitive Factors Limiting Selfcare Function Cognitive Ability Level of Alertness Alert Patient Orientation Name,Place,Situation Attention Span Ability Capable of Focused Attention, Capable of Sustained Attention Ability to Follow Commands Able to Follow One Step Commands Memory Description Short Term Impaired Cognitive Comments Cognitive Assessment Comments Pt needing lots of encouragement and tends to perseverates on things, today wondering where her purse was at. Due to decreased STM, pt has to cued and reminded what to do for safety with FWW and overall safety awareness. Best to have call light directly in front of her to recall to call for assistance when needed. M7 OT- IP Mobility and Balance Start: 09/28/24 12:41 Freq: Status: Active Protocol: Document 10/01/24 11:02 [facility] (Rec: 10/01/24 11:11 [facility] Desktop) OT-Transfer Assessment Sit to and From Stand Sit to and from Stand Moderate Assistance Transfers Transfer Ability Moderate Assistance Technique Transfer Destination Car,Chair,Toilet Transfer Technique Stand Step Pivot Devices Transfer Assistive Devices Gait Belt,Front Wheeled Walker Comments Mobility Comments Sit to stand MODA x1 to FWW and pt tends to lean on her heels posteriorly. Pt needing assist for balance and to help guide the FWW. Pt's son states good understanding to drive directly to the facility and have staff there assist with her transfer out of the car. OT- Balance Assessment Sitting Balance and Reactions Static Sitting Balance Ability Good Dynamic Sitting Balance Ability Fair Standing Balance and Reactions Static Standing Balance Ability Poor Dynamic Standing Balance Ability Poor M8 OT- IP Objective Assessments Start: 09/28/24 12:41 Freq: Status: Active Protocol: Document 09/28/24 12:43 [facility] (Rec: 09/28/24 13:06 [facility] Desktop) OT Gross Range of Motion Upper Extremity Range of Motion ROM Impairments grossly WFL, decreased as end ROM OT Strength Comments Strength Comments 4-/5 for available ROM OT Sensation Assessment Comments Summary Comments Decreased left shoulder and elbow to deep and light touch. M9 OT- IP Assessment and Plan Start: 09/28/24 12:41 Freq: Status: Active Protocol: Document 10/01/24 11:02 [facility] (Rec: 10/01/24 11:11 [facility] Desktop) OT Summary Assessment and Plan Potential Rehabilitation Potential Good Analytic Complexity at Evaluation Moderate Summary OT Impairments Range of Motion,Strength, Balance,Functional Cognition, Functional Mobility,Self- Feeding,Grooming,Dressing, Toileting,Bathing,Toilet Transfers,Shower Transfers, Activity Tolerance Progress Towards Goals Slow Progress due to Activity Tolerance,Slow Progress due to Cognition Assessment Summary Pt able to participate in dressing, and transfer to the wc, and car. Pt still needing concrete cues to follow. Pt still having decreased STM along with decreased overall safety awareness. Pt going to skilled rehab Goals Self-Feeding Goal Independent Grooming Goal Independent Dressing Goal Standby Assistance Toileting Goal Standby Assistance Bathing Goal Minimal Assistance Toilet Transfer Goal Standby Assistance Shower Transfer Goal Standby Assistance Days to Meet Goals 19 Frequency of Treatment Other frequency 5x/week Treatment Plan OT Treatment Plan ADL Training,Functional Cognition Training,Functional Mobility,Vision Retraining, Patient/Family Education, Discharge Planning Discharge Recommendations OT Discharge Recommendations SNF Rehab Transportation Needs at Discharge Wheelchair/Cabulance
--- NOTE | 2024-10-01 11:10 | CM.DPNOTE ---
DC Note Cont Placed call to Nati Farley, APS P [phone], had to LM. Updated on patient's discharge to [facility] today. JW
== END 2024-10-01 10:15 | DRG 64 ==
LOC: ED 16:56 → AC 17:00
PROVIDERS: Admitting Provider Internal Medicine; Emergency Provider Emergency Medicine; PCP Internal Medicine; Referring Provider Emergency Medicine; Visit Provider Internal Medicine
DX: I63.9 Cerebral infarction, unspecified (principal); G93.41 Metabolic encephalopathy; G93.6 Cerebral edema; I48.20 Chronic atrial fibrillation, unspecified; E87.1 Hypo-osmolality and hyponatremia; R29.705 NIHSS score 5; R29.702 NIHSS score 2; Z66 Do not resuscitate; E78.5 Hyperlipidemia, unspecified; K52.9 Noninfective gastroenteritis and colitis, unspecified; E83.42 Hypomagnesemia; E87.6 Hypokalemia; T17.208A Unspecified foreign body in pharynx causing other injury, initial encounter; W44.9XXA Unspecified foreign body entering into or through a natural orifice, initial encounter; R11.10 Vomiting, unspecified; H53.8 Other visual disturbances; R53.1 Weakness; Z86.73 Personal history of transient ischemic attack (TIA), and cerebral infarction without residual deficits; E11.22 Type 2 diabetes mellitus with diabetic chronic kidney disease; I12.9 Hypertensive chronic kidney disease with stage 1 through stage 4 chronic kidney disease, or unspecified chronic kidney disease; N18.30 Chronic kidney disease, stage 3 unspecified; Z79.83 Long term (current) use of bisphosphonates; Z88.8 Allergy status to other drugs, medicaments and biological substances
CPT/HCPCS: 0241U; 36415; 70450; 70551; 71045; 72125; 80048; 80053; 80061; 80305; 81003; 81015; 82140; 83036; 83690; 83735; 84300; 84443; 85025; 85610; 87086; 87507; 92526; 92610; 93005; 93307; 93880; 96365; 97116; 97129; 97130; 97163; 97166; 97530; 97535; 99284; J0696; J1650; J2405; J2765; J3475